=== PATIENT | male | born 1950 | race Caucasian/White ===

== ENCOUNTER → 2018-06-07 10:37 | Outpatient (CLI) | payer MEDICARE, SELFPAY ==
[2018-06-07 12:33] LABS: AST(SGOT) 19 U/L (15-37); Alanine Aminotransfer ALT/SGPT 33 U/L (16-61); Albumin, Serum 3.8 g/dL (3.2-5.0); Alkaline Phosphatase 65 U/L (45-117); Bilirubin, Direct 0.09 mg/dL (0.00-0.30); Cholesterol 165 mg/dL (200); Erythrocyte Sedimentation Rate 9 mm/hr (0-20); Globulin 3.8 g/dL (2.2-4.2); High Density Lipoprotein 27 mg/dL; Protein, Total 7.6 g/dL (6.4-8.2); Rheumatoid Factor < 10.0 IU/mL (<15); Triglycerides 455 mg/dL
[2018-06-08 14:51] LABS: ANTINUCLEAR ANTIBODIES DIRECT Negative (Negative)
== END ==
PROVIDERS: Family Provider Family Medicine; PCP Family Medicine; Visit Provider Family Medicine
DX: E78.2 Mixed hyperlipidemia (principal); M13.0 Polyarthritis, unspecified
CPT/HCPCS: 36415; 80061; 80076; 85652; 86038; 86431

== ENCOUNTER → 2018-12-05 10:52 | Outpatient (CLI) | payer MEDICARE, SELFPAY ==
[2018-12-05 12:06] LABS: Absolute Lymphocyte Count 1.92 X10^3/ul (0.83-4.51); Absolute Neutrophil Count 5.5 X10^3/uL (2.0-7.7); Basophil# 0.02 X10^3/uL; Basophil% 0.2 % (0-1); Eosinophil# 0.11 X10^3/uL; Eosinophils% 1.3 % (0-5); Hematocrit 46.6 % (40-54); Hemoglobin 15.5 g/dl (13.0-16.5); Lymphocyte # 1.92 X10^3/ul (4.0); Mean Corp Hgb Conc 33.3 g/gl (32-36); Mean Corpuscular Hgb 30.6 pg (27.0-32.0); Mean Corpuscular Volume 92.1 fL (80-94); Mean Platelet Vol. 10.1 fl (6.2-12.0); Monocyte% 8.4 % (0-10); Neutrophil # 5.54 X10^3/uL (2.7-7.7); Neutrophil % 66.6 % (47-70); Platelet Count 176 K/mm3 (150-450); RBC Distribution Width CV 13.2 % (11.6-14.6); RBC Distribution Width SD 43.9 fl (35.1-43.9); Red Blood Count 5.06 M/mm3 (4.6-6.2); White Blood Count 8.3 K/mm3 (4.4-11.0)
[2018-12-05 12:10] LABS: POSITIVE COUNT NO; POSITIVE DIFFERENTIAL NO; POSITIVE MORPHOLOGY NO
[2018-12-05 12:34] LABS: Color, Urine Yellow (Yellow); Glucose, Dipstick Normal (Normal); Leukocyte Esterase-Dipstick 100 /ul (Negative); Nitrite-Dipstick Positive (Negative); Occult Blood-Urine 50 /ul (Negative); Protein-Dipstick 500 mg/dl (Negative); Urine Clarity Sl. Cloudy (Clear); Urine Urobilinogen 8 mg/dl (Normal); Urine pH 6.5 (5.0 - 8.0)
[2018-12-05 12:36] LABS: AST(SGOT) 17 U/L (15-37); Alanine Aminotransfer ALT/SGPT 29 U/L (16-61); Albumin, Serum 3.6 g/dL (3.2-5.0); Alkaline Phosphatase 64 U/L (45-117); Anion Gap 10 (5-15); BUN 22 mg/dL (7-18); BUN/Creat Ratio 28.7 RATIO (10-20); Calcium,Total 8.7 mg/dL (8.5-10.1); Chloride 110 mmol/L (98-107); Cholesterol 169 mg/dL (200); Creatinine, Serum 0.77 mg/dL (0.70-1.30); EST Glomerular Filtration Rate 108 mL/min (>60); Est Glom Filt Rate - Afr Amer 131 mL/min (>60); Globulin 3.7 g/dL (2.2-4.2); Glucose 107 mg/dL (74-106); High Density Lipoprotein 26 mg/dL; PSA,Total - Annual Screen 0.97 ng/mL (0.00-4.00); Potassium 3.8 mmol/L (3.5-5.1); Protein, Total 7.3 g/dL (6.4-8.2); Sodium Level 143 mmol/L (136-145); Triglycerides 468 mg/dL
[2018-12-05 12:56] LABS: Ketone-Dipstick 150 mg/dl (Negative); Urine Bilirubin Dipstick 3 mg/dL (Negative)
== END ==
PROVIDERS: Family Provider Family Medicine; PCP Family Medicine; Referring Provider Family Medicine; Visit Provider Family Medicine
DX: Z00.00 Encounter for general adult medical examination without abnormal findings (principal); E78.2 Mixed hyperlipidemia; I10 Essential (primary) hypertension; Z12.5 Encounter for screening for malignant neoplasm of prostate
CPT/HCPCS: 36415; 80053; 80061; 81002; 84153; 85025; G0103

== ENCOUNTER → 2019-06-05 | Outpatient (CLI) | payer MEDICARE, SELFPAY ==
[2019-06-05 10:50] LABS: ALB/GLOB Ratio 0.9 RATIO (0.9-2.4); AST(SGOT) 20 U/L (15-37); Alanine Aminotransfer ALT/SGPT 33 U/L (16-61); Albumin, Serum 3.6 g/dL (3.2-5.0); Alkaline Phosphatase 72 U/L (45-117); Anion Gap 6 (5-15); BUN 15 mg/dL (7-18); BUN/Creat Ratio 17.1 RATIO (10-20); Chloride 106 mmol/L (98-107); Cholesterol 190 mg/dL (200); Creatinine, Serum 0.88 mg/dL (0.70-1.30); EST Glomerular Filtration Rate 93 mL/min (>60); Est Glom Filt Rate - Afr Amer 112 mL/min (>60); Globulin 3.9 g/dL (2.2-4.2); Glucose 118 mg/dL (74-106); High Density Lipoprotein 27 mg/dL; Potassium 3.8 mmol/L (3.5-5.1); Protein, Total 7.5 g/dL (6.4-8.2); Sodium Level 139 mmol/L (136-145); Triglycerides 522 mg/dL
== END | disposition home or self-care (01) ==
LOC: MTLAB 08:17
PROVIDERS: Family Provider Family Medicine; PCP Family Medicine; Referring Provider Family Medicine; Visit Provider Family Medicine
DX: I10 Essential (primary) hypertension (principal); E78.5 Hyperlipidemia, unspecified
CPT/HCPCS: 36415; 80053; 80061

== ENCOUNTER 2019-07-02 12:30 | Outpatient (RCR) | payer MEDICARE, SELFPAY ==
--- NOTE | 2019-06-05 10:51 | HP.PTEVAL ---
Patient's Visit Information SOLOMON OSEI is a 68 year old M referred to Physical Therapy by ALEXIS HDZ with a diagnosis of vertigo. Date of Evaluation: 06/05/19 Physical Therapist: Blue Yang DPT, OCS, CSCS - Visit Plan Frequency: 1x/Week Duration: 4-6 Weeks Plan: weekly x 2-4 as needed for positional checks and monitor need for adaptation ex. - Subjective Findings: I have vertigo. Started as ear infection with spinning with rolling. Went to doctor adn had ear infection L ear. Started a couple months ago. Better now but if he gets up too quickly he can spin for a few seconds. Can also get this bending and rolling still. Has to be careful with balance but it is good for the most part. Heights can also be a problem. Sleep is OK. Feels mostly normal in between these episodes. Gets it once or twice per day, sometimes more. Has stairs at home and going down can feel unsteady. Has a railing and uses it. Going up steps not a problem. No regular ex. Spends day cleaning and in yard. Avoiding heights and excessive activitiy. - Objective Walks I and trasnfers I but slightly slow. C/S AROM 45 rotations and 40 ext without symptoms or pain. UE AROM WFL. - R hallpike shanita. + L hallpike shanita with up torsional nystagmus of 5 seconds duration and dizzy. Treated with L cathi then - HD test. - Balance Scores Functional Gait Assessment Score: 25 % Disability: 16.6700 CATSIB Score (Max score 120 seconds): 115 - Goals Goal 1:: Abolish daily vertigo Goal Time Frame: 2-4 Weeks Goal 2:: Pt feel 100% back to normal and normal acitvitiy Goal Time Frame: 2-4 Weeks Goal 3:: <10% disability on DHI Goal Time Frame: 2-4 Weeks - Rehabilitation Potential Physical Therapy Diagnosis: L post canalithiasis BPPV Rehabilitation Potential: Good - Anticipated Interventions Patient/Client Instruction: Educate patient on: Condition, Plan of Care For the Purpose of:: To increase tolerance to activity/condition/position Comment: positional as needed. balance if needed. For the Purpose of:: To increase tolerance to activity/condition/position Thank you for the opportunity to evaluate your patient. For Medicare and Medicare HMO plans, please review the plan of care and approve it. It will need to be FAXED BACK to us at [phone] for Medicare purposes. For Medicare only, by signing this I certify the plan of care. Please let me know if there are questions or concerns regarding this plan of care. Physician Signature: Date:
--- NOTE | 2019-09-06 15:38 | HP.PT.NRP ---
HP - Discharge Summary (1) - Patient Information SOLOMON OSEI was seen in my office for initial evaluation on 06/05/19. The following Plan of Care was established for this patient: Initial Frequency: 1x/Week Initial Duration: 4-6 Weeks - Anticipated Interventions Patient/Client Instruction: Educate patient on: Condition, Plan of Care For the Purpose of:: To increase tolerance to activity/condition/position For the Purpose of:: To increase tolerance to activity/condition/position This patient was last seen in our office 07/02/19. Pertinent comments regarding their Physical therapy will appear below: Pt seen 2 visits of positional treatments adn was 95% better. He wanted to f/u one last time but neglected to attend that session. At this point,it has been over two months and I will discontinue due to nonattendance. At this point I will be discontinuing this patient from physical therapy. I would be happy to see this patient again in the future if found appropriate by the physician. Thank you! Blue Yang, DPT, OCS, CSCS
== END 2019-07-02 19:00 | disposition home or self-care (01) ==
LOC: PT 12:30
PROVIDERS: Family Provider Family Medicine; PCP Family Medicine
DX: R42 Dizziness and giddiness (principal)
CPT/HCPCS: 97162; 97530

== ENCOUNTER 2019-09-09 20:48 | Inpatient (IN) | payer MEDICARE, SELFPAY ==
[2019-09-09] VITALS (8 sets, daily range): BP systolic 96–123; BP diastolic 76–98; PULSE 123–178; RESP 21–28; TEMP 36.7–37.3; O2SAT 93–96; BMI 40.6
--- NOTE | 2019-09-09 20:54 | ED.RN ---
CALLED FOR EKG PER RN REQUEST, PULLED OLD EKGS FOR
--- NOTE | 2019-09-09 21:00 | EKG12_ITS ---
Test Reason : CP Blood Pressure : / mmHG Vent. Rate : 171 BPM Atrial Rate : 258 BPM P-R Int : 000 ms QRS Dur : 078 ms QT Int : 270 ms P-R-T Axes : 000 011 022 degrees QTc Int : 455 ms Atrial fibrillation with rapid ventricular response with premature ventricular or aberrantly conducte d complexes Nonspecific ST and T wave abnormality Abnormal ECG Confirmed by TANG MONGE ([id number]), deputy editor in chief EDUARDO MADERA ([id number]) on 09/12/2019 8:34:13 AM Referred By: Tremayne Ruiz Confirmed By:TANG MONGE
--- NOTE | 2019-09-09 21:07 | RAD_ITS ---
STUDY: X-RAY CHEST REASON FOR EXAM: Male, 68 years old. Flulike symptoms. TECHNIQUE: Single frontal view of the chest. COMPARISON: None. FINDINGS: There are low lung volumes. There is no focal consolidation. Normal size heart. Normal mediastinum and marci. Normal visualized pulmonary arteries. Normal visualized aortic arch and descending thoracic aorta. There are diffuse degenerative changes of the visualized thoracic spine. Normal visualized ribs, clavicles, and shoulders. There is no demonstrated abnormality of the visualized soft tissue structures of the upper abdomen. RAD/Chest 1 View (Portable) IMPRESSION: No acute cardiopulmonary process. Electronically Signed: Brandie Agee MD at 21:59 EDT Tel , Service support ,
[2019-09-09 21:19] LABS: Absolute Lymphocyte Count 0.86 X10^3/uL (0.83-4.51); Absolute Neutrophil Count 7.6 X10^3/uL (2.0-7.7); Basophil# 0.06 X10^3/uL; Basophil% 0.6 % (0-1); Eosinophil# 0.05 X10^3/uL; Eosinophils% 0.5 % (0-5); Hematocrit 45.7 % (40-54); Hemoglobin 15.9 g/dL (13.0-16.5); Lymphocyte # 0.86 X10^3/ul (4.0); Lymphocyte % 8.8 % (19-41); Mean Corp Hgb Conc 34.8 g/dL (32-36); Mean Corpuscular Hgb 30.6 pg (27.0-32.0); Mean Corpuscular Volume 88.1 fL (80-94); Mean Platelet Vol. 10.8 fl (6.2-12.0); Monocyte# 1.09 X10^3/uL; Monocyte% 11.2 % (0-10); NRBC Flagged by Analyzer 0 % (0-5); Neutrophil # 7.58 X10^3/uL (2.7-7.7); Neutrophil % 78.1 % (47-70); POSITIVE MORPHOLOGY YES; Platelet Count 136 K/mm3 (150-450); RBC Distribution Width CV 13.2 % (11.6-14.6); RBC Distribution Width SD 42.8 fl (35.1-43.9); Red Blood Count 5.19 M/mm3 (4.6-6.2); White Blood Count 9.7 K/mm3 (4.4-11.0)
[2019-09-09 21:20] LABS: International Normalized Ratio 1.2
[2019-09-09 21:21] LABS: Differential Indicated SCAN CRITERIA MET
[2019-09-09] MEDS: Ondansetron 4 MG/2 ML Vial IV (21:26)
[2019-09-09] MEDS: dilTIAZem 25 MG/5 ML Vial 20 MG IV BOLUS (21:26)
[2019-09-09] MEDS: 0.9% Normal Saline 1,000 ML 1000 ML IV (21:26)
[2019-09-09 21:31] LABS: Anion Gap 11 (5-15); BUN 16 mg/dL (7-18); BUN/Creat Ratio 13.4 RATIO (10-20); Calcium,Total 8.5 mg/dL (8.5-10.1); Chloride 107 mmol/L (98-107); Creatinine, Serum 1.19 mg/dL (0.70-1.30); EST Glomerular Filtration Rate 65 mL/min (>60); Est Glom Filt Rate - Afr Amer 79 mL/min (>60); Estimated Creatinine Clearance 65.04 ml/min; Glucose 153 mg/dL (74-106); Potassium 2.9 mmol/L (3.5-5.1); Sodium Level 139 mmol/L (136-145)
[2019-09-09 22:00] LABS: Differential Comment SCANNED
[2019-09-09 22:17] LABS: Lactic Acid 1.8 mmol/L (0.4-2.0)
--- NOTE | 2019-09-09 22:54 | HP.PCM_ITS ---
Problem List (1) Hypertension Status: Acute (2) Hyperglycemia Status: Acute (3) BPH Status: Chronic (4) Dyslipidemia Status: Acute (5) A. fib with RVR Status: Acute (6) UTI/cystitis Status: Acute (7) Seizure disorder Status: Chronic History of Present Illness Date of Admission: 09/09/19 Chief Complaint: Feeling generalized weakness The patient is a 68 year old M with history of hypertension but no cardiac history came to ER with not feeling well, generalized weakness/not able to move around for last 4 days. Patient has fever and chills for 4 days. Complain of burning micturition for 3 to 4 days with increased frequency, urgency and incomplete emptying of bladder. Patient had UTI about 3 to 4 months ago. Patient also had intermittent nausea but denies vomiting, diarrhea or constipation to me. To ER physician, Dr. Billingsley he said he has felt like some stomach flu and diarrhea. [] In ED, patient was found to have A. fib with RVR, heart rate 150/min, respiratory rate 28/min, blood pressure 111/98. EMS EKG shows A. fib with RVR at 147 bpm. 2 EKGs done until now shows A. fib with RVR, with 7 beats of narrow complex, supraventricular complexes. Second and third EKG similar A. fib with RVR but rate is better controlled. Patient is on Cardizem drip. Patient was found potassium 2.9 and second potassium 3.1 after 40 M EQ of K. Dur. Past Medical History Past Medical History (Chronic Problems): Chronic Problems BPH (Chronic) Seizure disorder (Chronic) Allergies No Known Allergies Allergy (Verified 09/03/14 11:09) Home Medications: Ambulatory Orders Medication Instructions Recorded Buspirone HCl 30 mg PO BID 08/21/14 Aspirin E.C. [Ecotrin] 81 mg PO DAILY@0800 #1 09/04/14 [place]-3 Acid Ethyl Esters [Lovaza] 1 gm PO BID #1 09/04/14 Celecoxib [Celebrex] 200 mg PO DAILY 09/09/19 Clonazepam [Klonopin] 1 mg PO BID 09/09/19 Clonazepam [Klonopin] 2 mg PO QHS 09/09/19 Desvenlafaxine [Khedezla] 100 mg PO DAILY 09/09/19 Pravastatin [Pravachol] 40 mg PO QHS 09/09/19 Primidone 50 mg PO BID 09/09/19 Ropinirole HCl [Requip] 0.5 mg PO QHS 09/09/19 Tamsulosin HCl [Flomax] 0.4 mg PO DAILY 09/09/19 traZODone [Desyrel] 50 mg PO QHS 09/09/19 Smoking Status: Former smoker - Started smoking at the age of 14 years at 1 pack /day and quit about 15 years ago. - *Family History Paternal History Items: Cancer - Lung cancer Review of Systems Constitutional: Reports: Chills, Fever, Malaise, Weight Change, Fatigue Eyes: Reports: - HEENT: Denies: Head Aches, Sinus Congestion, Sinus Drainage Cardiovascular: Denies: Chest Pain, Palpitations Respiratory: Denies: Cough, Shortness of breath at rest, Sputum production Gastrointestinal: Reports: Nausea. Denies: Abdominal Pain, Constipation, Diarrhea, Vomiting Genitourinary: Reports: Dysuria, Frequency, Hesitancy, Urgency Musculoskeletal: Reports: Back Pain. Denies: Joint Pain, Joint Tenderness Skin: Denies: Rash, Wounds Neurological: Denies: Numbness, Tingling, Focal weakness Psychiatric: Denies: Anxiety, Depression, Homicidal Ideations, Suicidal Ideations Hematologic/ Lymphatic: Denies: Easy Bruising, Easy Bleeding VTE Information - Inpt Only VTE Present on Admission: No VTE Mechan Device Prophylaxis: None VTE Pharm Prophylaxis ordered?: No Reason prophylaxis not ordered:: Procedure Not Indicated - Already on Eliquis for A. fib Patient Problems: Active and Suspected Problems Hypertension (Acute) Hyperglycemia (Acute) Dyslipidemia (Acute) A. fib with RVR (Acute) UTI/cystitis (Acute) - Physical Exam General: Alert, Oriented x3, Cooperative HEENT: Atraumatic, PERRLA, EOMI, Normocephalic Oral: Dry Mucosa - Looks very dehydrated Neck: Supple, No JVD, Negative Carotid Bruits Lungs: Clear to auscultation, Normal air movement, No rhonchi, No wheeze, No rales Cardiovascular: Normal S1, Normal S2, No murmurs, Irregular Rate, Tachycardic Abdomen: Bowel Sounds Present, Soft, Non Tender, Non-Distended Extremities: No edema, Capillary Refill Less than 3 Seconds Skin: No rashes, No breakdown, - - History of melanoma status post excisions Musculoskeletal: No Tenderness to Palpation of Joints or Extremities, Arthritic Changes Neurological: Cranial nerves II-XII grossly intact, Deep Tendon Reflexes 2+/4 and Symmetrical, Neuro grossly intact Psych/Mental Status: Normal Affect, Appropriate Vital Signs Temp Pulse Resp BP Pulse Ox 98.1 F 136 H 22 H 107/76 95 09/09/19 20:49 09/09/19 22:52 09/09/19 22:52 09/09/19 22:52 09/09/19 22:52 Oxygen Flow Rate (L/min) 2 Oxygen Delivery Method Nasal Cannula Weight: 291 lb 3.69 oz Body Mass Index (BMI) 40.6 Intake and Output for Last 24 Hours 09/07/19 09/08/19 09/09/19 23:59 23:59 23:59 Intake Total 1000 / 1000 Balance 1000 / 1000 Laboratory Tests Past 24 Hrs 09/09/19 09/09/19 09/09/19 20:54 20:54 20:54 WBC 9.7 RBC 5.19 Hgb 15.9 Hct 45.7 MCV 88.1 MCH 30.6 MCHC 34.8 RDW Std Deviation 42.8 RDW Coeff of Ayde 13.2 Plt Count 136 L MPV 10.8 Immature Gran % (Auto) 0.800 Neut % (Auto) 78.1 H Lymph % (Auto) 8.8 L Darke % (Auto) 11.2 H Eos % (Auto) 0.5 Baso % (Auto) 0.6 Absolute Neuts (auto) 7.6 Absolute Lymphs (auto) 0.86 Nucleated RBC % 0 Differential Comment SCANNED PT 15.0 H INR 1.2 Sodium 139 Potassium 2.9 L Chloride 107 Carbon Dioxide 21.0 Anion Gap 11 BUN 16 Creatinine 1.19 Estim Creat Clear Calc 65.04 Est GFR (MDRD) Af Amer 79 Est GFR (MDRD) Non-Af 65 BUN/Creatinine Ratio 13.4 Glucose 153 H Lactic Acid Calcium 8.5 Troponin I 0.047 H 09/09/19 21:31 WBC RBC Hgb Hct MCV MCH MCHC RDW Std Deviation RDW Coeff of Ayde Plt Count MPV Immature Gran % (Auto) Neut % (Auto) Lymph % (Auto) Darke % (Auto) Eos % (Auto) Baso % (Auto) Absolute Neuts (auto) Absolute Lymphs (auto) Nucleated RBC % Differential Comment PT INR Sodium Potassium Chloride Carbon Dioxide Anion Gap BUN Creatinine Estim Creat Clear Calc Est GFR (MDRD) Af Amer Est GFR (MDRD) Non-Af BUN/Creatinine Ratio Glucose Lactic Acid 1.8 Calcium Troponin I Assessment/Plan All Active Problems Hypertension (Acute) Hyperglycemia (Acute) Dyslipidemia (Acute) A. fib with RVR (Acute) UTI/cystitis (Acute) The patient is a 68 year old M with history of hypertension but no cardiac history came to ER with not feeling well, generalized weakness/not able to move around for last 4 days. Patient has fever and chills for 4 days. Complain of burning micturition for 3 to 4 days with increased frequency, urgency and incomplete emptying of bladder. Patient had UTI about 3 to 4 months ago. Patient also had intermittent nausea but denies vomiting, diarrhea or constipation to me. To ER physician, Dr. Billingsley he said he has felt like some stomach flu and diarrhea. [] In ED, patient was found to have A. fib with RVR, heart rate 150/min, respiratory rate 28/min, blood pressure 111/98. EMS EKG shows A. fib with RVR at 147 bpm. 2 EKGs done until now shows A. fib with RVR, with 7 beats of narrow complex, supraventricular complexes. Second and third EKG similar A. fib with RVR but rate is better controlled. Patient is on Cardizem drip. Patient was found potassium 2.9 and second potassium 3.1 after 40 M EQ of K. Dur. 1. A. fib with RVR most probably caused by UTI/cystitis: Patient is on Cardizem drip. Rate increase to 10 mg/h. Heart rate goal less than 100/min. Started on metoprolol 25 mg twice daily. Eliquis 5 mg p.o. twice daily. TSH and fasting profile tomorrow a.m. Cardiac enzymes rule out ACS. Hypokalemia with dehydration: Patient denies any obvious cause of fluid loss but looks dehydrated. IV fluid normal saline 125 mill per hour. Potassium is being replaced. Check magnesium and phosphorus. 2. Acute on recurrent UTI/cystitis, complicated with BPH: Patient had a UTI about 2 to 3 months ago. UA with urine culture ordered. Empirically started on IV ceftriaxone. Kidneys and bladder ultrasound. Bladder scan for postvoid residual. Continue Flomax. 3. Hyperglycemia: A1c tomorrow a.m. glucose 153 in BMP. It was mildly elevated 118 in May 2019. Possible diabetes mellitus type 2 but patient is not diagnosed yet 4. Hypertension, dyslipidemia, chronic seizure disorder: Stable. Blood pressure is controlled 111/98. On Cardizem drip. Continue patient home medication primidone, clonazepam. 5. History of melanoma with multiple excisions in the skin: Patient denies visceral organ metastasis. DVT prophylaxis: On Eliquis 5 mg twice daily for A. fib. Laboratory Results 09/09/19 20:54: WBC 9.7, RBC 5.19, Hgb 15.9, Hct 45.7, MCV 88.1, MCH 30.6, MCHC 34.8, RDW Std Deviation 42.8, RDW Coeff of Ayde 13.2, Plt Count 136 L, MPV 10.8, Immature Gran % (Auto) 0.800, Neut % (Auto) 78.1 H, Lymph % (Auto) 8.8 L, Darke % (Auto) 11.2 H, Eos % (Auto) 0.5, Baso % (Auto) 0.6, Absolute Neuts (auto) 7.6, Absolute Lymphs (auto) 0.86, Nucleated RBC % 0, Differential Comment SCANNED 09/09/19 20:54: PT 15.0 H, INR 1.2 09/09/19 20:54: Sodium 139, Potassium 2.9 L, Chloride 107, Carbon Dioxide 21.0, Anion Gap 11, BUN 16, Creatinine 1.19, Estim Creat Clear Calc 65.04, Est GFR (MDRD) Af Amer 79, Est GFR (MDRD) Non-Af 65, BUN/Creatinine Ratio 13.4, Glucose 153 H, Calcium 8.5, Troponin I 0.047 H 09/09/19 21:31: Lactic Acid 1.8 09/09/19 23:30: Potassium 3.1 L Clinical Impression(s) from Imaging Studies Chest X-Ray 09/09/19 21:07 IMPRESSION: No acute cardiopulmonary process. Code Visit Inpatient E&M: 20730 Init Hosp L3
--- NOTE | 2019-09-09 22:58 | ED.VISSUMM ---
- ER Visit Summary Date of Service: 09/09/19 Chief Complaint: [Weakness] History of Present Illness: The patient is a 68 M [presents to the emergency department with complaint of not feeling well over the last 4 days. Patient had some chills 4 days ago. Patient had some dysuria and thought maybe he was developing a urinary tract infection. Patient had some intermittent nausea and intermittent watery stools. He denies any chest pain. He denies palpitations. He denies any cough. Denies any abdominal pain. He denies racing heart. Patient has history of high cholesterol and history of kidney stones. She does not have a history of atrial fibrillation.] Physical Examination: [HEENT-PERRLA, EOMI. Cranial nerves II through XII grossly intact. TMs clear. Mucous membranes moist. No adenopathy. Cardiovascular-irregular and tachycardic. No murmurs auscultated. Lungs-clear to auscultation, chest wall stable without crepitus or subcu emphysema Abdomen-normoactive bowel sounds, soft, nontender, no rebound or rigidity, no peritoneal signs. Extremities-intact ?4, normal range of motion, normal pulses, atraumatic] Test Results: [EKG obtained arrival showed atrial fibrillation with a ventricular rate of [address] changes. CBC with differential showing a 9.7, hemoglobin 15.9, hematocrit 46, plates 136. Chemistry showed a sodium of 139, potassium 2.9, chloride 107, CO2 21. Glucose is 153 and BUN 16 and creatinine 1.19. INR was 1.2. Troponin was 0.047.] Urinalysis ordered and pending as patient unable to give a urine yet. Emergency Department Course and Treatment: [Patient was given a liter normal same fluid bolus. Patient was treated with Cardizem 20 mg IV bolus. Patient was started on a Cardizem drip.] Treatment Plan: [Admit] Disposition: [Admit] Impression: [A. fib RVR new onset Hypokalemia] This note was generated with [employer] dictation software. It may contain incorrect words, spelling, and punctuation that were not noted in review of the chart prior to signing ED Disposition - Plan for ED Patient: Referrals: Romero Ya MD [Primary Care Provider] -
[2019-09-09 23:58] LABS: Potassium 3.1 mmol/L (3.5-5.1)
[2019-09-10] VITALS (50 sets, daily range): BP systolic 87–137; BP diastolic 53–100; PULSE 83–137; RESP 18–27; TEMP 36.6–38.2; O2SAT 92–98; BMI 39.5
[2019-09-10 01:17] LABS: Mucous, Urine 0 SEEN /hpf (<or=2+); Red Blood Cells-Urine 0 SEEN /hpf (0-5); Squamous Epithelial Cells - UA 0 SEEN /hpf (0-5)
[2019-09-10 01:30] LABS: Color, Urine Amber (Yellow); Glucose, Dipstick Normal (Normal); Ketone-Dipstick 50 mg/dl (Negative); Leukocyte Esterase-Dipstick 100 /ul (Negative); Nitrite-Dipstick Positive (Negative); Occult Blood-Urine 250 /ul (Negative); Protein-Dipstick 100 mg/dl (Negative); Urine Bilirubin Dipstick Negative (Negative); Urine Clarity Sl. Cloudy (Clear); Urine Urobilinogen 1 mg/dl (Normal)
[2019-09-10 01:35] LABS: Bacteria 4+ /hpf (None Seen); Coarse Granular Cast 0-5 SEEN /lpf (0-5 /lpf); Transitional Epithelial - Ur 0-5 SEEN /hpf (0-5); White Blood Cells 10-25 SEEN /hpf (0-5)
--- NOTE | 2019-09-10 01:39 | EKG12_ITS ---
Test Reason : ARRYTHMIA Blood Pressure : / mmHG Vent. Rate : 129 BPM Atrial Rate : 141 BPM P-R Int : 000 ms QRS Dur : 080 ms QT Int : 314 ms P-R-T Axes : 000 012 -05 degrees QTc Int : 460 ms Atrial fibrillation with rapid ventricular response Nonspecific T wave abnormality Abnormal ECG When compared with ECG of 16-MAR-2002 13:58, Atrial fibrillation has replaced Sinus rhythm Vent. rate has increased BY 50 BPM Non-specific change in ST segment in Inferior leads Non-specific change in ST segment in Anterior leads T wave inversion now evident in Anterior leads Confirmed by TANG MONGE ([id number]), tape editor EDUARDO MADERA ([id number]) on 09/12/2019 10:46:48 AM Referred By: Tremayne Ruiz Confirmed By:TANG MONGE
[2019-09-10] MEDS: Ceftriaxone 1 GM/50 ML BAG IV ×2 (01:51→10:09)
[2019-09-10] MEDS: 0.9% Normal Saline 1,000 ML 125 ML IV ×3 (01:51→20:40)
[2019-09-10] MEDS: clonazePAM 1 MG Tablet 2 MG PO ×2 (01:52→22:25)
[2019-09-10] MEDS: Metoprolol Tartrate 25 MG Tablet PO ×2 (01:53→12:11)
[2019-09-10] MEDS: APIXABAN 5 MG TABLET PO ×3 (02:10→22:26)
[2019-09-10] MEDS: 0.9% NaCl IVPB Med Flush (250 mL) 15 ML IV (02:15)
[2019-09-10 03:08] LABS: Hemoglobin A1c 5.1 % (4.2-6.3)
[2019-09-10 03:17] LABS: Anion Gap 9 (5-15); BUN 15 mg/dL (7-18); BUN/Creat Ratio 15.7 RATIO (10-20); Calcium,Total 8.1 mg/dL (8.5-10.1); Chloride 108 mmol/L (98-107); Creatinine, Serum 0.95 mg/dL (0.70-1.30); EST Glomerular Filtration Rate 84 mL/min (>60); Est Glom Filt Rate - Afr Amer 101 mL/min (>60); Estimated Creatinine Clearance 81.46 ml/min; Glucose 167 mg/dL (74-106); Potassium 3.3 mmol/L (3.5-5.1); Sodium Level 139 mmol/L (136-145); Thyroid Stim Hormone (TSH) 0.81 uIU/mL (0.358-3.74)
[2019-09-10 03:54] LABS: Magnesium 1.9 mg/dL (1.6-2.6); Phosphorus 1.9 mg/dL (2.5-4.9)
--- NOTE | 2019-09-10 05:55 | US_ITS ---
STUDY: RENAL ULTRASOUND - COMPLETE REASON FOR EXAM: Male, 68 years old. Recurrent UTIs. TECHNIQUE: Ultrasound evaluation of the kidneys was performed with real-time and static carrera-scale imaging. COMPARISON: None. FINDINGS: RIGHT KIDNEY: Normal location of the right kidney, which is normal in size. The right kidney measures 11.4 cm x 6.5 cm x 5.5 cm. There is a normal cortex of the right kidney. The renal cortex measures 2.1 cm. There is a 1.8 cm x 2.2 cm x 1.3 cm cyst. There are no right renal calculi. There is no right hydronephrosis. DISTAL RIGHT URETER: There is non-visualization of the distal right ureter. There is no demonstrated right ureterovesical junction calculus. There is no demonstrated right ureteral jet. LEFT KIDNEY: Normal location of the left kidney, which is normal in size. The left kidney measures 12.6 cm x 5.1 cm x 5.0 cm. There is a normal cortex of the left kidney. The renal cortex measures 2.0 cm. There is no left renal mass or cyst. There are no left renal calculi. There is no left hydronephrosis. DISTAL LEFT URETER: There is non-visualization of the distal left ureter. There is no demonstrated left ureterovesical junction calculus. There is no demonstrated left ureteral jet. BLADDER: The distended urinary bladder has a volume of 266 ml. Minimal thickening of the bladder wall measuring 5 mm. There is a 1.6 cm x 2.4 sinogram 1.5 cm polypoid soft tissue density at the base of the bladder. Correlation with endoscopy is recommended. There are no demonstrated bladder calculi. US/Kidney and Bladder IMPRESSION: Right renal cyst. Findings suggestive of a 1.6 x 2.4 cm x 1.5 cm polypoid mass at the base of the bladder. Correlation with cystoscopy is recommended. Electronically Signed: Declan Morgan, at 15:32 EDT , Service support ,
--- NOTE | 2019-09-10 05:55 | ECHOCS_ITS ---
Reason For Study: AFIB Procedure This was a 2D Doppler, Color Flow transthoracic echocardiogram. The study was technically difficult. Contrast injection was performed. Exam performed portable in patient room. Left Ventricle Normal size and thickness. The estimated ejection fraction is 65 %. Unable to assess diastolic dysfunction due to arrhythmia. No regional wall motion abnormalities noted. Right Ventricle Mildly dilated right ventricle. Normal systolic function. Atria The left atrium is severely enlarged. The right atrium is mildly enlarged. Normal atrial septum. Mitral Valve The mitral valve is structurally normal. No prolapse or stenosis seen. Trivial mitral valve insufficiency. Tricuspid Valve Normal tricuspid valve. Mild (1+) tricuspid valve insufficiency. Right ventricular systolic pressure estimated to be 38 mmHg. Mild pulmonary hypertension. Aortic Valve Trisinus/trileaflet aortic valve. Mild diffuse aortic valve thickening. Pulmonic Valve Normal pulmonic valve. Great Vessels Normal aortic root. Normal arch. Normal inferior vena cava. Inferior vena cava collapse with respiration. Pericardium/Pleural No pericardial effusion. Medication Diluted definity 6.0ml given slow IV push to enhance endocardial definition. MMode/2D Measurements & Calculations LVIDd: 4.8 cm IVSd: 1.1 cm Ao root diam: 4.1 cm LVIDs: 3.4 cm LVPWd: 1.3 cm RVDd: 3.7 cm FS: 29.6 % LAV(MOD-bp): 75.6 ml LA A4 area: 24.6 cm2 LA dimension(2D): 3.9 cm LAV(MOD-bp) Indexed: 30.9 ml/m2 LAV(MOD-sp2): 74.8 ml LAV(MOD-sp4): 76.9 ml RA A4 area: 20.5 cm2 Doppler Measurements & Calculations Ao V2 max: 125.8 cm/sec LV V1 max: 111.3 cm/sec PA V2 max: 128.9 cm/sec Ao max P.3 mmHg LV V1 max P.0 mmHg TR max maya: 241.2 cm/sec TR max P.3 mmHg Interpretation Summary The estimated ejection fraction is 65 %. Unable to assess diastolic dysfunction due to arrhythmia. Mildly dilated right ventricle. The left atrium is severely enlarged. The right atrium is mildly enlarged. Trivial mitral valve insufficiency. Mild (1+) tricuspid valve insufficiency. Right ventricular systolic pressure estimated to be 38 mmHg. Mild pulmonary hypertension. Pt appears to be in atrial fibrillation. The study was technically difficult. Contrast injection was performed. There is no comparison study available. Ordering Physician: Tremayne Ruiz Referring Physician: MELLISA NEVES Performed By: Meri Alcantar, VIK, RVT
[2019-09-10] MEDS: clonazePAM 1 MG Tablet PO ×2 (06:02→13:59)
[2019-09-10] MEDS: Aspirin E.C. 81 MG Tablet PO ×2 (08:16)
[2019-09-10] MEDS: busPIRone 15 MG TABLET 30 MG PO ×2 (08:16→22:25)
[2019-09-10] MEDS: Celecoxib 200 MG Capsule PO (08:16)
[2019-09-10] MEDS: Primidone 50 MG Tablet PO ×2 (08:16→22:27)
[2019-09-10 08:26] LABS: Bedside Glucose 144 mg/dL (70-110)
--- NOTE | 2019-09-10 11:03 | CASEMGMT ---
This RN CM to room to complete CM assessment and lab is at bedside at this time. CM will attempt again later. SStaten RN CM
--- NOTE | 2019-09-10 11:22 | CASEMGMT ---
Pt confirms he does have a living will and health care POA. Pt made aware that [facility] does not have a copy. Pt agreeable to bring a copy in when able. CHRIS Estevez
[2019-09-10 11:44] LABS: Phosphorus 1.9 mg/dL (2.5-4.9); Potassium 3.5 mmol/L (3.5-5.1)
[2019-09-10 12:21] LABS: Bedside Glucose 136 mg/dL (70-110)
--- NOTE | 2019-09-10 12:27 | PN_ITS ---
<Jacklyn Barbour - Last Filed: 09/10/19 12:51> Patient Problems: Active and Suspected Problems Hypertension (Acute) Hyperglycemia (Acute) Dyslipidemia (Acute) A. fib with RVR (Acute) UTI/cystitis (Acute) Subjective: Patient seen and examined. Continues to have diarrhea. Reports difficulty urinating, has urgency but unable to void. Denies chest pain, shortness of breath. - Physical Exam General: Alert, Oriented x3, Cooperative HEENT: Atraumatic, PERRLA, EOMI, Normocephalic Neck: Supple, No JVD, Negative Carotid Bruits Lungs: Clear to auscultation, Diminished Cardiovascular: - - Atrial for ablation, tachycardic Abdomen: Bowel Sounds Present, Soft, Non Tender, Non-Distended Extremities: No clubbing, No cyanosis, No edema, Capillary Refill Less than 3 Seconds Skin: No rashes, No breakdown, - - Scattered abrasions on face Musculoskeletal: No Tenderness to Palpation of Joints or Extremities Neurological: Cranial nerves II-XII grossly intact, Neuro grossly intact Psych/Mental Status: Normal Affect, Appropriate Vital Signs Temp Pulse Resp BP Pulse Ox 98.0 F 114 H 20 H 119/90 H 94 09/10/19 11:22 09/10/19 12:11 09/10/19 11:22 09/10/19 12:09 09/10/19 11:22 Oxygen Flow Rate (L/min) 2 Oxygen Delivery Method Room Air Weight: 283 lb 8.231 oz Body Mass Index (BMI) 39.5 Intake and Output for Last 24 Hours 09/08/19 09/09/19 09/10/19 23:59 23:59 23:59 Intake Total 1005.58 / 1488.08 2241.75 / 2241.75 Output Total 550 / 550 Balance 1005.58 / 1438.08 1691.75 / 1691.75 Laboratory Tests Past 24 Hrs 09/09/19 09/09/19 09/09/19 20:54 20:54 20:54 WBC 9.7 RBC 5.19 Hgb 15.9 Hct 45.7 MCV 88.1 MCH 30.6 MCHC 34.8 RDW Std Deviation 42.8 RDW Coeff of Ayde 13.2 Plt Count 136 L MPV 10.8 Immature Gran % (Auto) 0.800 Neut % (Auto) 78.1 H Lymph % (Auto) 8.8 L [place]ferro % (Auto) 11.2 H Eos % (Auto) 0.5 Baso % (Auto) 0.6 Absolute Neuts (auto) 7.6 Absolute Lymphs (auto) 0.86 Nucleated RBC % 0 Differential Comment SCANNED PT 15.0 H INR 1.2 Sodium 139 Potassium 2.9 L Chloride 107 Carbon Dioxide 21.0 Anion Gap 11 BUN 16 Creatinine 1.19 Estim Creat Clear Calc 65.04 Est GFR (MDRD) Af Amer 79 Est GFR (MDRD) Non-Af 65 BUN/Creatinine Ratio 13.4 Glucose 153 H Hemoglobin A1c Lactic Acid Calcium 8.5 Phosphorus Magnesium Troponin I 0.047 H TSH Urine Color Urine Clarity Urine pH Ur Specific [place] Urine Protein Urine Glucose (UA) Urine Ketones Urine Occult Blood Urine Nitrite Urine Bilirubin Urine Urobilinogen Ur Leukocyte Esterase Urine RBC Urine WBC Ur Squamous Epith Cells Ur Transition Epith Cell Urine Bacteria Coarse Granular Casts Urine Mucus 09/09/19 09/09/19 09/10/19 21:31 23:30 00:50 WBC RBC Hgb Hct MCV MCH MCHC RDW Std Deviation RDW Coeff of Ayde Plt Count MPV Immature Gran % (Auto) Neut % (Auto) Lymph % (Auto) [place]fer[place] % (Auto) Eos % (Auto) Baso % (Auto) Absolute Neuts (auto) Absolute Lymphs (auto) Nucleated RBC % Differential Comment PT INR Sodium Potassium 3.1 L Chloride Carbon Dioxide Anion Gap BUN Creatinine Estim Creat Clear Calc Est GFR (MDRD) Af Amer Est GFR (MDRD) Non-Af BUN/Creatinine Ratio Glucose Hemoglobin A1c Lactic Acid 1.8 Calcium Phosphorus Magnesium Troponin I 0.039 TSH Urine Color Maureen Urine Clarity Sl. Cloudy Urine pH 7.0 Ur Specific [place] 1.010 Urine Protein 100 H Urine Glucose (UA) Normal Urine Ketones 50 H Urine Occult Blood 250 H Urine Nitrite Positive H Urine Bilirubin Negative Urine Urobilinogen 1 H Ur Leukocyte Esterase 100 H Urine RBC 0 SEEN Urine WBC 10-25 SEEN Ur Squamous Epith Cells 0 SEEN Ur Transition Epith Cell 0-5 SEEN Urine Bacteria 4+ Coarse Granular Casts 0-5 SEEN Urine Mucus 0 SEEN 09/10/19 09/10/19 09/10/19 02:23 02:23 02:23 WBC RBC Hgb Hct MCV MCH MCHC RDW Std Deviation RDW Coeff of Ayde Plt Count MPV Immature Gran % (Auto) Neut % (Auto) Lymph % (Auto) [place] % (Auto) Eos % (Auto) Baso % (Auto) Absolute Neuts (auto) Absolute Lymphs (auto) Nucleated RBC % Differential Comment PT INR Sodium 139 Potassium 3.3 L Chloride 108 H Carbon Dioxide 22.0 Anion Gap 9 BUN 15 Creatinine 0.95 Estim Creat Clear Calc 81.46 Est GFR (MDRD) Af Amer 101 Est GFR (MDRD) Non-Af 84 BUN/Creatinine Ratio 15.7 Glucose 167 H Hemoglobin A1c 5.1 Lactic Acid Calcium 8.1 L Phosphorus 1.9 L Magnesium 1.9 Troponin I 0.026 TSH 0.81 Urine Color Urine Clarity Urine pH Ur Specific [place] Urine Protein Urine Glucose (UA) Urine Ketones Urine Occult Blood Urine Nitrite Urine Bilirubin Urine Urobilinogen Ur Leukocyte Esterase Urine RBC Urine WBC Ur Squamous Epith Cells Ur Transition Epith Cell Urine Bacteria Coarse Granular Casts Urine Mucus 09/10/19 11:04 WBC RBC Hgb Hct MCV MCH MCHC RDW Std Deviation RDW Coeff of Ayde Plt Count MPV Immature Gran % (Auto) Neut % (Auto) Lymph % (Auto) [place] % (Auto) Eos % (Auto) Baso % (Auto) Absolute Neuts (auto) Absolute Lymphs (auto) Nucleated RBC % Differential Comment PT INR Sodium Potassium 3.5 Chloride Carbon Dioxide Anion Gap BUN Creatinine Estim Creat Clear Calc Est GFR (MDRD) Af Amer Est GFR (MDRD) Non-Af BUN/Creatinine Ratio Glucose Hemoglobin A1c Lactic Acid Calcium Phosphorus 1.9 L Magnesium Troponin I TSH Urine Color Urine Clarity Urine pH Ur Specific [place] Urine Protein Urine Glucose (UA) Urine Ketones Urine Occult Blood Urine Nitrite Urine Bilirubin Urine Urobilinogen Ur Leukocyte Esterase Urine RBC Urine WBC Ur Squamous Epith Cells Ur Transition Epith Cell Urine Bacteria Coarse Granular Casts Urine Mucus POC Glucose 09/10/19 09/10/19 12:06 06:59 POC Glucose 136 H 144 H Medical Necessity - Tobacco Use Smoking Status: Former smoker - Started smoking at the age of 14 years at 1 pac k/day and quit about 15 years ago. Assessment/Plan All Active Problems Hypertension (Acute) Hyperglycemia (Acute) Dyslipidemia (Acute) A. fib with RVR (Acute) UTI/cystitis (Acute) 1. Atrial fibrillation with RVR-initiated on Eliquis 5 mg twice daily. Increase metoprolol to 50 mg twice daily. On Cardizem drip with goal heart rate less than 100 bpm. TSH, mag normal. No significant increase in troponin. Echocardiogram pending. 2. Acute UTI/urinary retention/BPH-continue IV Rocephin pending culture. Barnhart placed secondary to retention. Consult urology. Renal ultrasound pending. Continue home Flomax regimen. Add Proscar. PT/OT. 3. Hypertension-stable, does not appear to be on regimen. 4. Hyperlipidemia- continue statin. 5. History of melanoma status post excision 6. Anxiety/Depression-continue Celebrex, Klonopin, desvenlafaxine, trazodone, buspirone regimen. Following with counselor as outpatient. 7. Seizure disorder-continue home primidone regimen. 8. Obesity-encouraged diet and lifestyle modifications. DVT prophylaxis-Eliquis This patient was seen by BRENNON Samano under the supervision of Dr. Jefferson. <Blue Jefferson - Last Filed: 09/10/19 17:30> Subjective: States difficulty with urination has been going on but is gotten worse more recently. Complains of nocturia going several times per night. - Physical Exam General: Alert, Cooperative HEENT: Atraumatic, Normocephalic Neck: No Nodes, Thyroid Normal Size and Texture Lungs: Clear to auscultation, Normal air movement, No rhonchi, No wheeze Cardiovascular: - Abdomen: Bowel Sounds Present, Soft, Non Tender, Non-Distended, Obese Extremities: No edema, No Calf Tenderness Skin: - - Scattered abrasions on face, knees and elbows. Musculoskeletal: No Tenderness to Palpation of Joints or Extremities Neurological: Neuro grossly intact, - - No clonus Psych/Mental Status: Normal Affect, Appropriate Vital Signs Temp Pulse Resp BP Pulse Ox 38.2 C H 118 H 18 110/78 93 09/10/19 16:00 09/10/19 16:00 09/10/19 16:00 09/10/19 16:00 09/10/19 16:00 Oxygen Flow Rate (L/min) 2 Oxygen Delivery Method Room Air Weight: 128.6 kg Body Mass Index (BMI) 39.5 Intake and Output for Last 24 Hours 09/08/19 09/09/19 09/10/19 23:59 23:59 23:59 Intake Total 1005.58 / 1488.08 2780.75 / 2780.75 Output Total 550 / 550 Balance 1005.58 / 1438.08 2230.75 / 2230.75 Microbiology Past 72 Hours 09/10/19 10:05 Enteric Bacteriology - Final Stool Laboratory Tests Past 24 Hrs 09/09/19 09/09/19 09/09/19 20:54 20:54 20:54 WBC 9.7 RBC 5.19 Hgb 15.9 Hct 45.7 MCV 88.1 MCH 30.6 MCHC 34.8 RDW Std Deviation 42.8 RDW Coeff of Ayde 13.2 Plt Count 136 L MPV 10.8 Immature Gran % (Auto) 0.800 Neut % (Auto) 78.1 H Lymph % (Auto) 8.8 L [place] % (Auto) 11.2 H Eos % (Auto) 0.5 Baso % (Auto) 0.6 Absolute Neuts (auto) 7.6 Absolute Lymphs (auto) 0.86 Nucleated RBC % 0 Differential Comment SCANNED PT 15.0 H INR 1.2 Sodium 139 Potassium 2.9 L Chloride 107 Carbon Dioxide 21.0 Anion Gap 11 BUN 16 Creatinine 1.19 Estim Creat Clear Calc 65.04 Est GFR (MDRD) Af Amer 79 Est GFR (MDRD) Non-Af 65 BUN/Creatinine Ratio 13.4 Glucose 153 H Hemoglobin A1c Lactic Acid Calcium 8.5 Phosphorus Magnesium Troponin I 0.047 H TSH Urine Color Urine Clarity Urine pH Ur Specific [place] Urine Protein Urine Glucose (UA) Urine Ketones Urine Occult Blood Urine Nitrite Urine Bilirubin Urine Urobilinogen Ur Leukocyte Esterase Urine RBC Urine WBC Ur Squamous Epith Cells Ur Transition Epith Cell Urine Bacteria Coarse Granular Casts Urine Mucus 09/09/19 09/09/19 09/10/19 21:31 23:30 00:50 WBC RBC Hgb Hct MCV MCH MCHC RDW Std Deviation RDW Coeff of Ayde Plt Count MPV Immature Gran % (Auto) Neut % (Auto) Lymph % (Auto) [place] % (Auto) Eos % (Auto) Baso % (Auto) Absolute Neuts (auto) Absolute Lymphs (auto) Nucleated RBC % Differential Comment PT INR Sodium Potassium 3.1 L Chloride Carbon Dioxide Anion Gap BUN Creatinine Estim Creat Clear Calc Est GFR (MDRD) Af Amer Est GFR (MDRD) Non-Af BUN/Creatinine Ratio Glucose Hemoglobin A1c Lactic Acid 1.8 Calcium Phosphorus Magnesium Troponin I 0.039 TSH Urine Color Maureen Urine Clarity Sl. Cloudy Urine pH 7.0 Ur Specific [place] 1.010 Urine Protein 100 H Urine Glucose (UA) Normal Urine Ketones 50 H Urine Occult Blood 250 H Urine Nitrite Positive H Urine Bilirubin Negative Urine Urobilinogen 1 H Ur Leukocyte Esterase 100 H Urine RBC 0 SEEN Urine WBC 10-25 SEEN Ur Squamous Epith Cells 0 SEEN Ur Transition Epith Cell 0-5 SEEN Urine Bacteria 4+ Coarse Granular Casts 0-5 SEEN Urine Mucus 0 SEEN 09/10/19 09/10/19 09/10/19 02:23 02:23 02:23 WBC RBC Hgb Hct MCV MCH MCHC RDW Std Deviation RDW Coeff of Ayde Plt Count MPV Immature Gran % (Auto) Neut % (Auto) Lymph % (Auto) [place] % (Auto) Eos % (Auto) Baso % (Auto) Absolute Neuts (auto) Absolute Lymphs (auto) Nucleated RBC % Differential Comment PT INR Sodium 139 Potassium 3.3 L Chloride 108 H Carbon Dioxide 22.0 Anion Gap 9 BUN 15 Creatinine 0.95 Estim Creat Clear Calc 81.46 Est GFR (MDRD) Af Amer 101 Est GFR (MDRD) Non-Af 84 BUN/Creatinine Ratio 15.7 Glucose 167 H Hemoglobin A1c 5.1 Lactic Acid Calcium 8.1 L Phosphorus 1.9 L Magnesium 1.9 Troponin I 0.026 TSH 0.81 Urine Color Urine Clarity Urine pH Ur Specific [place] Urine Protein Urine Glucose (UA) Urine Ketones Urine Occult Blood Urine Nitrite Urine Bilirubin Urine Urobilinogen Ur Leukocyte Esterase Urine RBC Urine WBC Ur Squamous Epith Cells Ur Transition Epith Cell Urine Bacteria Coarse Granular Casts Urine Mucus 09/10/19 11:04 WBC RBC Hgb Hct MCV MCH MCHC RDW Std Deviation RDW Coeff of Ayde Plt Count MPV Immature Gran % (Auto) Neut % (Auto) Lymph % (Auto) [place] % (Auto) Eos % (Auto) Baso % (Auto) Absolute Neuts (auto) Absolute Lymphs (auto) Nucleated RBC % Differential Comment PT INR Sodium Potassium 3.5 Chloride Carbon Dioxide Anion Gap BUN Creatinine Estim Creat Clear Calc Est GFR (MDRD) Af Amer Est GFR (MDRD) Non-Af BUN/Creatinine Ratio Glucose Hemoglobin A1c Lactic Acid Calcium Phosphorus 1.9 L Magnesium Troponin I TSH Urine Color Urine Clarity Urine pH Ur Specific [place] Urine Protein Urine Glucose (UA) Urine Ketones Urine Occult Blood Urine Nitrite Urine Bilirubin Urine Urobilinogen Ur Leukocyte Esterase Urine RBC Urine WBC Ur Squamous Epith Cells Ur Transition Epith Cell Urine Bacteria Coarse Granular Casts Urine Mucus POC Glucose 09/10/19 09/10/19 09/10/19 16:31 12:06 06:59 POC Glucose 154 H 136 H 144 H Assessment/Plan Patient seen and examined independently. Data reviewed. I agree with the above note by the nurse practitioner. 1. Atrial fibrillation with RVR * Ongoing, with diltiazem drip. * Metoprolol increased to 50 twice daily, up from 25 * Already anticoagulated on apixaban * Echocardiographic shows an ejection fraction of 65%, severely enlarged left atrium and mild pulmonary hypertension with RVSP of 38 mmHg * May have been exacerbated due to his underlying urinary tract infection and sepsis 2. UTI * May be due to urinary retention due to BPH * Follow-up culture results and adjust antibiotics accordingly 3. BPH * Was already on tamsulosin as outpatient, but with minimal relief. Finasteride added * Ultrasound of the bladder showed that it was distended but noted a 1.6 x 2.4 polypoid soft tissue density at the base of the bladder. Unclear if this is contributing to his urinary retention. * Urology on consultation. * Barnhart catheter in place given the urinary retention. Will need to have that the removed and evaluate to see if he can remain out prior to discharge. 4. Sepsis * Likely secondary to UTI * Follow-up cultures and adjust antibiotics accordingly * Chest x-ray reviewed and showed no infiltrate Case discussed with the patient's family at bedside. Code Visit Inpatient E&M: 85776 Subs Hosp L3
--- NOTE | 2019-09-10 13:06 | CASEMGMT ---
RN CM Assessment Introduced role of RN CM to patient and patient two Dtrs Mayelin and Grecia at bedside.? Patient is alert, oriented and able?to participate in RN CM Assessment. ?Care providers, pharmacy, and demographics verified. Presentation: Not feeling well last 4 days. Chills, Dyspnea x4days ago. +Fall Admit Dx: Afib RVR Re-Admit: No Barriers/Issues: Lives alone, +Fall. PCP: Romero [facility] Specialists: Neuro- Dr Rivera, Workman's Comp: Pain-Dr Thor Crane, Psych- Dr Donny Ortega, Counselor. Preferred Pharmacy: [facility], [place] (States for Workman's Comp Meds and Short course Meds). Uses [facility] for Maintenance medications. Insurance: [employer] PPO Rx Benefit:?Yes ?LNOK: Dtr Grecia Parker and Dtr Mayelin Kim LW/HPOA: None. Would like information- this comic writer provided patient with Advanced Directive Information. Aware to notify staff if he would like to complete here on this admission or made aware can return as an outpatient and complete. Living Arrangements:? Lives alone in a 2 story home, bedroom on fl. 2 steps to enter home. ADL?s: Independent with ambulation and ADLs Transportation: Patient drives DME: CPAP- [employer], denies any other DME HHC: None SNF: None Goal: Home and states that he is not home bound, states if PT/OT recommended would want to go to outpatient PT with [email or web address]. Denies any issues/concerns/or questions with DC planning at this time. Aware CM remains available for any emerging needs. DC PLAN: Home with possible Outpatient PT. Possible Coupon card for Eliquis card. CM to follow PT/OT. HUMAIRA Diamond
[2019-09-10] MEDS: Finasteride 5 MG Tablet PO (13:59)
[2019-09-10 16:35] LABS: Bedside Glucose 154 mg/dL (70-110)
[2019-09-10] MEDS: Tamsulosin HCl 0.4 MG Capsule PO (16:38)
[2019-09-10] MEDS: Insulin Lispro 100 UNIT/ML INSULN.PEN SC ×2 (16:38→22:26)
--- NOTE | 2019-09-10 17:52 | PCM.CONS.U ---
Reason for Consult Date of Consultation: 09/10/19 Reason for Consultation: Unable to urinate and bladder mass History of Present Illness: The patient is a 68 year old male who presented to the hospital with multiple medical problems including heart problems and rapid ventricular response arrhythmia is undergoing work-up by the medical service during the work-up he also related having problems going to the bathroom difficulty with urination and a Barnhart catheter was placed for urinary retention. Ultrasound was done and demonstrates a mass in the bladder and this appears to be a tumor. I told the patient it looks like he has a tumor that is probably bladder cancer. He may also have BPH with obstruction he is been started on medical therapy for BPH. Past Medical History Past Medical History (Chronic Problems): Chronic Problems BPH (Chronic) Seizure disorder (Chronic) Allergies No Known Allergies Allergy (Verified 09/09/19 23:42) Home Medications: Ambulatory Orders Medication Instructions Recorded Buspirone HCl 30 mg PO BID 08/21/14 Aspirin E.C. [Ecotrin] 81 mg PO DAILY@0800 #1 09/04/14 [place]-3 Acid Ethyl Esters [Lovaza] 1 gm PO BID #1 09/04/14 Celecoxib [Celebrex] 200 mg PO DAILY 09/09/19 Clonazepam [Klonopin] 1 mg PO BID 09/09/19 Clonazepam [Klonopin] 2 mg PO QHS 09/09/19 Desvenlafaxine [Khedezla] 100 mg PO DAILY 09/09/19 Pravastatin [Pravachol] 40 mg PO QHS 09/09/19 Primidone 50 mg PO BID 09/09/19 Ropinirole HCl [Requip] 0.5 mg PO QHS 09/09/19 Tamsulosin HCl [Flomax] 0.4 mg PO DAILY 09/09/19 traZODone [Desyrel] 50 mg PO QHS 09/09/19 Smoking Status: Former smoker - Started smoking at the age of 14 years at 1 pack/day and quit about 15 years ago. - *Family History Paternal History Items: Cancer - Lung cancer Review of Systems Constitutional: Denies: Chills, Fever, Weight Change HEENT: Denies: Head Aches, Sinus Congestion, Sinus Drainage Cardiovascular: Denies: Palpitations Respiratory: Denies: Cough, Shortness of breath at rest, Sputum production Gastrointestinal: Reports: Abdominal Pain. Denies: Nausea, Vomiting Genitourinary: Reports: Frequency, Hematuria, Hesitancy, Incontinence, Nocturia, Retention, Urgency. Denies: Dysuria Musculoskeletal: Denies: Joint Pain, Joint Tenderness Skin: Denies: Rash, Wounds Neurological: Denies: Numbness, Tingling, Focal weakness Psychiatric: Denies: Anxiety, Depression, Homicidal Ideations, Suicidal Ideations Hematologic/ Lymphatic: Denies: Easy Bruising, Easy Bleeding Physical Exam - Physical Exam Vital Signs Temp 100.8 F H 09/10/19 16:00 Pulse 118 H 09/10/19 16:00 Resp 18 09/10/19 16:00 BP 110/78 09/10/19 16:00 Pulse Ox 93 09/10/19 16:00 Intake & Output 09/08/19 09/09/19 09/10/19 23:59 23:59 23:59 Intake Total 1005.58 / 1488.08 2780.75 / 2780.75 Output Total 550 / 550 Balance 1005.58 / 1438.08 2230.75 / 2230.75 Weight: 132.1 kg 128.6 kg Intake: Oral 720 / 720 Intake, IV Amount 1005.58 / 1008.08 2060.75 / 2060.75 0.9% Normal Saline 1,000 ML @ 1000 / 1000 1000 mls/hr IV .Q1H ONE Rx#: [id number] 0.9% Normal Saline 1,000 ML @ 977.08 / 977.08 125 mls/hr IV .Q8H CLIVE Rx#: [id number] 0.9% Normal Saline 1,000 ML @ 481.25 / 481.25 125 mls/hr IV .Q8H [facility] Rx#: [id number] 0.9% Normal Saline 250 ML @ 15 34.5 / 34.5 mls/hr IV .[id number] PRN Rx#: [id number] Cardizem 125 MG In Dextrose 5%- 5.58 / 8.08 207.92 / 207.92 Water 100 ML @ 10 MG/HR 10 mls/ hr CONT INF .[id number] CLIVE Rx#: [id number] Pot Phos 30 MM In 0.9% Normal 260.0 / 260.0 Saline 250 ML @ 42 mls/hr IV X1 ONE Rx#:[id number] Rocephin 1 gm In 50 ml @ 100 100 / 100 mls/hr IV Q24 [facility] Rx#:[id number] Output: Urine 550 / 550 Other: Number of Bowel Movements 1 General: Alert, Oriented x3 HEENT: Atraumatic Oral: Moist Mucosa Neck: Supple Lungs: Normal air movement Cardiovascular: Regular rate Microbiology Past 72 Hours 09/10/19 10:05 Enteric Bacteriology - Final Stool Laboratory Tests Past 24 Hrs 09/09/19 09/09/19 09/09/19 20:54 20:54 20:54 WBC 9.7 RBC 5.19 Hgb 15.9 Hct 45.7 MCV 88.1 MCH 30.6 MCHC 34.8 RDW Std Deviation 42.8 RDW Coeff of Ayde 13.2 Plt Count 136 L MPV 10.8 Immature Gran % (Auto) 0.800 Neut % (Auto) 78.1 H Lymph % (Auto) 8.8 L [place] % (Auto) 11.2 H Eos % (Auto) 0.5 Baso % (Auto) 0.6 Absolute Neuts (auto) 7.6 Absolute Lymphs (auto) 0.86 Nucleated RBC % 0 Differential Comment SCANNED PT 15.0 H INR 1.2 Sodium 139 Potassium 2.9 L Chloride 107 Carbon Dioxide 21.0 Anion Gap 11 BUN 16 Creatinine 1.19 Estim Creat Clear Calc 65.04 Est GFR (MDRD) Af Amer 79 Est GFR (MDRD) Non-Af 65 BUN/Creatinine Ratio 13.4 Glucose 153 H Hemoglobin A1c Lactic Acid Calcium 8.5 Phosphorus Magnesium Troponin I 0.047 H TSH Urine Color Urine Clarity Urine pH Ur Specific [place] Urine Protein Urine Glucose (UA) Urine Ketones Urine Occult Blood Urine Nitrite Urine Bilirubin Urine Urobilinogen Ur Leukocyte Esterase Urine RBC Urine WBC Ur Squamous Epith Cells Ur Transition Epith Cell Urine Bacteria Coarse Granular Casts Urine Mucus 09/09/19 09/09/19 09/10/19 21:31 23:30 00:50 WBC RBC Hgb Hct MCV MCH MCHC RDW Std Deviation RDW Coeff of Ayde Plt Count MPV Immature Gran % (Auto) Neut % (Auto) Lymph % (Auto) [place] % (Auto) Eos % (Auto) Baso % (Auto) Absolute Neuts (auto) Absolute Lymphs (auto) Nucleated RBC % Differential Comment PT INR Sodium Potassium 3.1 L Chloride Carbon Dioxide Anion Gap BUN Creatinine Estim Creat Clear Calc Est GFR (MDRD) Af Amer Est GFR (MDRD) Non-Af BUN/Creatinine Ratio Glucose Hemoglobin A1c Lactic Acid 1.8 Calcium Phosphorus Magnesium Troponin I 0.039 TSH Urine Color Maureen Urine Clarity Sl. Cloudy Urine pH 7.0 Ur Specific [place] 1.010 Urine Protein 100 H Urine Glucose (UA) Normal Urine Ketones 50 H Urine Occult Blood 250 H Urine Nitrite Positive H Urine Bilirubin Negative Urine Urobilinogen 1 H Ur Leukocyte Esterase 100 H Urine RBC 0 SEEN Urine WBC 10-25 SEEN Ur Squamous Epith Cells 0 SEEN Ur Transition Epith Cell 0-5 SEEN Urine Bacteria 4+ Coarse Granular Casts 0-5 SEEN Urine Mucus 0 SEEN 09/10/19 09/10/19 09/10/19 02:23 02:23 02:23 WBC RBC Hgb Hct MCV MCH MCHC RDW Std Deviation RDW Coeff of Ayde Plt Count MPV Immature Gran % (Auto) Neut % (Auto) Lymph % (Auto) [place] % (Auto) Eos % (Auto) Baso % (Auto) Absolute Neuts (auto) Absolute Lymphs (auto) Nucleated RBC % Differential Comment PT INR Sodium 139 Potassium 3.3 L Chloride 108 H Carbon Dioxide 22.0 Anion Gap 9 BUN 15 Creatinine 0.95 Estim Creat Clear Calc 81.46 Est GFR (MDRD) Af Amer 101 Est GFR (MDRD) Non-Af 84 BUN/Creatinine Ratio 15.7 Glucose 167 H Hemoglobin A1c 5.1 Lactic Acid Calcium 8.1 L Phosphorus 1.9 L Magnesium 1.9 Troponin I 0.026 TSH 0.81 Urine Color Urine Clarity Urine pH Ur Specific [place] Urine Protein Urine Glucose (UA) Urine Ketones Urine Occult Blood Urine Nitrite Urine Bilirubin Urine Urobilinogen Ur Leukocyte Esterase Urine RBC Urine WBC Ur Squamous Epith Cells Ur Transition Epith Cell Urine Bacteria Coarse Granular Casts Urine Mucus 09/10/19 11:04 WBC RBC Hgb Hct MCV MCH MCHC RDW Std Deviation RDW Coeff of Ayde Plt Count MPV Immature Gran % (Auto) Neut % (Auto) Lymph % (Auto) [place] % (Auto) Eos % (Auto) Baso % (Auto) Absolute Neuts (auto) Absolute Lymphs (auto) Nucleated RBC % Differential Comment PT INR Sodium Potassium 3.5 Chloride Carbon Dioxide Anion Gap BUN Creatinine Estim Creat Clear Calc Est GFR (MDRD) Af Amer Est GFR (MDRD) Non-Af BUN/Creatinine Ratio Glucose Hemoglobin A1c Lactic Acid Calcium Phosphorus 1.9 L Magnesium Troponin I TSH Urine Color Urine Clarity Urine pH Ur Specific [place] Urine Protein Urine Glucose (UA) Urine Ketones Urine Occult Blood Urine Nitrite Urine Bilirubin Urine Urobilinogen Ur Leukocyte Esterase Urine RBC Urine WBC Ur Squamous Epith Cells Ur Transition Epith Cell Urine Bacteria Coarse Granular Casts Urine Mucus Assessment/Plan All Active Problems Hypertension (Acute) Hyperglycemia (Acute) Dyslipidemia (Acute) A. fib with RVR (Acute) UTI/cystitis (Acute) 68-year-old male with multiple medical problems presents with heart problems probably urinary tract infection BPH with retention probable mass within the bladder. Given his current status and situation I do not think any emergent urological procedures are necessary but certainly he will eventually need a transurethral resection of the bladder tumor and he may need an evaluation regarding his prostate to rule out cancer and obstruction. We can start him on a prostate medication we can do a voiding trial before he goes home but if he is not able to void normally he may be to be discharged home with a catheter. He can follow-up in my office for a cystoscopy. I told the patient he appears to have a tumor in the bladder this probably bladder cancer needs to have this followed up he is to make an appointment my office for an outpatient cystoscopy and then once again medically cleared we can set him up for surgery if you have any questions pick please call me at this point I do not think you should set him up for surgery at the current moment unless he will be cleared medically but to me still seems unstable for surgery.
--- NOTE | 2019-09-10 18:32 | EKG12_ITS ---
Test Reason : RHYTHM CHANGE Blood Pressure : / mmHG Vent. Rate : 087 BPM Atrial Rate : 087 BPM P-R Int : 130 ms QRS Dur : 082 ms QT Int : 354 ms P-R-T Axes : 020 003 021 degrees QTc Int : 425 ms Normal sinus rhythm T wave abnormality, consider anterior ischemia Abnormal ECG When compared with ECG of 10-SEP-2019 00:15, MANUAL COMPARISON REQUIRED, DATA IS UNCONFIRMED Confirmed by TANG MONGE ([id number]), order editor MARVIN FAIR ([id number]) on 09/14/2019 10:31:35 AM Referred By: Tremayne Ruiz Confirmed By:TANG MONGE
[2019-09-10] MEDS: traZODone 50 MG Tablet PO (22:25)
[2019-09-10] MEDS: Metoprolol Tartrate 50 MG Tablet PO (22:25)
[2019-09-10] MEDS: Pravastatin 40 MG Tablet PO (22:25)
[2019-09-10] MEDS: Pramipexole Di-HCl 0.25 MG Tablet PO (22:27)
[2019-09-10 23:11] LABS: Bedside Glucose 167 mg/dL (70-110)
[2019-09-11] VITALS (12 sets, daily range): BP systolic 108–135; BP diastolic 67–88; PULSE 68–84; RESP 16–20; TEMP 36.4–37.2; O2SAT 90–96
[2019-09-11] MEDS: 0.9% Normal Saline 1,000 ML 125 ML IV ×3 (03:42→20:09)
[2019-09-11] MEDS: clonazePAM 1 MG Tablet PO ×2 (06:28→13:09)
[2019-09-11 06:36] LABS: Bedside Glucose 107 mg/dL (70-110)
[2019-09-11 07:09] LABS: Anion Gap 6 (5-15); BUN 11 mg/dL (7-18); BUN/Creat Ratio 14.3 RATIO (10-20); Calcium,Total 7.6 mg/dL (8.5-10.1); Chloride 111 mmol/L (98-107); Creatinine, Serum 0.77 mg/dL (0.70-1.30); EST Glomerular Filtration Rate 107 mL/min (>60); Est Glom Filt Rate - Afr Amer 130 mL/min (>60); Estimated Creatinine Clearance 77.39 ml/min; Glucose 106 mg/dL (74-106); Potassium 3.4 mmol/L (3.5-5.1); Sodium Level 143 mmol/L (136-145)
[2019-09-11] MEDS: APIXABAN 5 MG TABLET PO ×2 (09:05→21:27)
[2019-09-11] MEDS: Celecoxib 200 MG Capsule PO (09:05)
[2019-09-11] MEDS: busPIRone 15 MG TABLET 30 MG PO ×2 (09:05→21:27)
[2019-09-11] MEDS: Finasteride 5 MG Tablet PO (09:06)
[2019-09-11] MEDS: Primidone 50 MG Tablet PO ×2 (09:06→21:27)
[2019-09-11] MEDS: Metoprolol Tartrate 50 MG Tablet PO ×2 (09:06→21:28)
[2019-09-11] MEDS: Ciprofloxacin 400 MG/200 ML BAG 200 MG IV ×2 (11:21→21:27)
[2019-09-11] MEDS: Insulin Lispro 100 UNIT/ML INSULN.PEN SC ×2 (11:51→21:28)
--- NOTE | 2019-09-11 11:52 | PCM.PN.BLA ---
Progress Note if cleared medically, make him NPO tonight and can do surgery tomorrow with a TURBT, will add on schedule and see if get cleared.
[2019-09-11] MEDS: Glucerna Shake 120 ML LIQUID PO ×2 (11:54→16:52)
[2019-09-11 12:01] LABS: Bedside Glucose 160 mg/dL (70-110)
--- NOTE | 2019-09-11 14:46 | PN_ITS ---
<Jacklyn Barbour - Last Filed: 09/11/19 15:02> Patient Problems: Active and Suspected Problems Hypertension (Acute) Hyperglycemia (Acute) Dyslipidemia (Acute) A. fib with RVR (Acute) UTI/cystitis (Acute) Subjective: Patient seen and examined. Overall feeling improved. Converted to sinus rhythm overnight. Barnhart remains in place, draining without difficulty. - Physical Exam General: Alert, Oriented x3, Cooperative HEENT: Atraumatic, PERRLA, EOMI, Normocephalic Neck: Supple, No JVD, Negative Carotid Bruits Lungs: Clear to auscultation, Diminished Cardiovascular: Regular rate, Regular Rhythm, Normal S1, Normal S2, No murmurs Abdomen: Bowel Sounds Present, Soft, Non Tender, Non-Distended Extremities: No clubbing, No cyanosis, No edema, Capillary Refill Less than 3 Seconds Skin: - - Scattered abrasions on face, extremities Musculoskeletal: No Tenderness to Palpation of Joints or Extremities Neurological: Cranial nerves II-XII grossly intact, Neuro grossly intact Psych/Mental Status: Normal Affect, Appropriate Vital Signs Temp Pulse Resp BP Pulse Ox 98.9 F 84 20 H 111/88 H 92 09/11/19 09:05 09/11/19 09:06 09/11/19 09:05 09/11/19 09:05 09/11/19 09:05 Oxygen Flow Rate (L/min) 2 Oxygen Delivery Method Room Air Weight: 283 lb 8.231 oz Body Mass Index (BMI) 39.5 Intake and Output for Last 24 Hours 09/09/19 09/10/19 09/11/19 23:59 23:59 23:59 Intake Total 1005.58 / 1488.08 4172.00 / 4172.00 / 1984. Output Total 1250 / 1250 725 / 725 Balance 1005.58 / 1438.08 2922.00 / 2922.00 1260.00 / 1260.00 Microbiology Past 72 Hours 09/10/19 00:50 Urine Culture - Final Urine, Catheterized Morganella morganii sp morgani 09/09/19 22:45 Blood Culture - Preliminary Blood Culture (Wb) - Left Hand 09/10/19 10:05 Enteric Bacteriology - Final Stool Laboratory Tests Past 24 Hrs 09/11/19 06:10 Sodium 143 Potassium 3.4 L Chloride 111 H Carbon Dioxide 26.0 Anion Gap 6 BUN 11 Creatinine 0.77 Estim Creat Clear Calc 77.39 Est GFR (MDRD) Af Amer 130 Est GFR (MDRD) Non-Af 107 BUN/Creatinine Ratio 14.3 Glucose 106 Calcium 7.6 L POC Glucose 09/11/19 09/11/19 09/10/19 11:50 06:26 22:09 POC Glucose 160 H 107 167 H 09/10/19 16:31 POC Glucose 154 H Medical Necessity - Tobacco Use Smoking Status: Former smoker - Started smoking at the age of 14 years at 1 pack/day and quit about 15 years ago. Assessment/Plan All Active Problems Hypertension (Acute) Hyperglycemia (Acute) Dyslipidemia (Acute) A. fib with RVR (Acute) UTI/cystitis (Acute) 1. Atrial fibrillation with RVR-converted to sinus rhythm overnight. Cardizem drip discontinued. Continue metoprolol 50 mg twice daily. Continue Eliquis 5 mg twice daily. Echocardiogram demonstrated an EF of 65%, mild tricuspid valve insufficiency, RVSP estimated to be 38 mmHg. Outpatient follow-up with cardiology for clearance prior to urology surgery. 2. Acute sepsis secondary to Morganella UTI with associated GNR bacteremia/urinary retention/BPH/probable bladder mass-continue Flomax, Proscar. Urology following. Renal ultrasound with 1.6 x 2.4 x 1.5 cm mass at the base of the bladder. Plan for discharge home with Barnhart catheter and outpatient follow-up with urology for cystoscopy. Follow up with Dr. Felipe next week in office. Continue IV Cipro. 3. Hypertension-stable, does not appear to be on regimen. 4. Hyperlipidemia- continue statin. 5. History of melanoma status post excision 6. Anxiety/Depression-continue Celebrex, Klonopin, desvenlafaxine, trazodone, buspirone regimen. Following with counselor as outpatient. 7. Seizure disorder-continue home primidone regimen. 8. Obesity-encouraged diet and lifestyle modifications. DVT prophylaxis-Apoorva This patient was seen by BRENNON Samano under the supervision of Dr. Jefferson. <Blue Jefferson - Last Filed: 09/11/19 15:29> - Physical Exam General: Alert, Cooperative HEENT: Atraumatic, Normocephalic Lungs: Clear to auscultation, Diminished Cardiovascular: Regular rate, Regular Rhythm, Normal S1, Normal S2 Abdomen: Bowel Sounds Present, Soft, Non Tender, Non-Distended Extremities: No edema, No Calf Tenderness Skin: - Psych/Mental Status: Normal Affect, Appropriate Vital Signs Temp Pulse Resp BP Pulse Ox 37.2 C 68 20 H 111/88 H 92 09/11/19 09:05 09/11/19 14:50 09/11/19 09:05 09/11/19 09:05 09/11/19 09:05 Oxygen Flow Rate (L/min) 2 Oxygen Delivery Method Room Air Weight: 128.6 kg Body Mass Index (BMI) 39.5 Intake and Output for Last 24 Hours 09/09/19 09/10/19 09/11/19 23:59 23:59 23:59 Intake Total 1005.58 / 1488.08 4172.00 / 4172.00 1985.00 / 1984.00 Output Total 1250 / 1250 725 / 725 Balance 1005.58 / 1438.08 2922.00 / 2922.00 1260.00 / 1260.00 Microbiology Past 72 Hours 09/10/19 00:50 Urine Culture - Final Urine, Catheterized Morganella morganii sp morgani 09/09/19 22:45 Blood Culture - Preliminary Blood Culture (Wb) - Left Hand 09/10/19 10:05 Enteric Bacteriology - Final Stool Laboratory Tests Past 24 Hrs 09/11/19 06:10 Sodium 143 Potassium 3.4 L Chloride 111 H Carbon Dioxide 26.0 Anion Gap 6 BUN 11 Creatinine 0.77 Estim Creat Clear Calc 77.39 Est GFR (MDRD) Af Amer 130 Est GFR (MDRD) Non-Af 107 BUN/Creatinine Ratio 14.3 Glucose 106 Calcium 7.6 L POC Glucose 09/11/19 09/11/19 09/10/19 11:50 06:26 22:09 POC Glucose 160 H 107 167 H 09/10/19 16:31 POC Glucose 154 H Assessment/Plan Patient seen and examined independently. Data reviewed. I agree with the above note by the nurse practitioner. 1. Atrial fibrillation with RVR * Ongoing, with diltiazem drip. * Metoprolol increased to 50 twice daily, up from 25 * Already anticoagulated on apixaban * Echocardiographic shows an ejection fraction of 65%, severely enlarged left atrium and mild pulmonary hypertension with RVSP of 38 mmHg * May have been exacerbated due to his underlying urinary tract infection and sepsis 2. UTI * May be due to urinary retention due to BPH * UCx showing Morganell morganii * continue ciprofloxacin 3. Bacteremia * 1/2 positive for GNR, presumably UTI is source * follow up cultures 4. BPH * Was already on tamsulosin as outpatient, but with minimal relief. Finasteride added * Ultrasound of the bladder showed that it was distended but noted a 1.6 x 2.4 polypoid soft tissue density at the base of the bladder. Unclear if this is contributing to his urinary retention. * Urology on consultation. * Barnhart catheter in place given the urinary retention. Per , keep catheter in upon discharge. follow up to see if can be removed as outpt. 5. Sepsis * POA * secondary to UTI and bacteremia * Follow-up cultures and adjust antibiotics accordingly * Chest x-ray reviewed and showed no infiltrate 6.Bladder mass * follow up with as outpt for cystoscopy when medically stable. Code Visit Inpatient E&M: 29773 Subs Hosp L2
[2019-09-11] MEDS: Tamsulosin HCl 0.4 MG Capsule PO (16:54)
[2019-09-11 17:00] LABS: Bedside Glucose 123 mg/dL (70-110)
[2019-09-11] MEDS: traZODone 50 MG Tablet PO (21:27)
[2019-09-11] MEDS: Pravastatin 40 MG Tablet PO (21:27)
[2019-09-11] MEDS: clonazePAM 1 MG Tablet 2 MG PO (21:27)
[2019-09-11] MEDS: Pramipexole Di-HCl 0.25 MG Tablet PO (21:27)
[2019-09-11 21:41] LABS: Bedside Glucose 162 mg/dL (70-110)
[2019-09-12 03:00] VITALS: PULSE 73
[2019-09-12 03:20] VITALS: BP 110/70; PULSE 71; RESP 18; TEMP 37; O2SAT 94
[2019-09-12] MEDS: 0.9% Normal Saline 1,000 ML 125 ML IV (05:09)
[2019-09-12] MEDS: clonazePAM 1 MG Tablet PO (06:48)
[2019-09-12 06:52] LABS: Anion Gap 4 (5-15); BUN 9 mg/dL (7-18); BUN/Creat Ratio 11.5 RATIO (10-20); Calcium,Total 7.7 mg/dL (8.5-10.1); Chloride 113 mmol/L (98-107); Creatinine, Serum 0.78 mg/dL (0.70-1.30); EST Glomerular Filtration Rate 105 mL/min (>60); Est Glom Filt Rate - Afr Amer 127 mL/min (>60); Estimated Creatinine Clearance 77.39 ml/min; Glucose 100 mg/dL (74-106); Potassium 3.5 mmol/L (3.5-5.1); Sodium Level 143 mmol/L (136-145)
[2019-09-12 06:55] LABS: Bedside Glucose 113 mg/dL (70-110)
[2019-09-12 07:00] VITALS: PULSE 80
[2019-09-12 09:15] VITALS: BP 139/79; PULSE 93; RESP 16; TEMP 36.8; O2SAT 95
[2019-09-12] MEDS: Ciprofloxacin 400 MG/200 ML BAG 200 MG IV (09:25)
[2019-09-12 09:26] VITALS: PULSE 86
[2019-09-12] MEDS: Primidone 50 MG Tablet PO (09:26)
[2019-09-12] MEDS: Aspirin E.C. 81 MG Tablet PO (09:26)
[2019-09-12] MEDS: Celecoxib 200 MG Capsule PO (09:26)
[2019-09-12] MEDS: Metoprolol Tartrate 50 MG Tablet PO (09:26)
[2019-09-12] MEDS: busPIRone 15 MG TABLET 30 MG PO (09:26)
[2019-09-12] MEDS: Glucerna Shake 120 ML LIQUID PO (09:26)
[2019-09-12] MEDS: APIXABAN 5 MG TABLET PO (09:26)
[2019-09-12] MEDS: Finasteride 5 MG Tablet PO (09:27)
--- NOTE | 2019-09-12 10:58 | CASEMGMT ---
This RN CM to room to discuss discharge planning and therapy recommendations with pt at this time. Pt aware that therapy is recommending HHC at this time and pt declines HHC at this time. Pt also declines OP therapy at this time. Pt states has a lot of support at home and plans to be back to [facility] next week for urological surgery as well. Pt is aware that this RN CM will check Eliquis script prior to discharge and then will update pt at that time, voices understanding. Pt voices no further questions/concerns/needs at this time. SStaten RN CM
[2019-09-12 11:21] LABS: Bedside Glucose 131 mg/dL (70-110)
--- NOTE | 2019-09-12 11:47 | PCM.DC ---
- Discharge Diagnoses Current Active Problems: Current Active and Chronic Problems Hypertension (Acute) Hyperglycemia (Acute) BPH (Chronic) Dyslipidemia (Acute) A. fib with RVR (Acute) UTI/cystitis (Acute) Seizure disorder (Chronic) You will use the following diet at home:: Cardiac Your food should be the consistency of: Regular Your liquids should be the consistency of: Regular/Thin Discharge Activity: Return to Normal Activity Call your doctor if you observe: Fever of 101 or Higher, Shortness of breath, Chest pain Catheter: Barnhart to leg bag Allergies/Adverse Reactions: Allergies No Known Allergies Allergy (Verified 09/09/19 23:42) Medications to take at Discharge Buspirone HCl 30 mg PO BID 08/21/14 [place]-3 Acid Ethyl Esters [Lovaza] 1 gm PO BID #1 09/04/14 Clonazepam [Klonopin] 1 mg PO BID 09/09/19 Clonazepam [Klonopin] 2 mg PO QHS 09/09/19 Desvenlafaxine [Khedezla] 100 mg PO DAILY 09/09/19 Pravastatin [Pravachol] 40 mg PO QHS 09/09/19 Primidone 50 mg PO BID 09/09/19 Ropinirole HCl [Requip] 0.5 mg PO QHS 09/09/19 Tamsulosin HCl [Flomax] 0.4 mg PO DAILY 09/09/19 traZODone [Desyrel] 50 mg PO QHS 09/09/19 Apixaban [Eliquis] 5 mg PO BID #60 tab 09/12/19 Ciprofloxacin [Cipro] 500 mg PO BID #14 tab 09/12/19 Finasteride [Proscar] 5 mg PO DAILY #30 tab 09/12/19 Metoprolol Tartrate [Lopressor (beta eze)] 50 mg PO BID #60 tab 09/12/19 The following prescriptions were given: Ciprofloxacin [Cipro] 500 mg PO BID #14 tab Transmission Status: Pending to [facility]/pharmacy #[id number] Apixaban [Eliquis] 5 mg PO BID #60 tab Transmission Status: [id number] Metoprolol Tartrate [Lopressor (beta eze)] 50 mg PO BID #60 tab Transmission Status: [id number] Finasteride [Proscar] 5 mg PO DAILY #30 tab Transmission Status: [id number] Primary Care Physician: Romero Ya MD [Primary Care Provider] - Within 1 Week Test Results: Test results from this visit will be discussed in further detail at your follow-up appointment, if applicable. Please Follow Up With: Dov Felipe MD - Urology When: 1-2 weeks. Call for appointment Proposed Discharge Date: 09/12/19
--- NOTE | 2019-09-12 11:49 | DS.PCM_ITS ---
Discharge Date and Diagnosis - Problem List Patient Problems: Active and Suspected Problems Hypertension (Acute) Hyperglycemia (Acute) Dyslipidemia (Acute) A. fib with RVR (Acute) UTI/cystitis (Acute) Date of Admission: 09/09/19 Date of Discharge: 09/12/19 - Primary Discharge Diagnosis Active and Suspected Problems Hypertension (Acute) Hyperglycemia (Acute) Dyslipidemia (Acute) A. fib with RVR (Acute) UTI/cystitis (Acute) 1. Atrial fibrillation with RVR * resolved in NSR * Metoprolol increased to 50 twice daily, up from 25 * Already anticoagulated on apixaban * Echocardiographic shows an ejection fraction of 65%, severely enlarged left atrium and mild pulmonary hypertension with RVSP of 38 mmHg * May have been exacerbated due to his underlying urinary tract infection and sepsis * Follow up with cardiology as outpt. 2. UTI * May be due to urinary retention due to BPH * UCx showing Morganell morganii * continue ciprofloxacin 3. Bacteremia * 1/2 positive for Morganella morganii * 2/2 UTI * follow up cultures 4. BPH * Was already on tamsulosin as outpatient, but with minimal relief. Finasteride added * Ultrasound of the bladder showed that it was distended but noted a 1.6 x 2.4 polypoid soft tissue density at the base of the bladder. Unclear if this is contributing to his urinary retention. * Urology on consultation. * Barnhart catheter in place given the urinary retention. Per , keep catheter in upon discharge. follow up to see if can be removed as outpt. 5. Sepsis * POA * secondary to UTI and bacteremia 6.Bladder mass * follow up with as outpt for cystoscopy when medically stable. * unclear if contributing to urinary retention * Discussed with patient that patient being over his infection before he undergoes any kind of elective surgery. Explained that the concern in this could be cancer but could be a benign process as well. - Secondary Discharge Diagnosis Chronic Problems BPH (Chronic) Seizure disorder (Chronic) Hospital Course and Treatment Imaging Results: Clinical Impression(s) from Imaging Studies Chest X-Ray 09/09/19 21:07 IMPRESSION: No acute cardiopulmonary process. Electronically Signed: Brandie Agee MD at 21:59 EDT Tel , Service support , Renal Ultrasound 09/10/19 05:55 IMPRESSION: Right renal cyst. Findings suggestive of a 1.6 x 2.4 cm x 1.5 cm polypoid mass at the base of the bladder. Correlation with cystoscopy is recommended. Electronically Signed: Declan Morgan, at 15:32 EDT , Service support , [place], urology Operations: None Procedures: None Summary of Care Provided: The patient is a 68 year old M presents with sepsis and H for ablation with RVR. Patient was found to have UTI as well as bacteremia secondary to Morganella morganii. Patient developed a UTI likely due to urinary retention. The urinary retention is likely due to BPH the patient also did undergo a ultrasound of his kidney and bladder that did show a bladder mass. Unclear, given location if the bladder mass is contributing to his urinary retention. Patient did have catheter placed and was seen by urology. Also recommend keeping the catheter in place in the follow-up as outpatient. Patient will need to have cystoscopy and possible biopsy versus surgical resection of the mass but I would need to be done when patient is more stable and resolved from the infection. Did discuss having the catheter is a risk for infection but given the urinary retention and that there would seem to be the lesser of the lesser risk rather than would not treating his urinary retention at this time. I did add finasteride in addition to his tamsulosin to help alleviate his BPH. Patient also did have H for ablation with RVR. Patient did convert currently normal sinus rhythm. Started on apixaban for anticoagulation purposes. Patient will need follow-up with cardiology as outpatient to see if the anticoagulation will need to be continued or not. [] Patient Problems: Active and Suspected Problems Hypertension (Acute) Hyperglycemia (Acute) Dyslipidemia (Acute) A. fib with RVR (Acute) UTI/cystitis (Acute) - Physical Exam General: Alert, No apparent distress HEENT: Atraumatic, Normocephalic Oral: Moist Mucosa, No Gingival or Mucosal Lesions/ Ulcerations Psych/Mental Status: Normal Affect, Appropriate Vital Signs Temp Pulse Resp BP Pulse Ox 36.8 C 86 16 139/79 H 95 09/12/19 09:15 09/12/19 09:26 09/12/19 09:15 09/12/19 09:15 09/12/19 09:15 Oxygen Flow Rate (L/min) 1 Oxygen Delivery Method Nasal Cannula Weight: 128.6 kg Body Mass Index (BMI) 39.5 Intake and Output for Last 24 Hours 09/10/19 09/11/19 09/12/19 23:59 23:59 23:59 Intake Total 4172.00 / 4172.00 3919.16 / 3919.16 1397.92 / 1397.92 Output Total 1250 / 1250 2550 / 2550 825 / 825 Balance 2922.00 / 2922.00 1369.16 / 1369.16 572.92 / 572.92 Microbiology Past 72 Hours 09/09/19 22:45 Blood Culture - Preliminary Blood Culture (Wb) - Left Hand Morganella morganii sp morgani 09/10/19 00:50 Urine Culture - Final Urine, Catheterized Morganella morganii sp morgani 09/10/19 10:05 Enteric Bacteriology - Final Stool Laboratory Tests Past 24 Hrs 09/12/19 06:15 Sodium 143 Potassium 3.5 Chloride 113 H Carbon Dioxide 26.0 Anion Gap 4 L BUN 9 Creatinine 0.78 Estim Creat Clear Calc 77.39 Est GFR (MDRD) Af Amer 127 Est GFR (MDRD) Non-Af 105 BUN/Creatinine Ratio 11.5 Glucose 100 Calcium 7.7 L POC Glucose 09/12/19 09/12/19 09/11/19 11:18 06:47 21:25 POC Glucose 131 H 113 H 162 H 09/11/19 09/11/19 16:50 11:50 POC Glucose 123 H 160 H Discharge Diet: Low fat/ Low Cholesterol Discharge Activity: Return to Normal Activity Call your doctor if you observe: Fever of 101 or Higher, Shortness of breath, Chest pain Catheter: Barnhart to leg bag Home Medications: Medications to take at Discharge Buspirone HCl 30 mg PO BID 08/21/14 [place]-3 Acid Ethyl Esters [Lovaza] 1 gm PO BID #1 09/04/14 Clonazepam [Klonopin] 1 mg PO BID 09/09/19 Clonazepam [Klonopin] 2 mg PO QHS 09/09/19 Desvenlafaxine [Khedezla] 100 mg PO DAILY 09/09/19 Pravastatin [Pravachol] 40 mg PO QHS 09/09/19 Primidone 50 mg PO BID 09/09/19 Ropinirole HCl [Requip] 0.5 mg PO QHS 09/09/19 Tamsulosin HCl [Flomax] 0.4 mg PO DAILY 09/09/19 traZODone [Desyrel] 50 mg PO QHS 09/09/19 Apixaban [Eliquis] 5 mg PO BID #60 tab 09/12/19 Ciprofloxacin [Cipro] 500 mg PO BID #14 tab 09/12/19 Finasteride [Proscar] 5 mg PO DAILY #30 tab 09/12/19 Metoprolol Tartrate [Lopressor (beta eze)] 50 mg PO BID #60 tab 09/12/19 Following Prescrptions Were Given to Patient: Ciprofloxacin [Cipro] 500 mg PO BID #14 tab Transmission Status: Pending to [facility]/pharmacy #[id number] Apixaban [Eliquis] 5 mg PO BID #60 tab Transmission Status: [id number] Metoprolol Tartrate [Lopressor (beta eze)] 50 mg PO BID #60 tab Transmission Status: [id number] Finasteride [Proscar] 5 mg PO DAILY #30 tab Transmission Status: [id number] Primary Care Physician: Romero Ya MD [Primary Care Provider] - Within 1 Week Please Follow Up With: Dov Felipe MD - Urology When: 1-2 weeks. Call for appointment Please Follow Up With: [facility] - carddiology When: 1-2 months Disposition: Home Minutes spent on discharge:: 45 Patient Condition:: Good Medical Necessity - Tobacco Use Smoking Status: Former smoker - Started smoking at the age of 14 years at 1 p ack/day and quit about 15 years ago. Meaningful Use Info Meaningful Use Diagnoses (Choose all that apply): None applicable Code Visit Inpatient E&M: 87815 Disch Hosp
--- NOTE | 2019-09-12 12:05 | CASEMGMT ---
Pt to be sent home on Eliquis at discharge and [facility] Call to pharmacy customer care specialist at [facility] and she states that pt's co-pay for Eliquis is $47.00 at this time. Pt and daughter updated at this time, voice understanding and pt provided with Eliquis 30 day free trial card with explanation at this time,voices understanding. Pt/daughter voice no further questions/concerns/needs at this time. Pt is awaiting discharge at this time. Violet MCKEON CM
== END 2019-09-12 13:59 | disposition home or self-care (01) | DRG 872 ==
LOC: ED 21:41 → PCU 23:54
PROVIDERS: Nurse Practitioner Family; Admitting Provider Internal Medicine; Emergency Provider Emergency Medicine; Family Provider Family Medicine; PCP Family Medicine; Referring Provider Internal Medicine
DX: A41.59 Other Gram-negative sepsis (principal); I48.91 Unspecified atrial fibrillation; E87.6 Hypokalemia; E86.0 Dehydration; G40.909 Epilepsy, unspecified, not intractable, without status epilepticus; E78.5 Hyperlipidemia, unspecified; E66.9 Obesity, unspecified; N30.90 Cystitis, unspecified without hematuria; N40.1 Benign prostatic hyperplasia with lower urinary tract symptoms; R33.8 Other retention of urine; Z85.820 Personal history of malignant melanoma of skin; Z87.440 Personal history of urinary (tract) infections; Z87.891 Personal history of nicotine dependence; N32.9 Bladder disorder, unspecified; Z68.39 Body mass index [BMI] 39.0-39.9, adult; I10 Essential (primary) hypertension; R73.9 Hyperglycemia, unspecified
CPT/HCPCS: 36415; 71045; 76770; 80048; 81001; 82962; 83036; 83605; 83735; 84100; 84132; 84443; 84484; 85025; 85610; 87040; 87077; 87086; 87088; 87186; 87506; 93005; 93306; 97162; 97166; 97530; 99285; J7030; J7050; Q9957; A4216; C8929; J0744; J2405

== ENCOUNTER 2019-10-26 12:53 | Day surgery (SDC) | payer MEDICARE, SELFPAY ==
[2019-09-28 11:37] VITALS: BMI 39.2
[2019-10-26 13:15] VITALS: BP 132/79; PULSE 62; RESP 16; TEMP 37.1; O2SAT 94; BMI 38.9
[2019-10-26] MEDS: Lactated Ringers 1,000 ML 100 ML IV (13:55)
[2019-10-26] MEDS: Cefazolin 2 GM in 0.9% Normal Saline 100 ML IV (16:02)
--- NOTE | 2019-10-26 16:12 | DCINST_ITS ---
Discharge Diet: Light diet - advance as tolerated Discharge Activity: May Not Drive Call your doctor if your incision/area has: Sudden Increased Bleeding Call your doctor if you observe: Fever of 101 or Higher Instructions: Treating Bladder Cancer: TUR (Transurethral Resection) Allergies/Adverse Reactions: Allergies No Known Allergies Allergy (Verified 10/23/19 10:51) Medications to take at Discharge Buspirone HCl 30 mg PO BID 08/21/14 [place]-3 Acid Ethyl Esters [Lovaza] 1 gm PO BID #1 09/04/14 Clonazepam [Klonopin] 1 mg PO BID 09/09/19 Clonazepam [Klonopin] 2 mg PO QHS 09/09/19 Pravastatin [Pravachol] 40 mg PO QHS 09/09/19 Ropinirole HCl [Requip] 0.5 mg PO QHS 09/09/19 Tamsulosin HCl [Flomax] 0.4 mg PO DAILY 09/09/19 Finasteride [Proscar] 5 mg PO DAILY #30 tab 09/12/19 Desvenlafaxine Succinate [Pristiq] 100 mg PO DAILY 10/23/19 Metoprolol Tartrate [Lopressor (beta eze)] 50 mg PO BID 10/23/19 Primary Care Physician: Romero Ya MD [Primary Care Provider] - Test Results: Test results from this visit will be discussed in further detail at your follow- up appointment, if applicable. Please Follow Up With: Dov Felipe MD When: please call to make an appointment.
--- NOTE | 2019-10-26 16:28 | OP.PCM_ITS ---
Report of Operation Date of Procedure: 10/26/19 Pre-Operative Diagnosis: Bladder mass seen on ultrasound Post-Operative Diagnosis: No bladder mass, thickened trabeculated bladder Surgery/Procedure Performed:: Cystoscopy diagnostic Description of Surgical Findings:: 68-year-old male taken back to the operating room for possible transurethral resection of bladder tumor and ultrasound appeared to be a solid enhancing mass on ultrasound seen in the office and was scheduled today for resection of his bladder tumor, taken back to the operating room at the smooth induction of general anesthesia is placed in dorsolithotomy position I dilated the urethra with sounds from 14-20 [place] and then went with a 18 [place] rigid cystourethroscope the entire length urethra is normal the pendulous urethra is normal bulbar urethra normal prostate did have a obstruction of the prostate with bilateral hypertrophy short length no medial lobe he would be a candidate for UroLift, once inside the bladder very thickened trabeculated bladder did a cystoscopy with 30 and 70 degree lens identified the trigone the trigone is normal left and right ureter 4 is normal the bladder was trabeculated throughout the bladder signs of chronic obstruction but there is no tumors within the bladder I then drained the bladder remove the cystoscope and the patient was taken back to PACU good condition we can see him in the office in a few weeks for checkup we could offer intervention for his BPH and obstruction. Type of Anesthesia:: General Drains: none - Admit VTE Documentation VTE Present on Admission: No VTE Mechan Device Prophylaxis: SCD's
[2019-10-26 16:39] VITALS: BP 115/82; BP 132/79; PULSE 60; RESP 16; TEMP 37; O2SAT 94
[2019-10-26 16:45] VITALS: BP 114/89; BP 132/79; PULSE 57; RESP 16; O2SAT 94
[2019-10-26 17:00] VITALS: BP 113/88; BP 119/83; BP 132/79; PULSE 55; PULSE 59; RESP 16; TEMP 37.2; O2SAT 96
[2019-10-26 18:01] VITALS: BP 119/80; BP 132/79; PULSE 58; RESP 16; TEMP 36.4; O2SAT 98
--- NOTE | 2019-10-31 15:14 | PCM.HP.STD ---
History of Present Illness Date of Admission: 10/26/19 Chief Complaint: Possible bladder mass The patient is a 68 year old male who had a possible mass on recent imaging presents for cystoscopy possible TURBT Past Medical History Past Medical History (Chronic Problems): Chronic Problems (Last Reviewed 09/28/19 @ 11:59 by Chi Bernard MD) Atrial fibrillation with rapid ventricular response (Chronic 09/09/19) Essential (primary) hypertension (Chronic) Hypertriglyceridemia (Chronic) Hyperlipemia (Chronic) Medical History: Medical History (Last Reviewed 09/28/19 @ 11:59 by Chi Bernard MD) Atrial fibrillation with rapid ventricular response (Chronic) Onset Date: 09/09/19 I48.91 Essential (primary) hypertension (Chronic) I10 Hypertriglyceridemia (Chronic) E78.1 Hyperlipemia (Chronic) E78.5 Bladder tumor (Acute) Onset Date: 09/09/19 D49.4 BPH (benign prostatic hyperplasia) N40.0 Obesity E66.9 Seizure disorder G40.909 Cystitis N30.90 Allergies No Known Allergies Allergy (Verified 10/23/19 10:51) Home Medications: Ambulatory Orders Medication Instructions Recorded Buspirone HCl 30 mg PO BID 08/21/14 [place]-3 Acid Ethyl Esters [Lovaza] 1 gm PO BID #1 09/04/14 Clonazepam [Klonopin] 1 mg PO BID 09/09/19 Clonazepam [Klonopin] 2 mg PO QHS 09/09/19 Pravastatin [Pravachol] 40 mg PO QHS 09/09/19 Ropinirole HCl [Requip] 0.5 mg PO QHS 09/09/19 Tamsulosin HCl [Flomax] 0.4 mg PO DAILY 09/09/19 Finasteride [Proscar] 5 mg PO DAILY #30 tab 09/12/19 Desvenlafaxine Succinate [Pristiq] 100 mg PO DAILY 10/23/19 Metoprolol Tartrate [Lopressor 50 mg PO BID 10/23/19 (beta eze)] Surgical History: Surgical History (Last Reviewed 09/28/19 @ 11:59 by Chi Bernard MD) History of cholecystectomy Z90.49 History of foot surgery Z98.890 History of knee surgery Z98.890 History of tonsillectomy Z90.89 Smoking Status: Former smoker Tobacco Use: Non-smoker - *Family History Paternal Family History: Family History (Last Reviewed 09/28/19 @ 11:59 by Chi Bernard MD) Father Cancer History Items: Cancer - Lung cancer VTE Information - Inpt Only VTE Present on Admission: No - Physical Exam Vitals/I&O's: Vital Signs Temp Pulse Resp BP Pulse Ox 97.6 F L 58 L 16 119/80 98 10/26/19 18:01 10/26/19 18:01 10/26/19 18:01 10/26/19 18:01 10/26/19 18:01 Oxygen Delivery Method Room Air Weight: 126.6 kg Body Mass Index (BMI) 38.9 General: Alert, Oriented x3, Cooperative HEENT: Atraumatic, PERRLA, EOMI, Normocephalic Neck: Supple, No JVD, Negative Carotid Bruits Lungs: Clear to auscultation, Normal air movement Cardiovascular: Regular rate, No murmurs Abdomen: Bowel Sounds Present, Soft, Non Tender Extremities: No edema, Capillary Refill Less than 3 Seconds Skin: No rashes, No breakdown Musculoskeletal: No Tenderness to Palpation of Joints or Extremities Neurological: Cranial nerves II-XII grossly intact Psych/Mental Status: Normal Affect, Appropriate Assessment/Plan All Active Problems (Last Reviewed 09/28/19 @ 11:59 by Chi Bernard MD) Bladder tumor (Acute 09/09/19) Preop cardiovascular exam (Acute) Hyperglycemia (Resolved) Patient presents today for possible TURBT possible mass seen on recent imaging.
== END 2019-10-26 18:03 | disposition home or self-care (01) ==
LOC: SDC 12:54 → AC 12:55
PROVIDERS: Family Provider Family Medicine; PCP Family Medicine; Referring Provider Urology; Visit Provider Urology
PROC: 0TBB8ZZ Excision of Bladder, Via Natural or Artificial Opening Endoscopic (ICD-10-PCS; CPT 52000; principal; 2019-10-26 14:45)
DX: N32.89 Other specified disorders of bladder (principal); N40.1 Benign prostatic hyperplasia with lower urinary tract symptoms; N13.8 Other obstructive and reflux uropathy; I48.91 Unspecified atrial fibrillation; I10 Essential (primary) hypertension; G47.30 Sleep apnea, unspecified; K21.9 Gastro-esophageal reflux disease without esophagitis; E78.00 Pure hypercholesterolemia, unspecified; F41.9 Anxiety disorder, unspecified; F32.9 Major depressive disorder, single episode, unspecified; E66.9 Obesity, unspecified; G40.909 Epilepsy, unspecified, not intractable, without status epilepticus; Z85.828 Personal history of other malignant neoplasm of skin; Z87.440 Personal history of urinary (tract) infections; Z79.899 Other long term (current) drug therapy; Z87.891 Personal history of nicotine dependence
CPT/HCPCS: 00910; 52000; J7120; J2405

== ENCOUNTER → 2019-12-20 11:38 | Outpatient (CLI) | payer MEDICARE, SELFPAY ==
[2019-12-20 12:41] LABS: Absolute Lymphocyte Count 2.06 X10^3/uL (0.83-4.51); Absolute Neutrophil Count 4.9 X10^3/uL (2.0-7.7); Basophil# 0.04 X10^3/uL; Basophil% 0.5 % (0-1); Eosinophil# 0.11 X10^3/uL; Eosinophils% 1.4 % (0-5); Hematocrit 45.5 % (40-54); Hemoglobin 14.9 g/dL (13.0-16.5); Lymphocyte # 2.06 X10^3/ul (4.0); Lymphocyte % 26.2 % (19-41); Mean Corp Hgb Conc 32.7 g/dL (32-36); Mean Corpuscular Hgb 29.7 pg (27.0-32.0); Mean Corpuscular Volume 90.6 fL (80-94); Mean Platelet Vol. 10.5 fl (6.2-12.0); Monocyte# 0.67 X10^3/uL; Monocyte% 8.5 % (0-10); NRBC Flagged by Analyzer 0 % (0-5); Neutrophil # 4.91 X10^3/uL (2.7-7.7); Neutrophil % 62.6 % (47-70); Platelet Count 166 K/mm3 (150-450); RBC Distribution Width CV 13.2 % (11.6-14.6); RBC Distribution Width SD 43.6 fl (35.1-43.9); Red Blood Count 5.02 M/mm3 (4.6-6.2); White Blood Count 7.9 K/mm3 (4.4-11.0)
[2019-12-20 12:45] LABS: Color, Urine Yellow (Yellow); Glucose, Dipstick Normal (Normal); Ketone-Dipstick Negative (Negative); Leukocyte Esterase-Dipstick Negative /ul (Negative); Nitrite-Dipstick Negative (Negative); Occult Blood-Urine Negative /ul (Negative); Protein-Dipstick Negative (Negative); Urine Bilirubin Dipstick Negative (Negative); Urine Clarity Clear (Clear); Urine Urobilinogen Normal (Normal)
[2019-12-20 13:26] LABS: ALB/GLOB Ratio 0.9 RATIO (0.9-2.4); AST(SGOT) 14 U/L (15-37); Alanine Aminotransfer ALT/SGPT 34 U/L (16-61); Albumin, Serum 3.5 g/dL (3.2-5.0); Alkaline Phosphatase 64 U/L (45-117); Anion Gap 5 (5-15); BUN 22 mg/dL (7-18); BUN/Creat Ratio 23.9 RATIO (10-20); Calcium,Total 9.3 mg/dL (8.5-10.1); Chloride 112 mmol/L (98-107); Cholesterol 163 mg/dL (200); Creatinine, Serum 0.92 mg/dL (0.70-1.30); EST Glomerular Filtration Rate 87 mL/min (>60); Est Glom Filt Rate - Afr Amer 105 mL/min (>60); Globulin 3.9 g/dL (2.2-4.2); Glucose 103 mg/dL (74-106); High Density Lipoprotein 28 mg/dL; PSA,Total - Annual Screen 3.88 ng/mL (0.00-4.00); Potassium 4.1 mmol/L (3.5-5.1); Protein, Total 7.4 g/dL (6.4-8.2); Sodium Level 142 mmol/L (136-145); Triglycerides 333 mg/dL; Very Low Density Lipoprotein 67 mg/dL (5-40)
== END ==
PROVIDERS: PCP Family Medicine; Referring Provider Family Medicine; Visit Provider Family Medicine
DX: Z00.00 Encounter for general adult medical examination without abnormal findings (principal); I10 Essential (primary) hypertension; E78.2 Mixed hyperlipidemia; Z12.5 Encounter for screening for malignant neoplasm of prostate
CPT/HCPCS: 36415; 80053; 80061; 81002; 84153; 85025; G0103

== ENCOUNTER 2019-12-26 09:33 | Day surgery (SDC) | payer MEDICARE, SELFPAY ==
--- NOTE | 2019-12-20 12:07 | EKG12_ITS ---
Test Reason : PREOP Blood Pressure : / mmHG Vent. Rate : 052 BPM Atrial Rate : 052 BPM P-R Int : 154 ms QRS Dur : 082 ms QT Int : 432 ms P-R-T Axes : 038 019 023 degrees QTc Int : 401 ms Sinus bradycardia Otherwise normal ECG Confirmed by JUANA GOFF, DARIEL ([id number]), image editor GERTRUDIS ZARATE ([id number]) on 12/21/2019 2:18:32 PM Referred By: Dov Felipe Confirmed By:ROMEO ARIAS MD
[2019-12-26] VITALS (10 sets, daily range): BP systolic 99–136; BP diastolic 67–87; PULSE 53–71; RESP 16–18; TEMP 36.1–37; O2SAT 92–100; BMI 39.9
[2019-12-26] MEDS: Lactated Ringers 1,000 ML 100 ML IV (10:03)
[2019-12-26] MEDS: Cefazolin 2 GM in 0.9% Normal Saline 100 ML IV (10:39)
--- NOTE | 2019-12-26 10:41 | PCM.DC.URO ---
Discharge Diet: Light diet - advance as tolerated Discharge Activity: Return to Normal Activity, No Restrictions, May not drive while taking narcotic pain medications. Call your doctor if your incision/area has: Continuous Slow Oozing, Sudden Increased Bleeding, Increased Pain/ Swelling, Increased Redness, Foul Smelling Discharge, Swelling at the incision site Suture Line Care: Avoid Pulling/Pushing, Avoid Pinching/Bending Allergies/Adverse Reactions: Allergies No Known Allergies Allergy (Verified 12/26/19 09:57) Medications to take at Discharge Buspirone HCl 30 mg PO BID 08/21/14 [place]-3 Acid Ethyl Esters [Lovaza] 1 gm PO BID #1 09/04/14 Clonazepam [Klonopin] 1 mg PO BID 09/09/19 Clonazepam [Klonopin] 2 mg PO QHS 09/09/19 Pravastatin [Pravachol] 40 mg PO QHS 09/09/19 Ropinirole HCl [Requip] 0.5 mg PO QHS 09/09/19 Tamsulosin HCl [Flomax] 0.4 mg PO DAILY 09/09/19 Finasteride [Proscar] 5 mg PO DAILY #30 tab 09/12/19 Desvenlafaxine Succinate [Pristiq] 100 mg PO DAILY 10/23/19 Metoprolol Tartrate [Lopressor (beta eze)] 50 mg PO BID 10/23/19 Ibuprofen 200 mg PO PRN PRN 12/19/19 Primidone [Mysoline] 50 mg PO BID 12/19/19 Ciprofloxacin [Cipro] 500 mg PO BID #14 tab 12/26/19 Hydrocodone/Acetaminophen [[place] 5-325 Tablet] 1 ea PO Q4H PRN PRN 7 Days #14 tab 12/26/19 The following prescriptions were given: Ciprofloxacin [Cipro] 500 mg PO BID #14 tab Transmission Status: Pending to [id number] Hydrocodone/Acetaminophen [[place] 5-325 Tablet] 1 ea PO Q4H PRN PRN 7 Days #14 tab PRN Reason: Pain Score 1-10/10 Transmission Status: Received by [id number] Orders to be completed after discharge: 12 Lead EKG [[facility]] Time Frame: 12/19/19, Facility: [facility], Location: Cardiovascular Services Basic Metabolic Profile (BMP) Time Frame: 12/19/19, Facility: [facility], Location: Laboratory CBC-Complete Blood Cnt No Diff Time Frame: 12/19/19, Facility: [facility], Location: Laboratory Primary Care Physician: Romero Ya MD [Primary Care Provider] - Test Results: Test results from this visit will be discussed in further detail at your follow-up appointment, if applicable. Please Follow Up With: Dov Felipe MD When: in 2 weeks, please call to make an appointment. Proposed Discharge Date: 12/27/19
--- NOTE | 2019-12-26 10:55 | PROS_PTH ---
PATIENT: SOLOMON OSEI LOC: [facility] [place] U#:[id number] AGE/SX: 68/M ROOM: RE12/26/[address]: Dr. Dov Felipe MD : [id number] BED: DIS: 12/27/2019 SPEC #: [id number] RECD: 12/26/19 15:50 STATUS: GLENNA RERicarda #: [id number] YUMIKO: 12/26/19 10:[address]: Dov Felipe DEPT: SURGICAL PATHOLOGY RECD BY: Vamshi Ji ENTERED: 12/27/19 08:07 SP TYPE: TURP OTHR DR: Dr. Romero Ya MD Tissues: Prostate, NOS Procedures: PAS Fungus (control) Special Stain Group I Surgery Specimen Level IV AFB Stain (control) HEADER OPERATION: Cysto, TUR, prostate, Olympus PRE-OP DIAGNOSIS: BPH with lower urinary tract symptoms; frequency of micturition TISSUE SUBMITTED: Prostate tissue MICROSCOPIC DIAGNOSIS Prostate tissue, TUR: Benign prostatic hyperplasia, glandular and stromal type. Basal cell hyperplasia and diffuse moderate chronic inflammation. Focal granulomatous inflammation. A few lymphoid aggregates, favor benign. Special stains for acid fast bacilli and fungi are negative for organisms; matched controls are appropriate. SHORTY:dianna 12/28/19 MICROSCOPIC DESCRIPTION Slides are reviewed. GROSS DESCRIPTION Received is one container labeled with the patient's name and designated prostate tissue. The specimen consists of multiple irregular fragments of pink-ash, rubbery, soft tissue that in aggregate weigh 4.5 gm and measure in aggregate 4 x 4 x 1 cm. Also present in the container are multiple minute fragments of black stones each measuring 0.1 cm in greatest dimension. The entire soft tissue is submitted in four cassettes. The stones are for gross identification only. / SHORTY:dianna 12/27/19 TC:5 CPT: 86959, 15836 x2
--- NOTE | 2019-12-26 11:25 | PCM.OPRPT ---
Report of Operation Date of Procedure: 12/26/19 Pre-Operative Diagnosis: BPH with obstruction Post-Operative Diagnosis: The same Surgery/Procedure Performed:: Transurethral resection of the prostate Description of Surgical Findings:: 68-year-old male with a history of BPH and obstruction currently his maximal medical therapy would be BPH medications he is talked about options of management including UroLift procedures laser procedures and transurethral resection we talked about the long-term outcomes and expected results of the surgery after reviewing everything with the patient he wants to proceed with a TURP. 68-year-old male taken back to the operating room at the smooth induction of general anesthesia he was placed supine on the table in dorsolithotomy position. The penis and testicles are prepped and draped in usual sterile fashion, I first dilated the tip of the meatus with sounds form 14 [place] of the 28 [place] using a lot of lubrication after dilating the urethra then I went in with a 26 [place] continuous flow resectoscope. He was found to have a high riding bladder neck bilateral hypertrophy and obstruction no median lobe or other obstruction I then proceeded with resection of the prostate resected the 12:00 the prostate and then resected the floor identified the verumontanum, identified the sphincter and resected the right lobe of the prostate resect the left lobe of the prostate and then came down resected the apical tissue very carefully resected all the way around that a flow test had a nice wide open flow went back in with a 24 [place] noncontinuous flow resectoscope continue resection until I get a nice wide open channel another flow test was done had a good flow sphincter was intact all the chips were Ellik out and then we put a three-way catheter in the bladder on continuous bladder irrigation resection time was about an hour. At the end the procedure had a nice wide open channel with a good resection good good sphincter was intact and the patient was anesthetic was reversed taken back to PACU in good condition with three-way catheter running irrigation. Type of Anesthesia:: General Drains: 3 way morgan. - Admit VTE Documentation VTE Present on Admission: No
--- NOTE | 2019-12-26 14:07 | CPS ---
Pt has own CPAP, it is set up and he is using it.
[2019-12-26] MEDS: 0.9% Normal Saline 1,000 ML 75 ML IV (15:20)
[2019-12-26] MEDS: clonazePAM 1 MG Tablet PO (16:52)
[2019-12-26] MEDS: Tamsulosin HCl 0.4 MG Capsule PO ×2 (16:52)
[2019-12-26] MEDS: oxyCODONE 5 MG Tablet PO (17:06)
[2019-12-26] MEDS: Metoprolol Tartrate 50 MG Tablet PO (22:56)
[2019-12-26] MEDS: Docusate Sodium 100 MG Capsule PO (22:56)
[2019-12-26] MEDS: busPIRone 15 MG TABLET 30 MG PO (22:56)
[2019-12-26] MEDS: Omega-3 Acid Ethyl Esters 1 GM Capsule PO (22:56)
[2019-12-26] MEDS: Ciprofloxacin 500 MG Tablet PO (22:56)
[2019-12-26] MEDS: Pramipexole Di-HCl 0.25 MG Tablet PO (22:57)
[2019-12-26] MEDS: Primidone 50 MG Tablet PO (22:57)
[2019-12-26] MEDS: clonazePAM 1 MG Tablet 2 MG PO (22:57)
[2019-12-26] MEDS: Pravastatin 40 MG Tablet PO (22:57)
[2019-12-27 03:30] VITALS: BP 114/68; PULSE 64; RESP 18; TEMP 36.6; O2SAT 94
[2019-12-27] MEDS: Ondansetron 4 MG/2 ML Vial IV (03:44)
[2019-12-27] MEDS: 0.9% Normal Saline 1,000 ML 75 ML IV (03:57)
[2019-12-27 05:46] LABS: Hematocrit 45.2 % (40-54); Hemoglobin 15.3 g/dL (13.0-16.5); Mean Corp Hgb Conc 33.8 g/dL (32-36); Mean Corpuscular Hgb 30.2 pg (27.0-32.0); Mean Corpuscular Volume 89.3 fL (80-94); Mean Platelet Vol. 10.5 fl (6.2-12.0); Platelet Count 189 K/mm3 (150-450); RBC Distribution Width CV 13.1 % (11.6-14.6); RBC Distribution Width SD 42.5 fl (35.1-43.9); Red Blood Count 5.06 M/mm3 (4.6-6.2); White Blood Count 11.1 K/mm3 (4.4-11.0)
[2019-12-27 06:06] LABS: Anion Gap 9 (5-15); BUN 10 mg/dL (7-18); BUN/Creat Ratio 11.7 RATIO (10-20); Chloride 107 mmol/L (98-107); Creatinine, Serum 0.85 mg/dL (0.70-1.30); EST Glomerular Filtration Rate 95 mL/min (>60); Est Glom Filt Rate - Afr Amer 115 mL/min (>60); Estimated Creatinine Clearance 91.05 ml/min; Glucose 147 mg/dL (74-106); Potassium 3.6 mmol/L (3.5-5.1); Sodium Level 139 mmol/L (136-145)
[2019-12-27] MEDS: clonazePAM 1 MG Tablet PO (07:23)
[2019-12-27] MEDS: busPIRone 15 MG TABLET 30 MG PO (09:08)
[2019-12-27] MEDS: Docusate Sodium 100 MG Capsule PO (09:08)
[2019-12-27] MEDS: Ciprofloxacin 500 MG Tablet PO (09:08)
[2019-12-27] MEDS: Venlafaxine XR 75 MG Capsule PO (09:09)
[2019-12-27] MEDS: Primidone 50 MG Tablet PO (09:09)
[2019-12-27] MEDS: Omega-3 Acid Ethyl Esters 1 GM Capsule PO (09:09)
[2019-12-27 09:10] VITALS: BP 113/74; PULSE 60
[2019-12-27] MEDS: Pantoprazole Sodium 40 MG Tablet PO (09:10)
[2019-12-27] MEDS: Metoprolol Tartrate 50 MG Tablet PO (09:10)
[2019-12-27] MEDS: Finasteride 5 MG Tablet PO (09:10)
[2019-12-27 09:30] VITALS: BP 113/74; PULSE 58; RESP 16; TEMP 36.4; O2SAT 97
[2019-12-27 10:40] VITALS: BP 113/74; PULSE 58; RESP 16; TEMP 36.4; O2SAT 97
== END 2019-12-27 10:45 | disposition home or self-care (01) ==
LOC: SDC 09:33 → AC 09:34 → MS3 10:52
PROVIDERS: PCP Family Medicine; Referring Provider Urology; Visit Provider Urology
PROC: (CPT 52601; principal; 2019-12-26 10:45)
DX: N40.1 Benign prostatic hyperplasia with lower urinary tract symptoms (principal); N13.8 Other obstructive and reflux uropathy; R35.0 Frequency of micturition; R35.1 Nocturia; I10 Essential (primary) hypertension; I48.91 Unspecified atrial fibrillation; G47.30 Sleep apnea, unspecified; G25.81 Restless legs syndrome; E78.00 Pure hypercholesterolemia, unspecified; F41.9 Anxiety disorder, unspecified; F32.9 Major depressive disorder, single episode, unspecified; Z87.440 Personal history of urinary (tract) infections; Z85.828 Personal history of other malignant neoplasm of skin; Z79.899 Other long term (current) drug therapy; Z87.891 Personal history of nicotine dependence
CPT/HCPCS: 52601; 36415; 80048; 85027; 88305; 88312; 93005; 99251; J7030; J7120; G0463; J2405

== ENCOUNTER → 2020-06-05 17:40 | Outpatient (CLI) | payer MEDICARE, SELFPAY ==
[2019-12-26 09:56] VITALS: BMI 39.9
== END ==
PROVIDERS: PCP Family Medicine; Visit Provider Internal Medicine Pulmonary Disease
DX: U07.1 COVID-19 (principal)
CPT/HCPCS: 87635; G2023; U0003

== ENCOUNTER 2020-06-10 14:10 | Inpatient (IN) | payer MEDICARE, SELFPAY ==
[2019-12-26 09:56] VITALS: BMI 39.9
[2020-06-10] VITALS (26 sets, daily range): BP systolic 94–145; BP diastolic 51–116; PULSE 54–157; RESP 14–44; TEMP 36.3–39.6; O2SAT 82–100; BMI 41.8; BMI 39.6
--- NOTE | 2020-06-10 14:45 | EKG12_ITS ---
Test Reason : SOB Blood Pressure : / mmHG Vent. Rate : 140 BPM Atrial Rate : 141 BPM P-R Int : 000 ms QRS Dur : 074 ms QT Int : 322 ms P-R-T Axes : 000 009 007 degrees QTc Int : 491 ms Atrial fibrillation with rapid ventricular response Nonspecific ST and T wave abnormality Abnormal ECG Confirmed by GIANA GOFF, PETTY ([id number]), content editor MARINE LEUNG ([id number]) on 06/12/2020 9:44:23 AM Referred By: RENZO Confirmed By:PETTY FARIA MD
--- NOTE | 2020-06-10 14:55 | RAD_ITS ---
STUDY: X-RAY CHEST REASON FOR EXAM: Male, 69 years old. Pat arrives with gradually worsening sob. + covid 19 test 2 weeks ago. TECHNIQUE: Single AP portable view of the chest. COMPARISON: Comparison is made with prior study dated September 09, 2019. FINDINGS: Mild degree of vascular congestion. There is no demonstrated pleural abnormality. Normal size heart. Normal mediastinum and marci. Normal visualized pulmonary arteries. There is atherosclerotic tortuosity of the aortic arch and descending thoracic aorta. There are diffuse degenerative changes of the visualized thoracic spine. Normal visualized ribs, clavicles, and shoulders. There is no demonstrated abnormality of the visualized soft tissue structures of the upper abdomen. RAD/Chest 1 View (Portable) IMPRESSION: Mild degree of vascular congestion Electronically Signed: Declan Morgan, at 15:32 EDT , Service support ,
[2020-06-10 16:03] LABS: Absolute Lymphocyte Count 1.29 X10^3/uL (0.83-4.51); Absolute Neutrophil Count 7.5 X10^3/uL (2.0-7.7); Basophil# 0.01 X10^3/uL; Basophil% 0.1 % (0-1); Hematocrit 51.3 % (40-54); Hemoglobin 17.4 g/dL (13.0-16.5); Lymphocyte # 1.29 X10^3/ul (4.0); Lymphocyte % 13.9 % (19-41); Mean Corp Hgb Conc 33.9 g/dL (32-36); Mean Corpuscular Volume 91.3 fL (80-94); Mean Platelet Vol. 12.2 fl (6.2-12.0); Monocyte# 0.38 X10^3/uL; Monocyte% 4.1 % (0-10); NRBC Flagged by Analyzer 0 % (0-5); Neutrophil # 7.51 X10^3/uL (2.7-7.7); Neutrophil % 80.8 % (47-70); POSITIVE MORPHOLOGY YES; Platelet Count 158 K/mm3 (150-450); RBC Distribution Width CV 13.6 % (11.6-14.6); RBC Distribution Width SD 46.1 fl (35.1-43.9); Red Blood Count 5.62 M/mm3 (4.6-6.2); White Blood Count 9.3 K/mm3 (4.4-11.0)
[2020-06-10 16:06] LABS: Differential Indicated SCAN CRITERIA MET
[2020-06-10 16:10] LABS: International Normalized Ratio 1.1; Partial Thromboplast Time 34.5 Seconds (24.1-36.2); Prothrombin Time (Protime)PT. 13.5 SECONDS (11.7-14.9)
[2020-06-10] MEDS: 0.9% Normal Saline 1,000 ML 999 ML IV (16:11)
[2020-06-10 16:29] LABS: Platelet Estimate ADEQUATE (ADEQ)
[2020-06-10 16:30] LABS: Anisocytosis RARE; Macrocytosis RARE; Red Cell Morphology N CHROM NORMAL (NORM C&C)
[2020-06-10 16:44] LABS: ALB/GLOB Ratio 0.6 RATIO (0.9-2.4); AST(SGOT) 98 U/L (15-37); Alanine Aminotransfer ALT/SGPT 52 U/L (16-61); Albumin, Serum 2.8 g/dL (3.2-5.0); Alkaline Phosphatase 52 U/L (45-117); Anion Gap 12 (5-15); BUN 28 mg/dL (7-18); BUN/Creat Ratio 18.7 RATIO (10-20); Calcium,Total 8.9 mg/dL (8.5-10.1); Chloride 98 mmol/L (98-107); EST Glomerular Filtration Rate 50 mL/min (>60); Est Glom Filt Rate - Afr Amer 60 mL/min (>60); Glucose 148 mg/dL (74-106); Protein, Total 7.8 g/dL (6.4-8.2); Sodium Level 134 mmol/L (136-145)
--- NOTE | 2020-06-10 16:44 | NURSING ---
LACTIC ACID HEMOLIZED
--- NOTE | 2020-06-10 18:21 | NURSING ---
LACTIC ACID HEMOLIZED. LABS NOTIFIED THEY NEED TO COME UP
--- NOTE | 2020-06-10 18:26 | CT_ITS ---
STUDY: CTA CHEST REASON FOR EXAM: Male, 69 years old. SOB,POSITIVE COVID 19 2 WEEKS AGO AND TODAY RADIATION DOSAGE (If Supplied By Facility): CTDIvol = ( 12.65 ) mGy, DLP = ( 565.70 ) mGycm TECHNIQUE: The examination was performed with the intravenous administration of IV 100mL Isovue-370. Post-processing of the angiographic images was performed, with multiplanar reformation and 3D reconstruction. Individualized dose optimization techniques were used for this CT. COMPARISON: None. FINDINGS: Exam is limited by respiratory motion and prominent bilateral infiltrates. This significantly degrades the ability to evaluate the segmental or subsegmental pulmonary arteries. Normal enhancement of the main pulmonary artery and right and left pulmonary arteries. There is no definite pulmonary embolism. Normal thoracic aorta and visualized great vessels. There is no demonstrated aortic dissection. Normal heart and pericardium. There are calcifications of the coronary arteries. There are visualized mediastinal lymph nodes, which are within the prominent size limits, and of uncertain etiology or significance. Normal hilar regions. Normal visualized trachea and bronchi. Normal lung volumes. Widespread and diffuse groundglass infiltrates throughout both lungs worse on the right. Findings are consistent with nonspecific multifocal pneumonia including possible viral pneumonia. No effusions. There are degenerative changes of thoracic spine. Normal visualized upper abdomen. CT/CTA Chest W/WO Contrast IMPRESSION: Exam is limited by significant respiratory motion. No evidence for central or major pulmonary emboli. Pulmonary emboli beyond the main lobar vessels cannot be excluded. Widespread pulmonary infiltrates worse on the right consistent with nonspecific multifocal pneumonia. Electronically Signed: Julito Lee MD at 20:08 EDT , Service support ,
[2020-06-10] MEDS: Furosemide 20 MG/2 ML VIAL IV (18:31)
--- NOTE | 2020-06-10 18:41 | HP.PCM_ITS ---
History of Present Illness Date of Admission: 06/10/20 Chief Complaint: shortness of breath, palpitations The patient is a 69 year old M with a PMH as outlined. He wants diagnosed with COVID about a couple of weeks ago. He did not require inpatient admission. He states he was short of breath and the shortness of breath has gradually been worsening to the point where he got very serious today. He is also had some chills but denies any fever. He admits to a cough which is nonproductive and denies any chest pain, dizziness, nausea vomiting though he admits to some episodes of diarrhea. Review of systems otherwise negative. Time of review in the ED, vitals were significant for temperature of 99.2 Fahrenheit with blood pressure of 134/94, pulse rate of 154 and respiratory rate of 44. He was saturating at 92% on 5 L of oxygen. Chemistry showed sodium of 134 and creatinine of 1.5. CBC showed hemoglobin of 17.4 with white cell count of 9.3 and lymphopenia of 13.9%. Chest x-ray showed mild degree of vascular congestion. D-dimer and BNP are pending. He has been admitted to be managed for acute hypoxic respiratory failure and A. fib with RVR and COVID-19 infection. [] Past Medical History Past Medical History (Chronic Problems): Chronic Problems (Last Reviewed 09/28/19 @ 11:[address] Chi Bernard MD) Atrial fibrillation with rapid ventricular response (Chronic 09/09/19) Essential (primary) hypertension (Chronic) Hypertriglyceridemia (Chronic) Hyperlipemia (Chronic) Medical History: Medical History (Last Reviewed 09/28/19 @ 11:[address] Chi Bernard MD) Atrial fibrillation with rapid ventricular response (Chronic) Onset Date: 09/09/19 I48.91 Essential (primary) hypertension (Chronic) I10 Hypertriglyceridemia (Chronic) E78.1 Hyperlipemia (Chronic) E78.5 Bladder tumor (Acute) Onset Date: 09/09/19 D49.4 BPH (benign prostatic hyperplasia) N40.0 Obesity E66.9 Seizure disorder G40.909 Cystitis N30.90 Allergies No Known Allergies Allergy (Verified 06/10/20 14:11) Home Medications: Ambulatory Orders Medication Instructions Recorded [place]-3 Acid Ethyl Esters [Lovaza] 1 gm PO BID #1 09/04/14 Clonazepam [Klonopin] 1 mg PO BID 09/09/19 Clonazepam [Klonopin] 2 mg PO QHS 09/09/19 Pravastatin [Pravachol] 40 mg PO QHS 09/09/19 Ropinirole HCl [Requip] 0.5 mg PO QHS 09/09/19 Finasteride [Proscar] 5 mg PO DAILY #30 tab 09/12/19 Desvenlafaxine Succinate [Pristiq] 100 mg PO DAILY 10/23/19 Metoprolol Tartrate [Lopressor 50 mg PO BID 10/23/19 (beta eze)] Acetaminophen [Tylenol Extra 500 mg PO BID 06/10/20 Strength] Buspirone HCl [Buspar] 30 mg PO BID 06/10/20 Surgical History: Surgical History (Last Reviewed 09/28/19 @ 11:[address] Chi Bernard MD) History of cholecystectomy Z90.49 History of foot surgery Z98.890 History of knee surgery Z98.890 History of tonsillectomy Z90.89 Smoking Status: Former smoker - *Family History Paternal Family History: Family History (Last Reviewed 09/28/19 @ 11:[address] Chi Bernard MD) Father Cancer History Items: Cancer - Lung cancer Review of Systems Constitutional: Reports: Chills, Malaise, Weakness, Fatigue. Denies: Fever, Weight Change Eyes: Denies: Blurred vision HEENT: Denies: Head Aches, Sinus Congestion, Sinus Drainage Cardiovascular: Reports: Palpitations. Denies: Chest Pain, Heaviness, Light Headedness, Orthopnea, Paroxysmal Noc. Dyspnea, Syncope Respiratory: Reports: Cough, Shortness of Breath, Shortness of breath at rest, Shortness of breath upon exertion. Denies: Sputum production, Wheezing Gastrointestinal: Denies: Abdominal Pain, Nausea, Vomiting Genitourinary: Denies: Dysuria Musculoskeletal: Denies: Joint Pain, Joint Tenderness Skin: Denies: Rash, Wounds Neurological: Denies: Numbness, Tingling, Focal weakness Psychiatric: Denies: Anxiety, Depression, Homicidal Ideations, Suicidal Ideations Hematologic/ Lymphatic: Denies: Easy Bruising, Easy Bleeding VTE Information - Inpt Only VTE Present on Admission: No VTE Pharm Prophylaxis ordered?: Yes Patient Problems: Active and Suspected Problems (Last Reviewed 09/28/19 @ 11:[address] Chi Bernard MD) Atrial fibrillation with rapid ventricular response (Acute) COVID-19 (Acute) Dyspnea (Acute) - Physical Exam Vitals/I&O's: Vital Signs Temp Pulse Resp BP Pulse Ox 99.2 F H 154 H 44 H 134/94 H 92 06/10/20 18:38 06/10/20 18:38 06/10/20 18:38 06/10/20 18:38 06/10/20 18:38 Oxygen Flow Rate (L/min) 5 Oxygen Delivery Method Nasal Cannula Weight: 300 lb Body Mass Index (BMI) 41.8 Intake and Output for Last 24 Hours 06/08/20 06/09/20 06/10/20 23:59 23:59 23:59 Intake Total 1000 / 1000 Balance 1000 / 1000 General: Alert, Oriented x3, Cooperative, Lethargic, - - visibly short of breath HEENT: Atraumatic, PERRLA, EOMI, Normocephalic Oral: Dry Mucosa Neck: Supple, No JVD, Negative Carotid Bruits Lungs: - - decreased breawth sounds bibasally, tachypneic, on 5L of oxygen. Cardiovascular: Normal S1, Normal S2, No murmurs, Irregular Rate - Afib with RVR, Tachycardic Abdomen: Bowel Sounds Present, Soft, Non Tender Extremities: No clubbing, No cyanosis, No edema, Capillary Refill Less than 3 Seconds Skin: No rashes, No breakdown Musculoskeletal: No Tenderness to Palpation of Joints or Extremities Lymphatic: No Cervical, Supraclavicular, or Inguinal Adenopathy Neurological: Cranial nerves II-XII grossly intact, Neuro grossly intact, Motor Exam 5/5 strength throughout Psych/Mental Status: Anxious, Alert and oriented to time, place, person, mood and affect Laboratory Results 06/10/20 15:25: COVID-19 (ISAAC) Positive 06/10/20 15:50: WBC 9.3, RBC 5.62, Hgb 17.4 H, Hct 51.3, MCV 91.3, MCH 31.0, MCHC 33.9, RDW Std Deviation 46.1 H, RDW Coeff of Ayde 13.6, Plt Count 158, MPV 12.2 H, Immature Gran % (Auto) 1.100 H, Neut % (Auto) 80.8 H, Lymph % (Auto) 13.9 L, Wright % (Auto) 4.1, Eos % (Auto) 0.0, Baso % (Auto) 0.1, Absolute Neuts (auto) 7.5, Absolute Lymphs (auto) 1.29, Nucleated RBC % 0, Platelet Estimate ADEQUATE, RBC Morphology N CHROM, Anisocytosis RARE, Macrocytosis RARE 06/10/20 15:50: Sodium 134 L, Potassium 4.0, Chloride 98, Carbon Dioxide 24.0, Anion Gap 12, BUN 28 H, Creatinine 1.50 H, Estim Creat Clear Calc 50.90, Est GFR (MDRD) Af Amer 60, Est GFR (MDRD) Non-Af 50 L, BUN/Creatinine Ratio 18.7, Glucose 148 H, Calcium 8.9, Total Bilirubin 0.80, AST 98 H, ALT 52, Alkaline Phosphatase 52, Troponin I 0.033, Total Protein 7.8, Albumin 2.8 L, Globulin 5.0 H, Albumin/Globulin Ratio 0.6 L 06/10/20 15:50: PT 13.5, INR 1.1, APTT 34.5 06/10/20 16:00: Lactic Acid Cancelled 06/10/20 17:15: Lactic Acid Cancelled Diagnostic Data Chest X-Ray 06/10/20 14:55 IMPRESSION: Mild degree of vascular congestion Electronically Signed: Declan Morgan, at 15:32 EDT , Service support , Assessment/Plan All Active Problems (Last Reviewed 09/28/19 @ 11:[address] Chi Bernard MD) Atrial fibrillation with rapid ventricular response (Acute) COVID-19 (Acute) Dyspnea (Acute) Bladder tumor (Acute 09/09/19) Preop cardiovascular exam (Acute) Hyperglycemia (Resolved) 69 y/o admitted with a complaint of shortness of breath and palpitations 1. Afib wtih RVR * EKG showed Afib wtih RVR. At time of review, HR was up in the 150s * admit to ICU * says he does have a history of paroxysmal afib * given IV cardizem in the ED; start cardizem drip * CTA of chest ordered by ED and pending * on oral metoprolol * will anticoagulate with therapeutic lovenox * consult cardiology- per discussion with Dr Sprague, to also give amiodarone bolus and start on amiodarone drip as well. * 2. Acute hypoxic respiratory failure due to COVID 19 infection * is very tachypenic, with RR of 44 at time of review * on 5L of oxygen, saturating at 92-93% * stat ABG ordered * will put on Noninvasive ventilation depending on ABG results * breathing treatment with bronchodilators * CTA of chest pending * consult critical care * I did discuss case with Dr Alejo- recessing machine operator on phone. He agrees with starting IV dexamethasone, also recommends starting Remdesivir, and he will order convalescent plasma in the morning. * start on BIPAP * 3. CoVID 19 infection * diagnosed about 2 weeks ago. COVID test on admission is positive * symptoms have gradually worsened * Chest CT showed evidence of bilateral multifocal pneumonia, but showed no evidenece of PE * consult infectious disease * give breawthing treatments with duonebs * will start IV dexamethasone; give one dose of IV ceftriaxone and azithromycin * 4. Sepsis due to COVID infection * SIRS criteria is 2/4- tachycardia and tachypnea. He also has a slight fever of 99.2F. * CXR showed congestion, but no evidence of infection; Chest CT showed evidence of bilateral multifocal pneumonia, but showed no evidence of PE * discussed with Critical care; wiguillermo give a dose of IV dexamethasone, and start on remdesivir. Critical care to order convalescent plasma tomorrow * ID consulted- discussed with Dr Beaver on phone * 5. RADHA: Cr is 1.5, with anormal baseline. Likely due to dehydration from not eating and drinking well. hydrate gently with IVF 4. Hyperlipidemia * on statin * DVT prophylaxis: therapeutic anticoagulation with lovenox Code status: full code * Patient counseled extensively about different types of CODE STATUS including full code, DNR CCA and DNR CCA. Patient elects to be full code. * Total [id number] time 16 minutes. * Total time spent on critical care; 60 mns * Inpatient E&M: 86615 Init Hosp L3 Procedures: 21064 Critial Care 1st Hr - advanced care planning [id number]
[2020-06-10] MEDS: dilTIAZem 25 MG/5 ML Vial IV BOLUS (18:46)
--- NOTE | 2020-06-10 19:00 | ED.VISSUMM ---
- ER Visit Summary Date of Service: 06/10/20 Chief Complaint: Shortness of breath History of Present Illness: The patient is a 69 M who presents with shortness of breath that has been getting worse over the past 2 weeks. Patient saw his director fixed income today who referred him to the emergency department. Patient was hypoxic there. Patient tested positive for COVID-19 2 weeks ago. Patient states he has not had any improvement of his symptoms over the past 2 weeks. Patient admits to a cough but denies any sputum production. Patient admits to subjective fevers and chills. Patient does admit to some chest pain. Patient denies any palpitations. Patient denies any recent travel or recent surgery. Physical Examination: Vital signs are stable except for a pulse oximeter of 82% on room air and a mild tachypnea of 26. Patient is in no acute distress. Oral mucosa is pink and moist. Neck is supple. Trachea is midline. There is no JVD. Heart was irregularly irregular and tachycardic. Lungs were diminished bilaterally. There is good respiratory effort. Abdomen is soft. Bowel sounds are normal. There is no tenderness. Extremities are intact. There is no calf tenderness or edema. Cranial nerves II through XII are intact. There are no focal motor or sensory deficits noted. Test Results: EKG showed atrial fibrillation with a rate of 140. There are nonspecific ST-T wave changes. The atrial fibrillation is new compared to previous EKG dated 12/20/2019. Patient admits to a history of paroxysmal A. fib. Portable chest x-ray showed mild vascular congestion. This was interpreted by the emergency physician and radiologist. CBC was within normal limits. Comprehensive metabolic profile showed a slightly elevated creatinine of 1.50 and a BUN of 28. COVID swab was positive. CTA of the chest was obtained. There is some respiratory motion artifact. There is no evidence of central pulmonary embolism. This was interpreted by the radiologist and reviewed by myself. Emergency Department Course and Treatment: Patient was placed on oxygen. Patient is oxygen level was increased to 5 L. Patient was 93% on 5 L nasal cannula. Due to the chest x-ray reading mild vascular congestion, patient was given Lasix 20 mg IV. After reviewing the EKG, patient had a documented pulse of 76, so further intervention at that time was not performed. On reevaluation, the patient still felt short of breath. Patient was placed back on the services host and was noted to be in A. fib with RVR. Patient was given Cardizem at that time. Due to the patient's persistent dyspnea, CTA of the chest was ordered. This is pending. Lactate is still pending. Case was discussed with the hospitalist. She was in to evaluate the patient. She will admit the patient to ICU. Patient understands and is agreeable with the plan. All questions were answered. Disposition: Admit to ICU Impression: 1. A. fib with RVR 2. Dyspnea 3. COVID 19 This note was generated with [employer] software. It may contain incorrect words, spelling, and punctuation that were not noted in review of the chart prior to signing ED Disposition - Plan for ED Patient: Disposition: Acute Care Hospital [facility] Diagnosis: Atrial fibrillation with rapid ventricular response, COVID-19, Dyspnea
[2020-06-10 19:12] LABS: Bacteria 0 SEEN /hpf (None Seen); Mucous, Urine 0 SEEN /hpf (<or=2+); Red Blood Cells-Urine 0 SEEN /hpf (0-5)
[2020-06-10 19:21] LABS: Color, Urine Amber (Yellow); Glucose, Dipstick Normal (Normal); Ketone-Dipstick 5 mg/dl (Negative); Leukocyte Esterase-Dipstick 25 /ul (Negative); Nitrite-Dipstick Negative (Negative); Occult Blood-Urine 250 /ul (Negative); Protein-Dipstick 500 mg/dl (Negative); Urine Bilirubin Dipstick Negative (Negative); Urine Clarity Clear (Clear); Urine Urobilinogen Normal (Normal)
[2020-06-10 19:22] LABS: White Blood Cells 0-5 SEEN /hpf (0-5)
[2020-06-10 19:25] LABS: Hyaline Cast 25-50 SEEN /lpf (0-5)
[2020-06-10 19:26] LABS: Fine Granular Cast- Urine 5-10 SEEN /lpf (0-5); Squamous Epithelial Cells - UA 0-5 SEEN /hpf (0-5)
[2020-06-10 20:00] LABS: D-Dimer Quantitative (DVT/PE) 4.04 FEU/ug/m (0.27-0.49)
[2020-06-10 20:04] LABS: Fibrinogen 630 mg/dl (203-444)
--- NOTE | 2020-06-10 21:00 | NURSING ---
patient given information sheet on Remdesivir. this nurse read the info sheet to him and explained the new medication. Answered all questions.
[2020-06-10 21:10] LABS: Procalcitonin 0.15 ng/mL (0.00-0.09)
[2020-06-10 21:10] LABS: Base Excess -4 mmol/L (-2 to +2); Bicarbonate 18.1 mmol/L (22-26); PO2 37 mmHG (75-100); SO2 81 % (95-99); Total Carbon Dioxide 19 mmol/L; pCO2 20.4 mmHg (35-45); pH 7.56 (7.35-7.45)
[2020-06-10 21:40] LABS: AST(SGOT) 88 U/L (15-37); Alanine Aminotransfer ALT/SGPT 44 U/L (16-61); Albumin, Serum 2.6 g/dL (3.2-5.0); Alkaline Phosphatase 47 U/L (45-117); Bilirubin, Direct 0.25 mg/dL (0.00-0.30); CPK Total, Creatine Kinase 809 U/L (39-308); Globulin 4.5 g/dL (2.2-4.2); LDH 799 U/L (87-241); Protein, Total 7.1 g/dL (6.4-8.2); Thyroid Stim Hormone (TSH) 0.76 uIU/mL (0.358-3.74)
[2020-06-10] MEDS: dexAMETHasone 4 MG/ML Vial 6 MG IV (21:45)
[2020-06-10] MEDS: Enoxaparin 150 MG/ML Syringe 130 MG SC (21:45)
[2020-06-10 21:57] LABS: Allen Test POS; Blood Gas Specimen Type ART; O2 Delivery Device Nasal Can; SITE L RADIAL
--- NOTE | 2020-06-10 21:58 | CPS ---
Critical ABG results verbally read back to Dr. Dunlap.
--- NOTE | 2020-06-10 22:00 | NURSING ---
spoke to Blue , pharmacist regarding lopressor IV. He stated it was ok to give the first dose now and then continue on current schedule with the next dose at 0200
[2020-06-10] MEDS: Metoprolol Tartrate 5 MG/5 ML Vial IV (22:10)
[2020-06-10] MEDS: Ceftriaxone 1 GM/50 ML BAG IV (22:16)
[2020-06-10] MEDS: 0.9% Saline Lock 10 ML Syringe IV (22:17)
[2020-06-10 22:31] LABS: Lactic Acid 2.5 mmol/L (0.4-1.9)
[2020-06-10] MEDS: Acetaminophen 650 MG Suppository RECTAL (22:54)
[2020-06-10] MEDS: Ipratropium/Albuterol Sulfate 3 ML AMPUL.NEB INHALATION (22:54)
[2020-06-10] MEDS: Ondansetron 4 MG/2 ML Vial IV (23:05)
[2020-06-11] VITALS (52 sets, daily range): BP systolic 84–131; BP diastolic 59–95; PULSE 88–127; RESP 14–33; TEMP 37.9–39.7; O2SAT 83–96
[2020-06-11 00:36] LABS: Base Excess -3 mmol/L (-2 to +2); Bicarbonate 20.7 mmol/L (22-26); PO2 103 mmHG (75-100); SO2 98 % (95-99); Total Carbon Dioxide 22 mmol/L; pCO2 28.1 mmHg (35-45); pH 7.48 (7.35-7.45)
[2020-06-11 00:38] LABS: Allen Test POS; Blood Gas Specimen Type ART; SITE L RADIAL
[2020-06-11 00:39] LABS: EPAP 16; FI02 100; IPAP 22; O2 Delivery Device Bi Pap
[2020-06-11 01:33] LABS: BNP,B-Type NATRIURETIC PEPTIDE 308.8 pg/mL (0-100)
[2020-06-11] MEDS: 0.9% Saline Lock 10 ML Syringe IV ×2 (02:15→02:53)
[2020-06-11 02:21] LABS: Absolute Lymphocyte Count 0.93 X10^3/uL (0.83-4.51); Absolute Neutrophil Count 8.2 X10^3/uL (2.0-7.7); Basophil# 0.01 X10^3/uL; Basophil% 0.1 % (0-1); Hematocrit 46.7 % (40-54); Hemoglobin 16.2 g/dL (13.0-16.5); Lymphocyte # 0.93 X10^3/ul (4.0); Lymphocyte % 9.6 % (19-41); Mean Corp Hgb Conc 34.7 g/dL (32-36); Mean Corpuscular Hgb 31.2 pg (27.0-32.0); Mean Platelet Vol. 11.4 fl (6.2-12.0); Monocyte# 0.39 X10^3/uL; NRBC Flagged by Analyzer 0 % (0-5); Neutrophil # 8.24 X10^3/uL (2.7-7.7); Neutrophil % 85.4 % (47-70); Platelet Count 149 K/mm3 (150-450); RBC Distribution Width CV 13.6 % (11.6-14.6); RBC Distribution Width SD 44.1 fl (35.1-43.9); Red Blood Count 5.19 M/mm3 (4.6-6.2); White Blood Count 9.7 K/mm3 (4.4-11.0)
[2020-06-11 02:29] LABS: Lactic Acid 1.7 mmol/L (0.4-1.9)
[2020-06-11 02:37] LABS: Anion Gap 6 (5-15); BUN 28 mg/dL (7-18); BUN/Creat Ratio 25.5 RATIO (10-20); Calcium,Total 8.3 mg/dL (8.5-10.1); Chloride 106 mmol/L (98-107); EST Glomerular Filtration Rate 71 mL/min (>60); Est Glom Filt Rate - Afr Amer 86 mL/min (>60); Estimated Creatinine Clearance 69.41 ml/min; Glucose 200 mg/dL (74-106); Magnesium 2.1 mg/dL (1.6-2.6); Potassium 3.9 mmol/L (3.5-5.1); Sodium Level 136 mmol/L (136-145)
[2020-06-11] MEDS: Metoprolol Tartrate 5 MG/5 ML Vial IV ×2 (02:53→05:54)
[2020-06-11] MEDS: Amiodarone 360 MG in Dextrose 5% Viaflo Bag 192.8 ML 33.3 MG CONT INF (05:49)
[2020-06-11] MEDS: Acetaminophen 650 MG Suppository RECTAL (05:51)
--- NOTE | 2020-06-11 06:27 | CON.PCM_ITS ---
Reason for Consult Date of Consultation: 06/11/20 Reason for Consultation: Acute hypoxemic respiratory failure History of Present Illness: The patient is a 69-year-old male, with a history as outlined below, who presented to the emergency department on June 10 with complaints of worsening shortness of breath over the past 2 weeks. The patient believes that he contracted coronavirus from his brother approximately 2 weeks ago during a family visit. The patient is currently followed by Dr. Charles Villarreal on an outpatient basis due to underlying obstructive sleep apnea. He underwent coronavirus testing on June 05 which was found to be positive. The patient does have a known history of atrial fibrillation, for which she is followed in the cardiology clinic by Dr. Bernard. On presentation to the emergency department, the patient was noted to be afebrile and hemodynamically stable. He was hypoxemic requiring supplemental oxygen via nasal cannula. Laboratory evaluation revealed a normal white blood cell count. Fibrinogen was elevated to 630. D-dimer was elevated to 4.04. INR was within normal limits. Chemistry profile was notable for acute kidney injury with a creatinine of 1.50. Lactate was elevated to 2.5. BNP was increased to 308. Repeat coronavirus PCR was positive. CTA chest was obtained with results limited by respiratory motion artifact. However, no large central pulmonary embolism was identified. The patient did have radiographic evidence of significant bilateral pulmonary infiltrates. The patient eventually had to be placed on BiPAP therapy to support his oxygenation status. Arterial blood gas obtained on BiPAP with a pressure support of 22/16 revealed a pH of 7.48 with a corresponding PCO2 of 28 and PO2 of 103. The patient was placed on antimicrobials. Instructions were given to start the patient on Decadron, remdesivir and therapeutic Lovenox. Past Medical History Past Medical History (Chronic Problems): Chronic Problems (Last Reviewed 09/28/19 @ 11:[address] Chi Bernard MD) Atrial fibrillation with rapid ventricular response (Chronic 09/09/19) Essential (primary) hypertension (Chronic) Hypertriglyceridemia (Chronic) Hyperlipemia (Chronic) Medical History: Medical History (Last Reviewed 09/28/19 @ 11:[address] Chi Bernard MD) Atrial fibrillation with rapid ventricular response (Chronic) Onset Date: 09/09/19 I48.91 Essential (primary) hypertension (Chronic) I10 Hypertriglyceridemia (Chronic) E78.1 Hyperlipemia (Chronic) E78.5 Bladder tumor (Acute) Onset Date: 09/09/19 D49.4 BPH (benign prostatic hyperplasia) N40.0 Obesity E66.9 Seizure disorder G40.909 Cystitis N30.90 Allergies No Known Allergies Allergy (Verified 06/10/20 14:11) Home Medications: Ambulatory Orders Medication Instructions Recorded Ulmer-3 Acid Ethyl Esters [Lovaza] 1 gm PO BID #1 09/04/14 Clonazepam [Klonopin] 1 mg PO BID 09/09/19 Clonazepam [Klonopin] 2 mg PO QHS 09/09/19 Pravastatin [Pravachol] 40 mg PO QHS 09/09/19 Ropinirole HCl [Requip] 0.5 mg PO QHS 09/09/19 Finasteride [Proscar] 5 mg PO DAILY #30 tab 09/12/19 Desvenlafaxine Succinate [Pristiq] 100 mg PO DAILY 10/23/19 Metoprolol Tartrate [Lopressor 50 mg PO BID 10/23/19 (beta kirit)] Acetaminophen [Tylenol Extra 500 mg PO BID 06/10/20 Strength] Buspirone HCl [Buspar] 30 mg PO BID 06/10/20 Surgical History: Surgical History (Last Reviewed 09/28/19 @ 11:[address] Chi Bernard MD) History of cholecystectomy Z90.49 History of foot surgery Z98.890 History of knee surgery Z98.890 History of tonsillectomy Z90.89 Smoking Status: Former smoker - *Family History Paternal Family History: Family History (Last Reviewed 09/28/19 @ 11:[address] Chi Bernard MD) Father Cancer History Items: Cancer - Lung cancer Review of Systems Constitutional: Reports: Malaise, Fatigue Eyes: Denies: Blurred vision, Double vision HEENT: Denies: Head Aches, Sinus Congestion, Sinus Drainage Cardiovascular: Denies: Chest Pain, Palpitations Respiratory: Reports: Shortness of Breath, Shortness of breath at rest, Shortness of breath upon exertion. Denies: Cough, Sputum production Gastrointestinal: Denies: Abdominal Pain, Nausea, Vomiting Genitourinary: Denies: Dysuria Musculoskeletal: Denies: Joint Pain, Joint Tenderness Skin: Denies: Rash, Wounds Neurological: Denies: Numbness, Tingling, Focal weakness Psychiatric: Reports: Anxiety Hematologic/ Lymphatic: Denies: Easy Bruising, Easy Bleeding Patient Problems: Active and Suspected Problems (Last Reviewed 09/28/19 @ 11:[address] Chi Bernard MD) Atrial fibrillation with rapid ventricular response (Acute) COVID-19 (Acute) Dyspnea (Acute) Abnormal cardiac enzyme level (Acute) Objective: The patient's most recent lab work, culture data and imaging studies have all been personally reviewed. Surface echocardiogram from August 2019 revealed normal LV size and thickness with an ejection fraction of 65%. Right ventricular systolic pressure was estimated to be 38 mmHg. The RV was mildly dilated. Strep and urine Legionella antigens were negative. Blood and urine cultures are pending. Coronavirus PCR was positive on both June 05 and . - Physical Exam Vitals/I&O's: Vital Signs Temp Pulse Resp BP Pulse Ox 102.2 F H 94 24 H 109/70 93 06/11/20 06:00 06/11/20 06:00 06/11/20 06:00 06/11/20 06:00 06/11/20 06:00 Oxygen Flow Rate (L/min) 4 Oxygen Delivery Method Bi-pap Weight: 283 lb 11.759 oz Body Mass Index (BMI) 39.6 Intake and Output for Last 24 Hours 06/09/20 06/10/20 06/11/20 23:59 23:59 23:59 Intake Total 1694.75 / 1702.25 200.5 / 200.5 Output Total 800 / 800 240 / 240 Balance 894.75 / 902.25 -39.5 / -39.5 General: Alert, Cooperative, - - Currently tolerating BiPAP therapy without issue. HEENT: Atraumatic, PERRLA, Normocephalic Oral: Dry Mucosa Neck: Supple, No Nodes, Trachea Midline Lungs: No rhonchi, No wheeze, No rales, Diminished, - - No accessory muscle use Cardiovascular: Normal S1, Normal S2, Irregular Rate, Tachycardic Abdomen: Bowel Sounds Present, Soft, Non Tender, Obese Extremities: No clubbing, No cyanosis, No edema Skin: No breakdown Musculoskeletal: No Tenderness to Palpation of Joints or Extremities, No Muscle Wasting Lymphatic: No Cervical, Supraclavicular, or Inguinal Adenopathy Neurological: Cranial nerves II-XII grossly intact, Neuro grossly intact Psych/Mental Status: Normal Affect, Appropriate Labs (Last 48 Hours) 06/10/20 06/10/20 06/10/20 15:25 15:50 15:50 WBC 9.3 RBC 5.62 Hgb 17.4 H Hct 51.3 MCV 91.3 MCH 31.0 MCHC 33.9 RDW Std Deviation 46.1 H RDW Coeff of Ayde 13.6 Plt Count 158 MPV 12.2 H Immature Gran % (Auto) 1.100 H Neut % (Auto) 80.8 H Lymph % (Auto) 13.9 L Frio % (Auto) 4.1 Eos % (Auto) 0.0 Baso % (Auto) 0.1 Absolute Neuts (auto) 7.5 Absolute Lymphs (auto) 1.29 Nucleated RBC % 0 Platelet Estimate ADEQUATE RBC Morphology N CHROM Anisocytosis RARE Macrocytosis RARE PT INR APTT Fibrinogen D-Dimer Quant (PE/DVT) Specimen Type Sample Site pH Bicarbonate Actual POC Total CO2 Base Excess O2 Saturation O2 % ABG pCO2 ABG pO2 Emerson Test O2 Delivery Device Liter Flow EPAP IPAP Sodium 134 L Potassium 4.0 Chloride 98 Carbon Dioxide 24.0 Anion Gap 12 BUN 28 H Creatinine 1.50 H Estim Creat Clear Calc 50.90 Est GFR (MDRD) Af Amer 60 Est GFR (MDRD) Non-Af 50 L BUN/Creatinine Ratio 18.7 Glucose 148 H Lactic Acid Calcium 8.9 Magnesium Total Bilirubin 0.80 Direct Bilirubin AST 98 H ALT 52 Alkaline Phosphatase 52 Lactate Dehydrogenase Total Creatine Kinase Troponin I 0.033 C-React Prot Ext Range B-Natriuretic Peptide Total Protein 7.8 Albumin 2.8 L Globulin 5.0 H Albumin/Globulin Ratio 0.6 L Procalcitonin TSH Urine Color Urine Clarity Urine pH Ur Specific [place] Urine Protein Urine Glucose (UA) Urine Ketones Urine Occult Blood Urine Nitrite Urine Bilirubin Urine Urobilinogen Ur Leukocyte Esterase Urine RBC Urine WBC Ur Squamous Epith Cells Urine Bacteria Hyaline Casts Fine Granular Casts Urine Mucus COVID-19 (ISAAC) Positive 06/10/20 06/10/20 06/10/20 15:50 15:50 15:50 WBC RBC Hgb Hct MCV MCH MCHC RDW Std Deviation RDW Coeff of Ayde Plt Count MPV Immature Gran % (Auto) Neut % (Auto) Lymph % (Auto) Frio % (Auto) Eos % (Auto) Baso % (Auto) Absolute Neuts (auto) Absolute Lymphs (auto) Nucleated RBC % Platelet Estimate RBC Morphology Anisocytosis Macrocytosis PT 13.5 INR 1.1 APTT 34.5 Fibrinogen D-Dimer Quant (PE/DVT) 4.04 H* Specimen Type Sample Site pH Bicarbonate Actual POC Total CO2 Base Excess O2 Saturation O2 % ABG pCO2 ABG pO2 Emerson Test O2 Delivery Device Liter Flow EPAP IPAP Sodium Potassium Chloride Carbon Dioxide Anion Gap BUN Creatinine Estim Creat Clear Calc Est GFR (MDRD) Af Amer Est GFR (MDRD) Non-Af BUN/Creatinine Ratio Glucose Lactic Acid Calcium Magnesium Total Bilirubin Direct Bilirubin AST ALT Alkaline Phosphatase Lactate Dehydrogenase Total Creatine Kinase Troponin I C-React Prot Ext Range B-Natriuretic Peptide 308.8 H Total Protein Albumin Globulin Albumin/Globulin Ratio Procalcitonin TSH Urine Color Urine Clarity Urine pH Ur Specific [place] Urine Protein Urine Glucose (UA) Urine Ketones Urine Occult Blood Urine Nitrite Urine Bilirubin Urine Urobilinogen Ur Leukocyte Esterase Urine RBC Urine WBC Ur Squamous Epith Cells Urine Bacteria Hyaline Casts Fine Granular Casts Urine Mucus COVID-19 (ISAAC) 06/10/20 06/10/20 06/10/20 15:50 16:00 17:15 WBC RBC Hgb Hct MCV MCH MCHC RDW Std Deviation RDW Coeff of Ayde Plt Count MPV Immature Gran % (Auto) Neut % (Auto) Lymph % (Auto) Frio % (Auto) Eos % (Auto) Baso % (Auto) Absolute Neuts (auto) Absolute Lymphs (auto) Nucleated RBC % Platelet Estimate RBC Morphology Anisocytosis Macrocytosis PT INR APTT Fibrinogen 630 H D-Dimer Quant (PE/DVT) Specimen Type Sample Site pH Bicarbonate Actual POC Total CO2 Base Excess O2 Saturation O2 % ABG pCO2 ABG pO2 Emerson Test O2 Delivery Device Liter Flow EPAP IPAP Sodium Potassium Chloride Carbon Dioxide Anion Gap BUN Creatinine Estim Creat Clear Calc Est GFR (MDRD) Af Amer Est GFR (MDRD) Non-Af BUN/Creatinine Ratio Glucose Lactic Acid Cancelled Cancelled Calcium Magnesium Total Bilirubin Direct Bilirubin AST ALT Alkaline Phosphatase Lactate Dehydrogenase Total Creatine Kinase Troponin I C-React Prot Ext Range B-Natriuretic Peptide Total Protein Albumin Globulin Albumin/Globulin Ratio Procalcitonin TSH Urine Color Urine Clarity Urine pH Ur Specific [place] Urine Protein Urine Glucose (UA) Urine Ketones Urine Occult Blood Urine Nitrite Urine Bilirubin Urine Urobilinogen Ur Leukocyte Esterase Urine RBC Urine WBC Ur Squamous Epith Cells Urine Bacteria Hyaline Casts Fine Granular Casts Urine Mucus COVID-19 (ISAAC) 06/10/20 06/10/20 06/10/20 19:00 20:20 20:20 WBC RBC Hgb Hct MCV MCH MCHC RDW Std Deviation RDW Coeff of Ayde Plt Count MPV Immature Gran % (Auto) Neut % (Auto) Lymph % (Auto) Frio % (Auto) Eos % (Auto) Baso % (Auto) Absolute Neuts (auto) Absolute Lymphs (auto) Nucleated RBC % Platelet Estimate RBC Morphology Anisocytosis Macrocytosis PT INR APTT Fibrinogen D-Dimer Quant (PE/DVT) Specimen Type Sample Site pH Bicarbonate Actual POC Total CO2 Base Excess O2 Saturation O2 % ABG pCO2 ABG pO2 Emerson Test O2 Delivery Device Liter Flow EPAP IPAP Sodium Potassium Chloride Carbon Dioxide Anion Gap BUN Creatinine Estim Creat Clear Calc Est GFR (MDRD) Af Amer Est GFR (MDRD) Non-Af BUN/Creatinine Ratio Glucose Lactic Acid Cancelled Calcium Magnesium Total Bilirubin Direct Bilirubin AST ALT Alkaline Phosphatase Lactate Dehydrogenase Total Creatine Kinase Troponin I C-React Prot Ext Range B-Natriuretic Peptide Total Protein Albumin Globulin Albumin/Globulin Ratio Procalcitonin 0.15 H TSH Urine Color Maureen Urine Clarity Clear Urine pH 6.0 Ur Specific [place] 1.020 Urine Protein 500 H Urine Glucose (UA) Normal Urine Ketones 5 H Urine Occult Blood 250 H Urine Nitrite Negative Urine Bilirubin Negative Urine Urobilinogen Normal Ur Leukocyte Esterase 25 H Urine RBC 0 SEEN Urine WBC 0-5 SEEN Ur Squamous Epith Cells 0-5 SEEN Urine Bacteria 0 SEEN Hyaline Casts 25-50 SEEN Fine Granular Casts 5-10 SEEN Urine Mucus 0 SEEN COVID-19 (ISAAC) 06/10/20 06/10/20 06/10/20 20:47 20:50 21:50 WBC RBC Hgb Hct MCV MCH MCHC RDW Std Deviation RDW Coeff of Ayde Plt Count MPV Immature Gran % (Auto) Neut % (Auto) Lymph % (Auto) Frio % (Auto) Eos % (Auto) Baso % (Auto) Absolute Neuts (auto) Absolute Lymphs (auto) Nucleated RBC % Platelet Estimate RBC Morphology Anisocytosis Macrocytosis PT INR APTT Fibrinogen D-Dimer Quant (PE/DVT) Specimen Type ART Sample Site L RADIAL pH 7.56 H Bicarbonate Actual 18.1 L POC Total CO2 19 Base Excess -4 L O2 Saturation 81 L O2 % ABG pCO2 20.4 L ABG pO2 37 L* Emerson Test POS O2 Delivery Device Nasal Can Liter Flow 5.0 EPAP IPAP Sodium Potassium Chloride Carbon Dioxide Anion Gap BUN Creatinine Estim Creat Clear Calc Est GFR (MDRD) Af Amer Est GFR (MDRD) Non-Af BUN/Creatinine Ratio Glucose Lactic Acid 2.5 H* Calcium Magnesium Total Bilirubin 0.60 Direct Bilirubin 0.25 AST 88 H ALT 44 Alkaline Phosphatase 47 Lactate Dehydrogenase 799 H Total Creatine Kinase 809 H Troponin I 0.053 H C-React Prot Ext Range 109.00 H B-Natriuretic Peptide Total Protein 7.1 Albumin 2.6 L Globulin 4.5 H Albumin/Globulin Ratio Procalcitonin TSH 0.76 Urine Color Urine Clarity Urine pH Ur Specific [place] Urine Protein Urine Glucose (UA) Urine Ketones Urine Occult Blood Urine Nitrite Urine Bilirubin Urine Urobilinogen Ur Leukocyte Esterase Urine RBC Urine WBC Ur Squamous Epith Cells Urine Bacteria Hyaline Casts Fine Granular Casts Urine Mucus COVID-19 (ISAAC) 06/10/20 06/10/20 06/11/20 23:24 23:25 00:45 WBC RBC Hgb Hct MCV MCH MCHC RDW Std Deviation RDW Coeff of Ayde Plt Count MPV Immature Gran % (Auto) Neut % (Auto) Lymph % (Auto) Frio % (Auto) Eos % (Auto) Baso % (Auto) Absolute Neuts (auto) Absolute Lymphs (auto) Nucleated RBC % Platelet Estimate RBC Morphology Anisocytosis Macrocytosis PT INR APTT Fibrinogen D-Dimer Quant (PE/DVT) Specimen Type ART Sample Site L RADIAL pH 7.48 H Bicarbonate Actual 20.7 L POC Total CO2 22 Base Excess -3 L O2 Saturation 98 O2 % 100 ABG pCO2 28.1 L ABG pO2 103 H Emerson Test POS O2 Delivery Device Bi Pap Liter Flow EPAP 16 IPAP 22 Sodium Potassium Chloride Carbon Dioxide Anion Gap BUN Creatinine Estim Creat Clear Calc Est GFR (MDRD) Af Amer Est GFR (MDRD) Non-Af BUN/Creatinine Ratio Glucose Lactic Acid 1.7 Calcium Magnesium Total Bilirubin Direct Bilirubin AST ALT Alkaline Phosphatase Lactate Dehydrogenase Total Creatine Kinase Troponin I 0.042 C-React Prot Ext Range B-Natriuretic Peptide Total Protein Albumin Globulin Albumin/Globulin Ratio Procalcitonin TSH Urine Color Urine Clarity Urine pH Ur Specific [place] Urine Protein Urine Glucose (UA) Urine Ketones Urine Occult Blood Urine Nitrite Urine Bilirubin Urine Urobilinogen Ur Leukocyte Esterase Urine RBC Urine WBC Ur Squamous Epith Cells Urine Bacteria Hyaline Casts Fine Granular Casts Urine Mucus COVID-19 (ISAAC) 06/11/20 06/11/20 06/11/20 02:15 02:15 02:15 WBC 9.7 RBC 5.19 Hgb 16.2 Hct 46.7 MCV 90.0 MCH 31.2 MCHC 34.7 RDW Std Deviation 44.1 H RDW Coeff of Ayde 13.6 Plt Count 149 L MPV 11.4 Immature Gran % (Auto) 0.900 Neut % (Auto) 85.4 H Lymph % (Auto) 9.6 L Frio % (Auto) 4.0 Eos % (Auto) 0.0 Baso % (Auto) 0.1 Absolute Neuts (auto) 8.2 H Absolute Lymphs (auto) 0.93 Nucleated RBC % 0 Platelet Estimate RBC Morphology Anisocytosis Macrocytosis PT INR APTT Fibrinogen D-Dimer Quant (PE/DVT) Specimen Type Sample Site pH Bicarbonate Actual POC Total CO2 Base Excess O2 Saturation O2 % ABG pCO2 ABG pO2 Emerson Test O2 Delivery Device Liter Flow EPAP IPAP Sodium 136 Potassium 3.9 Chloride 106 Carbon Dioxide 24.0 Anion Gap 6 BUN 28 H Creatinine 1.10 Estim Creat Clear Calc 69.41 Est GFR (MDRD) Af Amer 86 Est GFR (MDRD) Non-Af 71 BUN/Creatinine Ratio 25.5 H Glucose 200 H Lactic Acid Calcium 8.3 L Magnesium 2.1 Total Bilirubin Direct Bilirubin AST ALT Alkaline Phosphatase Lactate Dehydrogenase Total Creatine Kinase Troponin I 0.047 H C-React Prot Ext Range B-Natriuretic Peptide Total Protein Albumin Globulin Albumin/Globulin Ratio Procalcitonin TSH Urine Color Urine Clarity Urine pH Ur Specific [place] Urine Protein Urine Glucose (UA) Urine Ketones Urine Occult Blood Urine Nitrite Urine Bilirubin Urine Urobilinogen Ur Leukocyte Esterase Urine RBC Urine WBC Ur Squamous Epith Cells Urine Bacteria Hyaline Casts Fine Granular Casts Urine Mucus COVID-19 (ISAAC) Microbiology 06/10/20 20:20 Urine, Clean Catch Legionella Antigen - Final 06/10/20 20:20 Urine, Clean Catch Streptococcus pneumoniae Antigen (M - Final Clinical Impression(s) from Imaging Studies Chest X-Ray 06/10/20 14:55 IMPRESSION: Mild degree of vascular congestion Electronically Signed: Declan Morgan, at 15:32 EDT , Service support , Chest CTA 06/10/20 18:26 IMPRESSION: Exam is limited by significant respiratory motion. No evidence for central or major pulmonary emboli. Pulmonary emboli beyond the main lobar vessels cannot be excluded. Widespread pulmonary infiltrates worse on the right consistent with nonspecific multifocal pneumonia. Electronically Signed: Julito Lee MD at 20:08 EDT , Service support , Current Medications Acetaminophen (Tylenol) 500 mg PO BID [facility] Last Admin: 06/10/20 21:51 Dose: Not Given Documented by: Acetaminophen (Tylenol) 650 mg RECTAL Q4H PRN PRN PRN Reason: Pain Score 1-10/10,temp >100.7 Last Admin: 06/11/20 05:51 Dose: 650 mg Documented by: Albuterol/Ipratropium (Duoneb) 3 ml INHALATION Q4H.RT [facility] Last Admin: 06/11/20 02:25 Dose: Not Given Documented by: Buspirone HCl (Buspar) 30 mg PO BID [facility] Last Admin: 06/10/20 21:51 Dose: Not Given Documented by: Clonazepam (Klonopin) 2 mg PO QHS [facility] Last Admin: 06/10/20 21:51 Dose: Not Given Documented by: Clonazepam (Klonopin) 1 mg PO BIDCM [facility] Dextrose (D50w Syringe) 0 gm IV X1 PRN; Protocol PRN Reason: Hypoglycemia Enoxaparin Sodium (Lovenox) 130 mg SC Q12 [facility] Last Admin: 06/10/20 21:45 Dose: 130 mg Documented by: Finasteride (Proscar) 5 mg PO DAILY [facility] Glucagon () 1 mg IM .X1 PRN PRN Reason: Hypoglycemia Sodium Chloride () 250 mls @ 15 mls/hr IV .[id number] PRN PRN Reason: Saline Flush Last Infusion: 06/10/20 22:16 Dose: 0 mls/hr Documented by: Sodium Chloride () 250 mls @ 15 mls/hr IV .[id number] PRN PRN Reason: Additional IVPB Infusion Diltiazem HCl 125 mg/ Dextrose 125 mls @ 5 mls/hr IV .Q25H [facility]; Protocol Last Titration: 06/11/20 06:00 Dose: 15 mg/hr, 15 mls/hr Documented by: Azithromycin 500 mg/ Dextrose 255 mls @ 250 mls/hr IV Q24@2200 [facility] Last Infusion: 06/10/20 23:58 Dose: Infused Documented by: Ceftriaxone Sodium (Rocephin) 1 gm in 50 mls @ 100 mls/hr IV Q12 [facility] Last Infusion: 06/10/20 22:46 Dose: Infused Documented by: Amiodarone HCl 360 mg/ (Dextrose) 200 mls @ 33.333 mls/hr CONT INF .Q6H [facility] Stop: 06/11/20 11:29 Last Admin: 06/11/20 05:49 Dose: 1 mg/min, 33.3 mls/hr Documented by: Amiodarone HCl 360 mg/ (Dextrose) 200 mls @ 16.667 mls/hr CONT INF .Q12H [facility] Stop: 06/12/20 05:28 Metoprolol Tartrate (Lopressor (Beta Kirit)) 5 mg IV Q8@0200,1000,1800 [facility] Last Admin: 06/11/20 02:53 Dose: 5 mg Documented by: Nitroglycerin (Nitrostat) 0.4 mg SUBLINGUAL Q5M PRN PRN Reason: CARDIAC/CHEST PAIN Oxsfl-5-Ehth Ethyl Esters (Lovaza) 1 gm PO BID [facility] Last Admin: 06/10/20 21:51 Dose: Not Given Documented by: Ondansetron HCl (Zofran) 4 mg IV Q8H PRN PRN PRN Reason: NAUSEA/VOMITING Last Admin: 06/10/20 23:05 Dose: 4 mg Documented by: Pramipexole Dihydrochloride (Mirapex) 0.25 mg PO QHS [facility] Last Admin: 06/10/20 21:51 Dose: Not Given Documented by: Pravastatin Sodium (Pravachol) 40 mg PO QHS [facility] Last Admin: 06/10/20 21:51 Dose: Not Given Documented by: Sodium Chloride () 10 - 40 ml IV UD PRN PRN Reason: SALINE FLUSH Last Admin: 06/11/20 02:53 Dose: 40 ml Documented by: Venlafaxine HCl (Effexor Xr) 75 mg PO DAILY [facility] Assessment/Plan Active and Suspected Problems (Last Reviewed 09/28/19 @ 11:[address] Chi Bernard MD) Atrial fibrillation with rapid ventricular response (Acute) COVID-19 (Acute) Dyspnea (Acute) Abnormal cardiac enzyme level (Acute) RECOMMENDATIONS: 1. Continue BiPAP therapy as tolerated by the patient. Low threshold for intubation with clinical worsening. 2. Send type and screen, with plans to start the patient on convalescent plasma, once available. 3. Continue therapeutic Lovenox, Decadron and remdesivir. 4. Wean FiO2 to maintain oxygen saturations at or above 90%. 5. Okay to transition from BiPAP to Airvo heated high flow. 6. Continue amiodarone for rate/rhythm control strategy of A. fib. Cardiology consultation is pending. IMPRESSIONS: 1. Acute hypoxemic respiratory failure secondary to COVID-19 Infection The patient presented to the hospital with worsening shortness of breath and hypoxemia. Coronavirus PCR was positive. CTA chest revealed significant bilateral infiltrates. The patient was placed on noninvasive positive pressure ventilatory support. The patient was given Decadron, Remdesevir and was started on therapeutic Lovenox therapy given his elevated d-dimer level. Following completion of a type and screen, orders were placed for convalescent plasma (patient code [id number] through the [place] expanded access program for convalescent plasma for the treatment of patients with COVID-19). At this time, recommend continuing supportive measures. The patient can be transition from BiPAP to heated high flow supplemental oxygen for comfort. Wean FiO2 to maintain oxygen saturations at or above 90%. Infectious diseases consultation is also pending. 2. History of paroxysmal atrial fibrillation The patient is currently in atrial fibrillation with improvement in heart rate. Agree with continuing amiodarone for now. Cardiology consultation is currently pending. 3. Obesity/history of obstructive sleep apnea/hyperlipidemia/anxiety/restless leg syndrome Complicates care, management, recovery and prognosis. Continue noninvasive positive pressure ventilatory support as required. TIME: 45 minutes of critical care time, independent of procedures, was spent addressing the patient's acute hypoxemic respiratory failure, acute COVID-19 infection, atrial fibrillation with rapid ventricular rate, review of all data and collaboration with the care team. [id number]) [id number] Critical care first hour
--- NOTE | 2020-06-11 07:13 | PCM.PN.HOSP ---
Patient Problems: Active and Suspected Problems (Last Reviewed 09/28/19 @ 11:[address] Chi Bernard MD) Atrial fibrillation with rapid ventricular response (Acute) COVID-19 (Acute) Dyspnea (Acute) Abnormal cardiac enzyme level (Acute) Reason for Visit: A. fib with RVR and acute hypoxic respiratory failure Subjective: Patient is a 69-year-old gentleman diagnosed with COVID 2 weeks prior to this admission who presented with progressive shortness of breath and palpitations. Patient was found to be in A. fib with RVR. Was also found to be significantly hypoxic admitted to the intensive care unit for further management Objective: GENERAL: Appears ill looking HEENT: Atraumatic; EYES; Anicteric, Normal Conjunctiva NECK; supple, normal thyroid, RESPIRATORY: Diminished to auscultation CARDIOVASCULAR: Regularly irregular, tachycardic GI: soft, normoactive bowel sounds, : No Renal angle tenderness; EXTREMITIES: No edema, no clubbing, MUSCULOSKELETAL: no muscle waisting NEURO: Awake; no lateralizing signs. SKIN: No Rash PSYCH; Flat affect Vitals/I&O's: Vital Signs Temp Pulse Resp BP Pulse Ox 101.9 F H 88 28 H 99/79 92 06/11/20 07:00 06/11/20 07:00 06/11/20 07:00 06/11/20 07:00 06/11/20 07:00 Oxygen Flow Rate (L/min) 4 Oxygen Delivery Method Bi-pap Weight: 128.7 kg Body Mass Index (BMI) 39.6 Intake and Output for Last 24 Hours 06/09/20 06/10/20 06/11/20 23:59 23:59 23:59 Intake Total 1694.75 / 1702.25 215.5 / 215.5 Output Total 800 / 800 240 / 240 Balance 894.75 / 902.25 -24.5 / -24.5 Microbiology Past 72 Hours 06/10/20 20:20 Urine, Clean Catch Legionella Antigen - Final 06/10/20 20:20 Urine, Clean Catch Streptococcus pneumoniae Antigen (M - Final Laboratory Results 06/10/20 15:25: COVID-19 (ISAAC) Positive 06/10/20 15:50: WBC 9.3, RBC 5.62, Hgb 17.4 H, Hct 51.3, MCV 91.3, MCH 31.0, MCHC 33.9, RDW Std Deviation 46.1 H, RDW Coeff of Ayde 13.6, Plt Count 158, MPV 12.2 H, Immature Gran % (Auto) 1.100 H, Neut % (Auto) 80.8 H, Lymph % (Auto) 13.9 L, Emanuel % (Auto) 4.1, Eos % (Auto) 0.0, Baso % (Auto) 0.1, Absolute Neuts (auto) 7.5, Absolute Lymphs (auto) 1.29, Nucleated RBC % 0, Platelet Estimate ADEQUATE, RBC Morphology N CHROM, Anisocytosis RARE, Macrocytosis RARE 06/10/20 15:50: Sodium 134 L, Potassium 4.0, Chloride 98, Carbon Dioxide 24.0, Anion Gap 12, BUN 28 H, Creatinine 1.50 H, Estim Creat Clear Calc 50.90, Est GFR (MDRD) Af Amer 60, Est GFR (MDRD) Non-Af 50 L, BUN/Creatinine Ratio 18.7, Glucose 148 H, Calcium 8.9, Total Bilirubin 0.80, AST 98 H, ALT 52, Alkaline Phosphatase 52, Troponin I 0.033, Total Protein 7.8, Albumin 2.8 L, Globulin 5.0 H, Albumin/Globulin Ratio 0.6 L 06/10/20 15:50: PT 13.5, INR 1.1, APTT 34.5 06/10/20 15:50: D-Dimer Quant (PE/DVT) 4.04 H* 06/10/20 15:50: B-Natriuretic Peptide 308.8 H 06/10/20 15:50: Fibrinogen 630 H 06/10/20 16:00: Lactic Acid Cancelled 06/10/20 17:15: Lactic Acid Cancelled 06/10/20 19:00: Urine Color Maureen, Urine Clarity Clear, Urine pH 6.0, Ur Specific [place] 1.020, Urine Protein 500 H, Urine Glucose (UA) Normal, Urine Ketones 5 H, Urine Occult Blood 250 H, Urine Nitrite Negative, Urine Bilirubin Negative, Urine Urobilinogen Normal, Ur Leukocyte Esterase 25 H, Urine RBC 0 SEEN, Urine WBC 0-5 SEEN, Ur Squamous Epith Cells 0-5 SEEN, Urine Bacteria 0 SEEN, Hyaline Casts 25-50 SEEN, Fine Granular Casts 5-10 SEEN, Urine Mucus 0 SEEN 06/10/20 20:20: Procalcitonin 0.15 H 06/10/20 20:20: Lactic Acid Cancelled 06/10/20 20:47: Specimen Type ART, Sample Site L RADIAL, pH 7.56 H, Bicarbonate Actual 18.1 L, POC Total CO2 19, Base Excess -4 L, O2 Saturation 81 L, ABG pCO2 20.4 L, ABG pO2 37 L*, Emerson Test POS, O2 Delivery Device Nasal Can, Liter Flow 5.0 06/10/20 20:50: Total Bilirubin 0.60, Direct Bilirubin 0.25, AST 88 H, ALT 44, Alkaline Phosphatase 47, Lactate Dehydrogenase 799 H, Total Creatine Kinase 809 H, Troponin I 0.053 H, C-React Prot Ext Range 109.00 H, Total Protein 7.1, Albumin 2.6 L, Globulin 4.5 H, TSH 0.76 06/10/20 21:50: Lactic Acid 2.5 H* 06/10/20 23:24: Specimen Type ART, Sample Site L RADIAL, pH 7.48 H, Bicarbonate Actual 20.7 L, POC Total CO2 22, Base Excess -3 L, O2 Saturation 98, O2 % 100, ABG pCO2 28.1 L, ABG pO2 103 H, Emerson Test POS, O2 Delivery Device Bi Pap, EPAP 16, IPAP 22 06/10/20 23:25: Troponin I 0.042 06/11/20 00:45: Lactic Acid 1.7 06/11/20 02:15: WBC 9.7, RBC 5.19, Hgb 16.2, Hct 46.7, MCV 90.0, MCH 31.2, MCHC 34.7, RDW Std Deviation 44.1 H, RDW Coeff of Ayde 13.6, Plt Count 149 L, MPV 11.4, Immature Gran % (Auto) 0.900, Neut % (Auto) 85.4 H, Lymph % (Auto) 9.6 L, Emanuel % (Auto) 4.0, Eos % (Auto) 0.0, Baso % (Auto) 0.1, Absolute Neuts (auto) 8.2 H, Absolute Lymphs (auto) 0.93, Nucleated RBC % 0 06/11/20 02:15: Sodium 136, Potassium 3.9, Chloride 106, Carbon Dioxide 24.0, Anion Gap 6, BUN 28 H, Creatinine 1.10, Estim Creat Clear Calc 69.41, Est GFR (MDRD) Af Amer 86, Est GFR (MDRD) Non-Af 71, BUN/Creatinine Ratio 25.5 H, Glucose 200 H, Calcium 8.3 L, Magnesium 2.1 06/11/20 02:15: Troponin I 0.047 H 06/11/20 06:35: Blood Type Pending, Antibody Screen Pending Current Medications Acetaminophen (Tylenol) 500 mg PO BID [facility] Last Admin: 06/10/20 21:51 Dose: Not Given Documented by: Acetaminophen (Tylenol) 650 mg RECTAL Q4H PRN PRN PRN Reason: Pain Score 1-10/10,temp >100.7 Last Admin: 06/11/20 05:51 Dose: 650 mg Documented by: Albuterol/Ipratropium (Duoneb) 3 ml INHALATION Q4H.RT [facility] Last Admin: 06/11/20 02:25 Dose: Not Given Documented by: Buspirone HCl (Buspar) 30 mg PO BID [facility] Last Admin: 06/10/20 21:51 Dose: Not Given Documented by: Clonazepam (Klonopin) 2 mg PO QHS [facility] Last Admin: 06/10/20 21:51 Dose: Not Given Documented by: Clonazepam (Klonopin) 1 mg PO BIDCM [facility] Dextrose (D50w Syringe) 0 gm IV X1 PRN; Protocol PRN Reason: Hypoglycemia Enoxaparin Sodium (Lovenox) 130 mg SC Q12 [facility] Last Admin: 06/10/20 21:45 Dose: 130 mg Documented by: Finasteride (Proscar) 5 mg PO DAILY [facility] Glucagon () 1 mg IM .X1 PRN PRN Reason: Hypoglycemia Sodium Chloride () 250 mls @ 15 mls/hr IV .[id number] PRN PRN Reason: Saline Flush Last Infusion: 06/10/20 22:16 Dose: 0 mls/hr Documented by: Sodium Chloride () 250 mls @ 15 mls/hr IV .[id number] PRN PRN Reason: Additional IVPB Infusion Diltiazem HCl 125 mg/ Dextrose 125 mls @ 5 mls/hr IV .Q25H [facility]; Protocol Last Titration: 06/11/20 07:00 Dose: 15 mg/hr, 15 mls/hr Documented by: Azithromycin 500 mg/ Dextrose 255 mls @ 250 mls/hr IV Q24@2200 [facility] Last Infusion: 06/10/20 23:58 Dose: Infused Documented by: Ceftriaxone Sodium (Rocephin) 1 gm in 50 mls @ 100 mls/hr IV Q12 [facility] Last Infusion: 06/10/20 22:46 Dose: Infused Documented by: Amiodarone HCl 360 mg/ (Dextrose) 200 mls @ 33.333 mls/hr CONT INF .Q6H [facility] Stop: 06/11/20 11:29 Last Admin: 06/11/20 05:49 Dose: 1 mg/min, 33.3 mls/hr Documented by: Amiodarone HCl 360 mg/ (Dextrose) 200 mls @ 16.667 mls/hr CONT INF .Q12H [facility] Stop: 06/12/20 05:28 Remdesivir (Investigational) (100 mg/ Sodium Chloride) 250 mls @ 125 mls/hr IV DAILY [facility] Stop: 06/14/20 11:59 Metoprolol Tartrate (Lopressor (Beta Kirit)) 5 mg IV Q8@0200,1000,1800 [facility] Last Admin: 06/11/20 02:53 Dose: 5 mg Documented by: Nitroglycerin (Nitrostat) 0.4 mg SUBLINGUAL Q5M PRN PRN Reason: CARDIAC/CHEST PAIN [id number] Ethyl Esters (Lovaza) 1 gm PO BID [facility] Last Admin: 06/10/20 21:51 Dose: Not Given Documented by: Ondansetron HCl (Zofran) 4 mg IV Q8H PRN PRN PRN Reason: NAUSEA/VOMITING Last Admin: 06/10/20 23:05 Dose: 4 mg Documented by: Pramipexole Dihydrochloride (Mirapex) 0.25 mg PO QHS [facility] Last Admin: 06/10/20 21:51 Dose: Not Given Documented by: Pravastatin Sodium (Pravachol) 40 mg PO QHS [facility] Last Admin: 06/10/20 21:51 Dose: Not Given Documented by: Sodium Chloride () 10 - 40 ml IV UD PRN PRN Reason: SALINE FLUSH Last Admin: 06/11/20 02:53 Dose: 40 ml Documented by: Venlafaxine HCl (Effexor Xr) 75 mg PO DAILY [facility] Vital Signs/Narrative: Vital Signs Temp Pulse Resp BP Pulse Ox 06/11/20 07:00 101.9 F H 88 28 H 99/79 92 06/11/20 06:00 102.2 F H 94 24 H 109/70 93 06/11/20 05:54 117 H 106/82 H 06/11/20 05:49 112 H 100/75 06/11/20 05:10 108 H 28 H 93 06/11/20 05:00 102.3 F H 107 H 21 H 104/79 95 06/11/20 04:00 102.4 F H 108 H 24 H 109/83 H 94 Medical Necessity - Tobacco Use Smoking Status: Former smoker Assessment/Plan All Active Problems (Last Reviewed 09/28/19 @ 11:[address] 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 Patient was found to be in A. fib with RVR. Was also found to be significantly hypoxic admitted to the intensive care unit for further management 1. Acute hypoxic respiratory failure secondary to COVID-19 infection ?Patient admitted to the intensive care unit placed on high flow oxygen. Patient was started on dexamethasone Remdesivir and convalescent plasma scheduled to be administered this a.m. Patient was also covered with ceftriaxone and azithromycin 2. A. fib with RVR ?Patient was started on Cardizem drip titrated to keep heart rate less than 100 as well as amiodarone. Also states did continue with his oral metoprolol and placed on systemic anticoagulation with Lovenox. Consultation was placed to Dr. Sprague the coding tech on-call 3. Sepsis secondary to COVID infection ?Management as discussed above 4. Acute kidney injury ?Kidney function did improve following admission 5. Obesity with BMI of 39.6 ?Weight loss advised 6. Dyslipidemia -Patient is on statin therapy, continued at home dose 7. Restless leg syndrome ?Patient is on Pramipexole 8. Hypertension - Blood pressure controlled, home medications continued with dose adjustment as needed 9. Depression ?Patient is on SNRI 10. BH ?Symptoms controlled on Proscar did continue 11. DVT prophylaxis on therapeutic anticoagulation with lovenox Clinical Impression(s) from Imaging Studies Chest X-Ray 06/10/20 14:55 IMPRESSION: Mild degree of vascular congestion Electronically Signed: Declan Morgan, at 15:32 EDT , Service support , Chest CTA 06/10/20 18:26 IMPRESSION: Exam is limited by significant respiratory motion. No evidence for central or major pulmonary emboli. Pulmonary emboli beyond the main lobar vessels cannot be excluded. Widespread pulmonary infiltrates worse on the right consistent with nonspecific multifocal pneumonia. Electronically Signed: Julito Lee MD at 20:08 EDT , Service support , Active Medications Acetaminophen (Tylenol) 500 mg PO BID [facility] Last Admin: 06/10/20 21:51 Dose: Not Given Documented by: Acetaminophen (Tylenol) 650 mg RECTAL Q4H PRN PRN PRN Reason: Pain Score 1-10/10,temp >100.7 Last Admin: 06/11/20 05:51 Dose: 650 mg Documented by: Albuterol/Ipratropium (Duoneb) 3 ml INHALATION Q4H PRN PRN PRN Reason: SOB &/ WHEEZING Buspirone HCl (Buspar) 30 mg PO BID [facility] Last Admin: 06/11/20 08:42 Dose: 30 mg Documented by: Clonazepam (Klonopin) 2 mg PO QHS [facility] Last Admin: 06/10/20 21:51 Dose: Not Given Documented by: [facility] ([facility]) [facility] Last Admin: 06/11/20 08:42 Dose: 1 mg Documented by: Dexamethasone Sodium Phosphate (Decadron) 6 mg IV DAILY [facility] Dextrose (D50w Syringe) 0 gm IV X1 PRN; Protocol PRN Reason: Hypoglycemia Enoxaparin Sodium (Lovenox) 130 mg SC Q12 [facility] Last Admin: 06/11/20 08:46 Dose: 130 mg Documented by: Finasteride (Proscar) 5 mg PO DAILY [facility] Last Admin: 06/11/20 08:43 Dose: 5 mg Documented by: Glucagon () 1 mg IM .X1 PRN PRN Reason: Hypoglycemia Sodium Chloride () 250 mls @ 15 mls/hr IV .[id number] PRN PRN Reason: Saline Flush Last Infusion: 06/10/20 22:16 Dose: 0 mls/hr Documented by: Sodium Chloride () 250 mls @ 15 mls/hr IV .[id number] PRN PRN Reason: Additional IVPB Infusion Diltiazem HCl 125 mg/ Dextrose 125 mls @ 5 mls/hr IV .Q25H [facility]; Protocol Last Titration: 06/11/20 07:00 Dose: 15 mg/hr, 15 mls/hr Documented by: Azithromycin 500 mg/ Dextrose 255 mls @ 250 mls/hr IV Q24@2200 [facility] Last Infusion: 06/10/20 23:58 Dose: Infused Documented by: Ceftriaxone Sodium (Rocephin) 1 gm in 50 mls @ 100 mls/hr IV Q12 [facility] Last Infusion: 06/10/20 22:46 Dose: Infused Documented by: Amiodarone HCl 360 mg/ (Dextrose) 200 mls @ 33.333 mls/hr CONT INF .Q6H [facility] Stop: 06/11/20 11:29 Last Admin: 06/11/20 05:49 Dose: 1 mg/min, 33.3 mls/hr Documented by: Amiodarone HCl 360 mg/ (Dextrose) 200 mls @ 16.667 mls/hr CONT INF .Q12H [facility] Stop: 06/12/20 05:28 Remdesivir (Investigational) (100 mg/ Sodium Chloride) 250 mls @ 125 mls/hr IV DAILY@2200 [facility] Stop: 06/14/20 23:59 Metoprolol Tartrate (Lopressor (Beta Kirit)) 5 mg IV Q8@0200,1000,1800 [facility] Last Admin: 06/11/20 02:53 Dose: 5 mg Documented by: Nitroglycerin (Nitrostat) 0.4 mg SUBLINGUAL Q5M PRN PRN Reason: CARDIAC/CHEST PAIN [id number] Ethyl Esters (Lovaza) 1 gm PO BID [facility] Last Admin: 06/11/20 08:43 Dose: 1 gm Documented by: Ondansetron HCl (Zofran) 4 mg IV Q8H PRN PRN PRN Reason: NAUSEA/VOMITING Last Admin: 06/10/20 23:05 Dose: 4 mg Documented by: Pramipexole Dihydrochloride (Mirapex) 0.25 mg PO QHS [facility] Last Admin: 06/10/20 21:51 Dose: Not Given Documented by: Pravastatin Sodium (Pravachol) 40 mg PO QHS [facility] Last Admin: 06/10/20 21:51 Dose: Not Given Documented by: Sodium Chloride () 10 - 40 ml IV UD PRN PRN Reason: SALINE FLUSH Last Admin: 06/11/20 02:53 Dose: 40 ml Documented by: Venlafaxine HCl (Effexor Xr) 75 mg PO DAILY [facility] Last Admin: 06/11/20 08:42 Dose: 75 mg Documented by: Inpatient E&M: [id number] [facility] L3
[2020-06-11] MEDS: Ipratropium/Albuterol Sulfate 3 ML AMPUL.NEB INHALATION (07:18)
--- NOTE | 2020-06-11 08:11 | CON.PCM_ITS ---
Problem List (1) Atrial fibrillation with rapid ventricular response Status: Acute (2) Abnormal cardiac enzyme level Status: Acute (3) COVID-19 Status: Acute (4) Hyperlipemia Status: Chronic (5) Essential (primary) hypertension Status: Chronic Reason for Consult Date of Consultation: 06/11/20 History of Present Illness: The patient is a 69 year [id number] white male with a past cardiovascular history which is included paroxysmal atrial fibrillation who presents for evaluation of a previous COVID positive test and now worsening shortness of breath/dyspnea requiring emergency department/ICU isolation/care/respiratory support with BiPAP who was found to be in atrial fibrillation with rapid ventricular response. He was evaluated by the [facility] emergency department staff, hospital staff, and now pulmonology/critical care staff. He has previously tested COVID positive, was remaining at home, but due to progressive shortness of breath/dyspnea presented to the hospital for further evaluation. He was found to have concerns of abnormal radiologic findings/ pulmonary findings and hypoxemia requiring BiPAP therapy. He was also noted to have a mildly indeterminate troponin I level and atrial fibrillation with rapid ventricular response. From a cardiovascular standpoint he was treated with IV diltiazem and subsequently IV amiodarone. He has had continued atrial fibrillation but improvement in his ventricular response rate. He continues in the ICU in COVID positive isolation at this time. There has been no report of other concerns of chest discomfort, acute CHF/pulmonary edema, near-syncope or syncope. [] Past Medical History Allergies/Adverse Reactions: Allergies No Known Allergies Allergy (Verified 06/10/20 14:11) Home Medications: Ambulatory Orders Medication Instructions Recorded [place]-3 Acid Ethyl Esters [Lovaza] 1 gm PO BID #1 09/04/14 Clonazepam [Klonopin] 1 mg PO BID 09/09/19 Clonazepam [Klonopin] 2 mg PO QHS 09/09/19 Pravastatin [Pravachol] 40 mg PO QHS 09/09/19 Ropinirole HCl [Requip] 0.5 mg PO QHS 09/09/19 Finasteride [Proscar] 5 mg PO DAILY #30 tab 09/12/19 Desvenlafaxine Succinate [Pristiq] 100 mg PO DAILY 10/23/19 Metoprolol Tartrate [Lopressor 50 mg PO BID 10/23/19 (beta eez)] Acetaminophen [Tylenol Extra 500 mg PO BID 06/10/20 Strength] Buspirone HCl [Buspar] 30 mg PO BID 06/10/20 Past Medical History (Chronic Problems): Chronic Problems (Last Reviewed 09/28/19 @ 11:[address] Chi Bernard MD) Atrial fibrillation with rapid ventricular response (Chronic 09/09/19) Essential (primary) hypertension (Chronic) Hypertriglyceridemia (Chronic) Hyperlipemia (Chronic) - *Family History Paternal Family History: Family History (Last Reviewed 09/28/19 @ 11:[address] Chi Bernard MD) Father Cancer History Items: Cancer - Lung cancer Smoking Status: Former smoker Alcohol: None Drugs: None Review of Systems - Review of Systems General: Reports: Fever. Denies: Fatigue, Night Sweats Cardiovascular: Reports: Shortness of Breath Respiratory: Reports: Shortness of Breath Gastrointestinal: Denies: Hematemesis, Hematochezia, Melena Genitourinary: Denies: Dysuria, Hematuria Skin: Denies: Rash Subjectve: The patient is in the ICU in [address] on a BiPAP device. Objective: Vital Signs Temp Pulse Resp BP Pulse Ox 101.9 F H 88 28 H 99/79 92 06/11/20 07:00 06/11/20 07:00 06/11/20 07:00 06/11/20 07:00 06/11/20 07:00 Oxygen Flow Rate (L/min) 4 Oxygen Delivery Method Bi-pap Weight: 283 lb 11.759 oz Body Mass Index (BMI) 39.6 Intake and Output for Last 24 Hours 06/09/20 06/10/20 06/11/20 23:59 23:59 23:59 Intake Total 1694.75 / 1702.25 215.5 / 215.5 Output Total 800 / 800 240 / 240 Balance 894.75 / 902.25 -24.5 / -24.5 General: Awake, Cooperative, Ill Appearing HEENT: Atraumatic, Normocephalic Neck: Good ROM Lungs: Diminished Matt Bases, - - Pulmonary examination per Dr. Alejo Cardiovascular: Irregular Rhythm, Normal S1, Normal S2 Extremities: No edema - Physical examination/cardiovascular examination: Per Dr. Alejo 06/10/20 15:50: WBC 9.3, RBC 5.62, Hgb 17.4 H, Hct 51.3, MCV 91.3, MCH 31.0, MCHC 33.9, Plt Count 158, MPV 12.2 H, Immature Gran % (Auto) 1.100 H, Neut % (Auto) 80.8 H, Lymph % (Auto) 13.9 L, [place] % (Auto) 4.1, Eos % (Auto) 0.0, Baso % (Auto) 0.1, Absolute Neuts (auto) 7.5, Nucleated RBC % 0 06/10/20 15:50: Sodium 134 L, Potassium 4.0, Chloride 98, Carbon Dioxide 24.0, Anion Gap 12, BUN 28 H, Creatinine 1.50 H, Est GFR (MDRD) Af Amer 60, Est GFR (MDRD) Non-Af 50 L, BUN/Creatinine Ratio 18.7, Glucose 148 H, Calcium 8.9, Total Bilirubin 0.80, Troponin I 0.033 06/10/20 15:50: PT 13.5, INR 1.1, APTT 34.5 06/10/20 15:50: D-Dimer Quant (PE/DVT) 4.04 H* 06/10/20 15:50: B-Natriuretic Peptide 308.8 H 06/10/20 16:00: Lactic Acid Cancelled 06/10/20 17:15: Lactic Acid Cancelled 06/10/20 19:00: Urine Color Maureen, Urine Clarity Clear, Urine pH 6.0, Ur Specific [place] 1.020, Urine Protein 500 H, Urine Glucose (UA) Normal, Urine Ketones 5 H, Urine Occult Blood 250 H, Urine Nitrite Negative, Urine Bilirubin Negative, Urine Urobilinogen Normal, Ur Leukocyte Esterase 25 H, Urine RBC 0 SEEN, Urine WBC 0-5 SEEN 06/10/20 20:20: Lactic Acid Cancelled 06/10/20 20:47: pH 7.56 H, Bicarbonate Actual 18.1 L, POC Total CO2 19, Base Excess -4 L, O2 Saturation 81 L, ABG pCO2 20.4 L, ABG pO2 37 L*, Emerson Test POS 06/10/20 20:50: Total Bilirubin 0.60, Direct Bilirubin 0.25, Troponin I 0.053 H 06/10/20 21:50: Lactic Acid 2.5 H* 06/10/20 23:24: pH 7.48 H, Bicarbonate Actual 20.7 L, POC Total CO2 22, Base Excess -3 L, O2 Saturation 98, ABG pCO2 28.1 L, ABG pO2 103 H, Emerson Test POS 06/10/20 23:25: Troponin I 0.042 06/11/20 00:45: Lactic Acid 1.7 06/11/20 02:15: WBC 9.7, RBC 5.19, Hgb 16.2, Hct 46.7, MCV 90.0, MCH 31.2, MCHC 34.7, Plt Count 149 L, MPV 11.4, Immature Gran % (Auto) 0.900, Neut % (Auto) 85.4 H, Lymph % (Auto) 9.6 L, [place] % (Auto) 4.0, Eos % (Auto) 0.0, Baso % (Auto) 0.1, Absolute Neuts (auto) 8.2 H, Nucleated RBC % 0 06/11/20 02:15: Sodium 136, Potassium 3.9, Chloride 106, Carbon Dioxide 24.0, Anion Gap 6, BUN 28 H, Creatinine 1.10, Est GFR (MDRD) Af Amer 86, Est GFR (MDRD) Non-Af 71, BUN/Creatinine Ratio 25.5 H, Glucose 200 H, Calcium 8.3 L, Magnesium 2.1 06/11/20 02:15: Troponin I 0.047 H Rhythm: Atrial fibrillation EKG: Atrial fibrillation; nonspecific ST/T wave abnormality ECHO: 09-10-19 Interpretation Summary The estimated ejection fraction is 65 %. Unable to assess diastolic dysfunction due to arrhythmia. Mildly dilated right ventricle. The left atrium is severely enlarged. The right atrium is mildly enlarged. Trivial mitral valve insufficiency. Mild (1+) tricuspid valve insufficiency. Right ventricular systolic pressure estimated to be 38 mmHg. Mild pulmonary hypertension. Pt appears to be in atrial fibrillation. The study was technically difficult. Contrast injection was performed. There is no comparison study available. CXR: Preliminary evaluation: Increased interstitial markings: Please see official report Chest CT Scan: Preliminary evaluation: Bilateral pulmonary infiltrates: Please see official report Assessment/Plan 1. Atrial fibrillation with rapid ventricular response The patient has a history of paroxysmal atrial fibrillation. His current atrial fibrillation with rapid ventricular response may be secondary to his COVID positive underlying pulmonary disease process/hypoxemia, etc. He is remaining in the ICU and COVID positive precautions. He continues to have his cardiac rate and rhythm monitored. He will continue on rate control therapy, antiarrhythmic therapy, and anticoagulant therapy. His previous cardiovascular history was reviewed. He will undergo additional cardiovascular evaluation care as deemed appropriate. In the meantime he will continue his pulmonary evaluation and care which hopefully will come under better control and subsequently assist with his underlying cardiac rate and rhythm. 2. Abnormal cardiac enzymes He does have a mildly indeterminate troponin I level. This may be secondary to his COVID positive driven pulmonary disease process and atrial fibrillation with rapid ventricular response. His enzymes can be followed as well as his ECG. He will continue medical management for his cardiovascular and pulmonary disease process as deemed appropriate. Depending upon his clinical course he may or may not need additional cardiovascular studies at some point in time in the future. 3. COVID positive He does have a COVID positive underlying pulmonary disease process in place. He continues in the ICU code with positive precautions. He continues on BiPAP at this time. He is receiving medical management as well as being considered for convalescent plasma. 4. Hyperlipidemia He will continue risk factor evaluation care as deemed appropriate. 5. Hypertension His blood pressure can be followed and his medications can be adjusted as needed. Comment: The patient's case has been previously discussed and reviewed with Dr. Milton, Dr. Alejo, and the patients primary air conditioning unit assembler Dr. Bernard. Based upon the previous discussions, need to preserve healthcare worker safety, need to preserve PPE, the patient was evaluated visually from outside his ICU room with his examination being performed by Dr. Alejo of the pulmonology/critical care staff, with the consensus that cardiology will follow the patient without the need for direct patient contact at this time barring unforeseen events, and provide remote cardiovascular support to the patient and the medical staff. This note was generated using a voice recognition system and there may be incorrect words, spelling or punctuation that were not noted when reviewing the office note prior to saving.
[2020-06-11] MEDS: busPIRone 15 MG TABLET 30 MG PO ×2 (08:42→22:39)
[2020-06-11] MEDS: clonazePAM 1 MG Tablet PO ×2 (08:42→17:57)
[2020-06-11] MEDS: Venlafaxine XR 75 MG Capsule PO (08:42)
[2020-06-11] MEDS: Finasteride 5 MG Tablet PO (08:43)
[2020-06-11] MEDS: Omega-3 Acid Ethyl Esters 1 GM Capsule PO ×2 (08:43→22:39)
[2020-06-11] MEDS: Enoxaparin 150 MG/ML Syringe 130 MG SC ×2 (08:46→22:43)
--- NOTE | 2020-06-11 10:06 | CASEMGMT ---
RN CM Assessment Note Intro role of CM to patient's daughter, Grecia. Patient is on Bipap/high flow oxygen and not able to participate at this time.Daughter states patient is independent, drives, does not use DME except Cpap at night. COVID DC PLANNING: -Pt lives alone, able to self isolate -Daughter states she and her sister will provide groceries, get prescriptions. -If patient activity level changes and he is unable to return home safely, will need to re-evaluate dc plan. -if home oxygen is needed, [employer] can be used. Presentation: shortness of breath Diagnosis: COVID positive PCP: Dr. Romero Ya Specialists: none Insurance: [employer] [facility] PPO Preferred Pharmacy: [facility] Prescription Benefit: yes LNOK: Daughters Grecia and Mayelin Living Arrangements: Lives independently in home. No care needs prior to admission Tranportation: drives DME: cpap through [employer] HHC: no SNF: no Patient DC Goals: Home DC Plan: anticipate home on dc. daughters able to help while pt self-isolates. When patient is able to safely participate in dc planning, CM will call to room and discuss dc needs with him. Christal PAYNEN RN ACM
[2020-06-11] MEDS: Acetaminophen 500 MG Tablet PO (10:27)
[2020-06-11] MEDS: dexAMETHasone 10 MG/ML Vial 6 MG IV (10:28)
[2020-06-11] MEDS: Ceftriaxone 1 GM/50 ML BAG IV (11:05)
[2020-06-11 11:27] LABS: Reflex Lactate? Y
[2020-06-11] MEDS: Amiodarone 360 MG in Dextrose 5% Viaflo Bag 192.8 ML 16.7 MG CONT INF ×2 (11:51→23:51)
--- NOTE | 2020-06-11 15:00 | PCM.HP.ID ---
Problem List (1) COVID-19 Status: Acute Reason for Consult: covid Consulted by: Dr. Milton History of Present Illness: The patient is a 69 year old M who presented last night to ED with 2 weeks of progressive dry cough, fever, chills, mild aches, mild headache, some diarrhea. Denies change in taste/smell. Lives alone. Brother also currently admitted with covid. No chest pain, no sputum. No recent abx, has not seen a doctor for this. Came to ED, hypoxic, put on 5L, admitted to icu on azithro/ceftriaxone, started on dexamethasone, remdesivir, and therapeutic lovenox. Feeling about the same today. Full ROS performed and neg except as noted above. - Medical History Past Medical History (Chronic Problems): Chronic Problems (Last Reviewed 09/28/19 @ 11:[address] Chi Bernard MD) Atrial fibrillation with rapid ventricular response (Chronic 09/09/19) Essential (primary) hypertension (Chronic) Hypertriglyceridemia (Chronic) Hyperlipemia (Chronic) Allergies/Adverse Reactions: Allergies No Known Allergies Allergy (Verified 06/10/20 14:11) Home Medications: Ambulatory Orders Medication Instructions Recorded Vickery-3 Acid Ethyl Esters [Lovaza] 1 gm PO BID #1 09/04/14 Clonazepam [Klonopin] 1 mg PO BID 09/09/19 Clonazepam [Klonopin] 2 mg PO QHS 09/09/19 Pravastatin [Pravachol] 40 mg PO QHS 09/09/19 Ropinirole HCl [Requip] 0.5 mg PO QHS 09/09/19 Finasteride [Proscar] 5 mg PO DAILY #30 tab 09/12/19 Desvenlafaxine Succinate [Pristiq] 100 mg PO DAILY 10/23/19 Metoprolol Tartrate [Lopressor 50 mg PO BID 10/23/19 (beta eze)] Acetaminophen [Tylenol Extra 500 mg PO BID 06/10/20 Strength] Buspirone HCl [Buspar] 30 mg PO BID 06/10/20 - Social History SMOKING STATUS:: Former smoker Vital Signs Temp Pulse Resp BP Pulse Ox 101.0 F H 106 H 26 H 113/82 H 93 06/11/20 13:30 06/11/20 14:00 06/11/20 13:30 06/11/20 13:30 06/11/20 13:30 Oxygen Flow Rate (L/min) 4 Oxygen Delivery Method Bi-pap Weight: 128.7 kg Body Mass Index (BMI) 39.6 Microbiology Past 72 Hours 06/10/20 20:20 Legionella Antigen - Final Urine, Clean Catch 06/10/20 20:20 Streptococcus pneumoniae Antigen (M - Final Urine, Clean Catch Laboratory Tests Past 24 Hrs 06/10/20 06/10/20 06/10/20 15:25 15:50 15:50 WBC 9.3 RBC 5.62 Hgb 17.4 H Hct 51.3 MCV 91.3 MCH 31.0 MCHC 33.9 RDW Std Deviation 46.1 H RDW Coeff of Ayde 13.6 Plt Count 158 MPV 12.2 H Immature Gran % (Auto) 1.100 H Neut % (Auto) 80.8 H Lymph % (Auto) 13.9 L Fannin % (Auto) 4.1 Eos % (Auto) 0.0 Baso % (Auto) 0.1 Absolute Neuts (auto) 7.5 Absolute Lymphs (auto) 1.29 Nucleated RBC % 0 Platelet Estimate ADEQUATE RBC Morphology N CHROM Anisocytosis RARE Macrocytosis RARE PT INR APTT Fibrinogen D-Dimer Quant (PE/DVT) Specimen Type Sample Site pH Bicarbonate Actual POC Total CO2 Base Excess O2 Saturation O2 % ABG pCO2 ABG pO2 Emerson Test O2 Delivery Device Liter Flow EPAP IPAP Sodium 134 L Potassium 4.0 Chloride 98 Carbon Dioxide 24.0 Anion Gap 12 BUN 28 H Creatinine 1.50 H Estim Creat Clear Calc 50.90 Est GFR (MDRD) Af Amer 60 Est GFR (MDRD) Non-Af 50 L BUN/Creatinine Ratio 18.7 Glucose 148 H Lactic Acid Calcium 8.9 Magnesium Total Bilirubin 0.80 Direct Bilirubin AST 98 H ALT 52 Alkaline Phosphatase 52 Lactate Dehydrogenase Total Creatine Kinase Troponin I 0.033 C-React Prot Ext Range B-Natriuretic Peptide Total Protein 7.8 Albumin 2.8 L Globulin 5.0 H Albumin/Globulin Ratio 0.6 L Procalcitonin TSH Urine Color Urine Clarity Urine pH Ur Specific Walton Urine Protein Urine Glucose (UA) Urine Ketones Urine Occult Blood Urine Nitrite Urine Bilirubin Urine Urobilinogen Ur Leukocyte Esterase Urine RBC Urine WBC Ur Squamous Epith Cells Urine Bacteria Hyaline Casts Fine Granular Casts Urine Mucus COVID-19 (ISAAC) Positive Blood Type Antibody Screen 06/10/20 06/10/20 06/10/20 15:50 15:50 15:50 WBC RBC Hgb Hct MCV MCH MCHC RDW Std Deviation RDW Coeff of Ayde Plt Count MPV Immature Gran % (Auto) Neut % (Auto) Lymph % (Auto) Fannin % (Auto) Eos % (Auto) Baso % (Auto) Absolute Neuts (auto) Absolute Lymphs (auto) Nucleated RBC % Platelet Estimate RBC Morphology Anisocytosis Macrocytosis PT 13.5 INR 1.1 APTT 34.5 Fibrinogen D-Dimer Quant (PE/DVT) 4.04 H* Specimen Type Sample Site pH Bicarbonate Actual POC Total CO2 Base Excess O2 Saturation O2 % ABG pCO2 ABG pO2 Emerson Test O2 Delivery Device Liter Flow EPAP IPAP Sodium Potassium Chloride Carbon Dioxide Anion Gap BUN Creatinine Estim Creat Clear Calc Est GFR (MDRD) Af Amer Est GFR (MDRD) Non-Af BUN/Creatinine Ratio Glucose Lactic Acid Calcium Magnesium Total Bilirubin Direct Bilirubin AST ALT Alkaline Phosphatase Lactate Dehydrogenase Total Creatine Kinase Troponin I C-React Prot Ext Range B-Natriuretic Peptide 308.8 H Total Protein Albumin Globulin Albumin/Globulin Ratio Procalcitonin TSH Urine Color Urine Clarity Urine pH Ur Specific Walton Urine Protein Urine Glucose (UA) Urine Ketones Urine Occult Blood Urine Nitrite Urine Bilirubin Urine Urobilinogen Ur Leukocyte Esterase Urine RBC Urine WBC Ur Squamous Epith Cells Urine Bacteria Hyaline Casts Fine Granular Casts Urine Mucus COVID-19 (ISAAC) Blood Type Antibody Screen 06/10/20 06/10/20 06/10/20 15:50 16:00 17:15 WBC RBC Hgb Hct MCV MCH MCHC RDW Std Deviation RDW Coeff of Ayde Plt Count MPV Immature Gran % (Auto) Neut % (Auto) Lymph % (Auto) Fannin % (Auto) Eos % (Auto) Baso % (Auto) Absolute Neuts (auto) Absolute Lymphs (auto) Nucleated RBC % Platelet Estimate RBC Morphology Anisocytosis Macrocytosis PT INR APTT Fibrinogen 630 H D-Dimer Quant (PE/DVT) Specimen Type Sample Site pH Bicarbonate Actual POC Total CO2 Base Excess O2 Saturation O2 % ABG pCO2 ABG pO2 Emerson Test O2 Delivery Device Liter Flow EPAP IPAP Sodium Potassium Chloride Carbon Dioxide Anion Gap BUN Creatinine Estim Creat Clear Calc Est GFR (MDRD) Af Amer Est GFR (MDRD) Non-Af BUN/Creatinine Ratio Glucose Lactic Acid Cancelled Cancelled Calcium Magnesium Total Bilirubin Direct Bilirubin AST ALT Alkaline Phosphatase Lactate Dehydrogenase Total Creatine Kinase Troponin I C-React Prot Ext Range B-Natriuretic Peptide Total Protein Albumin Globulin Albumin/Globulin Ratio Procalcitonin TSH Urine Color Urine Clarity Urine pH Ur Specific Walton Urine Protein Urine Glucose (UA) Urine Ketones Urine Occult Blood Urine Nitrite Urine Bilirubin Urine Urobilinogen Ur Leukocyte Esterase Urine RBC Urine WBC Ur Squamous Epith Cells Urine Bacteria Hyaline Casts Fine Granular Casts Urine Mucus COVID-19 (ISAAC) Blood Type Antibody Screen 06/10/20 06/10/20 06/10/20 19:00 20:20 20:20 WBC RBC Hgb Hct MCV MCH MCHC RDW Std Deviation RDW Coeff of Ayde Plt Count MPV Immature Gran % (Auto) Neut % (Auto) Lymph % (Auto) Fannin % (Auto) Eos % (Auto) Baso % (Auto) Absolute Neuts (auto) Absolute Lymphs (auto) Nucleated RBC % Platelet Estimate RBC Morphology Anisocytosis Macrocytosis PT INR APTT Fibrinogen D-Dimer Quant (PE/DVT) Specimen Type Sample Site pH Bicarbonate Actual POC Total CO2 Base Excess O2 Saturation O2 % ABG pCO2 ABG pO2 Emerson Test O2 Delivery Device Liter Flow EPAP IPAP Sodium Potassium Chloride Carbon Dioxide Anion Gap BUN Creatinine Estim Creat Clear Calc Est GFR (MDRD) Af Amer Est GFR (MDRD) Non-Af BUN/Creatinine Ratio Glucose Lactic Acid Cancelled Calcium Magnesium Total Bilirubin Direct Bilirubin AST ALT Alkaline Phosphatase Lactate Dehydrogenase Total Creatine Kinase Troponin I C-React Prot Ext Range B-Natriuretic Peptide Total Protein Albumin Globulin Albumin/Globulin Ratio Procalcitonin 0.15 H TSH Urine Color Maureen Urine Clarity Clear Urine pH 6.0 Ur Specific Walton 1.020 Urine Protein 500 H Urine Glucose (UA) Normal Urine Ketones 5 H Urine Occult Blood 250 H Urine Nitrite Negative Urine Bilirubin Negative Urine Urobilinogen Normal Ur Leukocyte Esterase 25 H Urine RBC 0 SEEN Urine WBC 0-5 SEEN Ur Squamous Epith Cells 0-5 SEEN Urine Bacteria 0 SEEN Hyaline Casts 25-50 SEEN Fine Granular Casts 5-10 SEEN Urine Mucus 0 SEEN COVID-19 (ISAAC) Blood Type Antibody Screen 06/10/20 06/10/20 06/10/20 20:47 20:50 21:50 WBC RBC Hgb Hct MCV MCH MCHC RDW Std Deviation RDW Coeff of Ayde Plt Count MPV Immature Gran % (Auto) Neut % (Auto) Lymph % (Auto) Fannin % (Auto) Eos % (Auto) Baso % (Auto) Absolute Neuts (auto) Absolute Lymphs (auto) Nucleated RBC % Platelet Estimate RBC Morphology Anisocytosis Macrocytosis PT INR APTT Fibrinogen D-Dimer Quant (PE/DVT) Specimen Type ART Sample Site L RADIAL pH 7.56 H Bicarbonate Actual 18.1 L POC Total CO2 19 Base Excess -4 L O2 Saturation 81 L O2 % ABG pCO2 20.4 L ABG pO2 37 L* Emerson Test POS O2 Delivery Device Nasal Can Liter Flow 5.0 EPAP IPAP Sodium Potassium Chloride Carbon Dioxide Anion Gap BUN Creatinine Estim Creat Clear Calc Est GFR (MDRD) Af Amer Est GFR (MDRD) Non-Af BUN/Creatinine Ratio Glucose Lactic Acid 2.5 H* Calcium Magnesium Total Bilirubin 0.60 Direct Bilirubin 0.25 AST 88 H ALT 44 Alkaline Phosphatase 47 Lactate Dehydrogenase 799 H Total Creatine Kinase 809 H Troponin I 0.053 H C-React Prot Ext Range 109.00 H B-Natriuretic Peptide Total Protein 7.1 Albumin 2.6 L Globulin 4.5 H Albumin/Globulin Ratio Procalcitonin TSH 0.76 Urine Color Urine Clarity Urine pH Ur Specific Walton Urine Protein Urine Glucose (UA) Urine Ketones Urine Occult Blood Urine Nitrite Urine Bilirubin Urine Urobilinogen Ur Leukocyte Esterase Urine RBC Urine WBC Ur Squamous Epith Cells Urine Bacteria Hyaline Casts Fine Granular Casts Urine Mucus COVID-19 (ISAAC) Blood Type Antibody Screen 06/10/20 06/10/20 06/11/20 23:24 23:25 00:45 WBC RBC Hgb Hct MCV MCH MCHC RDW Std Deviation RDW Coeff of Ayde Plt Count MPV Immature Gran % (Auto) Neut % (Auto) Lymph % (Auto) Fannin % (Auto) Eos % (Auto) Baso % (Auto) Absolute Neuts (auto) Absolute Lymphs (auto) Nucleated RBC % Platelet Estimate RBC Morphology Anisocytosis Macrocytosis PT INR APTT Fibrinogen D-Dimer Quant (PE/DVT) Specimen Type ART Sample Site L RADIAL pH 7.48 H Bicarbonate Actual 20.7 L POC Total CO2 22 Base Excess -3 L O2 Saturation 98 O2 % 100 ABG pCO2 28.1 L ABG pO2 103 H Emerson Test POS O2 Delivery Device Bi Pap Liter Flow EPAP 16 IPAP 22 Sodium Potassium Chloride Carbon Dioxide Anion Gap BUN Creatinine Estim Creat Clear Calc Est GFR (MDRD) Af Amer Est GFR (MDRD) Non-Af BUN/Creatinine Ratio Glucose Lactic Acid 1.7 Calcium Magnesium Total Bilirubin Direct Bilirubin AST ALT Alkaline Phosphatase Lactate Dehydrogenase Total Creatine Kinase Troponin I 0.042 C-React Prot Ext Range B-Natriuretic Peptide Total Protein Albumin Globulin Albumin/Globulin Ratio Procalcitonin TSH Urine Color Urine Clarity Urine pH Ur Specific Walton Urine Protein Urine Glucose (UA) Urine Ketones Urine Occult Blood Urine Nitrite Urine Bilirubin Urine Urobilinogen Ur Leukocyte Esterase Urine RBC Urine WBC Ur Squamous Epith Cells Urine Bacteria Hyaline Casts Fine Granular Casts Urine Mucus COVID-19 (ISAAC) Blood Type Antibody Screen 06/11/20 06/11/20 06/11/20 02:15 02:15 02:15 WBC 9.7 RBC 5.19 Hgb 16.2 Hct 46.7 MCV 90.0 MCH 31.2 MCHC 34.7 RDW Std Deviation 44.1 H RDW Coeff of Ayde 13.6 Plt Count 149 L MPV 11.4 Immature Gran % (Auto) 0.900 Neut % (Auto) 85.4 H Lymph % (Auto) 9.6 L Fannin % (Auto) 4.0 Eos % (Auto) 0.0 Baso % (Auto) 0.1 Absolute Neuts (auto) 8.2 H Absolute Lymphs (auto) 0.93 Nucleated RBC % 0 Platelet Estimate RBC Morphology Anisocytosis Macrocytosis PT INR APTT Fibrinogen D-Dimer Quant (PE/DVT) Specimen Type Sample Site pH Bicarbonate Actual POC Total CO2 Base Excess O2 Saturation O2 % ABG pCO2 ABG pO2 Emerson Test O2 Delivery Device Liter Flow EPAP IPAP Sodium 136 Potassium 3.9 Chloride 106 Carbon Dioxide 24.0 Anion Gap 6 BUN 28 H Creatinine 1.10 Estim Creat Clear Calc 69.41 Est GFR (MDRD) Af Amer 86 Est GFR (MDRD) Non-Af 71 BUN/Creatinine Ratio 25.5 H Glucose 200 H Lactic Acid Calcium 8.3 L Magnesium 2.1 Total Bilirubin Direct Bilirubin AST ALT Alkaline Phosphatase Lactate Dehydrogenase Total Creatine Kinase Troponin I 0.047 H C-React Prot Ext Range B-Natriuretic Peptide Total Protein Albumin Globulin Albumin/Globulin Ratio Procalcitonin TSH Urine Color Urine Clarity Urine pH Ur Specific Walton Urine Protein Urine Glucose (UA) Urine Ketones Urine Occult Blood Urine Nitrite Urine Bilirubin Urine Urobilinogen Ur Leukocyte Esterase Urine RBC Urine WBC Ur Squamous Epith Cells Urine Bacteria Hyaline Casts Fine Granular Casts Urine Mucus COVID-19 (ISAAC) Blood Type Antibody Screen 06/11/20 06/11/20 06:35 06:35 WBC RBC Hgb Hct MCV MCH MCHC RDW Std Deviation RDW Coeff of Ayde Plt Count MPV Immature Gran % (Auto) Neut % (Auto) Lymph % (Auto) Fannin % (Auto) Eos % (Auto) Baso % (Auto) Absolute Neuts (auto) Absolute Lymphs (auto) Nucleated RBC % Platelet Estimate RBC Morphology Anisocytosis Macrocytosis PT INR APTT Fibrinogen D-Dimer Quant (PE/DVT) Specimen Type Sample Site pH Bicarbonate Actual POC Total CO2 Base Excess O2 Saturation O2 % ABG pCO2 ABG pO2 Emerson Test O2 Delivery Device Liter Flow EPAP IPAP Sodium Potassium Chloride Carbon Dioxide Anion Gap BUN Creatinine Estim Creat Clear Calc Est GFR (MDRD) Af Amer Est GFR (MDRD) Non-Af BUN/Creatinine Ratio Glucose Lactic Acid Calcium Magnesium Total Bilirubin Direct Bilirubin AST ALT Alkaline Phosphatase Lactate Dehydrogenase Total Creatine Kinase Troponin I C-React Prot Ext Range B-Natriuretic Peptide Total Protein Albumin Globulin Albumin/Globulin Ratio Procalcitonin TSH Urine Color Urine Clarity Urine pH Ur Specific Walton Urine Protein Urine Glucose (UA) Urine Ketones Urine Occult Blood Urine Nitrite Urine Bilirubin Urine Urobilinogen Ur Leukocyte Esterase Urine RBC Urine WBC Ur Squamous Epith Cells Urine Bacteria Hyaline Casts Fine Granular Casts Urine Mucus COVID-19 (ISAAC) Blood Type Not Reportable A POSITIVE Antibody Screen Not Reportable NEGATIVE - Other Studies Radiology: [] reviewed CT images, bilat GGO Other Studies: [] Route of nutrition/ use of supplements: [] Nutritional Intake: [] IV Site: [] Barnhart Catheter: [] - Physical Exam General: Alert, Oriented x3, Cooperative, - - ill appearing HEENT: Atraumatic, PERRLA, EOMI Neck: Supple, No Nodes Lungs: Diminished Cardiovascular: Tachycardic Abdomen: Soft, Non Tender, Non-Distended Extremities: No edema Skin: No rashes IV Site: Peripheral, without redness Musculoskeletal: No Tenderness to Palpation of Joints or Extremities Neurological: Cranial nerves II-XII grossly intact - Assessment/Plan Antibiotics: [] Assessment/Plan: [] Active and Suspected Problems (Last Reviewed 11/01/19 @ 11:[address] Chi Bernard MD) Atrial fibrillation with rapid ventricular response (Acute) COVID-19 (Acute) Dyspnea (Acute) Abnormal cardiac enzyme level (Acute) covid with hypoxic resp failure - fever to 103.4 here. D-dimer 4, elevated CK, CRP, LDH, ferritin, trop, and lactate. PCT was 0.15. No sputum. Low suspicion for bacterial process based on symptoms, CT appearance, and lab work. Will stop azithro/ceftriaxone. Cont dex, lovenox, remdesivir. Has been consent for convalescent plasma by Dr. Alejo. Ordering daily cmp and cbc for monitoring while on remdesivir. Repeating some inflammatory markers tomorrow. Will follow. D/w Dr. Milton last night. Patient or caregiver was given a copy of the Remdesivir Fact Sheet for Patients and Parents/Caregivers. The following information was communicated to the patient or caregiver: Remdesivir is not an FDA approved drug. The FDA has authorized the emergency use of Remdesivir. The patient had the option to refuse or accept treatment with Remdesivir. The patient was informed that the number of people treated with Remdesivir is small at this time. The potential benefits and potential risks of Remdesivir are not fully known. Potential benefits of Remdesivir include a shorter time to recovery of COVID-19 infection. Potential risks or side effects of Remdesivir include sweating, shivering, nausea and vomiting or low blood pressure related to a reaction to the medication infusion and increases in liver enzymes. No drugs are approved by the FDA to treat COVID-19 at this time. 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
[2020-06-11] MEDS: Lactated Ringers 1,000 ML 150 ML IV ×2 (15:38→22:17)
--- NOTE | 2020-06-11 16:30 | NURSING ---
ed re chronic illness deferred till acute illness resolving
[2020-06-11] MEDS: Pramipexole Di-HCl 0.25 MG Tablet PO (22:39)
[2020-06-11] MEDS: clonazePAM 1 MG Tablet 2 MG PO (22:41)
[2020-06-11] MEDS: Pravastatin 40 MG Tablet PO (22:52)
[2020-06-12] VITALS (45 sets, daily range): BP systolic 82–112; BP diastolic 57–83; PULSE 75–119; RESP 14–39; TEMP 36.3–38.1; O2SAT 84–93
[2020-06-12] MEDS: 0.9% Saline Lock 10 ML Syringe IV ×2 (04:36→09:59)
[2020-06-12 04:42] LABS: Absolute Lymphocyte Count 1.06 X10^3/uL (0.83-4.51); Basophil# 0.01 X10^3/uL; Basophil% 0.1 % (0-1); Hematocrit 43.8 % (40-54); Hemoglobin 14.9 g/dL (13.0-16.5); Lymphocyte # 1.06 X10^3/ul (4.0); Lymphocyte % 13.8 % (19-41); Mean Corpuscular Volume 91.1 fL (80-94); Mean Platelet Vol. 11.1 fl (6.2-12.0); Monocyte# 0.53 X10^3/uL; Monocyte% 6.9 % (0-10); NRBC Flagged by Analyzer 0 % (0-5); Neutrophil # 5.99 X10^3/uL (2.7-7.7); Neutrophil % 77.9 % (47-70); POSITIVE MORPHOLOGY YES; Platelet Count 177 K/mm3 (150-450); RBC Distribution Width CV 13.5 % (11.6-14.6); Red Blood Count 4.81 M/mm3 (4.6-6.2); White Blood Count 7.7 K/mm3 (4.4-11.0)
[2020-06-12 04:48] LABS: Differential Indicated SCAN CRITERIA MET
[2020-06-12 05:02] LABS: BNP,B-Type NATRIURETIC PEPTIDE 60.8 pg/mL (0-100)
[2020-06-12 05:24] LABS: ALB/GLOB Ratio 0.5 RATIO (0.9-2.4); AST(SGOT) 56 U/L (15-37); Alanine Aminotransfer ALT/SGPT 40 U/L (16-61); Albumin, Serum 2.2 g/dL (3.2-5.0); Alkaline Phosphatase 44 U/L (45-117); Anion Gap 7 (5-15); BUN 34 mg/dL (7-18); BUN/Creat Ratio 30.4 RATIO (10-20); CPK Total, Creatine Kinase 249 U/L (39-308); Calcium,Total 7.9 mg/dL (8.5-10.1); Chloride 103 mmol/L (98-107); Creatinine, Serum 1.12 mg/dL (0.70-1.30); EST Glomerular Filtration Rate 69 mL/min (>60); Est Glom Filt Rate - Afr Amer 84 mL/min (>60); Estimated Creatinine Clearance 68.17 ml/min; Ferritin 2577 ng/mL (26-388); Globulin 4.3 g/dL (2.2-4.2); Glucose 222 mg/dL (74-106); Potassium 3.8 mmol/L (3.5-5.1); Protein, Total 6.5 g/dL (6.4-8.2); Sodium Level 137 mmol/L (136-145)
--- NOTE | 2020-06-12 06:19 | PCM.PN.INT ---
Subjective: The patient was seen and examined at the bedside this morning. Events from the last 24 hours have been reviewed. The patient does continue to have low-grade fevers. He remains on BiPAP therapy with an FiO2 requirement of 60%. The patient did receive his convalescent plasma overnight which concluded infusing this morning at 0430. Attempts to wean the patient to Airvo heated high flow oxygen was largely unsuccessful, as the patient became increasingly hypoxic. The patient is currently documented to be overall net +2.8 L for the hospital admission. Objective: The patient's most recent lab work, culture data and imaging studies have all been personally reviewed. CTA chest was obtained with results limited by respiratory motion artifact. However, no large central pulmonary embolism was identified. The patient did have radiographic evidence of significant bilateral pulmonary infiltrates. Strep and urine Legionella antigens were negative. Blood and urine cultures are pending. Coronavirus PCR was positive on both June 05 and . General: Alert, No apparent distress HEENT: Atraumatic, Normocephalic Oral: Dry Mucosa Neck: Supple, No Nodes, Trachea Midline Lungs: Diminished, Short of Breath Cardiovascular: Normal S1, Normal S2, Irregular Rate Abdomen: Bowel Sounds Present, Soft, Non Tender, Obese Extremities: No clubbing, No cyanosis, No edema Skin: No rashes, No breakdown Musculoskeletal: No Tenderness to Palpation of Joints or Extremities, No Muscle Wasting Lymphatic: No Cervical, Supraclavicular, or Inguinal Adenopathy Neurological: Neuro grossly intact Psych/Mental Status: Normal Affect Vital Signs Temp Pulse Resp BP Pulse Ox 100.0 F H 98 24 H 101/65 91 06/12/20 05:00 06/12/20 05:00 06/12/20 05:00 06/12/20 05:00 06/12/20 05:00 Oxygen Flow Rate (L/min) 60 Oxygen Delivery Method Bi-pap Weight: 284 lb 13.396 oz Body Mass Index (BMI) 39.6 Intake and Output for Last 24 Hours 06/10/20 06/11/20 06/12/20 23:59 23:59 23:59 Intake Total 1694.75 / 1702.25 2100.30 / 2117.81 776.01 / 776.01 Output Total 800 / 800 880 / 880 285 / 285 Balance 894.75 / 902.25 1220.30 / 1237.81 491.01 / 491.01 Labs (Last 48 Hours) 06/10/20 06/10/20 06/10/20 15:25 15:50 15:50 WBC 9.3 RBC 5.62 Hgb 17.4 H Hct 51.3 MCV 91.3 MCH 31.0 MCHC 33.9 RDW Std Deviation 46.1 H RDW Coeff of Ayde 13.6 Plt Count 158 MPV 12.2 H Immature Gran % (Auto) 1.100 H Neut % (Auto) 80.8 H Lymph % (Auto) 13.9 L [place] % (Auto) 4.1 Eos % (Auto) 0.0 Baso % (Auto) 0.1 Absolute Neuts (auto) 7.5 Absolute Lymphs (auto) 1.29 Nucleated RBC % 0 Platelet Estimate ADEQUATE RBC Morphology N CHROM Anisocytosis RARE Macrocytosis RARE PT INR APTT Fibrinogen D-Dimer Quant (PE/DVT) Specimen Type Sample Site pH Bicarbonate Actual POC Total CO2 Base Excess O2 Saturation O2 % ABG pCO2 ABG pO2 Emerson Test O2 Delivery Device Liter Flow EPAP IPAP Sodium 134 L Potassium 4.0 Chloride 98 Carbon Dioxide 24.0 Anion Gap 12 BUN 28 H Creatinine 1.50 H Estim Creat Clear Calc 50.90 Est GFR (MDRD) Af Amer 60 Est GFR (MDRD) Non-Af 50 L BUN/Creatinine Ratio 18.7 Glucose 148 H Lactic Acid Calcium 8.9 Magnesium Ferritin Total Bilirubin 0.80 Direct Bilirubin AST 98 H ALT 52 Alkaline Phosphatase 52 Lactate Dehydrogenase Total Creatine Kinase Troponin I 0.033 C-React Prot Ext Range B-Natriuretic Peptide Total Protein 7.8 Albumin 2.8 L Globulin 5.0 H Albumin/Globulin Ratio 0.6 L Procalcitonin TSH Urine Color Urine Clarity Urine pH Ur Specific [place] Urine Protein Urine Glucose (UA) Urine Ketones Urine Occult Blood Urine Nitrite Urine Bilirubin Urine Urobilinogen Ur Leukocyte Esterase Urine RBC Urine WBC Ur Squamous Epith Cells Urine Bacteria Hyaline Casts Fine Granular Casts Urine Mucus COVID-19 (ISAAC) Positive Blood Type Antibody Screen 06/10/20 06/10/20 06/10/20 15:50 15:50 15:50 WBC RBC Hgb Hct MCV MCH MCHC RDW Std Deviation RDW Coeff of Ayde Plt Count MPV Immature Gran % (Auto) Neut % (Auto) Lymph % (Auto) [place] % (Auto) Eos % (Auto) Baso % (Auto) Absolute Neuts (auto) Absolute Lymphs (auto) Nucleated RBC % Platelet Estimate RBC Morphology Anisocytosis Macrocytosis PT 13.5 INR 1.1 APTT 34.5 Fibrinogen D-Dimer Quant (PE/DVT) 4.04 H* Specimen Type Sample Site pH Bicarbonate Actual POC Total CO2 Base Excess O2 Saturation O2 % ABG pCO2 ABG pO2 Emerson Test O2 Delivery Device Liter Flow EPAP IPAP Sodium Potassium Chloride Carbon Dioxide Anion Gap BUN Creatinine Estim Creat Clear Calc Est GFR (MDRD) Af Amer Est GFR (MDRD) Non-Af BUN/Creatinine Ratio Glucose Lactic Acid Calcium Magnesium Ferritin Total Bilirubin Direct Bilirubin AST ALT Alkaline Phosphatase Lactate Dehydrogenase Total Creatine Kinase Troponin I C-React Prot Ext Range B-Natriuretic Peptide 308.8 H Total Protein Albumin Globulin Albumin/Globulin Ratio Procalcitonin TSH Urine Color Urine Clarity Urine pH Ur Specific [place] Urine Protein Urine Glucose (UA) Urine Ketones Urine Occult Blood Urine Nitrite Urine Bilirubin Urine Urobilinogen Ur Leukocyte Esterase Urine RBC Urine WBC Ur Squamous Epith Cells Urine Bacteria Hyaline Casts Fine Granular Casts Urine Mucus COVID-19 (ISAAC) Blood Type Antibody Screen 06/10/20 06/10/20 06/10/20 15:50 16:00 17:15 WBC RBC Hgb Hct MCV MCH MCHC RDW Std Deviation RDW Coeff of Ayde Plt Count MPV Immature Gran % (Auto) Neut % (Auto) Lymph % (Auto) [place] % (Auto) Eos % (Auto) Baso % (Auto) Absolute Neuts (auto) Absolute Lymphs (auto) Nucleated RBC % Platelet Estimate RBC Morphology Anisocytosis Macrocytosis PT INR APTT Fibrinogen 630 H D-Dimer Quant (PE/DVT) Specimen Type Sample Site pH Bicarbonate Actual POC Total CO2 Base Excess O2 Saturation O2 % ABG pCO2 ABG pO2 Emerson Test O2 Delivery Device Liter Flow EPAP IPAP Sodium Potassium Chloride Carbon Dioxide Anion Gap BUN Creatinine Estim Creat Clear Calc Est GFR (MDRD) Af Amer Est GFR (MDRD) Non-Af BUN/Creatinine Ratio Glucose Lactic Acid Cancelled Cancelled Calcium Magnesium Ferritin Total Bilirubin Direct Bilirubin AST ALT Alkaline Phosphatase Lactate Dehydrogenase Total Creatine Kinase Troponin I C-React Prot Ext Range B-Natriuretic Peptide Total Protein Albumin Globulin Albumin/Globulin Ratio Procalcitonin TSH Urine Color Urine Clarity Urine pH Ur Specific [place] Urine Protein Urine Glucose (UA) Urine Ketones Urine Occult Blood Urine Nitrite Urine Bilirubin Urine Urobilinogen Ur Leukocyte Esterase Urine RBC Urine WBC Ur Squamous Epith Cells Urine Bacteria Hyaline Casts Fine Granular Casts Urine Mucus COVID-19 (ISAAC) Blood Type Antibody Screen 06/10/20 06/10/20 06/10/20 19:00 20:20 20:20 WBC RBC Hgb Hct MCV MCH MCHC RDW Std Deviation RDW Coeff of Ayde Plt Count MPV Immature Gran % (Auto) Neut % (Auto) Lymph % (Auto) [place] % (Auto) Eos % (Auto) Baso % (Auto) Absolute Neuts (auto) Absolute Lymphs (auto) Nucleated RBC % Platelet Estimate RBC Morphology Anisocytosis Macrocytosis PT INR APTT Fibrinogen D-Dimer Quant (PE/DVT) Specimen Type Sample Site pH Bicarbonate Actual POC Total CO2 Base Excess O2 Saturation O2 % ABG pCO2 ABG pO2 Emerson Test O2 Delivery Device Liter Flow EPAP IPAP Sodium Potassium Chloride Carbon Dioxide Anion Gap BUN Creatinine Estim Creat Clear Calc Est GFR (MDRD) Af Amer Est GFR (MDRD) Non-Af BUN/Creatinine Ratio Glucose Lactic Acid Cancelled Calcium Magnesium Ferritin Total Bilirubin Direct Bilirubin AST ALT Alkaline Phosphatase Lactate Dehydrogenase Total Creatine Kinase Troponin I C-React Prot Ext Range B-Natriuretic Peptide Total Protein Albumin Globulin Albumin/Globulin Ratio Procalcitonin 0.15 H TSH Urine Color Maureen Urine Clarity Clear Urine pH 6.0 Ur Specific [place] 1.020 Urine Protein 500 H Urine Glucose (UA) Normal Urine Ketones 5 H Urine Occult Blood 250 H Urine Nitrite Negative Urine Bilirubin Negative Urine Urobilinogen Normal Ur Leukocyte Esterase 25 H Urine RBC 0 SEEN Urine WBC 0-5 SEEN Ur Squamous Epith Cells 0-5 SEEN Urine Bacteria 0 SEEN Hyaline Casts 25-50 SEEN Fine Granular Casts 5-10 SEEN Urine Mucus 0 SEEN COVID-19 (ISAAC) Blood Type Antibody Screen 06/10/20 06/10/20 06/10/20 20:47 20:50 21:50 WBC RBC Hgb Hct MCV MCH MCHC RDW Std Deviation RDW Coeff of Ayde Plt Count MPV Immature Gran % (Auto) Neut % (Auto) Lymph % (Auto) [place] % (Auto) Eos % (Auto) Baso % (Auto) Absolute Neuts (auto) Absolute Lymphs (auto) Nucleated RBC % Platelet Estimate RBC Morphology Anisocytosis Macrocytosis PT INR APTT Fibrinogen D-Dimer Quant (PE/DVT) Specimen Type ART Sample Site L RADIAL pH 7.56 H Bicarbonate Actual 18.1 L POC Total CO2 19 Base Excess -4 L O2 Saturation 81 L O2 % ABG pCO2 20.4 L ABG pO2 37 L* Emerson Test POS O2 Delivery Device Nasal Can Liter Flow 5.0 EPAP IPAP Sodium Potassium Chloride Carbon Dioxide Anion Gap BUN Creatinine Estim Creat Clear Calc Est GFR (MDRD) Af Amer Est GFR (MDRD) Non-Af BUN/Creatinine Ratio Glucose Lactic Acid 2.5 H* Calcium Magnesium Ferritin Total Bilirubin 0.60 Direct Bilirubin 0.25 AST 88 H ALT 44 Alkaline Phosphatase 47 Lactate Dehydrogenase 799 H Total Creatine Kinase 809 H Troponin I 0.053 H C-React Prot Ext Range 109.00 H B-Natriuretic Peptide Total Protein 7.1 Albumin 2.6 L Globulin 4.5 H Albumin/Globulin Ratio Procalcitonin TSH 0.76 Urine Color Urine Clarity Urine pH Ur Specific [place] Urine Protein Urine Glucose (UA) Urine Ketones Urine Occult Blood Urine Nitrite Urine Bilirubin Urine Urobilinogen Ur Leukocyte Esterase Urine RBC Urine WBC Ur Squamous Epith Cells Urine Bacteria Hyaline Casts Fine Granular Casts Urine Mucus COVID-19 (ISAAC) Blood Type Antibody Screen 06/10/20 06/10/20 06/11/20 23:24 23:25 00:45 WBC RBC Hgb Hct MCV MCH MCHC RDW Std Deviation RDW Coeff of Ayde Plt Count MPV Immature Gran % (Auto) Neut % (Auto) Lymph % (Auto) [place] % (Auto) Eos % (Auto) Baso % (Auto) Absolute Neuts (auto) Absolute Lymphs (auto) Nucleated RBC % Platelet Estimate RBC Morphology Anisocytosis Macrocytosis PT INR APTT Fibrinogen D-Dimer Quant (PE/DVT) Specimen Type ART Sample Site L RADIAL pH 7.48 H Bicarbonate Actual 20.7 L POC Total CO2 22 Base Excess -3 L O2 Saturation 98 O2 % 100 ABG pCO2 28.1 L ABG pO2 103 H Emerson Test POS O2 Delivery Device Bi Pap Liter Flow EPAP 16 IPAP 22 Sodium Potassium Chloride Carbon Dioxide Anion Gap BUN Creatinine Estim Creat Clear Calc Est GFR (MDRD) Af Amer Est GFR (MDRD) Non-Af BUN/Creatinine Ratio Glucose Lactic Acid 1.7 Calcium Magnesium Ferritin Total Bilirubin Direct Bilirubin AST ALT Alkaline Phosphatase Lactate Dehydrogenase Total Creatine Kinase Troponin I 0.042 C-React Prot Ext Range B-Natriuretic Peptide Total Protein Albumin Globulin Albumin/Globulin Ratio Procalcitonin TSH Urine Color Urine Clarity Urine pH Ur Specific [place] Urine Protein Urine Glucose (UA) Urine Ketones Urine Occult Blood Urine Nitrite Urine Bilirubin Urine Urobilinogen Ur Leukocyte Esterase Urine RBC Urine WBC Ur Squamous Epith Cells Urine Bacteria Hyaline Casts Fine Granular Casts Urine Mucus COVID-19 (ISAAC) Blood Type Antibody Screen 06/11/20 06/11/20 06/11/20 02:15 02:15 02:15 WBC 9.7 RBC 5.19 Hgb 16.2 Hct 46.7 MCV 90.0 MCH 31.2 MCHC 34.7 RDW Std Deviation 44.1 H RDW Coeff of Ayde 13.6 Plt Count 149 L MPV 11.4 Immature Gran % (Auto) 0.900 Neut % (Auto) 85.4 H Lymph % (Auto) 9.6 L [place] % (Auto) 4.0 Eos % (Auto) 0.0 Baso % (Auto) 0.1 Absolute Neuts (auto) 8.2 H Absolute Lymphs (auto) 0.93 Nucleated RBC % 0 Platelet Estimate RBC Morphology Anisocytosis Macrocytosis PT INR APTT Fibrinogen D-Dimer Quant (PE/DVT) Specimen Type Sample Site pH Bicarbonate Actual POC Total CO2 Base Excess O2 Saturation O2 % ABG pCO2 ABG pO2 Emerson Test O2 Delivery Device Liter Flow EPAP IPAP Sodium 136 Potassium 3.9 Chloride 106 Carbon Dioxide 24.0 Anion Gap 6 BUN 28 H Creatinine 1.10 Estim Creat Clear Calc 69.41 Est GFR (MDRD) Af Amer 86 Est GFR (MDRD) Non-Af 71 BUN/Creatinine Ratio 25.5 H Glucose 200 H Lactic Acid Calcium 8.3 L Magnesium 2.1 Ferritin Total Bilirubin Direct Bilirubin AST ALT Alkaline Phosphatase Lactate Dehydrogenase Total Creatine Kinase Troponin I 0.047 H C-React Prot Ext Range B-Natriuretic Peptide Total Protein Albumin Globulin Albumin/Globulin Ratio Procalcitonin TSH Urine Color Urine Clarity Urine pH Ur Specific [place] Urine Protein Urine Glucose (UA) Urine Ketones Urine Occult Blood Urine Nitrite Urine Bilirubin Urine Urobilinogen Ur Leukocyte Esterase Urine RBC Urine WBC Ur Squamous Epith Cells Urine Bacteria Hyaline Casts Fine Granular Casts Urine Mucus COVID-19 (IASAC) Blood Type Antibody Screen 06/11/20 06/11/20 06/12/20 06:35 06:35 04:30 WBC 7.7 RBC 4.81 Hgb 14.9 Hct 43.8 MCV 91.1 MCH 31.0 MCHC 34.0 RDW Std Deviation 46.0 H RDW Coeff of Ayde 13.5 Plt Count 177 MPV 11.1 Immature Gran % (Auto) 1.300 H Neut % (Auto) 77.9 H Lymph % (Auto) 13.8 L [place] % (Auto) 6.9 Eos % (Auto) 0.0 Baso % (Auto) 0.1 Absolute Neuts (auto) 6.0 Absolute Lymphs (auto) 1.06 Nucleated RBC % 0 Platelet Estimate RBC Morphology Anisocytosis Macrocytosis PT INR APTT Fibrinogen D-Dimer Quant (PE/DVT) Specimen Type Sample Site pH Bicarbonate Actual POC Total CO2 Base Excess O2 Saturation O2 % ABG pCO2 ABG pO2 Emerson Test O2 Delivery Device Liter Flow EPAP IPAP Sodium Potassium Chloride Carbon Dioxide Anion Gap BUN Creatinine Estim Creat Clear Calc Est GFR (MDRD) Af Amer Est GFR (MDRD) Non-Af BUN/Creatinine Ratio Glucose Lactic Acid Calcium Magnesium Ferritin Total Bilirubin Direct Bilirubin AST ALT Alkaline Phosphatase Lactate Dehydrogenase Total Creatine Kinase Troponin I C-React Prot Ext Range B-Natriuretic Peptide Total Protein Albumin Globulin Albumin/Globulin Ratio Procalcitonin TSH Urine Color Urine Clarity Urine pH Ur Specific [place] Urine Protein Urine Glucose (UA) Urine Ketones Urine Occult Blood Urine Nitrite Urine Bilirubin Urine Urobilinogen Ur Leukocyte Esterase Urine RBC Urine WBC Ur Squamous Epith Cells Urine Bacteria Hyaline Casts Fine Granular Casts Urine Mucus COVID-19 (ISAAC) Blood Type Not Reportable A POSITIVE Antibody Screen Not Reportable NEGATIVE 06/12/20 06/12/20 04:30 04:30 WBC RBC Hgb Hct MCV MCH MCHC RDW Std Deviation RDW Coeff of Ayde Plt Count MPV Immature Gran % (Auto) Neut % (Auto) Lymph % (Auto) [place] % (Auto) Eos % (Auto) Baso % (Auto) Absolute Neuts (auto) Absolute Lymphs (auto) Nucleated RBC % Platelet Estimate RBC Morphology Anisocytosis Macrocytosis PT INR APTT Fibrinogen D-Dimer Quant (PE/DVT) Specimen Type Sample Site pH Bicarbonate Actual POC Total CO2 Base Excess O2 Saturation O2 % ABG pCO2 ABG pO2 Emerson Test O2 Delivery Device Liter Flow EPAP IPAP Sodium 137 Potassium 3.8 Chloride 103 Carbon Dioxide 27.0 Anion Gap 7 BUN 34 H Creatinine 1.12 Estim Creat Clear Calc 68.17 Est GFR (MDRD) Af Amer 84 Est GFR (MDRD) Non-Af 69 BUN/Creatinine Ratio 30.4 H Glucose 222 H Lactic Acid Calcium 7.9 L Magnesium Ferritin 2577 H Total Bilirubin 0.50 Direct Bilirubin AST 56 H ALT 40 Alkaline Phosphatase 44 L Lactate Dehydrogenase Total Creatine Kinase 249 Troponin I < 0.015 C-React Prot Ext Range 78.20 H B-Natriuretic Peptide 60.8 Total Protein 6.5 Albumin 2.2 L Globulin 4.3 H Albumin/Globulin Ratio 0.5 L Procalcitonin TSH Urine Color Urine Clarity Urine pH Ur Specific [place] Urine Protein Urine Glucose (UA) Urine Ketones Urine Occult Blood Urine Nitrite Urine Bilirubin Urine Urobilinogen Ur Leukocyte Esterase Urine RBC Urine WBC Ur Squamous Epith Cells Urine Bacteria Hyaline Casts Fine Granular Casts Urine Mucus COVID-19 (ISAAC) Blood Type Antibody Screen Microbiology 06/10/20 20:20 Urine, Clean Catch Legionella Antigen - Final 06/10/20 20:20 Urine, Clean Catch Streptococcus pneumoniae Antigen (M - Final Clinical Impression(s) from Imaging Studies Chest X-Ray 06/10/20 14:55 IMPRESSION: Mild degree of vascular congestion Electronically Signed: Declan Morgan, at 15:32 EDT , Service support , Chest CTA 06/10/20 18:26 IMPRESSION: Exam is limited by significant respiratory motion. No evidence for central or major pulmonary emboli. Pulmonary emboli beyond the main lobar vessels cannot be excluded. Widespread pulmonary infiltrates worse on the right consistent with nonspecific multifocal pneumonia. Electronically Signed: Julito Lee MD at 20:08 EDT , Service support , Medical Necessity - Tobacco Use Smoking Status: Former smoker Assessment/Plan All Active Problems (Last Reviewed 09/28/19 @ 11:[address] 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 Continue BiPAP therapy as tolerated by the patient. Low threshold for intubation with clinical worsening. 2. Continue therapeutic Lovenox, Decadron and remdesivir. 3. Wean FiO2 to maintain oxygen saturations at or above 90%. 4. Okay to transition from BiPAP to Airvo heated high flow as needed. 5. Continue rate/rhythm control strategy per cardiology recommendations. IMPRESSIONS: 1. Acute hypoxemic respiratory failure secondary to COVID-19 Infection The patient presented to the hospital with worsening shortness of breath and hypoxemia. Coronavirus PCR was positive. CTA chest revealed significant bilateral infiltrates. The patient was placed on noninvasive positive pressure ventilatory support. The patient has received convalescent plasma and will remain on therapeutic Lovenox therapy, Decadron, and Remdesevir. The patient can be transitioned from BiPAP to heated high flow supplemental oxygen as needed for comfort, in hopes of avoiding the need for intubation. Wean FiO2 to maintain oxygen saturations at or above 90%. 2. History of paroxysmal atrial fibrillation Continue current medical management under the discretion of cardiology. 3. Obesity/history of obstructive sleep apnea/hyperlipidemia/anxiety/restless leg syndrome Complicates care, management, recovery and prognosis. Continue noninvasive positive pressure ventilatory support as required. Physical therapy evaluation will be warranted once respiratory status improves. TIME: 40 minutes of critical care time, independent of procedures, was spent addressing the patient's acute hypoxemic respiratory failure, acute COVID-19 infection, atrial fibrillation with rapid ventricular rate, review of all data and collaboration with the care team. [id number]) [phone] [id number] Critical care first hour
[2020-06-12 06:24] LABS: Differential Comment SCANNED; Reactive Lymphocyte RARE
--- NOTE | 2020-06-12 07:37 | PN_ITS ---
Patient Problems: Active and Suspected Problems (Last Reviewed 09/28/19 @ 11:[address] Chi Bernard MD) Atrial fibrillation with rapid ventricular response (Acute) COVID-19 (Acute) Dyspnea (Acute) Abnormal cardiac enzyme level (Acute) Reason for Visit: COVID-19 infection Subjective: Patient seen appears ill looking. His oxygen saturation apparently did go down resulting in patient being placed on noninvasive ventilation BiPAP. Objective: GENERAL: Appears ill looking HEENT: Atraumatic; EYES; Anicteric, Normal Conjunctiva NECK; supple, normal thyroid, RESPIRATORY: Diminished to auscultation CARDIOVASCULAR: Regularly irregular, tachycardic GI: soft, normoactive bowel sounds, : No Renal angle tenderness; EXTREMITIES: No edema, no clubbing, MUSCULOSKELETAL: no muscle waisting NEURO: Awake; no lateralizing signs. SKIN: No Rash PSYCH; Flat affect Vitals/I&O's: Vital Signs Temp Pulse Resp BP Pulse Ox 99.6 F H 97 23 H 94/57 L 92 06/12/20 06:00 06/12/20 07:06 06/12/20 07:06 06/12/20 06:00 06/12/20 07:06 Oxygen Flow Rate (L/min) 60 Oxygen Delivery Method Bi-pap Weight: 129.2 kg Body Mass Index (BMI) 39.6 Intake and Output for Last 24 Hours 06/10/20 06/11/20 06/12/20 23:59 23:59 23:59 Intake Total 1694.75 / 1702.25 2100.30 / 2117.81 1117.28 / 1117.28 Output Total 800 / 800 880 / 880 385 / 385 Balance 894.75 / 902.25 1220.30 / 1237.81 732.28 / 732.28 Microbiology Past 72 Hours 06/10/20 20:20 Urine, Clean Catch Legionella Antigen - Final 06/10/20 20:20 Urine, Clean Catch Streptococcus pneumoniae Antigen (M - Final Laboratory Results 06/11/20 06:35: Blood Type Not Reportable, Antibody Screen Not Reportable 06/11/20 06:35: Antibody Screen NEGATIVE 06/12/20 04:30: WBC 7.7, RBC 4.81, Hgb 14.9, Hct 43.8, MCV 91.1, MCH 31.0, MCHC 34.0, RDW Std Deviation 46.0 H, RDW Coeff of Ayde 13.5, Plt Count 177, MPV 11.1, Immature Gran % (Auto) 1.300 H, Neut % (Auto) 77.9 H, Lymph % (Auto) 13.8 L, [place] % (Auto) 6.9, Eos % (Auto) 0.0, Baso % (Auto) 0.1, Absolute Neuts (auto) 6.0, Absolute Lymphs (auto) 1.06, Nucleated RBC % 0, Differential Comment SCANNED, Reactive Lymphocytes RARE 06/12/20 04:30: Sodium 137, Potassium 3.8, Chloride 103, Carbon Dioxide 27.0, Anion Gap 7, BUN 34 H, Creatinine 1.12, Estim Creat Clear Calc 68.17, Est GFR (MDRD) Af Amer 84, Est GFR (MDRD) Non-Af 69, BUN/Creatinine Ratio 30.4 H, Glucose 222 H, Calcium 7.9 L, Ferritin 2577 H, Total Bilirubin 0.50, AST 56 H, A LT 40, Alkaline Phosphatase 44 L, Total Creatine Kinase 249, Troponin I < 0.015, C-React Prot Ext Range 78.20 H, Total Protein 6.5, Albumin 2.2 L, Globulin 4.3 H , Albumin/Globulin Ratio 0.5 L 06/12/20 04:30: B-Natriuretic Peptide 60.8 Current Medications Acetaminophen (Tylenol) 500 mg PO BID [facility] Last Admin: 06/11/20 22:41 Dose: Not Given Documented by: Acetaminophen (Tylenol) 650 mg RECTAL Q4H PRN PRN PRN Reason: Pain Score 1-10/10,temp >100.7 Last Admin: 06/11/20 05:51 Dose: 650 mg Documented by: Albuterol/Ipratropium (Duoneb) 3 ml INHALATION Q4H PRN PRN PRN Reason: SOB &/ WHEEZING Buspirone HCl (Buspar) 30 mg PO BID [facility] Last Admin: 06/11/20 22:39 Dose: 30 mg Documented by: [facility] Admin: 06/11/20 17:57 Dose: 1 mg Documented by: Clonazepam (Klonopin) 2 mg PO QHS [facility] Last Admin: 06/11/20 22:41 Dose: 2 mg Documented by: Dexamethasone Sodium Phosphate (Decadron) 6 mg IV DAILY [facility] Last Admin: 06/11/20 10:28 Dose: 6 mg Documented by: Dextrose (D50w Syringe) 0 gm IV X1 PRN; Protocol PRN Reason: Hypoglycemia Enoxaparin Sodium (Lovenox) 130 mg SC Q12 [facility] Last Admin: 06/11/20 22:43 Dose: 130 mg Documented by: Finasteride (Proscar) 5 mg PO DAILY [facility] Last Admin: 06/11/20 08:43 Dose: 5 mg Documented by: Glucagon () 1 mg IM .X1 PRN PRN Reason: Hypoglycemia Sodium Chloride () 250 mls @ 15 mls/hr IV .[id number] PRN PRN Reason: Saline Flush Last Infusion: 06/10/20 22:16 Dose: 0 mls/hr Documented by: Sodium Chloride () 250 mls @ 15 mls/hr IV .[id number] PRN PRN Reason: Additional IVPB Infusion Diltiazem HCl 125 mg/ Dextrose 125 mls @ 5 mls/hr IV .Q25H [facility]; Protocol Last Admin: 06/12/20 06:38 Dose: 15 mg/hr, 15 mls/hr Documented by: Remdesivir (Investigational) (100 mg/ Sodium Chloride) 250 mls @ 125 mls/hr IV DAILY@2200 [facility] Stop: 06/14/20 23:59 Last Infusion: 06/12/20 00:36 Dose: Infused Documented by: Lactated Ringer's () 1,000 mls @ 150 mls/hr IV .Q6H40M [facility] Last Infusion: 06/12/20 06:28 Dose: 150 mls/hr Documented by: Metoprolol Tartrate (Lopressor (Beta Kirit)) 5 mg IV Q8@0200,1000,1800 [facility] Last Admin: 06/12/20 02:15 Dose: Not Given Documented by: Nitroglycerin (Nitrostat) 0.4 mg SUBLINGUAL Q5M PRN PRN Reason: CARDIAC/CHEST PAIN [id number] Ethyl Esters (Lovaza) 1 gm PO BID [facility] Last Admin: 06/11/20 22:39 Dose: 1 gm Documented by: Ondansetron HCl (Zofran) 4 mg IV Q8H PRN PRN PRN Reason: NAUSEA/VOMITING Last Admin: 06/10/20 23:05 Dose: 4 mg Documented by: Pramipexole Dihydrochloride (Mirapex) 0.25 mg PO QHS [facility] Last Admin: 06/11/20 22:39 Dose: 0.25 mg Documented by: Pravastatin Sodium (Pravachol) 40 mg PO QHS [facility] Last Admin: 06/11/20 22:52 Dose: 40 mg Documented by: Sodium Chloride () 10 - 40 ml IV UD PRN PRN Reason: SALINE FLUSH Last Admin: 06/12/20 04:36 Dose: 40 ml Documented by: Venlafaxine HCl (Effexor Xr) 75 mg PO DAILY [facility] Last Admin: 06/11/20 08:42 Dose: 75 mg Documented by: STROKE Vital Signs/Narrative: Vital Signs Temp Pulse Resp BP Pulse Ox 06/12/20 07:06 97 23 H 92 06/12/20 06:20 98 06/12/20 06:00 99.6 F H 96 25 H 94/57 L 91 06/12/20 05:00 100.0 F H 98 24 H 101/65 91 06/12/20 04:31 24 H 92 06/12/20 04:30 100.0 F H 95 24 H 100/75 92 06/12/20 04:05 100.1 F H 100 25 H 101/62 93 06/12/20 04:00 100.2 F H 98 25 H 94/66 92 Medical Necessity - Tobacco Use Smoking Status: Former smoker Assessment/Plan All Active Problems (Last Reviewed 09/28/19 @ 11:[address] 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 Patient was found to be in A. fib with RVR. Was also found to be significantly hypoxic admitted to the intensive care unit for further management 1. Acute hypoxic respiratory failure secondary to COVID-19 infection ?Patient admitted to the intensive care unit placed on high flow oxygen. Patient was started on dexamethasone Remdesivir and convalescent plasma scheduled to be administered this a.m. Patient was also covered with ceftriaxone and azithromycin -06/12/2020; Patient seen appears ill looking. His oxygen saturation apparently did go down resulting in patient being placed on noninvasive ventilation BiPAP.. Patient still appears ill looking; elevated markers of inflammation including high ferritin levels 2. A. fib with RVR ?Patient was started on Cardizem drip titrated to keep heart rate less than 100 as well as amiodarone. Also states did continue with his oral metoprolol and placed on systemic anticoagulation with Lovenox. Consultation was placed to Dr. Sprague the seasonal sales associate on-call -06/12/2020. Amiodarone Switched from IV to p.o. 3. Sepsis secondary to COVID infection ?Management as discussed above 4. Acute kidney injury ?Kidney function did improve following admission 5. Obesity with BMI of 39.6 ?Weight loss advised 6. Dyslipidemia -Patient is on statin therapy, continued at home dose 7. Restless leg syndrome ?Patient is on Pramipexole 8. Hypertension - Blood pressure controlled, home medications continued with dose adjustment as needed 9. Depression ?Patient is on SNRI 10. BH ?Symptoms controlled on Proscar did continue 11. DVT prophylaxis on therapeutic anticoagulation with lovenox Inpatient E&M: [id number] [facility] L[facility]
--- NOTE | 2020-06-12 08:00 | PN.CARD_ITS ---
Subjectve: Patient seen and discussed with nursing. Objective: Vital Signs Temp Pulse Resp BP Pulse Ox 99.6 F H 97 23 H 94/57 L 92 06/12/20 06:00 06/12/20 07:06 06/12/20 07:06 06/12/20 06:00 06/12/20 07:06 Oxygen Flow Rate (L/min) 60 Oxygen Delivery Method Bi-pap Weight: 284 lb 13.396 oz Body Mass Index (BMI) 39.6 Intake and Output for Last 24 Hours 06/10/20 06/11/20 06/12/20 23:59 23:59 23:59 Intake Total 1694.75 / 1702.25 2100.30 / 2117.81 1117.28 / 1117.28 Output Total 800 / 800 880 / 880 385 / 385 Balance 894.75 / 902.25 1220.30 / 1237.81 732.28 / 732.28 06/12/20 04:30: WBC 7.7, RBC 4.81, Hgb 14.9, Hct 43.8, MCV 91.1, MCH 31.0, MCHC 34.0, Plt Count 177, MPV 11.1, Immature Gran % (Auto) 1.300 H, Neut % (Auto) 77.9 H, Lymph % (Auto) 13.8 L, [place] % (Auto) 6.9, Eos % (Auto) 0.0, Baso % (Auto) 0.1, Absolute Neuts (auto) 6.0, Nucleated RBC % 0 06/12/20 04:30: Sodium 137, Potassium 3.8, Chloride 103, Carbon Dioxide 27.0, Anion Gap 7, BUN 34 H, Creatinine 1.12, Est GFR (MDRD) Af Amer 84, Est GFR (MDRD) Non-Af 69, BUN/Creatinine Ratio 30.4 H, Glucose 222 H, Calcium 7.9 L, Ferritin 2577 H, Total Bilirubin 0.50, Troponin I < 0.015 06/12/20 04:30: B-Natriuretic Peptide 60.8 Rhythm: EKG: ECHO: Stress Test: Cardiac Cath: PCI: CT Surgery: Holter monitor: EPS: PPM: CXR: Chest CT Scan: Medical Necessity - Tobacco Use Smoking Status: Former smoker Assessment/Plan 1. Atrial fibrillation with rapid ventricular response The patient has a history of paroxysmal atrial fibrillation.His current atrial fibrillation with rapid ventricular response may be secondary to his COVID positive underlying pulmonary disease process/hypoxemia, etc.He is remaining in the ICU and COVID positive precautions. * He is currently being treated with intravenous amiodarone which was switched to oral amiodarone as well as intravenous Cardizem which would be kept on. * His previous echocardiogram had demonstrated preserved ejection fraction. * I suspect that the above is secondary to his current respiratory status. We will continue current medical therapy. 2. Hypertension * Will continue current therapy and also with intravenous Cardizem. * Thank you for allowing me to participate in the care of your patient. Please don't hesitate to call if any issues arise.
[2020-06-12] MEDS: clonazePAM 1 MG Tablet PO ×2 (08:47→16:13)
[2020-06-12] MEDS: Venlafaxine XR 75 MG Capsule PO (09:59)
[2020-06-12] MEDS: Enoxaparin 150 MG/ML Syringe 130 MG SC ×2 (09:59→22:03)
[2020-06-12] MEDS: Omega-3 Acid Ethyl Esters 1 GM Capsule PO ×2 (09:59→22:03)
[2020-06-12] MEDS: busPIRone 15 MG TABLET 30 MG PO ×2 (10:00→22:03)
[2020-06-12] MEDS: Acetaminophen 500 MG Tablet PO (10:00)
[2020-06-12] MEDS: Finasteride 5 MG Tablet PO (10:00)
[2020-06-12] MEDS: dexAMETHasone 10 MG/ML Vial 6 MG IV (10:00)
--- NOTE | 2020-06-12 10:05 | PCM.PN.ID ---
Patient Problems: Active and Suspected Problems (Last Reviewed 09/28/19 @ 11:[address] Chi Bernard MD) Atrial fibrillation with rapid ventricular response (Acute) COVID-19 (Acute) Dyspnea (Acute) Abnormal cardiac enzyme level (Acute) Subjective: No fever overnight, remains hypoxic. - Physical Exam Vitals/I&O's: Vital Signs Temp Pulse Resp BP Pulse Ox 97.3 F L 88 27 H 97/64 89 06/12/20 08:00 06/12/20 10:01 06/12/20 09:15 06/12/20 08:00 06/12/20 09:15 Oxygen Flow Rate (L/min) 60 Oxygen Delivery Method Nasal Cannula Weight: 129.2 kg Body Mass Index (BMI) 39.6 Intake and Output for Last 24 Hours 06/10/20 06/11/20 06/12/20 23:59 23:59 23:59 Intake Total 1694.75 / 1702.25 2100.30 / 2117.81 1137.78 / 1137.78 Output Total 800 / 800 880 / 880 385 / 385 Balance 894.75 / 902.25 1220.30 / 1237.81 752.78 / 752.78 General: Lethargic Lungs: Diminished Cardiovascular: Irregular Rate, Tachycardic Abdomen: Soft, Non Tender, Non-Distended Extremities: No edema Skin: No rashes Microbiology Past 72 Hours 06/10/20 19:00 Urine, Clean Catch Urine Culture - Final Mixed Gram Positive Organisms 06/10/20 20:20 Urine, Clean Catch Legionella Antigen - Final 06/10/20 20:20 Urine, Clean Catch Streptococcus pneumoniae Antigen (M - Final Laboratory Results 06/11/20 06:35: Blood Type Not Reportable, Antibody Screen Not Reportable 06/12/20 04:30: WBC 7.7, RBC 4.81, Hgb 14.9, Hct 43.8, MCV 91.1, MCH 31.0, MCHC 34.0, RDW Std Deviation 46.0 H, RDW Coeff of Yade 13.5, Plt Count 177, MPV 11.1, Immature Gran % (Auto) 1.300 H, Neut % (Auto) 77.9 H, Lymph % (Auto) 13.8 L, [place] % (Auto) 6.9, Eos % (Auto) 0.0, Baso % (Auto) 0.1, Absolute Neuts (auto) 6.0, Absolute Lymphs (auto) 1.06, Nucleated RBC % 0, Differential Comment SCANNED, Reactive Lymphocytes RARE 06/12/20 04:30: Sodium 137, Potassium 3.8, Chloride 103, Carbon Dioxide 27.0, Anion Gap 7, BUN 34 H, Creatinine 1.12, Estim Creat Clear Calc 68.17, Est GFR (MDRD) Af Amer 84, Est GFR (MDRD) Non-Af 69, BUN/Creatinine Ratio 30.4 H, Glucose 222 H, Calcium 7.9 L, Ferritin 2577 H, Total Bilirubin 0.50, AST 56 H, ALT 40, Alkaline Phosphatase 44 L, Total Creatine Kinase 249, Troponin I < 0.015, C-React Prot Ext Range 78.20 H, Total Protein 6.5, Albumin 2.2 L, Globulin 4.3 H, Albumin/Globulin Ratio 0.5 L 06/12/20 04:30: B-Natriuretic Peptide 60.8 Current Medications Acetaminophen (Tylenol) 500 mg PO BID [facility] Last Admin: 06/12/20 10:00 Dose: 500 mg Documented by: Acetaminophen (Tylenol) 650 mg RECTAL Q4H PRN PRN PRN Reason: Pain Score 1-10/10,temp >100.7 Last Admin: 06/11/20 05:51 Dose: 650 mg Documented by: Albuterol/Ipratropium (Duoneb) 3 ml INHALATION Q4H PRN PRN PRN Reason: SOB &/ WHEEZING Amiodarone HCl (Cordarone) 200 mg PO TID [facility] Buspirone HCl (Buspar) 30 mg PO BID [facility] Last Admin: 06/12/20 10:00 Dose: 30 mg Documented by: Clonazepam (Klonopin) 1 mg PO BIDCM [facility] Last Admin: 06/12/20 08:47 Dose: 1 mg Documented by: Clonazepam (Klonopin) 2 mg PO QHS [facility] Last Admin: 06/11/20 22:41 Dose: 2 mg Documented by: Dexamethasone Sodium Phosphate (Decadron) 6 mg IV DAILY [facility] Last Admin: 06/12/20 10:00 Dose: 6 mg Documented by: Dextrose (D50w Syringe) 0 gm IV X1 PRN; Protocol PRN Reason: Hypoglycemia Enoxaparin Sodium (Lovenox) 130 mg SC Q12 [facility] Last Admin: 06/12/20 09:59 Dose: 130 mg Documented by: Finasteride (Proscar) 5 mg PO DAILY [facility] Last Admin: 06/12/20 10:00 Dose: 5 mg Documented by: Glucagon () 1 mg IM .X1 PRN PRN Reason: Hypoglycemia Sodium Chloride () 250 mls @ 15 mls/hr IV .[id number] PRN PRN Reason: Saline Flush Last Infusion: 06/10/20 22:16 Dose: 0 mls/hr Documented by: Sodium Chloride () 250 mls @ 15 mls/hr IV .[id number] PRN PRN Reason: Additional IVPB Infusion Diltiazem HCl 125 mg/ Dextrose 125 mls @ 5 mls/hr IV .Q25H [facility]; Protocol Last Titration: 06/12/20 08:00 Dose: 15 mg/hr, 15 mls/hr Documented by: Remdesivir (Investigational) (100 mg/ Sodium Chloride) 250 mls @ 125 mls/hr IV DAILY@2200 [facility] Stop: 06/14/20 23:59 Last Infusion: 06/12/20 00:36 Dose: Infused Documented by: Lactated Ringer's () 1,000 mls @ 150 mls/hr IV .Q6H40M [facility] Last Infusion: 06/12/20 06:28 Dose: 150 mls/hr Documented by: Metoprolol Tartrate (Lopressor (Beta Kirit)) 5 mg IV Q8@0200,1000,1800 [facility] Last Admin: 06/12/20 10:01 Dose: Not Given Documented by: Nitroglycerin (Nitrostat) 0.4 mg SUBLINGUAL Q5M PRN PRN Reason: CARDIAC/CHEST PAIN [id number] Ethyl Esters (Lovaza) 1 gm PO BID [facility] Last Admin: 06/12/20 09:59 Dose: 1 gm Documented by: Ondansetron HCl (Zofran) 4 mg IV Q8H PRN PRN PRN Reason: NAUSEA/VOMITING Last Admin: 06/10/20 23:05 Dose: 4 mg Documented by: Pramipexole Dihydrochloride (Mirapex) 0.25 mg PO QHS [facility] Last Admin: 06/11/20 22:39 Dose: 0.25 mg Documented by: Pravastatin Sodium (Pravachol) 40 mg PO QHS [facility] Last Admin: 06/11/20 22:52 Dose: 40 mg Documented by: Senna/Docusate Sodium (Senokot-S, Marichuy-Colace) 2 tablet PO BID PRN PRN PRN Reason: CONSTIPATION Sodium Chloride () 10 - 40 ml IV UD PRN PRN Reason: SALINE FLUSH Last Admin: 06/12/20 09:59 Dose: 20 ml Documented by: Venlafaxine HCl (Effexor Xr) 75 mg PO DAILY [facility] Last Admin: 06/12/20 09:59 Dose: 75 mg Documented by: Medical Necessity - Tobacco Use Smoking Status: Former smoker Route of nutrition/ use of supplements: [] Nutritional Intake: [] IV Site: [] Barnhart Catheter: [] - Assessment/Plan Antibiotics: [] Assessment/Plan: [] Active and Suspected Problems (Last Reviewed 09/28/19 @ 11:[address] Chi Bernard MD) Atrial fibrillation with rapid ventricular response (Acute) COVID-19 (Acute) Dyspnea (Acute) Abnormal cardiac enzyme level (Acute) covid with hypoxic resp failure - fever to 103.4 here. D-dimer 4, elevated CK, CRP, LDH, ferritin, trop, and lactate. PCT was 0.15. Off abx. Fever resolved. Cont dex, lovenox, remdesivir. Given convalescent plasma early this AM. Inflammatory markers improved this AM. Will follow. D/w Dr. oGnzalez.
[2020-06-12] MEDS: Lactated Ringers 1,000 ML 150 ML IV ×2 (11:04→17:45)
[2020-06-12] MEDS: Amiodarone 200 MG Tablet PO ×2 (14:34→22:03)
[2020-06-12] MEDS: Pramipexole Di-HCl 0.25 MG Tablet PO (22:02)
[2020-06-12] MEDS: Pravastatin 40 MG Tablet PO (22:02)
[2020-06-12] MEDS: clonazePAM 1 MG Tablet 2 MG PO (22:03)
[2020-06-13] VITALS (40 sets, daily range): BP systolic 89–139; BP diastolic 58–108; PULSE 60–112; RESP 13–28; TEMP 36.6–37; O2SAT 86–95
[2020-06-13] MEDS: Lactated Ringers 1,000 ML 150 ML IV ×4 (00:51→20:33)
[2020-06-13] MEDS: Metoprolol Tartrate 50 MG Tablet PO ×3 (02:38→21:06)
[2020-06-13 05:25] LABS: Absolute Lymphocyte Count 1.14 X10^3/uL (0.83-4.51); Absolute Neutrophil Count 5.4 X10^3/uL (2.0-7.7); Basophil# 0.02 X10^3/uL; Basophil% 0.3 % (0-1); Hemoglobin 13.5 g/dL (13.0-16.5); Lymphocyte # 1.14 X10^3/ul (4.0); Lymphocyte % 15.7 % (19-41); Mean Corp Hgb Conc 32.9 g/dL (32-36); Mean Platelet Vol. 11.2 fl (6.2-12.0); Monocyte# 0.61 X10^3/uL; Monocyte% 8.4 % (0-10); NRBC Flagged by Analyzer 0 % (0-5); Neutrophil # 5.37 X10^3/uL (2.7-7.7); Neutrophil % 73.9 % (47-70); POSITIVE MORPHOLOGY YES; Platelet Count 190 K/mm3 (150-450); RBC Distribution Width CV 13.6 % (11.6-14.6); RBC Distribution Width SD 46.7 fl (35.1-43.9); Red Blood Count 4.36 M/mm3 (4.6-6.2); White Blood Count 7.3 K/mm3 (4.4-11.0)
[2020-06-13 05:37] LABS: Differential Indicated SCAN CRITERIA MET
[2020-06-13 05:43] LABS: ALB/GLOB Ratio 0.6 RATIO (0.9-2.4); AST(SGOT) 47 U/L (15-37); Alanine Aminotransfer ALT/SGPT 43 U/L (16-61); Albumin, Serum 2.1 g/dL (3.2-5.0); Alkaline Phosphatase 39 U/L (45-117); Anion Gap 4 (5-15); BUN 24 mg/dL (7-18); BUN/Creat Ratio 28.9 RATIO (10-20); Calcium,Total 7.7 mg/dL (8.5-10.1); Chloride 103 mmol/L (98-107); Creatinine, Serum 0.83 mg/dL (0.70-1.30); EST Glomerular Filtration Rate 98 mL/min (>60); Est Glom Filt Rate - Afr Amer 119 mL/min (>60); Estimated Creatinine Clearance 91.98 ml/min; Globulin 3.7 g/dL (2.2-4.2); Glucose 176 mg/dL (74-106); Potassium 4.1 mmol/L (3.5-5.1); Protein, Total 5.8 g/dL (6.4-8.2); Sodium Level 136 mmol/L (136-145)
--- NOTE | 2020-06-13 05:50 | EKG12_ITS ---
Test Reason : ARRYTHMIA Blood Pressure : / mmHG Vent. Rate : 059 BPM Atrial Rate : 059 BPM P-R Int : 136 ms QRS Dur : 092 ms QT Int : 476 ms P-R-T Axes : 022 011 014 degrees QTc Int : 471 ms Sinus bradycardia Otherwise normal ECG When compared with ECG of 10-JUN-2020 15:28, Sinus rhythm has replaced Atrial fibrillation Vent. rate has decreased BY [address] no longer depressed in Anterior leads Confirmed by BENJAMIN GOFF, BENNIE ([id number]), clinical editor EDUARDO MADERA ([id number]) on 06/25/2020 1:18:03 PM Referred By: BENJAMIN Confirmed By:BENNIE ALEXANDER MD
[2020-06-13 05:57] LABS: Differential Comment SCANNED; Reactive Lymphocyte RARE
--- NOTE | 2020-06-13 06:20 | PN_ITS ---
Subjective: The patient was seen and examined at the bedside this morning. Events from the last 24 hours have been reviewed. The patient is currently afebrile, hemodynamically stable and maintaining appropriate oxygen saturations on BiPAP with an FiO2 requirement of 75%. Although the patient has been largely BiPAP dependent over the last 24 hours, he is now tolerating greater amounts of time on Airvo heated high flow oxygen. In fact, overnight nursing staff did report that he tolerated 40 minutes off of BiPAP therapy last evening. He is currently documented to be overall net +5.8 L for the hospital admission. The patient's Cardizem infusion completed this morning and he was noted to have converted to normal sinus rhythm around 0500. Objective: The patient's most recent lab work, culture data and imaging studies have all been personally reviewed. CTA chest was obtained with results limited by respiratory motion artifact. However, no large central pulmonary embolism was identified. The patient did have radiographic evidence of significant bilateral pulmonary infiltrates. Strep and urine Legionella antigens were negative. Blood and urine cultures are pending. Coronavirus PCR was positive on both June 05 and . General: Alert, Cooperative, - - Intermittently confused HEENT: Atraumatic, PERRLA, Normocephalic Oral: Dry Mucosa Neck: Supple, No Nodes, Trachea Midline Lungs: Diminished Cardiovascular: Regular rate, Regular Rhythm Abdomen: Bowel Sounds Present, Soft, Non Tender, Obese Extremities: No clubbing, No cyanosis, No edema Skin: No breakdown Musculoskeletal: No Muscle Wasting Lymphatic: No Cervical, Supraclavicular, or Inguinal Adenopathy Neurological: Neuro grossly intact Psych/Mental Status: Normal Affect, Appropriate Vital Signs Temp Pulse Resp BP Pulse Ox 98.4 F 62 28 H 102/73 93 06/13/20 06:00 06/13/20 06:00 06/13/20 06:00 06/13/20 06:00 06/13/20 06:00 Oxygen Flow Rate (L/min) 60 Oxygen Delivery Method Bi-pap Weight: 285 lb 7.978 oz Body Mass Index (BMI) 39.6 Intake and Output for Last 24 Hours 06/11/20 06/12/20 06/13/20 23:59 23:59 23:59 Intake Total 2100.30 / 2117.81 3434.78 / 3439.78 1932.5 / 1932.5 Output Total 880 / 880 1365 / 1480 445 / 445 Balance 1220.30 / 1237.81 2069.78 / 1959.78 1487.5 / 1487.5 Labs (Last 48 Hours) 06/11/20 06/11/20 06/12/20 06:35 06:35 04:30 WBC 7.7 RBC 4.81 Hgb 14.9 Hct 43.8 MCV 91.1 MCH 31.0 MCHC 34.0 RDW Std Deviation 46.0 H RDW Coeff of Ayde 13.5 Plt Count 177 MPV 11.1 Immature Gran % (Auto) 1.300 H Neut % (Auto) 77.9 H Lymph % (Auto) 13.8 L [place] % (Auto) 6.9 Eos % (Auto) 0.0 Baso % (Auto) 0.1 Absolute Neuts (auto) 6.0 Absolute Lymphs (auto) 1.06 Nucleated RBC % 0 Differential Comment SCANNED Reactive Lymphocytes RARE Sodium Potassium Chloride Carbon Dioxide Anion Gap BUN Creatinine Estim Creat Clear Calc Est GFR (MDRD) Af Amer Est GFR (MDRD) Non-Af BUN/Creatinine Ratio Glucose Calcium Ferritin Total Bilirubin AST ALT Alkaline Phosphatase Total Creatine Kinase Troponin I C-React Prot Ext Range B-Natriuretic Peptide Total Protein Albumin Globulin Albumin/Globulin Ratio Blood Type Not Reportable A POSITIVE Antibody Screen Not Reportable NEGATIVE 06/12/20 06/12/20 06/13/20 04:30 04:30 05:20 WBC 7.3 RBC 4.36 L Hgb 13.5 Hct 41.0 MCV 94.0 MCH 31.0 MCHC 32.9 RDW Std Deviation 46.7 H RDW Coeff of Ayde 13.6 Plt Count 190 MPV 11.2 Immature Gran % (Auto) 1.700 H Neut % (Auto) 73.9 H Lymph % (Auto) 15.7 L [place] % (Auto) 8.4 Eos % (Auto) 0.0 Baso % (Auto) 0.3 Absolute Neuts (auto) 5.4 Absolute Lymphs (auto) 1.14 Nucleated RBC % 0 Differential Comment SCANNED Reactive Lymphocytes RARE Sodium 137 Potassium 3.8 Chloride 103 Carbon Dioxide 27.0 Anion Gap 7 BUN 34 H Creatinine 1.12 Estim Creat Clear Calc 68.17 Est GFR (MDRD) Af Amer 84 Est GFR (MDRD) Non-Af 69 BUN/Creatinine Ratio 30.4 H Glucose 222 H Calcium 7.9 L Ferritin 2577 H Total Bilirubin 0.50 AST 56 H ALT 40 Alkaline Phosphatase 44 L Total Creatine Kinase 249 Troponin I < 0.015 C-React Prot Ext Range 78.20 H B-Natriuretic Peptide 60.8 Total Protein 6.5 Albumin 2.2 L Globulin 4.3 H Albumin/Globulin Ratio 0.5 L Blood Type Antibody Screen 06/13/20 05:20 WBC RBC Hgb Hct MCV MCH MCHC RDW Std Deviation RDW Coeff of Ayde Plt Count MPV Immature Gran % (Auto) Neut % (Auto) Lymph % (Auto) [place] % (Auto) Eos % (Auto) Baso % (Auto) Absolute Neuts (auto) Absolute Lymphs (auto) Nucleated RBC % Differential Comment Reactive Lymphocytes Sodium 136 Potassium 4.1 Chloride 103 Carbon Dioxide 29.0 Anion Gap 4 L BUN 24 H Creatinine 0.83 Estim Creat Clear Calc 91.98 Est GFR (MDRD) Af Amer 119 Est GFR (MDRD) Non-Af 98 BUN/Creatinine Ratio 28.9 H Glucose 176 H Calcium 7.7 L Ferritin Total Bilirubin 0.60 AST 47 H ALT 43 Alkaline Phosphatase 39 L Total Creatine Kinase Troponin I C-React Prot Ext Range B-Natriuretic Peptide Total Protein 5.8 L Albumin 2.1 L Globulin 3.7 Albumin/Globulin Ratio 0.6 L Blood Type Antibody Screen Microbiology 06/10/20 19:00 Urine, Clean Catch Urine Culture - Final Mixed Gram Positive Organisms Clinical Impression(s) from Imaging Studies Chest X-Ray 06/10/20 14:55 IMPRESSION: Mild degree of vascular congestion Electronically Signed: Declan Morgan at 15:32 EDT , Service support , Chest CTA 06/10/20 18:26 IMPRESSION: Exam is limited by significant respiratory motion. No evidence for central or major pulmonary emboli. Pulmonary emboli beyond the main lobar vessels cannot be excluded. Widespread pulmonary infiltrates worse on the right consistent with nonspecific multifocal pneumonia. Electronically Signed: Julito Lee MD at 20:08 EDT , Service support , Medical Necessity - Tobacco Use Smoking Status: Former smoker Assessment/Plan All Active Problems (Last Reviewed 09/28/19 @ 11:[address] 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 Continue BiPAP therapy as tolerated by the patient. Attempt to wean patient to Airvo. 2. If patient is able to tolerate heated high flow oxygen this morning, attempt to advance diet. 3. Continue therapeutic Lovenox, Decadron and remdesivir. 4. Wean FiO2 to maintain oxygen saturations at or above 90%. 5. Continue rate/rhythm control strategy per cardiology recommendations. 6. Administer IV Lasix 40 mg x 1. IMPRESSIONS: 1. Acute hypoxemic respiratory failure secondary to COVID-19 Infection The patient presented to the hospital with worsening shortness of breath and hypoxemia. Coronavirus PCR was positive. CTA chest revealed significant bilateral infiltrates. The patient was placed on noninvasive positive pressure ventilatory support. The patient has received convalescent plasma and will remain on therapeutic Lovenox therapy, Decadron, and Remdesevir. The patient can be transitioned from BiPAP to heated high flow supplemental oxygen as needed for comfort, in hopes of avoiding the need for intubation. Wean FiO2 to maintain oxygen saturations at or above 90%. 2. History of paroxysmal atrial fibrillation Continue current medical management under the discretion of cardiology. 3. Obesity/history of obstructive sleep apnea/hyperlipidemia/anxiety/restless leg syndrome Complicates care, management, recovery and prognosis. Continue noninvasive p ositive pressure ventilatory support as required. Physical therapy evaluation will be warranted once respiratory status improves. TIME: 38 minutes of critical care time, independent of procedures, was spent addressing the patient's acute hypoxemic respiratory failure, acute COVID-19 infection, atrial fibrillation with rapid ventricular rate, review of all data and collaboration with the care team. ([id number]) [id number] Critical care first hour
--- NOTE | 2020-06-13 07:13 | PN_ITS ---
Patient Problems: Active and Suspected Problems (Last Reviewed 09/28/19 @ 11:[address] Chi Bernard MD) Atrial fibrillation with rapid ventricular response (Acute) COVID-19 (Acute) Dyspnea (Acute) Abnormal cardiac enzyme level (Acute) Reason for Visit: Acute hypoxic respiratory failure Subjective: Patient remains in the ICU. Patient remains on BiPAP. Patient desaturates when BiPAP was taken off. Objective: GENERAL: Appears ill looking HEENT: Atraumatic; EYES; Anicteric, Normal Conjunctiva NECK; supple, normal thyroid, RESPIRATORY: Diminished to auscultation CARDIOVASCULAR: Regularly irregular, tachycardic GI: soft, normoactive bowel sounds, : No Renal angle tenderness; EXTREMITIES: No edema, no clubbing, MUSCULOSKELETAL: no muscle waisting NEURO: Awake; no lateralizing signs. SKIN: No Rash PSYCH; Flat affect Vitals/I&O's: Vital Signs Temp Pulse Resp BP Pulse Ox 98.4 F 62 28 H 102/73 93 06/13/20 06:00 06/13/20 06:00 06/13/20 06:00 06/13/20 06:00 06/13/20 06:00 Oxygen Flow Rate (L/min) 60 Oxygen Delivery Method Bi-pap Weight: 129.5 kg Body Mass Index (BMI) 39.6 Intake and Output for Last 24 Hours 06/11/20 06/12/20 06/13/20 23:59 23:59 23:59 Intake Total 2100.30 / 2117.81 3434.78 / 3439.78 2105.0 / 2105.0 Output Total 880 / 880 1365 / 1480 445 / 445 Balance 1220.30 / 1237.81 2069.78 / 1959.78 1660.0 / 1660.0 Microbiology Past 72 Hours 06/10/20 19:00 Urine, Clean Catch Urine Culture - Final Mixed Gram Positive Organisms 06/10/20 20:20 Urine, Clean Catch Legionella Antigen - Final 06/10/20 20:20 Urine, Clean Catch Streptococcus pneumoniae Antigen (M - Final Laboratory Results 06/13/20 05:20: WBC 7.3, RBC 4.36 L, Hgb 13.5, Hct 41.0, MCV 94.0, MCH 31.0, MCHC 32.9, RDW Std Deviation 46.7 H, RDW Coeff of Ayde 13.6, Plt Count 190, MPV 11.2, Immature Gran % (Auto) 1.700 H, Neut % (Auto) 73.9 H, Lymph % (Auto) 15.7 L, [place] % (Auto) 8.4, Eos % (Auto) 0.0, Baso % (Auto) 0.3, Absolute Neuts (auto) 5.4, Absolute Lymphs (auto) 1.14, Nucleated RBC % 0, Differential Comment SCANNED, Reactive Lymphocytes RARE 06/13/20 05:20: Sodium 136, Potassium 4.1, Chloride 103, Carbon Dioxide 29.0, Anion Gap 4 L, BUN 24 H, Creatinine 0.83, Estim Creat Clear Calc 91.98, Est GFR (MDRD) Af Amer 119, Est GFR (MDRD) Non-Af 98, BUN/Creatinine Ratio 28.9 H, Glucose 176 H, Calcium 7.7 L, Total Bilirubin 0.60, AST 47 H, ALT 43, Alkaline Phosphatase 39 L, Total Protein 5.8 L, Albumin 2.1 L, Globulin 3.7, Albumin/Globulin Ratio 0.6 L Current Medications Acetaminophen (Tylenol) 500 mg PO BID [facility] [place] Last Admin: 06/12/20 22:02 Dose: Not Given Documented by: Acetaminophen (Tylenol) 650 mg RECTAL Q4H PRN PRN PRN Reason: Pain Score 1-10/10,temp >100.7 Last Admin: 06/11/20 05:51 Dose: 650 mg Documented by: Albuterol/Ipratropium (Duoneb) 3 ml INHALATION Q4H PRN PRN PRN Reason: SOB &/ WHEEZING Amiodarone HCl (Cordarone) 200 mg PO TID [facility] [place] Last Admin: 06/13/20 06:18 Dose: Not Given Documented by: Buspirone HCl (Buspar) 30 mg PO BID [facility] [place] Last Admin: 06/12/20 22:03 Dose: 30 mg Documented by: [facility]onazep[facility] (Klonopin) [facility] Last Admin: 06/12/20 16:13 Dose: 1 mg Documented by: Clonazepam (Klonopin) 2 mg PO QHS [facility] [place] Last Admin: 06/12/20 22:03 Dose: 2 mg Documented by: Dexamethasone Sodium Phosphate (Decadron) 6 mg IV DAILY [facility] Last Admin: 06/12/20 10:00 Dose: 6 mg Documented by: Dextrose (D50w Syringe) 0 gm IV X1 PRN; Protocol PRN Reason: Hypoglycemia Enoxaparin Sodium (Lovenox) 130 mg SC Q12 [facility] [place] Last Admin: 06/12/20 22:03 Dose: 130 mg Documented by: Finasteride (Proscar) 5 mg PO DAILY [facility] [place] Last Admin: 06/12/20 10:00 Dose: 5 mg Documented by: Glucagon () 1 mg IM .X1 PRN PRN Reason: Hypoglycemia Sodium Chloride () 250 mls @ 15 mls/hr IV .[id number] PRN PRN Reason: Saline Flush Last Infusion: 06/10/20 22:16 Dose: 0 mls/hr Documented by: Sodium Chloride () 250 mls @ 15 mls/hr IV .[id number] PRN PRN Reason: Additional IVPB Infusion Diltiazem HCl 125 mg/ Dextrose 125 mls @ 5 mls/hr IV .Q25H [facility] [place]; Protocol Last Titration: 06/13/20 06:00 Dose: 0 mg/hr, 0 mls/hr Documented by: Remdesivir (Investigational) (100 mg/ Sodium Chloride) 250 mls @ 125 mls/hr IV DAILY@2200 [facility] Stop: 06/14/20 23:59 Last Infusion: 06/12/20 23:57 Dose: Infused Documented by: Lactated Ringer's () 1,000 mls @ 150 mls/hr IV .Q6H40M [facility] [place] Last Admin: 06/13/20 07:02 Dose: 150 mls/hr Documented by: Metoprolol Tartrate (Lopressor (Beta Kirit)) 50 mg PO BID [facility] [place] Last Admin: 06/13/20 02:38 Dose: 50 mg Documented by: Nitroglycerin (Nitrostat) 0.4 mg SUBLINGUAL Q5M PRN PRN Reason: CARDIAC/CHEST PAIN [id number] Ethyl Esters (Lovaza) 1 gm PO BID [facility] [place] Last Admin: 06/12/20 22:03 Dose: 1 gm Documented by: Ondansetron HCl (Zofran) 4 mg IV Q8H PRN PRN PRN Reason: NAUSEA/VOMITING Last Admin: 06/10/20 23:05 Dose: 4 mg Documented by: Pramipexole Dihydrochloride (Mirapex) 0.25 mg PO QHS [facility] [place] Last Admin: 06/12/20 22:02 Dose: 0.25 mg Documented by: Pravastatin Sodium (Pravachol) 40 mg PO QHS [facility] [place] Last Admin: 06/12/20 22:02 Dose: 40 mg Documented by: Senna/Docusate Sodium (Senokot-S, Marichuy-Colace) 2 tablet PO BID PRN PRN PRN Reason: CONSTIPATION Sodium Chloride () 10 - 40 ml IV UD PRN PRN Reason: SALINE FLUSH Last Admin: 06/12/20 09:59 Dose: 20 ml Documented by: Venlafaxine HCl (Effexor Xr) 75 mg PO DAILY [facility] [place] Last Admin: 06/12/20 09:59 Dose: 75 mg Documented by: STROKE Vital Signs/Narrative: Vital Signs Temp Pulse Resp BP Pulse Ox 06/13/20 06:00 98.4 F 62 28 H 102/73 93 06/13/20 05:00 98.4 F 72 25 H 114/82 H 94 06/13/20 04:32 66 20 H 93 06/13/20 04:30 98.3 F 66 27 H 91/59 L 93 06/13/20 04:00 98.3 F 73 25 H 101/62 92 06/13/20 03:30 98.2 F 73 26 H 93/72 93 Medical Necessity - Tobacco Use Smoking Status: Former smoker Assessment/Plan All Active Problems (Last Reviewed 09/28/19 @ 11:[address] 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 Patient was found to be in A. fib with RVR. Was also found to be significantly hypoxic admitted to the intensive care unit for further management 1. Acute hypoxic respiratory failure secondary to COVID-19 infection ?Patient admitted to the intensive care unit placed on high flow oxygen. Patient was started on dexamethasone Remdesivir and convalescent plasma scheduled to be administered this a.m. Patient was also covered with ceftriaxone and azithromycin -06/12/2020; Patient seen appears ill looking. His oxygen saturation apparently did go down resulting in patient being placed on noninvasive ventilation BiPAP.. Patient still appears ill looking; elevated markers of inflammation including high ferritin levels -12/14/2019 patient remains in the ICU. Patient remains on BiPAP. Patient desaturates when BiPAP was taken off. 2. A. fib with RVR ?Patient was started on Cardizem drip titrated to keep heart rate less than 100 as well as amiodarone. Also states did continue with his oral metoprolol and placed on systemic anticoagulation with Lovenox. Consultation was placed to Dr. Sprague the clinical rehabilitation coordinator on-call -06/12/2020. Amiodarone Switched from IV to p.o. -06/13/2020. Cardizem drip weaned off patient started on p.o. Cardizem 3. Sepsis secondary to COVID infection ?Management as discussed above 4. Acute kidney injury ?Kidney function did improve following admission 5. Obesity with BMI of 39.6 ?Weight loss advised 6. Dyslipidemia -Patient is on statin therapy, continued at home dose 7. Restless leg syndrome ?Patient is on Pramipexole 8. Hypertension - Blood pressure controlled, home medications continued with dose adjustment as needed 9. Depression ?Patient is on SNRI 10. BH ?Symptoms controlled on Proscar did continue 11. DVT prophylaxis on therapeutic anticoagulation with lovenox Inpatient E&M: [id number] [facility] Hosp L3
[2020-06-13] MEDS: clonazePAM 1 MG Tablet PO ×2 (08:22→15:46)
[2020-06-13] MEDS: Acetaminophen 500 MG Tablet PO ×2 (08:22→21:06)
[2020-06-13] MEDS: dexAMETHasone 10 MG/ML Vial 6 MG IV (08:22)
[2020-06-13] MEDS: Omega-3 Acid Ethyl Esters 1 GM Capsule PO ×2 (08:23→21:07)
[2020-06-13] MEDS: busPIRone 15 MG TABLET 30 MG PO ×2 (08:23→21:06)
[2020-06-13] MEDS: Venlafaxine XR 75 MG Capsule PO (08:23)
[2020-06-13] MEDS: Finasteride 5 MG Tablet PO (08:24)
[2020-06-13] MEDS: Enoxaparin 150 MG/ML Syringe 130 MG SC ×2 (08:28→21:05)
[2020-06-13] MEDS: 0.9% Saline Lock 10 ML Syringe IV ×2 (08:28→21:07)
[2020-06-13] MEDS: Furosemide 40 MG/4 ML Vial IV (08:28)
--- NOTE | 2020-06-13 09:15 | PN.CARD_ITS ---
Subjectve: Patient seen Objective: Vital Signs Temp Pulse Resp BP Pulse Ox 98.3 F 61 24 H 108/68 92 06/13/20 08:00 06/13/20 09:00 06/13/20 09:00 06/13/20 09:00 06/13/20 09:00 Oxygen Flow Rate (L/min) 60 Oxygen Delivery Method Bi-pap Weight: 285 lb 7.978 oz Body Mass Index (BMI) 39.6 Intake and Output for Last 24 Hours 06/11/20 06/12/20 06/13/20 23:59 23:59 23:59 Intake Total 2100.30 / 2117.81 3434.78 / 3439.78 2205.0 / 2205.0 Output Total 880 / 880 1365 / 1480 595 / 595 Balance 1220.30 / 1237.81 2069.78 / 1959.78 1610.0 / 1610.0 06/13/20 05:20: WBC 7.3, RBC 4.36 L, Hgb 13.5, Hct 41.0, MCV 94.0, MCH 31.0, MCHC 32.9, Plt Count 190, MPV 11.2, Immature Gran % (Auto) 1.700 H, Neut % (Auto) 73.9 H, Lymph % (Auto) 15.7 L, [place] % (Auto) 8.4, Eos % (Auto) 0.0, Baso % (Auto) 0.3, Absolute Neuts (auto) 5.4, Nucleated RBC % 0 06/13/20 05:20: Sodium 136, Potassium 4.1, Chloride 103, Carbon Dioxide 29.0, Anion Gap 4 L, BUN 24 H, Creatinine 0.83, Est GFR (MDRD) Af Amer 119, Est GFR (MDRD) Non-Af 98, BUN/Creatinine Ratio 28.9 H, Glucose 176 H, Calcium 7.7 L, Total Bilirubin 0.60 Rhythm: EKG: ECHO: Stress Test: Cardiac Cath: PCI: CT Surgery: Holter monitor: EPS: PPM: CXR: Chest CT Scan: Medical Necessity - Tobacco Use Smoking Status: Former smoker Assessment/Plan 1. Atrial fibrillation with rapid ventricular response The patient has a history of paroxysmal atrial fibrillation.His current atrial fibrillation with rapid ventricular response may be secondary to his COVID positive underlying pulmonary disease process/hypoxemia, etc.He is remaining in the ICU and COVID positive precautions. * He is currently being treated with oral amiodarone. He did convert to sinus rhythm and is back on beta-eze with discontinuation of his intravenous diltiazem. 2. Hypertension * Will continue current therapy and also with oral beta-eze. * Thank you for allowing me to participate in the care of your patient. Please don't hesitate to call if any issues arise.
[2020-06-13] MEDS: Amiodarone 200 MG Tablet PO ×2 (13:24→21:06)
--- NOTE | 2020-06-13 16:48 | CPS ---
RT PERFORMED BIPAP ASSESSMENT POST OXYGEN INCREASE TO .80% VIA NURSING.
--- NOTE | 2020-06-13 17:24 | PN.ID_ITS ---
Patient Problems: Active and Suspected Problems (Last Reviewed 09/28/19 @ 11:[address] Chi Bernard MD) Atrial fibrillation with rapid ventricular response (Acute) COVID-19 (Acute) Dyspnea (Acute) Abnormal cardiac enzyme level (Acute) Subjective: Feeling a little better, no fever, less dyspnea - Physical Exam Vitals/I&O's: Vital Signs Temp Pulse Resp BP Pulse Ox 98.1 F 63 13 124/81 H 88 06/13/20 21:00 06/13/20 21:06 06/13/20 21:00 06/13/20 21:06 06/13/20 21:00 Oxygen Flow Rate (L/min) 60 Oxygen Delivery Method Bi-pap Weight: 129.5 kg Body Mass Index (BMI) 39.6 Intake and Output for Last 24 Hours 06/11/20 06/12/20 06/13/20 23:59 23:59 23:59 Intake Total 2100.30 / 2117.81 3434.78 / 3439.78 4597.5 / 4597.5 Output Total 880 / 880 1365 / 1480 1795 / 1795 Balance 1220.30 / 1237.81 2069.78 / 1959.78 2802.5 / 2802.5 General: Alert Lungs: Diminished Cardiovascular: Regular rate, Regular Rhythm Abdomen: Soft, Non Tender, Non-Distended Skin: No rashes Microbiology Past 72 Hours 06/10/20 16:40 Blood Culture (Wb) - Anticubital Right Blood Culture - Preliminary No growth in 48 hours. 06/10/20 16:00 Blood Culture (Wb) - Anticubital Left Blood Culture - Preliminary No growth in 48 hours. 06/10/20 19:00 Urine, Clean Catch Urine Culture - Final Mixed Gram Positive Organisms 06/10/20 20:20 Urine, Clean Catch Legionella Antigen - Final 06/10/20 20:20 Urine, Clean Catch Streptococcus pneumoniae Antigen (M - Final Laboratory Results 06/13/20 05:20: WBC 7.3, RBC 4.36 L, Hgb 13.5, Hct 41.0, MCV 94.0, MCH 31.0, MCHC 32.9, RDW Std Deviation 46.7 H, RDW Coeff of Ayde 13.6, Plt Count 190, MPV 11.2, Immature Gran % (Auto) 1.700 H, Neut % (Auto) 73.9 H, Lymph % (Auto) 15.7 L, [place] % (Auto) 8.4, Eos % (Auto) 0.0, Baso % (Auto) 0.3, Absolute Neuts (auto) 5.4, Absolute Lymphs (auto) 1.14, Nucleated RBC % 0, Differential Comment SCANNED, Reactive Lymphocytes RARE 06/13/20 05:20: Sodium 136, Potassium 4.1, Chloride 103, Carbon Dioxide 29.0, Anion Gap 4 L, BUN 24 H, Creatinine 0.83, Estim Creat Clear Calc 91.98, Est GFR (MDRD) Af Amer 119, Est GFR (MDRD) Non-Af 98, BUN/Creatinine Ratio 28.9 H, Glucose 176 H, Calcium 7.7 L, Total Bilirubin 0.60, AST 47 H, ALT 43, Alkaline Phosphatase 39 L, Total Protein 5.8 L, Albumin 2.1 L, Globulin 3.7, Albumin/Globulin Ratio 0.6 L Current Medications Acetaminophen (Tylenol) 500 mg PO BID [facility] Last Admin: 06/13/20 21:06 Dose: 500 mg Documented by: Acetaminophen (Tylenol) 650 mg RECTAL Q4H PRN PRN PRN Reason: Pain Score 1-10/10,temp >100.7 Last Admin: 06/11/20 05:51 Dose: 650 mg Documented by: Albuterol/Ipratropium (Duoneb) 3 ml INHALATION Q4H PRN PRN PRN Reason: SOB &/ WHEEZING Amiodarone HCl (Cordarone) 200 mg PO TID [facility] Last Admin: 06/13/20 21:06 Dose: 200 mg Documented by: Buspirone HCl (Buspar) 30 mg PO BID [facility] Last Admin: 06/13/20 21:06 Dose: 30 mg Documented by: Clonazepam (Klonopin) 1 mg PO BIDCM [facility] Last Admin: 06/13/20 15:46 Dose: 1 mg Documented by: Clonazepam (Klonopin) 2 mg PO QHS [facility] Last Admin: 06/13/20 21:07 Dose: 2 mg Documented by: Dexamethasone Sodium Phosphate (Decadron) 6 mg IV DAILY [facility] Last Admin: 06/13/20 08:22 Dose: 6 mg Documented by: Dextrose (D50w Syringe) 0 gm IV X1 PRN; Protocol PRN Reason: Hypoglycemia Enoxaparin Sodium (Lovenox) 130 mg SC Q12 [facility] Last Admin: 06/13/20 21:05 Dose: 130 mg Documented by: Finasteride (Proscar) 5 mg PO DAILY [facility] Last Admin: 06/13/20 08:24 Dose: 5 mg Documented by: Glucagon () 1 mg IM .X1 PRN PRN Reason: Hypoglycemia Sodium Chloride () 250 mls @ 15 mls/hr IV .[id number] PRN PRN Reason: Saline Flush Last Infusion: 06/10/20 22:16 Dose: 0 mls/hr Documented by: Sodium Chloride () 250 mls @ 15 mls/hr IV .[id number] PRN PRN Reason: Additional IVPB Infusion Remdesivir (Investigational) (100 mg/ Sodium Chloride) 250 mls @ 125 mls/hr IV DAILY@2200 [facility] Stop: 06/14/20 23:59 Last Admin: 06/13/20 22:13 Dose: 125 mls/hr Documented by: Lactated Ringer's () 1,000 mls @ 150 mls/hr IV .[id number] [facility] Last Admin: 06/13/20 20:33 Dose: 150 mls/hr Documented by: Metoprolol Tartrate (Lopressor (Beta Kirit)) 50 mg PO BID [facility] Last Admin: 06/13/20 21:06 Dose: 50 mg Documented by: Nitroglycerin (Nitrostat) 0.4 mg SUBLINGUAL Q5M PRN PRN Reason: CARDIAC/CHEST PAIN [id number] Ethyl Esters (Lovaza) 1 gm PO BID [facility] Last Admin: 06/13/20 21:07 Dose: 1 gm Documented by: Ondansetron HCl (Zofran) 4 mg IV Q8H PRN PRN PRN Reason: NAUSEA/VOMITING Last Admin: 06/10/20 23:05 Dose: 4 mg Documented by: Pramipexole Dihydrochloride (Mirapex) 0.25 mg PO QHS [facility] Last Admin: 06/13/20 21:05 Dose: 0.25 mg Documented by: Pravastatin Sodium (Pravachol) 40 mg PO QHS [facility] Last Admin: 06/13/20 21:06 Dose: 40 mg Documented by: Senna/Docusate Sodium (Senokot-S, Marichuy-Colace) 2 tablet PO BID PRN PRN PRN Reason: CONSTIPATION Sodium Chloride () 10 - 40 ml IV UD PRN PRN Reason: SALINE FLUSH Last Admin: 06/13/20 21:07 Dose: 10 ml Documented by: Venlafaxine HCl (Effexor Xr) 75 mg PO DAILY [facility] Last Admin: 06/13/20 08:23 Dose: 75 mg Documented by: Medical Necessity - Tobacco Use Smoking Status: Former smoker Route of nutrition/ use of supplements: [] Nutritional Intake: [] IV Site: [] Barnhart Catheter: [] - Assessment/Plan Antibiotics: [] Assessment/Plan: [] Active and Suspected Problems (Last Reviewed 09/28/19 @ 11:[address] Chi Bernard MD) Atrial fibrillation with rapid ventricular response (Acute) COVID-19 (Acute) Dyspnea (Acute) Abnormal cardiac enzyme level (Acute) covid with hypoxic resp failure - fever to 103.4 on admit D-dimer 4, elevated CK, CRP, LDH, ferritin, trop, and lactate. PCT was 0.15. Off abx. Fever resolved. Cont dex, lovenox, remdesivir. Given convalescent plasma 06/12. Inflammatory markers improved. Will follow.
[2020-06-13] MEDS: Pramipexole Di-HCl 0.25 MG Tablet PO (21:05)
[2020-06-13] MEDS: Pravastatin 40 MG Tablet PO (21:06)
[2020-06-13] MEDS: clonazePAM 1 MG Tablet 2 MG PO (21:07)
[2020-06-13] MEDS: Ipratropium/Albuterol Sulfate 3 ML AMPUL.NEB INHALATION (23:00)
[2020-06-14] VITALS (41 sets, daily range): BP systolic 92–134; BP diastolic 59–93; PULSE 53–82; RESP 12–28; TEMP 36.3–37.3; O2SAT 69–99; BMI 41.5
[2020-06-14] MEDS: 0.9% Saline Lock 10 ML Syringe IV ×2 (00:34→22:45)
[2020-06-14] MEDS: Lactated Ringers 1,000 ML 150 ML IV (02:53)
[2020-06-14 04:31] LABS: Absolute Lymphocyte Count 1.15 X10^3/uL (0.83-4.51); Absolute Neutrophil Count 5.9 X10^3/uL (2.0-7.7); Basophil# 0.04 X10^3/uL; Basophil% 0.5 % (0-1); Hematocrit 38.9 % (40-54); Hemoglobin 13.1 g/dL (13.0-16.5); Lymphocyte # 1.15 X10^3/ul (4.0); Lymphocyte % 14.8 % (19-41); Mean Corp Hgb Conc 33.7 g/dL (32-36); Mean Corpuscular Hgb 31.3 pg (27.0-32.0); Mean Corpuscular Volume 92.8 fL (80-94); Mean Platelet Vol. 11.1 fl (6.2-12.0); Monocyte# 0.44 X10^3/uL; Monocyte% 5.7 % (0-10); NRBC Flagged by Analyzer 0 % (0-5); Neutrophil # 5.85 X10^3/uL (2.7-7.7); Neutrophil % 75.3 % (47-70); POSITIVE MORPHOLOGY YES; Platelet Count 197 K/mm3 (150-450); RBC Distribution Width CV 13.2 % (11.6-14.6); RBC Distribution Width SD 44.9 fl (35.1-43.9); Red Blood Count 4.19 M/mm3 (4.6-6.2); White Blood Count 7.8 K/mm3 (4.4-11.0)
[2020-06-14 04:33] LABS: Differential Indicated SCAN CRITERIA MET
[2020-06-14 04:54] LABS: ALB/GLOB Ratio 0.6 RATIO (0.9-2.4); AST(SGOT) 50 U/L (15-37); Alanine Aminotransfer ALT/SGPT 49 U/L (16-61); Albumin, Serum 2.1 g/dL (3.2-5.0); Alkaline Phosphatase 44 U/L (45-117); Anion Gap 4 (5-15); BUN 21 mg/dL (7-18); BUN/Creat Ratio 25.4 RATIO (10-20); Calcium,Total 7.7 mg/dL (8.5-10.1); Chloride 105 mmol/L (98-107); Creatinine, Serum 0.83 mg/dL (0.70-1.30); EST Glomerular Filtration Rate 99 mL/min (>60); Est Glom Filt Rate - Afr Amer 119 mL/min (>60); Estimated Creatinine Clearance 91.98 ml/min; Globulin 3.5 g/dL (2.2-4.2); Glucose 148 mg/dL (74-106); Protein, Total 5.6 g/dL (6.4-8.2); Sodium Level 139 mmol/L (136-145)
[2020-06-14 04:59] LABS: Reactive Lymphocyte RARE
[2020-06-14] MEDS: Amiodarone 200 MG Tablet PO (05:19)
--- NOTE | 2020-06-14 06:12 | PN_ITS ---
Subjective: The patient was seen and examined at the bedside this morning. Events from the last 24 hours have been reviewed. Despite every attempt at optimizing the patient's respiratory status over the last 72 hours, he has continued to require ever increasing amounts of FiO2. The patient did report to me this morning that he was beginning to feel tired. He continues to have significant shortness of breath. The patient was agreeable to intubation, following my discussion with him regarding the risks and benefits. Intubation Indication: Respiratory failure Consent was obtained from: Patient The patient was placed in the appropriate sniffing position. Preoxygenated sedation via BIPAP was provided for a minimum of 3 minutes. The patient had continuous cardiac as well as pulse oximetry monitoring during the procedure. Procedure sedation was provided by the administration of 4 mg of Versed and 20 mg of etomidate. Direct laryngoscopy was then performed using a number 4 MAC blade, which revealed a grade 1 view. A 8.0 mm endotracheal tube was visualized advancing between the cords to the level of 22 cm at the lip. The stylette was then removed and discarded. Tube placement was confirmed by fogging in the tube along with equal and bilateral breath sounds. Colorimetric change was visualized on the CO2 meter. The cuff was then inflated and the tube secured using a commercially available device. A good pulse oximetry waveform was seen on the monitor throughout the procedure. A portable chest x-ray has been ordered to confirm appropriate placement. The patient tolerated the procedure well. Objective: The patient's most recent lab work, culture data and imaging studies have all been personally reviewed. CTA chest was obtained with results limited by respiratory motion artifact. However, no large central pulmonary embolism was identified. The patient did have radiographic evidence of significant bilateral pulmonary infiltrates. Strep and urine Legionella antigens were negative. Blood and urine cultures are pending. Coronavirus PCR was positive on both June 05 and . General: - - Patient is now intubated and mechanically ventilated. HEENT: Atraumatic, Normocephalic Oral: Dry Mucosa, - - Endotracheal and OG tubes now in place Neck: Supple, No Nodes, Trachea Midline Lungs: Diminished, Tachypneic Cardiovascular: Normal S1, Normal S2, No murmurs, Bradycardic Abdomen: Bowel Sounds Present, Soft, Non Tender, Obese Extremities: No clubbing, No cyanosis, No edema Skin: No breakdown Musculoskeletal: No Tenderness to Palpation of Joints or Extremities Lymphatic: No Cervical, Supraclavicular, or Inguinal Adenopathy Neurological: - - No focal neurological deficits. Currently sedated on the vent. Vital Signs Temp Pulse Resp BP Pulse Ox 97.6 F L 59 L 18 134/84 H 93 06/14/20 06:00 06/14/20 06:00 06/14/20 06:00 06/14/20 06:00 06/14/20 06:00 Oxygen Flow Rate (L/min) 60 Oxygen Delivery Method Bi-pap Weight: 297 lb 9.985 oz Body Mass Index (BMI) 39.6 Intake and Output for Last 24 Hours 06/12/20 06/13/20 06/14/20 23:59 23:59 23:59 Intake Total 3434.78 / 3439.78 5172.92 / 5172.92 804.58 / 804.58 Output Total 1365 / 1480 2345 / 2345 850 / 850 Balance 2069.78 / 1959.78 2827.92 / 2827.92 -45.42 / -45.42 Labs (Last 48 Hours) 06/12/20 06/13/20 06/13/20 04:30 05:20 05:20 WBC 7.3 RBC 4.36 L Hgb 13.5 Hct 41.0 MCV 94.0 MCH 31.0 MCHC 32.9 RDW Std Deviation 46.7 H RDW Coeff of Ayde 13.6 Plt Count 190 MPV 11.2 Immature Gran % (Auto) 1.700 H Neut % (Auto) 73.9 H Lymph % (Auto) 15.7 L [place] % (Auto) 8.4 Eos % (Auto) 0.0 Baso % (Auto) 0.3 Absolute Neuts (auto) 5.4 Absolute Lymphs (auto) 1.14 Nucleated RBC % 0 Differential Comment SCANNED SCANNED Reactive Lymphocytes RARE RARE Sodium 136 Potassium 4.1 Chloride 103 Carbon Dioxide 29.0 Anion Gap 4 L BUN 24 H Creatinine 0.83 Estim Creat Clear Calc 91.98 Est GFR (MDRD) Af Amer 119 Est GFR (MDRD) Non-Af 98 BUN/Creatinine Ratio 28.9 H Glucose 176 H Calcium 7.7 L Total Bilirubin 0.60 AST 47 H ALT 43 Alkaline Phosphatase 39 L Total Protein 5.8 L Albumin 2.1 L Globulin 3.7 Albumin/Globulin Ratio 0.6 L 07/18/20 07/18/20 04:15 04:15 WBC 7.8 RBC 4.19 L Hgb 13.1 Hct 38.9 L MCV 92.8 MCH 31.3 MCHC 33.7 RDW Std Deviation 44.9 H RDW Coeff of Ayde 13.2 Plt Count 197 MPV 11.1 Immature Gran % (Auto) 3.700 H Neut % (Auto) 75.3 H Lymph % (Auto) 14.8 L [place] % (Auto) 5.7 Eos % (Auto) 0.0 Baso % (Auto) 0.5 Absolute Neuts (auto) 5.9 Absolute Lymphs (auto) 1.15 Nucleated RBC % 0 Differential Comment Reactive Lymphocytes RARE Sodium 139 Potassium 4.0 Chloride 105 Carbon Dioxide 30.0 Anion Gap 4 L BUN 21 H Creatinine 0.83 Estim Creat Clear Calc 91.98 Est GFR (MDRD) Af Amer 119 Est GFR (MDRD) Non-Af 99 BUN/Creatinine Ratio 25.4 H Glucose 148 H Calcium 7.7 L Total Bilirubin 0.50 AST 50 H ALT 49 Alkaline Phosphatase 44 L Total Protein 5.6 L Albumin 2.1 L Globulin 3.5 Albumin/Globulin Ratio 0.6 L Microbiology 06/10/20 16:40 Blood Culture (Wb) - Anticubital Right Blood Culture - Preliminary No growth in 48 hours. 06/10/20 16:00 Blood Culture (Wb) - Anticubital Left Blood Culture - Preliminary No growth in 48 hours. 06/10/20 19:00 Urine, Clean Catch Urine Culture - Final Mixed Gram Positive Organisms Clinical Impression(s) from Imaging Studies Chest X-Ray 06/10/20 14:55 IMPRESSION: Mild degree of vascular congestion Electronically Signed: Declan Morgan at 15:32 EDT , Service support , Chest CTA 06/10/20 18:26 IMPRESSION: Exam is limited by significant respiratory motion. No evidence for central or major pulmonary emboli. Pulmonary emboli beyond the main lobar vessels cannot be excluded. Widespread pulmonary infiltrates worse on the right consistent with nonspecific multifocal pneumonia. Electronically Signed: Julito Lee MD at 20:08 EDT , Service support , Medical Necessity - Tobacco Use Smoking Status: Former smoker Assessment/Plan All Active Problems (Last Reviewed 09/28/19 @ 11:[address] 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 Continue therapeutic Lovenox, Decadron and Remdesevir. 2. Obtain x-ray to confirm appropriate endotracheal tube placement. 3. Obtain arterial blood gas in 1 hour. 4. Wean FiO2 and PEEP to maintain oxygen saturations at or above 90%. 5. Obtain nutrition recommendations for the initiation of tube feeds today. 6. Continue rate/rhythm control strategy per cardiology recommendations. IMPRESSIONS: 1. Acute hypoxemic respiratory failure secondary to COVID-19 Infection The patient presented to the hospital with worsening shortness of breath and hypoxemia. Coronavirus PCR was positive. CTA chest revealed significant bilateral infiltrates. The patient was placed on noninvasive positive pressure ventilatory support for several days, but failed to improve clinically despite having received convalescent plasma, therapeutic Lovenox therapy, Decadron, and Remdesevir. Given the patient's lack of overall clinical improvement and need to provide nutritional support, the decision was made to intubate the patient on the morning of June 14. At this time, the plan will be to continue to wean the patient's FiO2 and PEEP to maintain oxygen saturations at or above 90%. Arterial blood gas will be obtained 1 hour post intubation. Will obtain nutrition recommendations for the initiation of tube feeds. 2. History of paroxysmal atrial fibrillation Continue current medical management under the discretion of cardiology. 3. Obesity/history of obstructive sleep apnea/hyperlipidemia/anxiety/restless leg syndrome Complicates care, management, recovery and prognosis. The patient will require aggressive physical therapy once stabilized from a respiratory perspective. TIME: 52 minutes of critical care time, independent of procedures, was spent addressing the patient's acute hypoxemic respiratory failure, acute COVID-19 infection, atrial fibrillation with rapid ventricular rate, review of all data and collaboration with the care team. [id number]) [id number] Critical care first hour
[2020-06-14] MEDS: Midazolam 2 MG/2 ML Syringe 4 MG IV (07:02)
[2020-06-14] MEDS: Etomidate 20 MG/10 ML Vial IV (07:04)
[2020-06-14 07:10] LABS: CPK Total, Creatine Kinase 65 U/L (39-308); Triglycerides 281 mg/dL
[2020-06-14] MEDS: Propofol 10MG/Ml 1,000 MG/100 ML Bottle 8.1 MG CONT INF (07:15)
--- NOTE | 2020-06-14 07:15 | RAD_ITS ---
STUDY: X-RAY CHEST REASON FOR EXAM: Male, 69 years old. ET tube/OG tube placement TECHNIQUE: AP portable view of the chest. COMPARISON: June 10, 2020 FINDINGS: Endotracheal tube, 7 cm above the jerri. Feeding tube extends to the stomach in the left upper abdomen. There are worsening bilateral groundglass and airspace increased opacities of the lungs. There is no demonstrated pleural abnormality. Normal size heart. Normal mediastinum and marci. Normal visualized pulmonary arteries. Normal visualized aortic arch and descending thoracic aorta. There are diffuse degenerative changes of the visualized thoracic spine. Normal visualized ribs, clavicles, and shoulders. There is no demonstrated abnormality of the visualized soft tissue structures of the upper abdomen. RAD/Chest 1 View (Portable) IMPRESSION: Endotracheal tube and feeding tube placement. Worsening bilateral pneumonia or edema. Electronically Signed: Jef Mon MD at 8:59 EDT , Service support ,
[2020-06-14] MEDS: fentaNYL drip 100 ML 5 MCG CONT INF (07:20)
--- NOTE | 2020-06-14 07:42 | NURSING ---
Pt continued having more O2 consumption throughout night. Pt appeared comfortable with respiratory rate and depth, but increasingly more lethargic as the night went on. Decision to intubate made by Dr. Alejo, and pt in agreement with plan. Medicated with ordered Versed 4mg IVP, followed by Etomidate 20mg IVP. Dr. Alejo then proceeded to intubate with #8 ETT using glidescope, 22 at lip, equal breath sounds to respiratory vizcaino, and color change to CO2 detector. Pt desaturated to low 70's during procedure. With supportive settings on Ventilator, recovered to mid 90's. OGT inserted by RN. Return of clear liquid and auscultation of air bolus over LUQ of abdomen. X-ray paged for verification of placement of ETT and OGT.
--- NOTE | 2020-06-14 07:48 | PCM.PN.HOSP ---
Patient Problems: Active and Suspected Problems (Last Reviewed 09/28/19 @ 11:[address] Chi Bernard MD) Atrial fibrillation with rapid ventricular response (Acute) COVID-19 (Acute) Dyspnea (Acute) Abnormal cardiac enzyme level (Acute) Reason for Visit: Acute respiratory failure secondary to COVID-19 infection with superimposed pneumonia Subjective: Patient respiratory status deteriorated resulting in patient being intubated this a.m. Objective: GENERAL: Sedated on the vent HEENT: Atraumatic; EYES; Anicteric, Normal Conjunctiva NECK; supple, normal thyroid, RESPIRATORY: Diminished to auscultation CARDIOVASCULAR: Regularly irregular, tachycardic GI: soft, normoactive bowel sounds, : No Renal angle tenderness; EXTREMITIES: No edema, no clubbing, MUSCULOSKELETAL: no muscle waisting NEURO: Sedated on the vent SKIN: No Rash PSYCH; unable to assess Vitals/I&O's: Vital Signs Temp Pulse Resp BP Pulse Ox 97.6 F L 59 L 18 134/84 H 93 06/14/20 06:00 06/14/20 06:00 06/14/20 06:00 06/14/20 06:00 06/14/20 06:00 Oxygen Flow Rate (L/min) 60 Oxygen Delivery Method Bi-pap Weight: 135 kg Body Mass Index (BMI) 39.6 Intake and Output for Last 24 Hours 06/12/20 06/13/20 06/14/20 23:59 23:59 23:59 Intake Total 3434.78 / 3439.78 5172.92 / 5172.92 804.58 / 804.58 Output Total 1365 / 1480 2345 / 2345 850 / 850 Balance 2069.78 / 1959.78 2827.92 / 2827.92 -45.42 / -45.42 Microbiology Past 72 Hours 06/10/20 16:40 Blood Culture (Wb) - Anticubital Right Blood Culture - Preliminary No growth in 48 hours. 06/10/20 16:00 Blood Culture (Wb) - Anticubital Left Blood Culture - Preliminary No growth in 48 hours. 06/10/20 19:00 Urine, Clean Catch Urine Culture - Final Mixed Gram Positive Organisms Laboratory Results 06/14/20 04:15: WBC 7.8, RBC 4.19 L, Hgb 13.1, Hct 38.9 L, MCV 92.8, MCH 31.3, MCHC 33.7, RDW Std Deviation 44.9 H, RDW Coeff of Ayde 13.2, Plt Count 197, MPV 11.1, Immature Gran % (Auto) 3.700 H, Neut % (Auto) 75.3 H, Lymph % (Auto) 14.8 L, Harrison % (Auto) 5.7, Eos % (Auto) 0.0, Baso % (Auto) 0.5, Absolute Neuts (auto) 5.9, Absolute Lymphs (auto) 1.15, Nucleated RBC % 0, Differential Comment , Reactive Lymphocytes RARE 06/14/20 04:15: Sodium 139, Potassium 4.0, Chloride 105, Carbon Dioxide 30.0, Anion Gap 4 L, BUN 21 H, Creatinine 0.83, Estim Creat Clear Calc 91.98, Est GFR (MDRD) Af Amer 119, Est GFR (MDRD) Non-Af 99, BUN/Creatinine Ratio 25.4 H, Glucose 148 H, Calcium 7.7 L, Total Bilirubin 0.50, AST 50 H, ALT 49, Alkaline Phosphatase 44 L, Total Protein 5.6 L, Albumin 2.1 L, Globulin 3.5, Albumin/Globulin Ratio 0.6 L 06/14/20 04:15: Total Creatine Kinase 65, Triglycerides 281 H Current Medications Acetaminophen (Tylenol) 500 mg PO BID [facility] Last Admin: 06/13/20 21:06 Dose: 500 mg Documented by: Acetaminophen (Tylenol) 650 mg RECTAL Q4H PRN PRN PRN Reason: Pain Score 1-10/10,temp >100.7 Last Admin: 06/11/20 05:51 Dose: 650 mg Documented by: Albuterol/Ipratropium (Duoneb) 3 ml INHALATION Q4H PRN PRN PRN Reason: SOB &/ WHEEZING Last Admin: 06/13/20 23:00 Dose: 3 ml Documented by: Amiodarone HCl (Cordarone) 200 mg PO TID [facility] Last Admin: 06/14/20 05:19 Dose: 200 mg Documented by: Buspirone HCl (Buspar) 30 mg PO BID [facility] Last Admin: 06/13/20 21:06 Dose: 30 mg Documented by: [facility] Admin: 06/13/20 15:46 Dose: 1 mg Documented by: Clonazepam (Klonopin) 2 mg PO QHS [facility] Last Admin: 06/13/20 21:07 Dose: 2 mg Documented by: Dexamethasone Sodium Phosphate (Decadron) 6 mg IV DAILY [facility] Last Admin: 06/13/20 08:22 Dose: 6 mg Documented by: Dextrose (D50w Syringe) 0 gm IV X1 PRN; Protocol PRN Reason: Hypoglycemia Enoxaparin Sodium (Lovenox) 130 mg SC Q12 [facility] Last Admin: 06/13/20 21:05 Dose: 130 mg Documented by: Finasteride (Proscar) 5 mg PO DAILY [facility] Last Admin: 06/13/20 08:24 Dose: 5 mg Documented by: Glucagon () 1 mg IM .X1 PRN PRN Reason: Hypoglycemia Sodium Chloride () 250 mls @ 15 mls/hr IV .[id number] PRN PRN Reason: Saline Flush Last Infusion: 06/13/20 19:30 Dose: Infused Documented by: Sodium Chloride () 250 mls @ 15 mls/hr IV .[id number] PRN PRN Reason: Additional IVPB Infusion Remdesivir (Investigational) (100 mg/ Sodium Chloride) 250 mls @ 125 mls/hr IV DAILY@2200 [facility] Stop: 06/14/20 23:59 Last Infusion: 06/14/20 00:13 Dose: Infused Documented by: Lactated Ringer's () 1,000 mls @ 150 mls/hr IV .Q6H40M [facility] Last Admin: 06/14/20 02:53 Dose: 150 mls/hr Documented by: Propofol (Diprivan) 1,000 mg in 100 mls @ 8.1 mls/hr CONT INF .Q12H [facility]; Protocol Last Admin: 06/14/20 07:15 Dose: 10 mcg/kg/min, 8.1 mls/hr Documented by: Fentanyl () 100 mls @ 5 mls/hr CONT INF UD [facility]; Protocol Last Admin: 06/14/20 07:20 Dose: 50 mcg/hr, 5 mls/hr Documented by: Metoprolol Tartrate (Lopressor (Beta Kirit)) 50 mg PO BID [facility] Last Admin: 06/13/20 21:06 Dose: 50 mg Documented by: Nitroglycerin (Nitrostat) 0.4 mg SUBLINGUAL Q5M PRN PRN Reason: CARDIAC/CHEST PAIN [id number] Ethyl Esters (Lovaza) 1 gm PO BID [facility] Last Admin: 06/13/20 21:07 Dose: 1 gm Documented by: Ondansetron HCl (Zofran) 4 mg IV Q8H PRN PRN PRN Reason: NAUSEA/VOMITING Last Admin: 06/10/20 23:05 Dose: 4 mg Documented by: Pramipexole Dihydrochloride (Mirapex) 0.25 mg PO QHS [facility] Last Admin: 06/13/20 21:05 Dose: 0.25 mg Documented by: Pravastatin Sodium (Pravachol) 40 mg PO QHS [facility] Last Admin: 06/13/20 21:06 Dose: 40 mg Documented by: Senna/Docusate Sodium (Senokot-S, Marichuy-Colace) 2 tablet PO BID PRN PRN PRN Reason: CONSTIPATION Sodium Chloride () 10 - 40 ml IV UD PRN PRN Reason: SALINE FLUSH Last Admin: 06/14/20 00:34 Dose: 10 ml Documented by: Venlafaxine HCl (Effexor Xr) 75 mg PO DAILY [facility] Last Admin: 06/13/20 08:23 Dose: 75 mg Documented by: STROKE Vital Signs/Narrative: Vital Signs Temp Pulse Resp BP Pulse Ox 06/14/20 06:00 97.6 F L 59 L 18 134/84 H 93 06/14/20 05:00 97.6 F L 82 22 H 124/71 H 95 06/14/20 04:00 97.4 F L 60 19 H 124/79 H 91 Medical Necessity - Tobacco Use Smoking Status: Former smoker Assessment/Plan All Active Problems (Last Reviewed 09/28/19 @ 11:[address] 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 Patient was found to be in A. fib with RVR. Was also found to be significantly hypoxic admitted to the intensive care unit for further management 1. Acute hypoxic respiratory failure secondary to COVID-19 infection ?Patient admitted to the intensive care unit placed on high flow oxygen. Patient was started on dexamethasone Remdesivir and convalescent plasma scheduled to be administered this a.m. Patient was also covered with ceftriaxone and azithromycin -06/12/2020; Patient seen appears ill looking. His oxygen saturation apparently did go down resulting in patient being placed on noninvasive ventilation BiPAP.. Patient still appears ill looking; elevated markers of inflammation including high ferritin levels -06/13/2020 patient remains in the ICU. Patient remains on BiPAP. Patient desaturates when BiPAP was taken off. ?06/14/2020: Patient respiratory status deteriorated resulting in patient being intubated on the morning of 06/14/2020. 2. A. fib with RVR ?Patient was started on Cardizem drip titrated to keep heart rate less than 100 as well as amiodarone. Also states did continue with his oral metoprolol and placed on systemic anticoagulation with Lovenox. Consultation was placed to Dr. Sprague the state tested nursing assistant on-call -06/12/2020. Amiodarone Switched from IV to p.o. -06/13/2020. Cardizem drip weaned off patient started on p.o. Cardizem 3. Sepsis secondary to COVID infection ?Management as discussed above 4. Acute kidney injury ?Kidney function did improve following admission 5. Obesity with BMI of 39.6 ?Weight loss advised 6. Dyslipidemia -Patient is on statin therapy, continued at home dose 7. Restless leg syndrome ?Patient is on Pramipexole 8. Hypertension - Blood pressure controlled, home medications continued with dose adjustment as needed 9. Depression ?Patient is on SNRI 10. BH ?Symptoms controlled on Proscar did continue 11. DVT prophylaxis on therapeutic anticoagulation with lovenox Inpatient E&M: [id number] [facility] L3
[2020-06-14] MEDS: Propofol 10MG/Ml 1,000 MG/100 ML Bottle 20.3 MG CONT INF (08:30)
--- NOTE | 2020-06-14 09:14 | NURSING ---
Pt's next of kin, Mayelin Kim (daughter), given update via telephone on patient's clinical status. Opportunity for questions was provided.
--- NOTE | 2020-06-14 09:19 | PCM.NTREPORT ---
Nutrition Therapy Report - History Nutrition Services has been consulted to:: Manage enteral nutrition Current diet / nutrition support order:: NPO - Anthropometric Measurements Height:: 5 ft 11 in Weight:: 135 kg Body Mass Index (BMI):: 41.5 - Relevant Labs Relevant Labs:: RBC 4.19 M/mm3 (4.6-6.2) L 06/14/20 04:15 Hgb 17.4 g/dL (13.0-16.5) H 06/10/20 15:50 Hct 38.9 % (40-54) L 06/14/20 04:15 RDW Std Deviation 44.9 fl (35.1-43.9) H 06/14/20 04:15 Plt Count 149 K/mm3 (150-450) L 06/11/20 02:15 MPV 12.2 fl (6.2-12.0) H 06/10/20 15:50 Immature Gran % (Auto) 3.700 % (0.0-0.9) H 06/14/20 04:15 Neut % (Auto) 75.3 % (47-70) H 06/14/20 04:15 Lymph % (Auto) 14.8 % (19-41) L 06/14/20 04:15 Absolute Neuts (auto) 8.2 X10^3/uL (2.0-7.7) H 06/11/20 02:15 Fibrinogen 630 mg/dl (203-444) H 06/10/20 15:50 D-Dimer Quant (PE/DVT) 4.04 FEU/ug/m (0.27-0.49) H* 06/10/20 15:50 Sodium 134 mmol/L (136-145) L 06/10/20 15:50 Anion Gap 4 (5-15) L 06/14/20 04:15 BUN 21 mg/dL (7-18) H 06/14/20 04:15 Creatinine 1.50 mg/dL (0.70-1.30) H 06/10/20 15:50 Est GFR (MDRD) Non-Af 50 mL/min (>60) L 06/10/20 15:50 BUN/Creatinine Ratio 25.4 RATIO (10-20) H 06/14/20 04:15 Glucose 148 mg/dL (74-106) H 06/14/20 04:15 Lactic Acid 2.5 mmol/L (0.4-1.9) H* 06/10/20 21:50 Calcium 7.7 mg/dL (8.5-10.1) L 06/14/20 04:15 Ferritin 2577 ng/mL (26-388) H 06/12/20 04:30 AST 50 U/L (15-37) H 06/14/20 04:15 Alkaline Phosphatase 44 U/L (45-117) L 06/14/20 04:15 Lactate Dehydrogenase 799 U/L (87-241) H 06/10/20 20:50 Total Creatine Kinase 809 U/L (39-308) H 06/10/20 20:50 Troponin I 0.047 ng/mL (<0.045) H 06/11/20 02:15 C-React Prot Ext Range 78.20 mg/L (0.0-3.0) H 06/12/20 04:30 B-Natriuretic Peptide 308.8 pg/mL (0-100) H 06/10/20 15:50 Total Protein 5.6 g/dL (6.4-8.2) L 06/14/20 04:15 Albumin 2.1 g/dL (3.2-5.0) L 06/14/20 04:15 Globulin 4.3 g/dL (2.2-4.2) H 06/12/20 04:30 Albumin/Globulin Ratio 0.6 RATIO (0.9-2.4) L 06/14/20 04:15 Triglycerides 281 mg/dL (-199) H 06/14/20 04:15 Procalcitonin 0.15 ng/mL (0.00-0.09) H 06/10/20 20:20 - Assessment Food / Nutrition-Related History:: Discussed in ICU rounds. Pt required intubation d/t increased oxygen requirements- was on Bipap at 90% prior to intubation. OG in place. Plans to start TF this day. Wt increase 5.5 kg since previous review- suspect fluid related, lasix at medpass. Will monitor wt for trends. - Nutrition Diagnosis Problem / Etiology / Signs & Symptoms (PES):: Inadequate oral intake related to respiratory distress aeb NPO status, pt requiring intubation with OG in place. Evidence of Malnutrition Exists:: No - Nutrition Intervention Nutrition Prescription:: Estimated needs: 3432-1607 calories, 90-100 gram protein - Food / Nutrient Delivery Interventions Summary of nutrition intervention:: Plans for intitation of TF this day. See recommendations below. Nutrition support ordered as / adjusted to:: Vital AF 1.2 via OG at goal rate of 65 ml per hour with 105 ml H2O flush every 4 hours to provide 1872 calories, 117 gram protein, 1895 ml fluid per day. Recommend intitate TF at 20 ml/hr and increase by 15 ml every 8 hours as pt tolerates until goal rate achieved. Nutrition education provided?: No - MNT Monitoring Further MNT monitoring and evaluation required?: Yes MNT Follow-up in:: 3-5 days - Please call RDN as needed [phone].
[2020-06-14 09:26] LABS: Base Excess 1 mmol/L (-2 to +2); PO2 69 mmHG (75-100); SO2 94 % (95-99); Total Carbon Dioxide 27 mmol/L; pCO2 40.5 mmHg (35-45); pH 7.42 (7.35-7.45)
[2020-06-14 09:30] LABS: Blood Gas Specimen Type ART
[2020-06-14 09:31] LABS: Allen Test POS; Mode A-C; SITE R RADIAL; Vt 450
[2020-06-14 09:32] LABS: FI02 100; PEEP 20; RR 14; Time Given 802
[2020-06-14] MEDS: Enoxaparin 150 MG/ML Syringe 130 MG SC ×2 (10:20→22:43)
[2020-06-14] MEDS: Vital AF 1.2 Cal Liquid 1,000 ML 65 ML GT (10:20)
[2020-06-14] MEDS: dexAMETHasone 10 MG/ML Vial 6 MG IV (10:20)
[2020-06-14] MEDS: Famotidine 200 MG/20 ML MDV 20 MG in 0.9% Normal Saline (Pres. free 8 ML 300 MG IV ×2 (10:20→22:44)
[2020-06-14] MEDS: Finasteride 5 MG Tablet PO (10:21)
[2020-06-14] MEDS: Metoprolol Tartrate 50 MG Tablet GT (10:21)
[2020-06-14] MEDS: Furosemide 40 MG/4 ML Vial IV ×2 (10:21→18:05)
[2020-06-14] MEDS: Chlorhexidine 15 ML PO ×2 (10:22→20:01)
[2020-06-14] MEDS: Acetaminophen 650 MG/20 ML UDC 500 MG GT ×2 (10:22→22:43)
[2020-06-14] MEDS: Propofol 10MG/Ml 1,000 MG/100 ML Bottle 12.2 MG CONT INF ×2 (13:29→18:15)
[2020-06-14] MEDS: fentaNYL drip 100 ML 10 MCG CONT INF (13:29)
[2020-06-14] MEDS: Amiodarone 200 MG Tablet GT ×2 (13:31→22:44)
--- NOTE | 2020-06-14 18:49 | NURSING ---
1100 Pt sats 97%, weaned PEEP to 16 per Mayelin GOFF, YARDER BOSS notified 1410 Pt sats 96%, weaned PEEP to 14 per Mayelin GOFF, YARDER BOSS notified 1645 Pt sats 98%, weaned PEEP to 12 per Mayelin GOFF, YARDER BOSS notified 1820 Pt sats 97%, weaned PEEP to 10 per MD, YARDER BOSS notified
[2020-06-14] MEDS: Pramipexole Di-HCl 0.25 MG Tablet PO (22:44)
[2020-06-14] MEDS: Pravastatin 40 MG Tablet GT (22:44)
[2020-06-15] VITALS (39 sets, daily range): BP systolic 85–126; BP diastolic 53–77; PULSE 51–78; RESP 14–32; TEMP 36.6–37.9; O2SAT 86–98
[2020-06-15] MEDS: fentaNYL drip 100 ML 10 MCG CONT INF (00:09)
[2020-06-15] MEDS: 0.9% Saline Lock 10 ML Syringe IV ×2 (00:59→21:33)
[2020-06-15] MEDS: Propofol 10MG/Ml 1,000 MG/100 ML Bottle 20.3 MG CONT INF (02:20)
[2020-06-15] MEDS: Ipratropium/Albuterol Sulfate 3 ML AMPUL.NEB INHALATION ×2 (02:34→12:58)
[2020-06-15 04:29] LABS: Hematocrit 40.1 % (40-54); Hemoglobin 13.1 g/dL (13.0-16.5); Mean Corp Hgb Conc 32.7 g/dL (32-36); Mean Corpuscular Hgb 30.6 pg (27.0-32.0); Mean Corpuscular Volume 93.7 fL (80-94); Mean Platelet Vol. 10.7 fl (6.2-12.0); POSITIVE COUNT YES; POSITIVE MORPHOLOGY YES; Platelet Count 200 K/mm3 (150-450); RBC Distribution Width CV 13.7 % (11.6-14.6); Red Blood Count 4.28 M/mm3 (4.6-6.2); White Blood Count 9.1 K/mm3 (4.4-11.0)
[2020-06-15 04:34] LABS: Differential Indicated MANUAL DIFF
[2020-06-15 04:42] LABS: ALB/GLOB Ratio 0.6 RATIO (0.9-2.4); AST(SGOT) 57 U/L (15-37); Alanine Aminotransfer ALT/SGPT 57 U/L (16-61); Albumin, Serum 2.1 g/dL (3.2-5.0); Alkaline Phosphatase 49 U/L (45-117); Anion Gap 7 (5-15); BUN 21 mg/dL (7-18); BUN/Creat Ratio 18.6 RATIO (10-20); Calcium,Total 7.6 mg/dL (8.5-10.1); Chloride 103 mmol/L (98-107); Creatinine, Serum 1.13 mg/dL (0.70-1.30); EST Glomerular Filtration Rate 69 mL/min (>60); Est Glom Filt Rate - Afr Amer 83 mL/min (>60); Estimated Creatinine Clearance 67.56 ml/min; Globulin 3.8 g/dL (2.2-4.2); Glucose 164 mg/dL (74-106); Potassium 3.8 mmol/L (3.5-5.1); Protein, Total 5.9 g/dL (6.4-8.2); Sodium Level 141 mmol/L (136-145)
[2020-06-15] MEDS: Propofol 10MG/Ml 1,000 MG/100 ML Bottle 15.7 MG CONT INF (05:15)
[2020-06-15] MEDS: Amiodarone 200 MG Tablet GT (05:24)
[2020-06-15 05:31] LABS: Eosinophil 1 % (0-5); Lymphocyte 10 % (19-41); Metamyelocyte 7 % (0-1); Monocyte 3 % (0-10); Myelocyte 2 (0-0); Neutrophil-Band 13 % (0-5); Neutrophil-Segmented 64 % (47-70); Total Cells Counted 100 (MANUAL DIFF)
[2020-06-15 05:33] LABS: Absolute Lymphocyte Count 0.91 X10^3/uL (0.83-4.51); Lymphocyte # 0.91 X10^3/ul (4.0); Neutrophil # 7.03 X10^3/uL (2.7-7.7); Platelet Estimate ADEQUATE (ADEQ); Red Cell Morphology NORM C+C NORMAL (NORM C&C)
[2020-06-15] MEDS: TITRATION PARAMETER CHANGE 1 EACH IV (05:57)
--- NOTE | 2020-06-15 06:09 | PN_ITS ---
Subjective: The patient was seen and examined at the bedside this morning. Events from the last 24 hours have been reviewed. The patient is currently afebrile, hemodynamically stable and maintaining appropriate oxygen saturations on assist control mode of mechanical ventilation with an FiO2 requirement of 100% and PEEP of 14. It 1 point yesterday evening, the patient's PEEP was able to be weaned down to 10. However, there was concern overnight for mucous plugging and subsequent need to increase his PEEP. The patient remained sedated on both propofol and fentanyl. Nursing staff reports no significant secretion output from the endotracheal tube. The patient has been bradycardic since yesterday. His beta-eze and amiodarone was subsequently discontinued this morning. The patient is currently documented to be overall net +5.1 L for the hospital admission. Objective: The patient's most recent lab work, culture data and imaging studies have all been personally reviewed. CTA chest was obtained with results limited by respiratory motion artifact. However, no large central pulmonary embolism was identified. The patient did have radiographic evidence of significant bilateral pulmonary infiltrates. Strep and urine Legionella antigens were negative. Blood and urine cultures are pending. Coronavirus PCR was positive on both June 05 and . General: - - Remains intubated, sedated and mechanically ventilated. HEENT: Atraumatic, PERRLA, Normocephalic Oral: No Gingival or Mucosal Lesions/ Ulcerations, - - Endotracheal and OG tubes in place Neck: Supple, No Nodes, Trachea Midline Lungs: No rhonchi, No wheeze, No rales, Diminished Cardiovascular: Normal S1, Normal S2, No murmurs, Bradycardic Abdomen: Bowel Sounds Present, Soft, Non Tender, Obese Extremities: No clubbing, No cyanosis, No edema Skin: - - No significant change from previous. Musculoskeletal: No Tenderness to Palpation of Joints or Extremities Lymphatic: No Cervical, Supraclavicular, or Inguinal Adenopathy Neurological: - - No focal neurological deficits. The patient is currently sedated with a RASS of -1. Vital Signs Temp Pulse Resp BP Pulse Ox 98.1 F 53 L 13 85/55 L 91 06/15/20 06:00 06/15/20 06:00 06/15/20 06:00 06/15/20 06:00 06/15/20 06:00 Oxygen Flow Rate (L/min) 60 Oxygen Delivery Method Mechanical Ventilator Weight: 289 lb 0.416 oz Body Mass Index (BMI) 41.5 Intake and Output for Last 24 Hours 06/13/20 06/14/20 06/15/20 23:59 23:59 23:59 Intake Total 5172.92 / 5172.92 2766.66 / 2883.86 837.48 / 837.48 Output Total 2345 / 2345 5170 / 5320 350 / 350 Balance 2827.92 / 2827.92 -2403.34 / -2436.14 487.48 / 487.48 Labs (Last 48 Hours) 06/14/20 06/14/20 06/14/20 04:15 04:15 04:15 WBC 7.8 RBC 4.19 L Hgb 13.1 Hct 38.9 L MCV 92.8 MCH 31.3 MCHC 33.7 RDW Std Deviation 44.9 H RDW Coeff of Ayde 13.2 Plt Count 197 MPV 11.1 Immature Gran % (Auto) 3.700 H Neut % (Auto) 75.3 H Lymph % (Auto) 14.8 L [place] % (Auto) 5.7 Eos % (Auto) 0.0 Baso % (Auto) 0.5 Absolute Neuts (auto) 5.9 Absolute Lymphs (auto) 1.15 Total Counted Neutrophils % (Manual) Band Neutrophils % Lymphocytes % (Manual) Monocytes % (Manual) Eosinophils % (Manual) Metamyelocytes % Myelocytes % Nucleated RBC % 0 Differential Comment Diff Path Review Reactive Lymphocytes RARE Platelet Estimate RBC Morphology Specimen Type Sample Site pH Bicarbonate Actual POC Total CO2 Base Excess O2 Saturation O2 % ABG pCO2 ABG pO2 Emerson Test Respiration Rate Vent Mode Tidal Volume POC PEEP Blood Gas Notified Whom Blood Gas Notified Time Sodium 139 Potassium 4.0 Chloride 105 Carbon Dioxide 30.0 Anion Gap 4 L BUN 21 H Creatinine 0.83 Estim Creat Clear Calc 91.98 Est GFR (MDRD) Af Amer 119 Est GFR (MDRD) Non-Af 99 BUN/Creatinine Ratio 25.4 H Glucose 148 H Calcium 7.7 L Total Bilirubin 0.50 AST 50 H ALT 49 Alkaline Phosphatase 44 L Total Creatine Kinase 65 Total Protein 5.6 L Albumin 2.1 L Globulin 3.5 Albumin/Globulin Ratio 0.6 L Triglycerides 281 H 06/14/20 06/15/20 06/15/20 07:58 04:10 04:10 WBC 9.1 RBC 4.28 L Hgb 13.1 Hct 40.1 MCV 93.7 MCH 30.6 MCHC 32.7 RDW Std Deviation 46.0 H RDW Coeff of Ayed 13.7 Plt Count 200 MPV 10.7 Immature Gran % (Auto) Neut % (Auto) Not Reportable Lymph % (Auto) [place] % (Auto) Eos % (Auto) Baso % (Auto) Absolute Neuts (auto) 7.0 Absolute Lymphs (auto) 0.91 Total Counted 100 Neutrophils % (Manual) 64 Band Neutrophils % 13 H Lymphocytes % (Manual) 10 L Monocytes % (Manual) 3 Eosinophils % (Manual) 1 Metamyelocytes % 7 H Myelocytes % 2 H Nucleated RBC % Differential Comment Diff Path Review May foll Reactive Lymphocytes Platelet Estimate ADEQUATE RBC Morphology NORM C+C Specimen Type ART Sample Site R RADIAL pH 7.42 Bicarbonate Actual 26.0 POC Total CO2 27 Base Excess 1 O2 Saturation 94 L O2 % 100 ABG pCO2 40.5 ABG pO2 69 L Emerson Test POS Respiration Rate 14 Vent Mode A-C Tidal Volume 450 POC PEEP 20 Blood Gas Notified Whom ICU MD Blood Gas Notified Time 802 Sodium 141 Potassium 3.8 Chloride 103 Carbon Dioxide 31.0 Anion Gap 7 BUN 21 H Creatinine 1.13 Estim Creat Clear Calc 67.56 Est GFR (MDRD) Af Amer 83 Est GFR (MDRD) Non-Af 69 BUN/Creatinine Ratio 18.6 Glucose 164 H Calcium 7.6 L Total Bilirubin 0.60 AST 57 H ALT 57 Alkaline Phosphatase 49 Total Creatine Kinase Total Protein 5.9 L Albumin 2.1 L Globulin 3.8 Albumin/Globulin Ratio 0.6 L Triglycerides Microbiology 06/10/20 16:40 Blood Culture (Wb) - Anticubital Right Blood Culture - Preliminary No growth in 48 hours. 06/10/20 16:00 Blood Culture (Wb) - Anticubital Left Blood Culture - Preliminary No growth in 48 hours. Clinical Impression(s) from Imaging Studies Chest X-Ray 06/10/20 14:55 IMPRESSION: Mild degree of vascular congestion Electronically Signed: Declan Morgan, at 15:32 EDT , Service support , Chest CTA 06/10/20 18:26 IMPRESSION: Exam is limited by significant respiratory motion. No evidence for central or major pulmonary emboli. Pulmonary emboli beyond the main lobar vessels cannot be excluded. Widespread pulmonary infiltrates worse on the right consistent with nonspecific multifocal pneumonia. Electronically Signed: Julito Lee MD at 20:08 EDT , Service support , Chest X-Ray 06/14/20 07:15 IMPRESSION: Endotracheal tube and feeding tube placement. Worsening bilateral pneumonia or edema. Electronically Signed: Jef Mon MD at 8:59 EDT , Service support , Medical Necessity - Tobacco Use Smoking Status: Former smoker Assessment/Plan All Active Problems (Last Reviewed 09/28/19 @ 11:[address] 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 Continue therapeutic Lovenox, Decadron and Remdesevir. 2. Discontinue beta-eze and amiodarone. 3. Wean FiO2 and PEEP to maintain oxygen saturations at or above 90%. 4. Continue tube feeds as tolerated by patient. 5. Continue appropriate GI prophylaxis. IMPRESSIONS: 1. Acute hypoxemic respiratory failure secondary to COVID-19 Infection The patient presented to the hospital with worsening shortness of breath and hypoxemia. Coronavirus PCR was positive. CTA chest revealed significant bilateral infiltrates. The patient was placed on noninvasive positive pressure ventilatory support for several days, but failed to improve clinically despite having received convalescent plasma, therapeutic Lovenox therapy, Decadron, and Remdesevir. Given the patient's lack of overall clinical improvement and need to provide nutritional support, the decision was made to intubate the patient on the morning of June 14. At this time, the plan will be to continue to wean the patient's FiO2 and PEEP to maintain oxygen saturations at or above 90%. Tube feeds will be continued as tolerated by the patient. 2. History of paroxysmal atrial fibrillation Continue current medical management under the discretion of cardiology. The patient is currently in normal sinus rhythm but has been bradycardic. Therefore, his beta-eze and amiodarone were discontinued this morning. 3. Obesity/history of obstructive sleep apnea/hyperlipidemia/anxiety/restless leg syndrome Complicates care, management, recovery and prognosis. The patient will require aggressive physical therapy once stabilized from a respiratory perspective. TIME: 37 minutes of critical care time, independent of procedures, was spent addressing the patient's acute hypoxemic respiratory failure, acute COVID-19 infection, atrial fibrillation with rapid ventricular rate, review of all data and collaboration with the care team. ([id number]) [id number]: [id number] Critical care first hour
[2020-06-15 07:06] LABS: BNP,B-Type NATRIURETIC PEPTIDE 62.7 pg/mL (0-100)
--- NOTE | 2020-06-15 07:21 | PN_ITS ---
Patient Problems: Active and Suspected Problems (Last Reviewed 09/28/19 @ 11:[address] Chi Bernard MD) Atrial fibrillation with rapid ventricular response (Acute) COVID-19 (Acute) Dyspnea (Acute) Abnormal cardiac enzyme level (Acute) Reason for Visit: Acute hypoxic respiratory failure Subjective: Patient seen remains on the vent with FiO2 of 100% Objective: GENERAL: Sedated on the vent HEENT: Atraumatic; EYES; Anicteric, Normal Conjunctiva NECK; supple, normal thyroid, RESPIRATORY: Diminished to auscultation CARDIOVASCULAR: Regularly irregular, tachycardic GI: soft, normoactive bowel sounds, : No Renal angle tenderness; EXTREMITIES: No edema, no clubbing, MUSCULOSKELETAL: no muscle waisting NEURO: Sedated on the vent SKIN: No Rash PSYCH; unable to assess Vitals/I&O's: Vital Signs Temp Pulse Resp BP Pulse Ox 97.8 F 52 L 22 H 98/62 91 06/15/20 07:00 06/15/20 07:10 06/15/20 07:10 06/15/20 07:00 06/15/20 07:10 Oxygen Flow Rate (L/min) 60 Oxygen Delivery Method Mechanical Ventilator Weight: 131.1 kg Body Mass Index (BMI) 41.5 Intake and Output for Last 24 Hours 06/13/20 06/14/20 06/15/20 23:59 23:59 23:59 Intake Total 5172.92 / 5172.92 2766.66 / 2883.86 880.06 / 880.06 Output Total 2345 / 2345 5170 / 5320 350 / 350 Balance 2827.92 / 2827.92 -2403.34 / -2436.14 530.06 / 530.06 Microbiology Past 72 Hours 06/10/20 16:40 Blood Culture (Wb) - Anticubital Right Blood Culture - Preliminary No growth in 48 hours. 06/10/20 16:00 Blood Culture (Wb) - Anticubital Left Blood Culture - Preliminary No growth in 48 hours. 06/10/20 19:00 Urine, Clean Catch Urine Culture - Final Mixed Gram Positive Organisms Laboratory Results 06/14/20 07:58: Specimen Type ART, Sample Site R RADIAL, pH 7.42, Bicarbonate Actual 26.0, POC Total CO2 27, Base Excess 1, O2 Saturation 94 L, O2 % 100, ABG pCO2 40.5, ABG pO2 69 L, Emerson Test POS, Respiration Rate 14, Vent Mode A-C, Tidal Volume 450, POC PEEP 20, Blood Gas Notified Whom ICU MD, Blood Gas Notified Time 802 06/15/20 04:10: WBC 9.1, RBC 4.28 L, Hgb 13.1, Hct 40.1, MCV 93.7, MCH 30.6, MCHC 32.7, RDW Std Deviation 46.0 H, RDW Coeff of Ayde 13.7, Plt Count 200, MPV 10.7, Neut % (Auto) Not Reportable, Absolute Neuts (auto) 7.0, Absolute Lymphs (auto) 0.91, Total Counted 100, Neutrophils % (Manual) 64, Band Neutrophils % 13 H, Lymphocytes % (Manual) 10 L, Monocytes % (Manual) 3, Eosinophils % (Manual) 1, Metamyelocytes % 7 H, Myelocytes % 2 H, Diff Path Review May , Platelet Estimate ADEQUATE, RBC Morphology NORM C+C 06/15/20 04:10: Sodium 141, Potassium 3.8, Chloride 103, Carbon Dioxide 31.0, Anion Gap 7, BUN 21 H, Creatinine 1.13, Estim Creat Clear Calc 67.56, Est GFR (MDRD) Af Amer 83, Est GFR (MDRD) Non-Af 69, BUN/Creatinine Ratio 18.6, Glucose 164 H, Calcium 7.6 L, Total Bilirubin 0.60, AST 57 H, ALT 57, Alkaline Phosphatase 49, Total Protein 5.9 L, Albumin 2.1 L, Globulin 3.8, Albumin/Globulin Ratio 0.6 L 06/15/20 04:10: B-Natriuretic Peptide 62.7 Current Medications Acetaminophen (Tylenol) 650 mg RECTAL Q4H PRN PRN PRN Reason: Pain Score 1-10/10,temp >100.7 Last Admin: 06/11/20 05:51 Dose: 650 mg Documented by: Acetaminophen (Tylenol Liquid) 500 mg GT BID CLIVE Last Admin: 06/14/20 22:43 Dose: 500 mg Documented by: Albuterol/Ipratropium (Duoneb) 3 ml INHALATION Q4H PRN PRN PRN Reason: SOB &/ WHEEZING Last Admin: 06/15/20 02:34 Dose: 3 ml Documented by: Chlorhexidine Gluconate () 15 ml PO BID [facility] Last Admin: 06/14/20 20:01 Dose: 15 ml Documented by: Dexamethasone Sodium Phosphate (Decadron) 6 mg IV DAILY [facility] Last Admin: 06/14/20 10:20 Dose: 6 mg Documented by: Dextrose (D50w Syringe) 0 gm IV X1 PRN; Protocol PRN Reason: Hypoglycemia Enoxaparin Sodium (Lovenox) 130 mg SC Q12 [facility] Last Admin: 06/14/20 22:43 Dose: 130 mg Documented by: Finasteride (Proscar) 5 mg PO DAILY [facility] Last Admin: 06/14/20 10:21 Dose: 5 mg Documented by: Glucagon () 1 mg IM .X1 PRN PRN Reason: Hypoglycemia Sodium Chloride () 250 mls @ 15 mls/hr IV .[id number] PRN PRN Reason: Saline Flush Last Infusion: 06/13/20 19:30 Dose: Infused Documented by: Sodium Chloride () 250 mls @ 15 mls/hr IV .[id number] PRN PRN Reason: Additional IVPB Infusion Propofol (Diprivan) 1,000 mg in 100 mls @ 7.866 mls/hr CONT INF .Q12H [facility]; Protocol Last Titration: 06/15/20 06:45 Dose: 15 mcg/kg/min, 11.8 mls/hr Documented by: Fentanyl () 100 mls @ 5 mls/hr CONT INF UD [facility]; Protocol Last Titration: 06/15/20 06:00 Dose: 100 mcg/hr, 10 mls/hr Documented by: Famotidine 20 mg/ Sodium (Chloride) 10 mls @ 300 mls/hr IV Q12 [facility] Last Infusion: 06/14/20 22:46 Dose: Infused Documented by: Enteral Nutritional Formula (Vital Af 1.2 Lester Liquid) 1,000 mls @ 65 mls/hr GT .[id number] [facility] Last Admin: 06/15/20 01:13 Dose: Not Given Documented by: Nitroglycerin (Nitrostat) 0.4 mg SUBLINGUAL Q5M PRN PRN Reason: CARDIAC/CHEST PAIN [id number]-[id number] Ethyl Esters (Lovaza) 1 gm PO BID [facility] Last Admin: 06/14/20 22:34 Dose: Not Given Documented by: Ondansetron HCl (Zofran) 4 mg IV Q8H PRN PRN PRN Reason: NAUSEA/VOMITING Last Admin: 06/10/20 23:05 Dose: 4 mg Documented by: Pramipexole Dihydrochloride (Mirapex) 0.25 mg PO QHS [facility] Last Admin: 06/14/20 22:44 Dose: 0.25 mg Documented by: Pravastatin Sodium (Pravachol) 40 mg GT QHS [facility] Last Admin: 06/14/20 22:44 Dose: 40 mg Documented by: Senna/Docusate Sodium (Senokot-S, Marichuy-Colace) 2 tablet GT BID PRN PRN PRN Reason: CONSTIPATION Sodium Chloride () 10 - 40 ml IV UD PRN PRN Reason: SALINE FLUSH Last Admin: 06/15/20 00:59 Dose: 10 ml Documented by: Venlafaxine HCl (Effexor Xr) 75 mg PO DAILY [facility] Last Admin: 06/14/20 10:27 Dose: Not Given Documented by: STROKE Vital Signs/Narrative: Vital Signs Temp Pulse Resp BP Pulse Ox 06/15/20 07:10 52 L 22 H 91 06/15/20 07:00 97.8 F 52 L 14 98/62 89 06/15/20 06:30 51 L 21 H 91 06/15/20 06:00 98.1 F 53 L 14 85/55 L 91 06/15/20 05:00 98.3 F 55 L 14 90/53 L 91 06/15/20 04:56 56 L 23 H 91 06/15/20 04:00 98.3 F 55 L 14 91/56 L 92 06/15/20 03:34 56 L Medical Necessity - Tobacco Use Smoking Status: Former smoker Assessment/Plan All Active Problems (Last Reviewed 09/28/19 @ 11:[address] 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 Patient was found to be in A. fib with RVR. Was also found to be significantly hypoxic admitted to the intensive care unit for further management 1. Acute hypoxic respiratory failure secondary to COVID-19 infection ?Patient admitted to the intensive care unit placed on high flow oxygen. Patient was started on dexamethasone Remdesivir and convalescent plasma scheduled to be administered this a.m. Patient was also covered with ceftriaxone and azithromycin -06/12/2020; Patient seen appears ill looking. His oxygen saturation apparently did go down resulting in patient being placed on noninvasive ventilation BiPAP.. Patient still appears ill looking; elevated markers of inflammation including high ferritin levels -06/13/2020 patient remains in the ICU. Patient remains on BiPAP. Patient desaturates when BiPAP was taken off. ?06/14/2020: Patient respiratory status deteriorated resulting in patient being intubated on the morning of 06/14/2020. -06/15/2020 patient seen remains on the vent with FiO2 of 100% chest x-ray obtained this a.m. demonstrated Bilateral interstitial densities. Basilar atelectasis/infiltrates. 2. A. fib with RVR ?Patient was started on Cardizem drip titrated to keep heart rate less than 100 as well as amiodarone. Also states did continue with his oral metoprolol and placed on systemic anticoagulation with Lovenox. Consultation was placed to Dr. Sprague the grinder set up operator thread on-call -06/12/2020. Amiodarone Switched from IV to p.o. -06/13/2020. Cardizem drip weaned off patient started on p.o. Cardizem 3. Sepsis secondary to COVID infection ?Management as discussed above 4. Acute kidney injury ?Kidney function did improve following admission 5. Obesity with BMI of 39.6 ?Weight loss advised 6. Dyslipidemia -Patient is on statin therapy, continued at home dose 7. Restless leg syndrome ?Patient is on Pramipexole 8. Hypertension - Blood pressure controlled, home medications continued with dose adjustment as needed 9. Depression ?Patient is on SNRI 10. BH ?Symptoms controlled on Proscar did continue 11. DVT prophylaxis on therapeutic anticoagulation with lovenox Clinical Impression(s) from Imaging Studies Chest X-Ray 06/15/20 08:22 IMPRESSION: Bilateral interstitial densities. Basilar atelectasis/infiltrates. No significant interval changes. Electronically Signed: Giovani Johnston DO at 9:10 EDT Tel [phone], Service support , Inpatient E&M: [id number] Subs Hosp L3
--- NOTE | 2020-06-15 08:22 | RAD_ITS ---
STUDY: X-RAY CHEST REASON FOR EXAM: Male, 69 years old. Hypoxia, respiratory failure TECHNIQUE: Frontal view COMPARISON: June 14, 2020. FINDINGS: Endotracheal tube with tip at 60 mm above the jerri. Nasogastric tube extends into the stomach. The lungs are expanded. Bilateral interstitial densities. Basilar atelectasis. No significant interval changes. Normal size heart. Normal mediastinum and marci. Normal visualized pulmonary arteries. Normal visualized aortic arch and descending thoracic aorta. Degenerative changes of the thoracic spine. Normal visualized ribs, clavicles, and shoulders. There is no demonstrated abnormality of the visualized soft tissue structures of the upper abdomen. RAD/Chest 1 View (Portable) IMPRESSION: Bilateral interstitial densities. Basilar atelectasis/infiltrates. No significant interval changes. Electronically Signed: Giovani Johnston DO at 9:10 EDT Tel [phone], Service support ,
[2020-06-15] MEDS: fentaNYL drip 100 ML 15 MCG CONT INF (09:45)
[2020-06-15] MEDS: Propofol 10MG/Ml 1,000 MG/100 ML Bottle 23.6 MG CONT INF ×2 (10:29→14:53)
[2020-06-15] MEDS: Famotidine 200 MG/20 ML MDV 20 MG in 0.9% Normal Saline (Pres. free 8 ML 330 MG IV (10:30)
[2020-06-15] MEDS: dexAMETHasone 10 MG/ML Vial 6 MG IV (10:31)
[2020-06-15] MEDS: Finasteride 5 MG Tablet PO (10:31)
[2020-06-15] MEDS: Acetaminophen 650 MG/20 ML UDC 500 MG GT ×2 (10:31→21:53)
[2020-06-15] MEDS: Enoxaparin 150 MG/ML Syringe 130 MG SC ×2 (10:31→21:32)
[2020-06-15] MEDS: Chlorhexidine 15 ML PO ×2 (10:53→21:32)
--- NOTE | 2020-06-15 11:21 | NURSING ---
1100 Attempted to reposition patient at this time. Patient's oxygen saturation declined to 86% with movement. Sats recovered to 91% after several minutes without exertion. Pt remained sedated and comfortable t/o maintaining RASS -2 per goal. Will cont to monitor.
--- NOTE | 2020-06-15 11:25 | NURSING ---
Next of kin, Mayelinsylvie Kim, given update via telephone on patient's clinical status. Opportunity for questions provided. Emotional support given.
[2020-06-15] MEDS: Vital AF 1.2 Cal Liquid 1,000 ML 65 ML GT (11:27)
[2020-06-15] MEDS: fentaNYL drip 100 ML 17.5 MCG CONT INF ×2 (16:35→22:35)
[2020-06-15 17:03] LABS: Bedside Glucose 125 mg/dL (70-110)
[2020-06-15] MEDS: Propofol 10MG/Ml 1,000 MG/100 ML Bottle 31.5 MG CONT INF ×3 (17:35→22:34)
[2020-06-15] MEDS: Insulin Lispro 100 UNIT/ML INSULN.PEN SC (18:10)
[2020-06-15 18:25] LABS: Bedside Glucose 229 mg/dL (70-110)
--- NOTE | 2020-06-15 18:41 | NURSING ---
1840 PEEP titrated to 12 per Turner Brito RRT. Pt sats maintaining 95-96% prior to change.
[2020-06-15] MEDS: Pravastatin 40 MG Tablet GT (21:33)
[2020-06-15] MEDS: Famotidine 200 MG/20 ML MDV 20 MG in 0.9% Normal Saline (Pres. free 8 ML 300 MG IV (21:33)
[2020-06-15] MEDS: Pramipexole Di-HCl 0.25 MG Tablet PO (21:33)
[2020-06-16] VITALS (45 sets, daily range): BP systolic 101–172; BP diastolic 57–109; PULSE 51–95; RESP 12–37; TEMP 36.7–38.4; O2SAT 80–100
[2020-06-16 00:30] LABS: Bedside Glucose 207 mg/dL (70-110)
[2020-06-16] MEDS: Propofol 10MG/Ml 1,000 MG/100 ML Bottle 31.5 MG CONT INF (01:48)
[2020-06-16] MEDS: TITRATION PARAMETER CHANGE 1 EACH IV (03:23)
[2020-06-16 04:45] LABS: Hematocrit 38.8 % (40-54); Hemoglobin 12.8 g/dL (13.0-16.5); Mean Corpuscular Hgb 31.1 pg (27.0-32.0); Mean Corpuscular Volume 94.4 fL (80-94); Mean Platelet Vol. 10.7 fl (6.2-12.0); POSITIVE COUNT YES; POSITIVE MORPHOLOGY YES; Platelet Count 237 K/mm3 (150-450); RBC Distribution Width CV 13.4 % (11.6-14.6); Red Blood Count 4.11 M/mm3 (4.6-6.2); White Blood Count 10.2 K/mm3 (4.4-11.0)
[2020-06-16 04:47] LABS: Differential Indicated MANUAL DIFF
[2020-06-16 04:50] LABS: Anion Gap 3 (5-15); BUN 14 mg/dL (7-18); BUN/Creat Ratio 17.1 RATIO (10-20); Calcium,Total 7.6 mg/dL (8.5-10.1); Chloride 107 mmol/L (98-107); Creatinine, Serum 0.82 mg/dL (0.70-1.30); EST Glomerular Filtration Rate 100 mL/min (>60); Est Glom Filt Rate - Afr Amer 121 mL/min (>60); Glucose 160 mg/dL (74-106); Potassium 3.8 mmol/L (3.5-5.1); Sodium Level 141 mmol/L (136-145)
[2020-06-16] MEDS: fentaNYL drip 100 ML 17.5 MCG CONT INF ×3 (05:00→21:03)
[2020-06-16 05:09] LABS: Neutrophil-Band 7 % (0-5); Neutrophil-Segmented 80 % (47-70); Total Cells Counted 100 (MANUAL DIFF)
[2020-06-16 05:10] LABS: Absolute Lymphocyte Count 1.12 X10^3/uL (0.83-4.51); Absolute Neutrophil Count 8.9 X10^3/uL (2.0-7.7); Lymphocyte 11 % (19-41); Lymphocyte # 1.12 X10^3/ul (4.0); Metamyelocyte 7 % (0-1); Monocyte 2 % (0-10); Neutrophil # 8.87 X10^3/uL (2.7-7.7)
[2020-06-16 05:11] LABS: Platelet Estimate ADEQUATE (ADEQ); Red Cell Morphology NORM C+C NORMAL (NORM C&C)
[2020-06-16] MEDS: Propofol 10MG/Ml 1,000 MG/100 ML Bottle 23.3 MG CONT INF (05:22)
--- NOTE | 2020-06-16 06:55 | PN_ITS ---
Subjective: Patient did okay overnight from a hemodynamic standpoint. Patient did have residual tube feeds requiring discontinuation overnight. Patient reportedly has not had a bowel movement since the . No pressors have been required. Patient has been able to be decreased on propofol. Objective: Chest x-ray shows bilateral patchy infiltrates. General: Alert, - - Fair ventilator synchrony. Morbidly obese. HEENT: Atraumatic, PERRLA, EOMI, Normocephalic, - - Slight scleral injection without icterus Oral: Moist Mucosa, No Gingival or Mucosal Lesions/ Ulcerations Neck: Supple, No JVD, No Nodes, Trachea Midline Lungs: No wheeze, No rales, Diminished, Rhonchi - Bilateral, - - Symmetric expansion. Cardiovascular: Normal S1, Normal S2, No murmurs, Bradycardic, No rub noted, No Gallop Abdomen: Soft, Non Tender, Hypoactive Bowel Sounds, Distended - Slightly, Obese, - - No guarding or rebound appreciated Extremities: No clubbing, No cyanosis, Edema - Slight to 1+ bilateral lower extremities Skin: No rashes, No breakdown Musculoskeletal: No Tenderness to Palpation of Joints or Extremities Lymphatic: No Cervical, Supraclavicular, or Inguinal Adenopathy Neurological: Cranial nerves II-XII grossly intact, Neuro grossly intact, Motor Exam 5/5 strength throughout Psych/Mental Status: Impulsive, Restless Vital Signs Temp Pulse Resp BP Pulse Ox 36.7 C 53 L 14 108/62 93 06/16/20 06:00 06/16/20 06:00 06/16/20 06:00 06/16/20 06:00 06/16/20 06:00 Oxygen Flow Rate (L/min) 60 Oxygen Delivery Method Mechanical Ventilator Weight: 129.7 kg Body Mass Index (BMI) 41.5 Intake and Output for Last 24 Hours 06/14/20 06/15/20 06/16/20 23:59 23:59 23:59 Intake Total 2766.66 / 2883.86 2490.89 / 2539.89 273.84 / 273.84 Output Total 5170 / 5320 2390 / 2525 485 / 485 Balance -2403.34 / -2436.14 100.89 / 14.89 -211.16 / -211.16 Labs (Last 48 Hours) 06/14/20 06/14/20 06/15/20 04:15 07:58 04:10 WBC 9.1 RBC 4.28 L Hgb 13.1 Hct 40.1 MCV 93.7 MCH 30.6 MCHC 32.7 RDW Std Deviation 46.0 H RDW Coeff of Ayde 13.7 Plt Count 200 MPV 10.7 Neut % (Auto) Not Reportable Absolute Neuts (auto) 7.0 Absolute Lymphs (auto) 0.91 Total Counted 100 Neutrophils % (Manual) 64 Band Neutrophils % 13 H Lymphocytes % (Manual) 10 L Monocytes % (Manual) 3 Eosinophils % (Manual) 1 Metamyelocytes % 7 H Myelocytes % 2 H Diff Path Review May foll Platelet Estimate ADEQUATE RBC Morphology NORM C+C Specimen Type ART Sample Site R RADIAL pH 7.42 Bicarbonate Actual 26.0 POC Total CO2 27 Base Excess 1 O2 Saturation 94 L O2 % 100 ABG pCO2 40.5 ABG pO2 69 L Emerson Test POS Respiration Rate 14 Vent Mode A-C Tidal Volume 450 POC PEEP 20 Blood Gas Notified Whom ICU MD Blood Gas Notified Time 802 Sodium Potassium Chloride Carbon Dioxide Anion Gap BUN Creatinine Estim Creat Clear Calc Est GFR (MDRD) Af Amer Est GFR (MDRD) Non-Af BUN/Creatinine Ratio Glucose Calcium Total Bilirubin AST ALT Alkaline Phosphatase Total Creatine Kinase 65 B-Natriuretic Peptide Total Protein Albumin Globulin Albumin/Globulin Ratio Triglycerides 281 H POC Glucose 06/15/20 06/15/20 06/15/20 04:10 04:10 11:04 WBC RBC Hgb Hct MCV MCH MCHC RDW Std Deviation RDW Coeff of Ayde Plt Count MPV Neut % (Auto) Absolute Neuts (auto) Absolute Lymphs (auto) Total Counted Neutrophils % (Manual) Band Neutrophils % Lymphocytes % (Manual) Monocytes % (Manual) Eosinophils % (Manual) Metamyelocytes % Myelocytes % Diff Path Review Platelet Estimate RBC Morphology Specimen Type Sample Site pH Bicarbonate Actual POC Total CO2 Base Excess O2 Saturation O2 % ABG pCO2 ABG pO2 Emerson Test Respiration Rate Vent Mode Tidal Volume POC PEEP Blood Gas Notified Whom Blood Gas Notified Time Sodium 141 Potassium 3.8 Chloride 103 Carbon Dioxide 31.0 Anion Gap 7 BUN 21 H Creatinine 1.13 Estim Creat Clear Calc 67.56 Est GFR (MDRD) Af Amer 83 Est GFR (MDRD) Non-Af 69 BUN/Creatinine Ratio 18.6 Glucose 164 H Calcium 7.6 L Total Bilirubin 0.60 AST 57 H ALT 57 Alkaline Phosphatase 49 Total Creatine Kinase B-Natriuretic Peptide 62.7 Total Protein 5.9 L Albumin 2.1 L Globulin 3.8 Albumin/Globulin Ratio 0.6 L Triglycerides POC Glucose 125 H 06/15/20 06/16/20 06/16/20 18:01 00:01 04:30 WBC 10.2 RBC 4.11 L Hgb 12.8 L Hct 38.8 L MCV 94.4 H MCH 31.1 MCHC 33.0 RDW Std Deviation 46.0 H RDW Coeff of Ayde 13.4 Plt Count 237 MPV 10.7 Neut % (Auto) Not Reportable Absolute Neuts (auto) 8.9 H Absolute Lymphs (auto) 1.12 Total Counted 100 Neutrophils % (Manual) 80 H Band Neutrophils % 7 H Lymphocytes % (Manual) 11 L Monocytes % (Manual) 2 Eosinophils % (Manual) Metamyelocytes % 7 H Myelocytes % Diff Path Review May foll Platelet Estimate ADEQUATE RBC Morphology NORM C+C Specimen Type Sample Site pH Bicarbonate Actual POC Total CO2 Base Excess O2 Saturation O2 % ABG pCO2 ABG pO2 Emerson Test Respiration Rate Vent Mode Tidal Volume POC PEEP Blood Gas Notified Whom Blood Gas Notified Time Sodium Potassium Chloride Carbon Dioxide Anion Gap BUN Creatinine Estim Creat Clear Calc Est GFR (MDRD) Af Amer Est GFR (MDRD) Non-Af BUN/Creatinine Ratio Glucose Calcium Total Bilirubin AST ALT Alkaline Phosphatase Total Creatine Kinase B-Natriuretic Peptide Total Protein Albumin Globulin Albumin/Globulin Ratio Triglycerides POC Glucose 229 H 207 H 06/16/20 04:30 WBC RBC Hgb Hct MCV MCH MCHC RDW Std Deviation RDW Coeff of Ayde Plt Count MPV Neut % (Auto) Absolute Neuts (auto) Absolute Lymphs (auto) Total Counted Neutrophils % (Manual) Band Neutrophils % Lymphocytes % (Manual) Monocytes % (Manual) Eosinophils % (Manual) Metamyelocytes % Myelocytes % Diff Path Review Platelet Estimate RBC Morphology Specimen Type Sample Site pH Bicarbonate Actual POC Total CO2 Base Excess O2 Saturation O2 % ABG pCO2 ABG pO2 Emerson Test Respiration Rate Vent Mode Tidal Volume POC PEEP Blood Gas Notified Whom Blood Gas Notified Time Sodium 141 Potassium 3.8 Chloride 107 Carbon Dioxide 31.0 Anion Gap 3 L BUN 14 Creatinine 0.82 Estim Creat Clear Calc 93.10 Est GFR (MDRD) Af Amer 121 Est GFR (MDRD) Non-Af 100 BUN/Creatinine Ratio 17.1 Glucose 160 H Calcium 7.6 L Total Bilirubin AST ALT Alkaline Phosphatase Total Creatine Kinase B-Natriuretic Peptide Total Protein Albumin Globulin Albumin/Globulin Ratio Triglycerides POC Glucose Clinical Impression(s) from Imaging Studies Chest X-Ray 06/15/20 08:22 IMPRESSION: Bilateral interstitial densities. Basilar atelectasis/infiltrates. No significant interval changes. Electronically Signed: Giovani Johnston DO at 9:10 EDT Tel [phone], Service support , Medical Necessity - Tobacco Use Smoking Status: Former smoker Assessment/Plan All Active Problems (Last Reviewed 09/28/19 @ 11:[address] 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 Continue therapeutic Lovenox, Decadron and complete Remdesevir. 2. Attempt to increase PEEP to help with recruitment. 3. Wean FiO2 and PEEP to maintain oxygen saturations at or above 90%. 4. Hold tube feeds for now. Aggressive bowel regimen. Possible Reglan tomorrow. 5. Continue appropriate GI prophylaxis. IMPRESSIONS: 1. Acute hypoxemic respiratory failure secondary to ARDS secondary to COVID- 19 Infection The patient presented to the hospital with worsening shortness of breath and hypoxemia. Coronavirus PCR was positive. CTA chest revealed significant bilateral infiltrates. The patient was placed on noninvasive positive pressure ventilatory support for several days, but failed to improve clinically despite having received convalescent plasma, therapeutic Lovenox therapy, Decadron, and Remdesevir. Will attempt to increase PEEP to help with recruitment. APRV would be an option. Continue with Decadron and Lovenox therapy. Patient may require PICC line to help with central access. 2. History of paroxysmal atrial fibrillation Continue current medical management under the discretion of cardiology. The patient is currently in normal sinus rhythm but has been bradycardic. Therefore, his beta-eze and amiodarone were discontinued. 3. Obesity/history of obstructive sleep apnea/hyperlipide julia/anxiety/restless leg syndrome Complicates care, management, recovery and prognosis. The patient will require aggressive physical therapy once stabilized from a respiratory perspecti ve. TIME: 40 minutes of critical care time, independent of procedures, was spent addressing the patient's acute hypoxemic respiratory failure, acute COVID-19 infection, atrial fibrillation with rapid ventricular rate, review of all data and collaboration with the care team. (6 AM to 7 AM) [id number] Critical care first hour
--- NOTE | 2020-06-16 07:28 | PCM.PN.HOSP ---
Patient Problems: Active and Suspected Problems (Last Reviewed 09/28/19 @ 11:[address] Chi Bernard MD) Atrial fibrillation with rapid ventricular response (Acute) COVID-19 (Acute) Dyspnea (Acute) Abnormal cardiac enzyme level (Acute) Reason for Visit: Follow-up on acute respiratory failure Subjective: Patient was seen and examined. His oxygen requirements have gone up -both PEEP and FiO2. Patient appears restless. OG tube has dark- colored materials to suction. On IV famotidine. Vitals/I&O's: Vital Signs Temp Pulse Resp BP Pulse Ox 98.5 F 95 18 159/86 H 86 06/16/20 07:00 06/16/20 07:00 06/16/20 07:00 06/16/20 07:00 06/16/20 07:00 Oxygen Flow Rate (L/min) 60 Oxygen Delivery Method Mechanical Ventilator Weight: 129.7 kg Body Mass Index (BMI) 41.5 Intake and Output for Last 24 Hours 06/14/20 06/15/20 06/16/20 23:59 23:59 23:59 Intake Total 2766.66 / 2883.86 2490.89 / 2539.89 347.88 / 347.88 Output Total 5170 / 5320 2390 / 2525 660 / 660 Balance -2403.34 / -2436.14 100.89 / 14.89 -312.12 / -312.12 General: - - Intubated, sedated, on mechanical ventilator, in mild respiratory distress HEENT: Atraumatic, PERRLA, EOMI, Normocephalic Oral: Dry Mucosa Neck: Supple Lungs: Diminished Cardiovascular: Regular rate, Regular Rhythm, Normal S1, Normal S2, No murmurs Abdomen: Bowel Sounds Present, Soft, Non Tender, Non-Distended, No Hepato-splenomegaly Extremities: Edema - Trace bilateral edema Skin: No rashes, No breakdown Musculoskeletal: No Tenderness to Palpation of Joints or Extremities Lymphatic: No Cervical, Supraclavicular, or Inguinal Adenopathy Neurological: - - Patient is intubated Psych/Mental Status: Normal Affect, Appropriate Microbiology Past 72 Hours 06/10/20 16:40 Blood Culture (Wb) - Anticubital Right Blood Culture - Final No growth in 5 days. 06/10/20 16:00 Blood Culture (Wb) - Anticubital Left Blood Culture - Final No growth in 5 days. Laboratory Results 06/15/20 11:04: POC Glucose 125 H 06/15/20 18:01: POC Glucose 229 H 06/16/20 00:01: POC Glucose 207 H 06/16/20 04:30: WBC 10.2, RBC 4.11 L, Hgb 12.8 L, Hct 38.8 L, MCV 94.4 H, MCH 31.1, MCHC 33.0, RDW Std Deviation 46.0 H, RDW Coeff of Ayde 13.4, Plt Count 237, MPV 10.7, Neut % (Auto) Not Reportable, Absolute Neuts (auto) 8.9 H, Absolute Lymphs (auto) 1.12, Total Counted 100, Neutrophils % (Manual) 80 H, Band Neutrophils % 7 H, Lymphocytes % (Manual) 11 L, Monocytes % (Manual) 2, Metamyelocytes % 7 H, Diff Path Review March, Platelet Estimate ADEQUATE, RBC Morphology NORM C+C 06/16/20 04:30: Sodium 141, Potassium 3.8, Chloride 107, Carbon Dioxide 31.0, Anion Gap 3 L, BUN 14, Creatinine 0.82, Estim Creat Clear Calc 93.10, Est GFR (MDRD) Af Amer 121, Est GFR (MDRD) Non-Af 100, BUN/Creatinine Ratio 17.1, Glucose 160 H, Calcium 7.6 L Current Medications Acetaminophen (Tylenol) 650 mg RECTAL Q4H PRN PRN PRN Reason: Pain Score 1-10/10,temp >100.7 Last Admin: 06/11/20 05:51 Dose: 650 mg Documented by: Acetaminophen (Tylenol Liquid) 500 mg GT BID [facility] Last Admin: 06/15/20 21:53 Dose: 500 mg Documented by: Albuterol/Ipratropium (Duoneb) 3 ml INHALATION Q4H PRN PRN PRN Reason: SOB &/ WHEEZING Last Admin: 06/15/20 12:58 Dose: 3 ml Documented by: Chlorhexidine Gluconate () 15 ml PO BID [facility] Last Admin: 06/15/20 21:32 Dose: 15 ml Documented by: Dexamethasone Sodium Phosphate (Decadron) 6 mg IV DAILY [facility] Last Admin: 06/15/20 10:31 Dose: 6 mg Documented by: Dextrose (D50w Syringe) 0 gm IV X1 PRN; Protocol PRN Reason: Hypoglycemia Enoxaparin Sodium (Lovenox) 130 mg SC Q12 [facility] Last Admin: 06/15/20 21:32 Dose: 130 mg Documented by: Finasteride (Proscar) 5 mg PO DAILY [facility] Last Admin: 06/15/20 10:31 Dose: 5 mg Documented by: Glucagon () 1 mg IM .X1 PRN PRN Reason: Hypoglycemia Sodium Chloride () 250 mls @ 15 mls/hr IV .[id number] PRN PRN Reason: Saline Flush Last Infusion: 06/13/20 19:30 Dose: Infused Documented by: Sodium Chloride () 250 mls @ 15 mls/hr IV .[id number] PRN PRN Reason: Additional IVPB Infusion Propofol (Diprivan) 1,000 mg in 100 mls @ 7.782 mls/hr CONT INF .Q12H [facility]; Protocol Last Titration: 06/16/20 07:00 Dose: 40 mcg/kg/min, 31.1 mls/hr Documented by: Fentanyl () 100 mls @ 5 mls/hr CONT INF UD [facility]; Protocol Last Titration: 06/16/20 07:00 Dose: 40 mcg/hr, 4 mls/hr Documented by: Famotidine 20 mg/ Sodium (Chloride) 10 mls @ 300 mls/hr IV Q12 [facility] Last Infusion: 06/15/20 21:35 Dose: Infused Documented by: Enteral Nutritional Formula (Vital Af 1.2 Lester Liquid) 1,000 mls @ 65 mls/hr GT .[id number] [facility] Last Admin: 06/15/20 15:05 Dose: Not Given Documented by: Insulin Human Lispro (Humalog Kwikpen (Bkc)) 0 unit SC Q6 [facility]; Protocol Last Admin: 06/16/20 06:59 Dose: Not Given Documented by: Nitroglycerin (Nitrostat) 0.4 mg SUBLINGUAL Q5M PRN PRN Reason: CARDIAC/CHEST PAIN Breby-8-Xsmz Ethyl Esters (Lovaza) 1 gm PO BID [facility] Last Admin: 06/15/20 21:26 Dose: Not Given Documented by: Ondansetron HCl (Zofran) 4 mg IV Q8H PRN PRN PRN Reason: NAUSEA/VOMITING Last Admin: 06/10/20 23:05 Dose: 4 mg Documented by: Polyethylene Glycol (Miralax) 17 gm NG X1 ONE Stop: 06/16/20 10:01 Pramipexole Dihydrochloride (Mirapex) 0.25 mg PO QHS [facility] Last Admin: 06/15/20 21:33 Dose: 0.25 mg Documented by: Pravastatin Sodium (Pravachol) 40 mg GT QHS [facility] Last Admin: 06/15/20 21:33 Dose: 40 mg Documented by: Senna/Docusate Sodium (Senokot-S, Marichuy-Colace) 2 tablet GT BID [facility] Sodium Chloride () 10 - 40 ml IV UD PRN PRN Reason: SALINE FLUSH Last Admin: 06/15/20 21:33 Dose: 10 ml Documented by: Venlafaxine HCl (Effexor Xr) 75 mg PO DAILY [facility] Last Admin: 06/15/20 08:47 Dose: Not Given Documented by: STROKE Vital Signs/Narrative: Vital Signs Temp Pulse Resp BP Pulse Ox 06/16/20 07:00 98.5 F 95 18 159/86 H 86 06/16/20 06:20 88 06/16/20 06:00 98.1 F 53 L 14 108/62 93 06/16/20 05:00 98.0 F 51 L 14 101/63 94 06/16/20 04:47 52 L 18 93 06/16/20 04:00 98.0 F 52 L 19 H 102/57 L 94 06/16/20 03:29 55 L Medical Necessity - Tobacco Use Smoking Status: Former smoker Assessment/Plan All Active Problems (Last Reviewed 09/28/19 @ 11:[address] 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 1. Acute hypoxic respiratory failure secondary to ARDS/acute COVID-19 pneumonia, remains intubated, oxygen requirement or worsening Repeat chest x-ray showed bilateral interstitial infiltrates/atelectasis Status post convalescent plasma and remdesivir treatments Currently on IV dexamethasone. 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 2. A. fib with RVR, controlled now, in normal sinus rhythm ,off amiodarone on account of bradycardia, continue on metoprolol 3. Severe sepsis secondary to COVID-19 infection, (patient with sepsis and RADHA), improved 4. Acute kidney injury, prerenal secondary dehydration, resolved, creatinine is back to baseline 5. Hypertension, fairly uncontrolled, blood pressure fluctuating, continue on metoprolol 6. Anxiety/depression/ continue on Effexor, BuSpar, 7. Hyperglycemia related to IV steroid use and tube feeds, on insulin sliding scale Check HbA1c 8. DVT PPx- on Lovenox twice daily 9. GI prophylaxis -on famotidine; switch to PPI on account of possible melena Inpatient E&M: 55404 [facility] Hosp L3
--- NOTE | 2020-06-16 07:30 | NURSING ---
Prop @ 40 mcg/kg/min & Fentanyl @ 175 mcg/hr. Verified w/Geronimo Steel RN.
--- NOTE | 2020-06-16 07:42 | CPS ---
FiO2 decreased to 95%, RN aware.
[2020-06-16] MEDS: Propofol 10MG/Ml 1,000 MG/100 ML Bottle 31.1 MG CONT INF ×4 (08:15→22:15)
[2020-06-16] MEDS: Propofol 10MG/Ml 1,000 MG/100 ML Bottle 35 MG CONT INF ×2 (11:00→14:00)
[2020-06-16] MEDS: Chlorhexidine 15 ML PO ×2 (11:08→20:49)
[2020-06-16] MEDS: Senna/Docusate Sodium 1 Tablet 2 TABLET GT ×2 (11:09→20:37)
[2020-06-16] MEDS: dexAMETHasone 10 MG/ML Vial 6 MG IV (11:09)
[2020-06-16] MEDS: Metoprolol Tartrate 25 MG Tablet PO ×2 (11:09→20:36)
[2020-06-16] MEDS: Acetaminophen 650 MG/20 ML UDC 500 MG GT ×2 (11:09→20:35)
[2020-06-16] MEDS: Finasteride 5 MG Tablet PO (11:10)
[2020-06-16] MEDS: Famotidine 200 MG/20 ML MDV 20 MG in 0.9% Normal Saline (Pres. free 8 ML 300 MG IV (11:10)
[2020-06-16 11:50] LABS: Bedside Glucose 108 mg/dL (70-110)
[2020-06-16 11:56] LABS: Bedside Glucose 165 mg/dL (70-110)
[2020-06-16] MEDS: fentaNYL drip 100 ML 20 MCG CONT INF (12:10)
[2020-06-16 12:23] LABS: Pathologist Review Reviewed
[2020-06-16 12:24] LABS: Pathologist Review Reviewed
[2020-06-16 12:45] LABS: Hemoglobin A1c 5.8 % (3.8-5.6)
[2020-06-16] MEDS: Venlafaxine HCl 75 MG Tablet 37.5 MG NG ×2 (15:00→20:36)
[2020-06-16] MEDS: Polyethylene Glycol 3350 17 GM PACKET NG (15:00)
[2020-06-16] MEDS: busPIRone 15 MG TABLET 30 MG GT ×2 (15:00→20:37)
[2020-06-16] MEDS: Enoxaparin 150 MG/ML Syringe 130 MG SC ×2 (15:01→20:34)
--- NOTE | 2020-06-16 15:07 | PCM.PN.ID ---
Patient Problems: Active and Suspected Problems (Last Reviewed 09/28/19 @ 11:[address] Chi Bernard MD) Atrial fibrillation with rapid ventricular response (Acute) COVID-19 (Acute) Dyspnea (Acute) Abnormal cardiac enzyme level (Acute) Subjective: On vent, 95% fiO2. - Physical Exam Vitals/I&O's: Vital Signs Temp Pulse Resp BP Pulse Ox 99.8 F H 56 L 13 130/77 H 100 06/16/20 15:00 06/16/20 15:00 06/16/20 15:00 06/16/20 15:00 06/16/20 15:00 Oxygen Flow Rate (L/min) 60 Oxygen Delivery Method Mechanical Ventilator Weight: 129.7 kg Body Mass Index (BMI) 41.5 Intake and Output for Last 24 Hours 06/14/20 06/15/20 06/16/20 23:59 23:59 23:59 Intake Total 2766.66 / 2883.86 2490.89 / 2539.89 775.56 / 775.56 Output Total 5170 / 5320 2390 / 2525 1035 / 1035 Balance -2403.34 / -2436.14 100.89 / 14.89 -259.44 / -259.44 General: Non-Cooperative Lungs: Diminished Cardiovascular: Tachycardic Abdomen: Soft, Non Tender, Non-Distended Skin: No rashes Microbiology Past 72 Hours 06/16/20 07:00 Sputum, Tracheal Aspirate Gram Stain - Final 06/10/20 16:40 Blood Culture (Wb) - Anticubital Right Blood Culture - Final No growth in 5 days. 06/10/20 16:00 Blood Culture (Wb) - Anticubital Left Blood Culture - Final No growth in 5 days. Laboratory Results 06/15/20 04:10: Diff Path Review Reviewed 06/15/20 11:04: POC Glucose 125 H 06/15/20 18:01: POC Glucose 229 H 06/16/20 00:01: POC Glucose 207 H 06/16/20 04:30: WBC 10.2, RBC 4.11 L, Hgb 12.8 L, Hct 38.8 L, MCV 94.4 H, MCH 31.1, MCHC 33.0, RDW Std Deviation 46.0 H, RDW Coeff of Ayde 13.4, Plt Count 237, MPV 10.7, Neut % (Auto) Not Reportable, Absolute Neuts (auto) 8.9 H, Absolute Lymphs (auto) 1.12, Total Counted 100, Neutrophils % (Manual) 80 H, Band Neutrophils % 7 H, Lymphocytes % (Manual) 11 L, Monocytes % (Manual) 2, Metamyelocytes % 7 H, Diff Path Review Reviewed, Platelet Estimate ADEQUATE, RBC Morphology NORM C+C 06/16/20 04:30: Sodium 141, Potassium 3.8, Chloride 107, Carbon Dioxide 31.0, Anion Gap 3 L, BUN 14, Creatinine 0.82, Estim Creat Clear Calc 93.10, Est GFR (MDRD) Af Amer 121, Est GFR (MDRD) Non-Af 100, BUN/Creatinine Ratio 17.1, Glucose 160 H, Calcium 7.6 L 06/16/20 06:49: POC Glucose 165 H 06/16/20 07:00: Hemoglobin A1c 5.8 H 06/16/20 11:07: POC Glucose 108 Current Medications Acetaminophen (Tylenol) 650 mg RECTAL Q4H PRN PRN PRN Reason: Pain Score 1-10/10,temp >100.7 Last Admin: 06/11/20 05:51 Dose: 650 mg Documented by: Acetaminophen (Tylenol Liquid) 500 mg GT BID [facility] Last Admin: 06/16/20 11:09 Dose: 500 mg Documented by: Albuterol/Ipratropium (Duoneb) 3 ml INHALATION Q4H PRN PRN PRN Reason: SOB &/ WHEEZING Last Admin: 06/15/20 12:58 Dose: 3 ml Documented by: Buspirone HCl (Buspar) 30 mg GT BID [facility] Last Admin: 06/16/20 15:00 Dose: 30 mg Documented by: Chlorhexidine Gluconate () 15 ml PO BID [facility] Last Admin: 06/16/20 11:08 Dose: 15 ml Documented by: Dexamethasone Sodium Phosphate (Decadron) 6 mg IV DAILY [facility] Last Admin: 06/16/20 11:09 Dose: 6 mg Documented by: Dextrose (D50w Syringe) 0 gm IV X1 PRN; Protocol PRN Reason: Hypoglycemia Enoxaparin Sodium (Lovenox) 130 mg SC Q12 [facility] Last Admin: 06/16/20 15:01 Dose: 130 mg Documented by: Finasteride (Proscar) 5 mg PO DAILY [facility] Last Admin: 06/16/20 11:10 Dose: 5 mg Documented by: Glucagon () 1 mg IM .X1 PRN PRN Reason: Hypoglycemia Sodium Chloride () 250 mls @ 15 mls/hr IV .[id number] PRN PRN Reason: Saline Flush Last Infusion: 06/13/20 19:30 Dose: Infused Documented by: Sodium Chloride () 250 mls @ 15 mls/hr IV .[id number] PRN PRN Reason: Additional IVPB Infusion Propofol (Diprivan) 1,000 mg in 100 mls @ 7.782 mls/hr CONT INF .Q12H [facility]; Protocol Last Titration: 06/16/20 15:01 Dose: 40 mcg/kg/min, 31.1 mls/hr Documented by: Fentanyl () 100 mls @ 5 mls/hr CONT INF UD [facility]; Protocol Last Titration: 06/16/20 15:00 Dose: 175 mcg/hr, 17.5 mls/hr Documented by: Enteral Nutritional Formula (Vital Af 1.2 Lester Liquid) 1,000 mls @ 65 mls/hr GT .[id number] [facility] Last Admin: 06/15/20 15:05 Dose: Not Given Documented by: Pantoprazole Sodium 40 mg/ (Sodium Chloride) 110 mls @ 330 mls/hr IV Q12 [facility] Insulin Human Lispro (Humalog Kwikpen (Bkc)) 0 unit SC Q6 [facility]; Protocol Last Admin: 06/16/20 11:10 Dose: Not Given Documented by: Metoprolol Tartrate (Lopressor (Beta Kirit)) 25 mg PO BID [facility] Last Admin: 06/16/20 11:09 Dose: 25 mg Documented by: Nitroglycerin (Nitrostat) 0.4 mg SUBLINGUAL Q5M PRN PRN Reason: CARDIAC/CHEST PAIN Ondansetron HCl (Zofran) 4 mg IV Q8H PRN PRN PRN Reason: NAUSEA/VOMITING Last Admin: 06/10/20 23:05 Dose: 4 mg Documented by: Pramipexole Dihydrochloride (Mirapex) 0.25 mg PO QHS [facility] Last Admin: 06/15/20 21:33 Dose: 0.25 mg Documented by: Pravastatin Sodium (Pravachol) 40 mg GT QHS [facility] Last Admin: 06/15/20 21:33 Dose: 40 mg Documented by: Senna/Docusate Sodium (Senokot-S, Marichuy-Colace) 2 tablet GT BID [facility] Last Admin: 06/16/20 11:09 Dose: 2 tablet Documented by: Sodium Chloride () 10 - 40 ml IV UD PRN PRN Reason: SALINE FLUSH Last Admin: 06/15/20 21:33 Dose: 10 ml Documented by: Venlafaxine HCl (Effexor) 37.5 mg NG BID [facility] Last Admin: 06/16/20 15:00 Dose: 37.5 mg Documented by: Medical Necessity - Tobacco Use Smoking Status: Former smoker Route of nutrition/ use of supplements: [] Nutritional Intake: [] IV Site: [] Barnhart Catheter: [] - Assessment/Plan Antibiotics: [] Assessment/Plan: [] Active and Suspected Problems (Last Reviewed 09/28/19 @ 11:[address] Chi Bernard MD) Atrial fibrillation with rapid ventricular response (Acute) COVID-19 (Acute) Dyspnea (Acute) Abnormal cardiac enzyme level (Acute) covid with hypoxic resp failure - fever to 103.4 on admit D-dimer 4, elevated CK, CRP, LDH, ferritin, trop, and lactate. PCT was 0.15. Off abx. Cont dex, lovenox, completed remdesivir. Given convalescent plasma 06/12. Now on 95% fiO2, fever over 101. Will repeat labs, check bcx x2, start vanc/cefepime. Sputum with purulence and GPC seen on gram stain. Will follow.
[2020-06-16] MEDS: Ipratropium/Albuterol Sulfate 3 ML AMPUL.NEB INHALATION (15:44)
[2020-06-16 16:21] LABS: BNP,B-Type NATRIURETIC PEPTIDE 103.4 pg/mL (0-100)
[2020-06-16 16:22] LABS: Ferritin 1546 ng/mL (26-388)
[2020-06-16 16:40] LABS: Procalcitonin 0.08 ng/mL (0.00-0.09)
[2020-06-16] MEDS: Insulin Lispro 100 UNIT/ML INSULN.PEN SC (18:30)
[2020-06-16 18:41] LABS: Bedside Glucose 187 mg/dL (70-110)
--- NOTE | 2020-06-16 20:19 | PCM.RX.CS ---
Consult Pharmacy has been consulted to manage selected antiobiotic: Vancomycin Type of Consult: New start Suspected Infection: Pneumonia Prior Doses of Antibiotics Received/Current Regimen: 2000MG LOADING DOSE GIVEN 06/16 Labs: Sodium 141 mmol/L (136-145) 06/16/20 04:30 Potassium 3.8 mmol/L (3.5-5.1) 06/16/20 04:30 Chloride 107 mmol/L (98-107) 06/16/20 04:30 Carbon Dioxide 31.0 mmol/L (21.0-32.0) 06/16/20 04:30 Anion Gap 3 (5-15) L 06/16/20 04:30 BUN 14 mg/dL (7-18) 06/16/20 04:30 Creatinine 0.82 mg/dL (0.70-1.30) 06/16/20 04:30 Est GFR (MDRD) Af Amer 121 mL/min (>60) 06/16/20 04:30 Est GFR (MDRD) Non-Af 100 mL/min (>60) 06/16/20 04:30 BUN/Creatinine Ratio 17.1 RATIO (-) 06/16/20 04:30 Glucose 160 mg/dL (74-106) H 06/16/20 04:30 Microbiology: Microbiology 06/16/20 07:00 Sputum, Tracheal Aspirate Gram Stain - Final 06/10/20 16:40 Blood Culture (Wb) - Anticubital Right Blood Culture - Final No growth in 5 days. 06/10/20 16:00 Blood Culture (Wb) - Anticubital Left Blood Culture - Final No growth in 5 days. 06/10/20 19:00 Urine, Clean Catch Urine Culture - Final Mixed Gram Positive Organisms 06/10/20 20:20 Urine, Clean Catch Legionella Antigen - Final 06/10/20 20:20 Urine, Clean Catch Streptococcus pneumoniae Antigen (M - Final Weight used for dosin.7 kg Goal Trough: 15-20 mcg/mL Pharmacy Plan for Drug Dosing: NEW START IV VANCOMYCIN Consulting Physician: RAIZA Indication: PNA/COVID Goal Trough: 15-20 MG/DL SrCr: 0.82 CrCl: 119 ML/MIN - USING ADJUSTED BODY WEIGHT Comments: LOADING DOSE OF 2000MG GIVEN 06/16 Vancomcyin Dose: 1500MG Q8H STARTING 06/17 @ 0400, SPUTUM CX WITH GRAM (+) COCCI TROUGH ORDERED PRIOR TO 4TH TOTAL DOSE Pharmacy Service will continue to monitor and adjust dosing as required. Labs to be done on [date and time ordered]: 06/17 @ 1930
[2020-06-16] MEDS: Pramipexole Di-HCl 0.25 MG Tablet PO (20:36)
[2020-06-16] MEDS: Pravastatin 40 MG Tablet GT (20:37)
[2020-06-16] MEDS: 0.9% Saline Lock 10 ML Syringe IV (20:40)
[2020-06-17] VITALS (48 sets, daily range): BP systolic 80–143; BP diastolic 51–105; PULSE 50–111; RESP 9–31; TEMP 36.9–39.4; O2SAT 78–96; BMI 39.3
[2020-06-17] MEDS: 0.9% Saline Lock 10 ML Syringe IV ×3 (00:33→22:15)
[2020-06-17] MEDS: Propofol 10MG/Ml 1,000 MG/100 ML Bottle 31.1 MG CONT INF ×2 (01:30→04:44)
[2020-06-17 01:46] LABS: Bedside Glucose 145 mg/dL (70-110)
[2020-06-17] MEDS: fentaNYL drip 100 ML 17.5 MCG CONT INF ×2 (02:46→20:05)
[2020-06-17 04:32] LABS: Hematocrit 38.9 % (40-54); Hemoglobin 12.4 g/dL (13.0-16.5); Mean Corp Hgb Conc 31.9 g/dL (32-36); Mean Corpuscular Hgb 30.8 pg (27.0-32.0); Mean Corpuscular Volume 96.8 fL (80-94); Mean Platelet Vol. 10.2 fl (6.2-12.0); POSITIVE COUNT YES; POSITIVE DIFFERENTIAL YES; POSITIVE MORPHOLOGY YES; Platelet Count 240 K/mm3 (150-450); RBC Distribution Width CV 14.2 % (11.6-14.6); RBC Distribution Width SD 49.5 fl (35.1-43.9); Red Blood Count 4.02 M/mm3 (4.6-6.2); White Blood Count 9.3 K/mm3 (4.4-11.0)
[2020-06-17 04:37] LABS: Differential Indicated MANUAL DIFF
[2020-06-17 04:45] LABS: Anion Gap 3 (5-15); BUN 13 mg/dL (7-18); BUN/Creat Ratio 17.7 RATIO (10-20); Calcium,Total 7.5 mg/dL (8.5-10.1); Chloride 109 mmol/L (98-107); Creatinine, Serum 0.73 mg/dL (0.70-1.30); EST Glomerular Filtration Rate 113 mL/min (>60); Est Glom Filt Rate - Afr Amer 137 mL/min (>60); Estimated Creatinine Clearance 76.35 ml/min; Glucose 118 mg/dL (74-106); Potassium 4.2 mmol/L (3.5-5.1); Sodium Level 144 mmol/L (136-145)
[2020-06-17 05:14] LABS: Basophil 1 % (0-1); Eosinophil 1 % (0-5); Lymphocyte 21 % (19-41); Metamyelocyte 7 % (0-1); Monocyte 1 % (0-10); Myelocyte 3 (0-0); Neutrophil-Band 3 % (0-5); Neutrophil-Segmented 62 % (47-70); Platelet Estimate ADEQUATE (ADEQ); Promyelocyte 1 (0-0); Red Cell Morphology NORM C+C NORMAL (NORM C&C); Total Cells Counted 100 (MANUAL DIFF)
[2020-06-17 05:15] LABS: Absolute Lymphocyte Count 1.95 X10^3/uL (0.83-4.51); Lymphocyte # 1.95 X10^3/ul (4.0)
[2020-06-17 05:16] LABS: Absolute Neutrophil Count 8.8 X10^3/uL (2.0-7.7); Neutrophil # 8.84 X10^3/uL (2.7-7.7)
[2020-06-17] MEDS: TITRATION PARAMETER CHANGE 1 EACH IV (05:59)
[2020-06-17] MEDS: Propofol 10MG/Ml 1,000 MG/100 ML Bottle 30.7 MG CONT INF ×4 (07:00→21:18)
--- NOTE | 2020-06-17 07:17 | PCM.PN.HOSP ---
Patient Problems: Active and Suspected Problems (Last Reviewed 09/28/19 @ 11:[address] Chi Bernard MD) Atrial fibrillation with rapid ventricular response (Acute) COVID-19 (Acute) Dyspnea (Acute) Abnormal cardiac enzyme level (Acute) Reason for Visit: Follow-up on acute respiratory failure Subjective: Patient was seen and examined. His oxygen requirements have decreased slightly; currently FiO2 70%, PEEP 18. Blood cultures were taken yesterday, pending this morning. Started on IV vancomycin and cefepime. Objective: Physical exam: General: - - Intubated, sedated, on mechanical ventilator, in mild respiratory distress HEENT: Atraumatic, PERRLA, EOMI, Normocephalic Oral: Dry Mucosa Neck: Supple Lungs: Diminished Cardiovascular: Regular rate, Regular Rhythm, Normal S1, Normal S2, No murmurs Abdomen: Bowel Sounds Present, Soft, Non Tender, Non-Distended, No Hepato-splenomegaly Extremities: Edema - Bilateral pedal edema +1 Skin: No rashes, No breakdown Musculoskeletal: No Tenderness to Palpation of Joints or Extremities Lymphatic: No Cervical, Supraclavicular, or Inguinal Adenopathy Neurological: - - Patient is intubated Psych/Mental Status: Normal Affect, Appropriate Vitals/I&O's: Vital Signs Temp Pulse Resp BP Pulse Ox 99.3 F H 60 15 113/76 88 06/17/20 07:00 06/17/20 07:00 06/17/20 07:00 06/17/20 07:00 06/17/20 07:00 Oxygen Flow Rate (L/min) 60 Oxygen Delivery Method Mechanical Ventilator Weight: 128 kg Body Mass Index (BMI) 41.5 Intake and Output for Last 24 Hours 06/15/20 06/16/20 06/17/20 23:59 23:59 23:59 Intake Total 2490.89 / 2539.89 2076.63 / 2125.23 1029.79 / 1029.79 Output Total 2390 / 2525 1700 / 1940 640 / 640 Balance 100.89 / 14.89 376.63 / 185.23 389.79 / 389.79 Microbiology Past 72 Hours 06/16/20 07:00 Sputum, Tracheal Aspirate Gram Stain - Final 06/10/20 16:40 Blood Culture (Wb) - Anticubital Right Blood Culture - Final No growth in 5 days. 06/10/20 16:00 Blood Culture (Wb) - Anticubital Left Blood Culture - Final No growth in 5 days. Laboratory Results 06/15/20 04:10: Diff Path Review Reviewed 06/16/20 04:30: Diff Path Review Reviewed 06/16/20 06:49: POC Glucose 165 H 06/16/20 07:00: Hemoglobin A1c 5.8 H 06/16/20 11:07: POC Glucose 108 06/16/20 15:15: Ferritin 1546 H, Troponin I < 0.015, C-React Prot Ext Range 116.00 H 06/16/20 15:15: B-Natriuretic Peptide 103.4 H 06/16/20 15:15: Procalcitonin 0.08 06/16/20 17:25: POC Glucose 187 H 06/17/20 00:20: POC Glucose 145 H 06/17/20 04:25: WBC 9.3, RBC 4.02 L, Hgb 12.4 L, Hct 38.9 L, MCV 96.8 H, MCH 30.8, MCHC 31.9 L, RDW Std Deviation 49.5 H, RDW Coeff of Ayde 14.2, Plt Count 240, MPV 10.2, Neut % (Auto) Not Reportable, Absolute Neuts (auto) 8.8 H, Absolute Lymphs (auto) 1.95, Total Counted 100, Neutrophils % (Manual) 62, Band Neutrophils % 3, Lymphocytes % (Manual) 21, Monocytes % (Manual) 1, Eosinophils % (Manual) 1, Basophils % (Manual) 1, Metamyelocytes % 7 H, Myelocytes % 3 H, Promyelocytes % 1 H, Platelet Estimate ADEQUATE, RBC Morphology NORM C+C, Hypochromasia TF 06/17/20 04:25: Sodium 144, Potassium 4.2, Chloride 109 H, Carbon Dioxide 32.0, Anion Gap 3 L, BUN 13, Creatinine 0.73, Estim Creat Clear Calc 76.35, Est GFR (MDRD) Af Amer 137, Est GFR (MDRD) Non-Af 113, BUN/Creatinine Ratio 17.7, Glucose 118 H, Calcium 7.5 L Current Medications Acetaminophen (Tylenol) 650 mg RECTAL Q4H PRN PRN PRN Reason: Pain Score 1-10/10,temp >100.7 Last Admin: 06/11/20 05:51 Dose: 650 mg Documented by: Acetaminophen (Tylenol Liquid) 500 mg GT BID [facility] Last Admin: 06/16/20 20:35 Dose: 500 mg Documented by: Albuterol/Ipratropium (Duoneb) 3 ml INHALATION Q4H PRN PRN PRN Reason: SOB &/ WHEEZING Last Admin: 06/16/20 15:44 Dose: 3 ml Documented by: Bisacodyl (Dulcolax) 10 mg RECTAL X1 ONE Stop: 06/17/20 10:01 Buspirone HCl (Buspar) 30 mg GT BID [facility] Last Admin: 06/16/20 20:37 Dose: 30 mg Documented by: Chlorhexidine Gluconate () 15 ml PO BID [facility] Last Admin: 06/16/20 20:49 Dose: 15 ml Documented by: Dexamethasone Sodium Phosphate (Decadron) 6 mg IV DAILY [facility] Last Admin: 06/16/20 11:09 Dose: 6 mg Documented by: Dextrose (D50w Syringe) 0 gm IV X1 PRN; Protocol PRN Reason: Hypoglycemia Enoxaparin Sodium (Lovenox) 130 mg SC Q12 [facility] Last Admin: 06/16/20 20:34 Dose: 130 mg Documented by: Finasteride (Proscar) 5 mg PO DAILY [facility] Last Admin: 06/16/20 11:10 Dose: 5 mg Documented by: Glucagon () 1 mg IM .X1 PRN PRN Reason: Hypoglycemia Sodium Chloride () 250 mls @ 15 mls/hr IV .[id number] PRN PRN Reason: Saline Flush Last Infusion: 06/17/20 05:44 Dose: 15 mls/hr Documented by: Sodium Chloride () 250 mls @ 15 mls/hr IV .[id number] PRN PRN Reason: Additional IVPB Infusion Propofol (Diprivan) 1,000 mg in 100 mls @ 7.68 mls/hr CONT INF .Q12H [facility]; Protocol Last Admin: 06/17/20 07:00 Dose: 40 mcg/kg/min, 30.7 mls/hr Documented by: Fentanyl () 100 mls @ 5 mls/hr CONT INF UD [facility]; Protocol Last Titration: 06/17/20 07:02 Dose: 175 mcg/hr, 17.5 mls/hr Documented by: Enteral Nutritional Formula (Vital Af 1.2 Lester Liquid) 1,000 mls @ 65 mls/hr GT .[id number] [facility] Last Admin: 06/15/20 15:05 Dose: Not Given Documented by: Pantoprazole Sodium 40 mg/ (Sodium Chloride) 110 mls @ 330 mls/hr IV Q12 [facility] Last Infusion: 06/16/20 20:57 Dose: Infused Documented by: Vancomycin IV Pharmacy to Dose (1 ea/ Sodium Chloride) 500 mls @ 250 mls/hr IV X1 PRN; Protocol PRN Reason: Rx to Dose Cefepime HCl 2 gm/ Sodium (Chloride) 100 mls @ 200 mls/hr IV Q8 [facility] Last Infusion: 06/17/20 06:29 Dose: Infused Documented by: Vancomycin HCl 1,500 mg/ (Sodium Chloride) 530 mls @ 250 mls/hr IV Q8H [facility] Last Infusion: 06/17/20 05:44 Dose: Infused Documented by: Insulin Human Lispro (Humalog Kwikpen (Bkc)) 0 unit SC Q6 [facility]; Protocol Last Admin: 06/17/20 05:59 Dose: Not Given Documented by: Metoprolol Tartrate (Lopressor (Beta Kirit)) 25 mg PO BID [facility] Last Admin: 06/16/20 20:36 Dose: 25 mg Documented by: Nitroglycerin (Nitrostat) 0.4 mg SUBLINGUAL Q5M PRN PRN Reason: CARDIAC/CHEST PAIN Ondansetron HCl (Zofran) 4 mg IV Q8H PRN PRN PRN Reason: NAUSEA/VOMITING Last Admin: 06/10/20 23:05 Dose: 4 mg Documented by: Pramipexole Dihydrochloride (Mirapex) 0.25 mg PO QHS [facility] Last Admin: 06/16/20 20:36 Dose: 0.25 mg Documented by: Pravastatin Sodium (Pravachol) 40 mg GT QHS [facility] Last Admin: 06/16/20 20:37 Dose: 40 mg Documented by: Senna/Docusate Sodium (Senokot-S, Marichuy-Colace) 2 tablet GT BID [facility] Last Admin: 06/16/20 20:37 Dose: 2 tablet Documented by: Sodium Chloride () 10 - 40 ml IV UD PRN PRN Reason: SALINE FLUSH Last Admin: 06/17/20 00:33 Dose: 10 ml Documented by: Venlafaxine HCl (Effexor) 37.5 mg NG BID [facility] Last Admin: 06/16/20 20:36 Dose: 37.5 mg Documented by: STROKE Vital Signs/Narrative: Vital Signs Temp Pulse Resp BP Pulse Ox 06/17/20 07:00 99.3 F H 60 15 113/76 88 06/17/20 06:42 59 L 25 H 91 06/17/20 06:00 99.0 F 54 L 14 111/69 96 06/17/20 05:08 56 L 17 93 06/17/20 05:00 99.0 F 55 L 14 108/71 93 06/17/20 04:00 99.1 F 52 L 14 107/66 95 06/17/20 03:59 53 L Medical Necessity - Tobacco Use Smoking Status: Former smoker Assessment/Plan All Active Problems (Last Reviewed 09/28/19 @ 11:[address] 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 1. Acute hypoxic respiratory failure secondary to ARDS/acute COVID-19 pneumonia, remains intubated, oxygen requirement or worsening Repeat chest x-ray showed bilateral interstitial infiltrates/atelectasis. Status post convalescent plasma and remdesivir treatments Ferritin is elevated but improved compared to previous, procalcitonin is 0.08 Sputum cultures growing gram positive cocci. Started on IV vancomycin and cefepime yesterday. Also on IV dexamethasone. Continue on breathing treatments, fentanyl; and propofol drips. [employer] following. 2. Acute GI bleed, jacob in NG tube, likely secondary to stress gastritis IV famotidine switched to IV PPI, will continue same 3. A. fib with RVR, in normal sinus rhythm ,off amiodarone on account of bradycardia, continue on metoprolol 4. Severe sepsis secondary to COVID-19 infection/pneumonia(patient with sepsis and RADHA), improving 5. Acute kidney injury, prerenal secondary dehydration, resolved, creatinine is back to baseline 6. Hypertension, controlled, blood pressure fluctuating, continue on metoprolol 7. Anxiety/depression/ continue on Effexor, BuSpar, 8. Hyperglycemia related to IV steroid use and tube feeds, HgbA1c 5.8 Continue on insulin sliding scale with Q6 blood glucose checks 9. DVT PPx- on Lovenox twice daily 10. GI prophylaxis -on IV PPI Inpatient E&M: [id number] [facility] L3
--- NOTE | 2020-06-17 07:18 | PN_ITS ---
Subjective: Patient did okay overnight. Patient continues to have intermittent periods of agitation with desaturation. Patient was able to be weaned to 80% overnight. Patient continues to have significant output out of his OG, so tube feeds have not been reinitiated. Patient was placed on antibiotics yesterday. Patient has remained hemodynamically stable. General: - - Intubated and sedated. RASS -3. HEENT: Atraumatic, PERRLA, EOMI, Normocephalic, - - Slight scleral injection without icterus Oral: Moist Mucosa, No Gingival or Mucosal Lesions/ Ulcerations Neck: Supple, No JVD, No Nodes, Trachea Midline Lungs: No wheeze, No rales, Diminished, Rhonchi - Bilateral, - - Symmetric expansion Cardiovascular: Normal S1, Normal S2, No murmurs, Bradycardic, No rub noted, No Gallop Abdomen: Soft, Non Tender, Hypoactive Bowel Sounds, Distended, Obese Extremities: No clubbing, No cyanosis, Edema - Trace to 1+ Skin: - - No change compared to previous Musculoskeletal: No Tenderness to Palpation of Joints or Extremities Lymphatic: No Cervical, Supraclavicular, or Inguinal Adenopathy Neurological: Cranial nerves II-XII grossly intact, Neuro grossly intact, Motor Exam 5/5 strength throughout, - - Difficult to complete neurologic examination secondary to agitation with desaturations Psych/Mental Status: Flat Affect Vital Signs Temp Pulse Resp BP Pulse Ox 37.4 C H 60 15 113/76 88 06/17/20 07:00 06/17/20 07:00 06/17/20 07:00 06/17/20 07:00 06/17/20 07:00 Oxygen Flow Rate (L/min) 60 Oxygen Delivery Method Mechanical Ventilator Weight: 128 kg Body Mass Index (BMI) 41.5 Intake and Output for Last 24 Hours 06/15/20 06/16/20 06/17/20 23:59 23:59 23:59 Intake Total 2490.89 / 2539.89 2076.63 / 2125.23 1029.79 / 1029.79 Output Total 2390 / 2525 1700 / 1940 640 / 640 Balance 100.89 / 14.89 376.63 / 185.23 389.79 / 389.79 Labs (Last 48 Hours) 06/15/20 06/15/20 06/15/20 04:10 11:04 18:01 WBC RBC Hgb Hct MCV MCH MCHC RDW Std Deviation RDW Coeff of Ayde Plt Count MPV Neut % (Auto) Absolute Neuts (auto) Absolute Lymphs (auto) Total Counted Neutrophils % (Manual) Band Neutrophils % Lymphocytes % (Manual) Monocytes % (Manual) Eosinophils % (Manual) Basophils % (Manual) Metamyelocytes % Myelocytes % Promyelocytes % Diff Path Review Reviewed Platelet Estimate RBC Morphology Hypochromasia Sodium Potassium Chloride Carbon Dioxide Anion Gap BUN Creatinine Estim Creat Clear Calc Est GFR (MDRD) Af Amer Est GFR (MDRD) Non-Af BUN/Creatinine Ratio Glucose Hemoglobin A1c Calcium Ferritin Troponin I C-React Prot Ext Range B-Natriuretic Peptide Procalcitonin POC Glucose 125 H 229 H 06/16/20 06/16/20 06/16/20 00:01 04:30 04:30 WBC 10.2 RBC 4.11 L Hgb 12.8 L Hct 38.8 L MCV 94.4 H MCH 31.1 MCHC 33.0 RDW Std Deviation 46.0 H RDW Coeff of Ayde 13.4 Plt Count 237 MPV 10.7 Neut % (Auto) Not Reportable Absolute Neuts (auto) 8.9 H Absolute Lymphs (auto) 1.12 Total Counted 100 Neutrophils % (Manual) 80 H Band Neutrophils % 7 H Lymphocytes % (Manual) 11 L Monocytes % (Manual) 2 Eosinophils % (Manual) Basophils % (Manual) Metamyelocytes % 7 H Myelocytes % Promyelocytes % Diff Path Review Reviewed Platelet Estimate ADEQUATE RBC Morphology NORM C+C Hypochromasia Sodium 141 Potassium 3.8 Chloride 107 Carbon Dioxide 31.0 Anion Gap 3 L BUN 14 Creatinine 0.82 Estim Creat Clear Calc 93.10 Est GFR (MDRD) Af Amer 121 Est GFR (MDRD) Non-Af 100 BUN/Creatinine Ratio 17.1 Glucose 160 H Hemoglobin A1c Calcium 7.6 L Ferritin Troponin I C-React Prot Ext Range B-Natriuretic Peptide Procalcitonin POC Glucose 207 H 06/16/20 06/16/20 06/16/20 06:49 07:00 11:07 WBC RBC Hgb Hct MCV MCH MCHC RDW Std Deviation RDW Coeff of Ayde Plt Count MPV Neut % (Auto) Absolute Neuts (auto) Absolute Lymphs (auto) Total Counted Neutrophils % (Manual) Band Neutrophils % Lymphocytes % (Manual) Monocytes % (Manual) Eosinophils % (Manual) Basophils % (Manual) Metamyelocytes % Myelocytes % Promyelocytes % Diff Path Review Platelet Estimate RBC Morphology Hypochromasia Sodium Potassium Chloride Carbon Dioxide Anion Gap BUN Creatinine Estim Creat Clear Calc Est GFR (MDRD) Af Amer Est GFR (MDRD) Non-Af BUN/Creatinine Ratio Glucose Hemoglobin A1c 5.8 H Calcium Ferritin Troponin I C-React Prot Ext Range B-Natriuretic Peptide Procalcitonin POC Glucose 165 H 108 06/16/20 06/16/20 06/16/20 15:15 15:15 15:15 WBC RBC Hgb Hct MCV MCH MCHC RDW Std Deviation RDW Coeff of Ayde Plt Count MPV Neut % (Auto) Absolute Neuts (auto) Absolute Lymphs (auto) Total Counted Neutrophils % (Manual) Band Neutrophils % Lymphocytes % (Manual) Monocytes % (Manual) Eosinophils % (Manual) Basophils % (Manual) Metamyelocytes % Myelocytes % Promyelocytes % Diff Path Review Platelet Estimate RBC Morphology Hypochromasia Sodium Potassium Chloride Carbon Dioxide Anion Gap BUN Creatinine Estim Creat Clear Calc Est GFR (MDRD) Af Amer Est GFR (MDRD) Non-Af BUN/Creatinine Ratio Glucose Hemoglobin A1c Calcium Ferritin 1546 H Troponin I < 0.015 C-React Prot Ext Range 116.00 H B-Natriuretic Peptide 103.4 H Procalcitonin 0.08 POC Glucose 06/16/20 06/17/20 06/17/20 17:25 00:20 04:25 WBC 9.3 RBC 4.02 L Hgb 12.4 L Hct 38.9 L MCV 96.8 H MCH 30.8 MCHC 31.9 L RDW Std Deviation 49.5 H RDW Coeff of Ayde 14.2 Plt Count 240 MPV 10.2 Neut % (Auto) Not Reportable Absolute Neuts (auto) 8.8 H Absolute Lymphs (auto) 1.95 Total Counted 100 Neutrophils % (Manual) 62 Band Neutrophils % 3 Lymphocytes % (Manual) 21 Monocytes % (Manual) 1 Eosinophils % (Manual) 1 Basophils % (Manual) 1 Metamyelocytes % 7 H Myelocytes % 3 H Promyelocytes % 1 H Diff Path Review Platelet Estimate ADEQUATE RBC Morphology NORM C+C Hypochromasia TF Sodium Potassium Chloride Carbon Dioxide Anion Gap BUN Creatinine Estim Creat Clear Calc Est GFR (MDRD) Af Amer Est GFR (MDRD) Non-Af BUN/Creatinine Ratio Glucose Hemoglobin A1c Calcium Ferritin Troponin I C-React Prot Ext Range B-Natriuretic Peptide Procalcitonin POC Glucose 187 H 145 H 06/17/20 04:25 WBC RBC Hgb Hct MCV MCH MCHC RDW Std Deviation RDW Coeff of Ayde Plt Count MPV Neut % (Auto) Absolute Neuts (auto) Absolute Lymphs (auto) Total Counted Neutrophils % (Manual) Band Neutrophils % Lymphocytes % (Manual) Monocytes % (Manual) Eosinophils % (Manual) Basophils % (Manual) Metamyelocytes % Myelocytes % Promyelocytes % Diff Path Review Platelet Estimate RBC Morphology Hypochromasia Sodium 144 Potassium 4.2 Chloride 109 H Carbon Dioxide 32.0 Anion Gap 3 L BUN 13 Creatinine 0.73 Estim Creat Clear Calc 76.35 Est GFR (MDRD) Af Amer 137 Est GFR (MDRD) Non-Af 113 BUN/Creatinine Ratio 17.7 Glucose 118 H Hemoglobin A1c Calcium 7.5 L Ferritin Troponin I C-React Prot Ext Range B-Natriuretic Peptide Procalcitonin POC Glucose Microbiology 06/16/20 07:00 Sputum, Tracheal Aspirate Gram Stain - Final 06/10/20 16:40 Blood Culture (Wb) - Anticubital Right Blood Culture - Final No growth in 5 days. 06/10/20 16:00 Blood Culture (Wb) - Anticubital Left Blood Culture - Final No growth in 5 days. Medical Necessity - Tobacco Use Smoking Status: Former smoker Assessment/Plan All Active Problems (Last Reviewed 09/28/19 @ 11:[address] 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 Continue therapeutic Lovenox, Decadron 2. Attempt to wean FiO2 as tolerated, but may need APRV 3. Wean FiO2 and PEEP to maintain oxygen saturations at or above 90%. 4. Hold tube feeds for now. Aggressive bowel regimen. Proceed with suppository. Reglan if able to have a bowel movement 5. Continue appropriate GI prophylaxis. IMPRESSIONS: 1. Acute hypoxemic respiratory failure secondary to ARDS secondary to COVID- 19 Infection The patient presented to the hospital with worsening shortness of breath and hypoxemia. Coronavirus PCR was positive. CTA chest revealed significant bilateral infiltrates. The patient was placed on noninvasive positive pressure ventilatory support for several days, but failed to improve clinically despite having received convalescent plasma, therapeutic Lovenox therapy, Decadron, and completed a course of Remdesevir. Patient with high PEEP requirements at this time. Continue to attempt to wean FiO2. APRV would be an option. Continue with Decadron and Lovenox therapy. Patient does have organisms noted on Gram stain, so empiric antibiotics were initiated. 2. History of paroxysmal atrial fibrillation Continue current medical management under the discretion of cardiology. The patient is currently in normal sinus rhythm but has been bradycardic. Therefore, his beta-eze and amiodarone were discontinued. 3. Obesity/history of obstructive sleep apnea/hyperlipidemia/anxiety/restless leg syndrome Complicates care, management, recovery and prognosis. The patient will require aggressive physical therapy once stabilized from a respiratory perspective. Addendum 11:35 AM: Patient developed dyssynchrony at approximately 9 AM this morning requiring 100% FiO2 and still saturating in the mid 80s. Patient was given Ativan with some improvement, but was still on high-dose fentanyl and propofol. Patient was switched over to a PRV with a P high of 20, P low of 0, T high of 4.5 seconds and T low of 0.5 seconds on 100%. Saturations have improved to 94%. Patient has since been able to be weaned to 90% and appears to be comfortable. TIME: 85 minutes of critical care time, independent of procedures, was spent addressing the patient's acute hypoxemic respiratory failure, acute COVID-19 infection, atrial fibrillation with rapid ventricular rate, review of all data and collaboration with the care team. (5:30 AM to 7:30 AM, 9 AM to 11:30 AM) [id number]: [id number] Critical care first hour [facility] Codes - Hospitalists' Procedures Procedures: 11692 Critial Care Addl 30 Min
[2020-06-17] MEDS: fentaNYL drip 100 ML 20 MCG CONT INF ×2 (09:05→14:15)
[2020-06-17] MEDS: LORazepam 2 MG/ML Syringe IV (09:15)
--- NOTE | 2020-06-17 09:42 | NT.THERAPY_ITS ---
Nutrition Therapy Report - History Nutrition Services has been consulted to:: Manage enteral nutrition Current diet / nutrition support order:: NPO; Vital AF 1.2 via OG on hold - Anthropometric Measurements Height:: 5 ft 11 in Weight:: 128 kg Body Mass Index (BMI):: 39.3 - Relevant Labs Relevant Labs:: RBC 4.02 M/mm3 (4.6-6.2) L 06/17/20 04:25 Hgb 12.4 g/dL (13.0-16.5) L 06/17/20 04:25 Hct 38.9 % (40-54) L 06/17/20 04:25 MCV 96.8 fL (80-94) H 06/17/20 04:25 MCHC 31.9 g/dL (32-36) L 06/17/20 04:25 RDW Std Deviation 49.5 fl (35.1-43.9) H 06/17/20 04:25 Plt Count 149 K/mm3 (150-450) L 06/11/20 02:15 MPV 12.2 fl (6.2-12.0) H 06/10/20 15:50 Immature Gran % (Auto) 3.700 % (0.0-0.9) H 06/14/20 04:15 Neut % (Auto) 75.3 % (47-70) H 06/14/20 04:15 Lymph % (Auto) 14.8 % (19-41) L 06/14/20 04:15 Absolute Neuts (auto) 8.8 X10^3/uL (2.0-7.7) H 06/17/20 04:25 Neutrophils % (Manual) 80 % (47-70) H 06/16/20 04:30 Band Neutrophils % 7 % (0-5) H 06/16/20 04:30 Lymphocytes % (Manual) 11 % (19-41) L 06/16/20 04:30 Metamyelocytes % 7 % (0-1) H 06/17/20 04:25 Myelocytes % 3 (0-0) H 06/17/20 04:25 Promyelocytes % 1 (0-0) H 06/17/20 04:25 Fibrinogen 630 mg/dl (203-444) H 06/10/20 15:50 D-Dimer Quant (PE/DVT) 4.04 FEU/ug/m (0.27-0.49) H* 06/10/20 15:50 Sodium 134 mmol/L (136-145) L 06/10/20 15:50 Chloride 109 mmol/L (98-107) H 06/17/20 04:25 Anion Gap 3 (5-15) L 06/17/20 04:25 BUN 21 mg/dL (7-18) H 06/15/20 04:10 Creatinine 1.50 mg/dL (0.70-1.30) H 06/10/20 15:50 Est GFR (MDRD) Non-Af 50 mL/min (>60) L 06/10/20 15:50 BUN/Creatinine Ratio 25.4 RATIO (10-20) H 06/14/20 04:15 Glucose 118 mg/dL (74-106) H 06/17/20 04:25 Hemoglobin A1c 5.8 % (3.8-5.6) H 06/16/20 07:00 Lactic Acid 2.5 mmol/L (0.4-1.9) H* 06/10/20 21:50 Calcium 7.5 mg/dL (8.5-10.1) L 06/17/20 04:25 Ferritin 1546 ng/mL (26-388) H 06/16/20 15:15 AST 57 U/L (15-37) H 06/15/20 04:10 Alkaline Phosphatase 44 U/L (45-117) L 06/14/20 04:15 Lactate Dehydrogenase 799 U/L (87-241) H 06/10/20 20:50 Total Creatine Kinase 809 U/L (39-308) H 06/10/20 20:50 Troponin I 0.047 ng/mL (<0.045) H 06/11/20 02:15 C-React Prot Ext Range 116.00 mg/L (0.0-3.0) H 06/16/20 15:15 B-Natriuretic Peptide 103.4 pg/mL (0-100) H 06/16/20 15:15 Total Protein 5.9 g/dL (6.4-8.2) L 06/15/20 04:10 Albumin 2.1 g/dL (3.2-5.0) L 07/19/20 04:10 Globulin 4.3 g/dL (2.2-4.2) H 06/12/20 04:30 Albumin/Globulin Ratio 0.6 RATIO (0.9-2.4) L 06/15/20 04:10 Triglycerides 281 mg/dL (-199) H 06/14/20 04:15 Procalcitonin 0.15 ng/mL (0.00-0.09) H 06/10/20 20:20 - Assessment Food / Nutrition-Related History:: Discussed in ICU rounds. Pt remains intubated w/ OG in place. Tube feeds continue to be held d/t gastric tube output- reported 400mL output overnight. Pt has not had a bowel movement, suppository ordered. Per Dr. Holley, will start reglan once pt has had a bowel movement. Wt decrease of 1.7 kg since last review. Has bilat pedal 1+ pitting edema. Will continue to monitor wts. - Nutrition Diagnosis Problem / Etiology / Signs & Symptoms (PES):: Inadequate protein intake related to GI function, respiratory status as evidenced by no oral/enteral nutrition support over past 24 hours Evidence of Malnutrition Exists:: No - Nutrition Intervention Nutrition Prescription:: Will use ASPEN guidelines for critically ill obese to estimate nutritional needs: 22-25 calories/kg IBW (78kg)- 2295-5731 calories/day and 1.2 g protein/CBW (128kg)- ~150-160 g protein/day. - Food / Nutrient Delivery Interventions Summary of nutrition intervention:: Will adjust tube feed rate to 20mL/hour in the event tube feeds are able to be reinitiated today if gastric output from OG decreases/bowel movements occur. Nutrition support ordered as / adjusted to:: Vital AF 1.2 at trophic rate of 20 mL/hour, advanced as tolerated by 10mL every 12 hours to goal rate of 70mL/hour to provide 2016 calories, 126 g protein/day. 125mL H2O flush every 4 hours to provide 2112mL total fluid/day. Nutrition education provided?: No - MNT Monitoring Further MNT monitoring and evaluation required?: Yes MNT Follow-up in:: 1-2 days
[2020-06-17] MEDS: Propofol 10MG/Ml 1,000 MG/100 ML Bottle 34.6 MG CONT INF ×2 (10:00→12:50)
--- NOTE | 2020-06-17 10:20 | PN.ID_ITS ---
Patient Problems: Active and Suspected Problems (Last Reviewed 09/28/19 @ 11:[address] Chi Bernard MD) Atrial fibrillation with rapid ventricular response (Acute) COVID-19 (Acute) Dyspnea (Acute) Abnormal cardiac enzyme level (Acute) Subjective: O2 weaned, but desat when he wakes up. No fever overnight. No secretions from ETT per nursing. - Physical Exam Vitals/I&O's: Vital Signs Temp Pulse Resp BP Pulse Ox 101.8 F H 86 15 124/76 H 91 06/17/20 10:00 06/17/20 10:00 06/17/20 10:00 06/17/20 10:00 06/17/20 10:00 Oxygen Flow Rate (L/min) 60 Oxygen Delivery Method Mechanical Ventilator Weight: 128 kg Body Mass Index (BMI) 39.3 Intake and Output for Last 24 Hours 06/15/20 06/16/20 06/17/20 23:59 23:59 23:59 Intake Total 2490.89 / 2539.89 2076.63 / 2125.23 1029.79 / 1029.79 Output Total 2390 / 2525 1700 / 1940 815 / 815 Balance 100.89 / 14.89 376.63 / 185.23 214.79 / 214.79 General: - - sedated Lungs: Diminished, Rhonchi Cardiovascular: Tachycardic Abdomen: Soft, Non Tender, Non-Distended Skin: No rashes Microbiology Past 72 Hours 06/16/20 07:00 Sputum, Tracheal Aspirate Gram Stain - Final 06/10/20 16:40 Blood Culture (Wb) - Anticubital Right Blood Culture - Final No growth in 5 days. 06/10/20 16:00 Blood Culture (Wb) - Anticubital Left Blood Culture - Final No growth in 5 days. Laboratory Results 06/15/20 04:10: Diff Path Review Reviewed 06/16/20 04:30: Diff Path Review Reviewed 06/16/20 06:49: POC Glucose 165 H 06/16/20 07:00: Hemoglobin A1c 5.8 H 06/16/20 11:07: POC Glucose 108 06/16/20 15:15: Ferritin 1546 H, Troponin I < 0.015, C-React Prot Ext Range 116.00 H 06/16/20 15:15: B-Natriuretic Peptide 103.4 H 06/16/20 15:15: Procalcitonin 0.08 06/16/20 17:25: POC Glucose 187 H 06/17/20 00:20: POC Glucose 145 H 06/17/20 04:25: WBC 9.3, RBC 4.02 L, Hgb 12.4 L, Hct 38.9 L, MCV 96.8 H, MCH 30.8, MCHC 31.9 L, RDW Std Deviation 49.5 H, RDW Coeff of Ayde 14.2, Plt Count 240, MPV 10.2, Neut % (Auto) Not Reportable, Absolute Neuts (auto) 8.8 H, Absolute Lymphs (auto) 1.95, Total Counted 100, Neutrophils % (Manual) 62, Band Neutrophils % 3, Lymphocytes % (Manual) 21, Monocytes % (Manual) 1, Eosinophils % (Manual) 1, Basophils % (Manual) 1, Metamyelocytes % 7 H, Myelocytes % 3 H, Promyelocytes % 1 H, Platelet Estimate ADEQUATE, RBC Morphology NORM C+C, Hypochromasia TF 06/17/20 04:25: Sodium 144, Potassium 4.2, Chloride 109 H, Carbon Dioxide 32.0, Anion Gap 3 L, BUN 13, Creatinine 0.73, Estim Creat Clear Calc 76.35, Est GFR (MDRD) Af Amer 137, Est GFR (MDRD) Non-Af 113, BUN/Creatinine Ratio 17.7, Glucose 118 H, Calcium 7.5 L Current Medications Acetaminophen (Tylenol) 650 mg RECTAL Q4H PRN PRN PRN Reason: Pain Score 1-10/10,temp >100.7 Last Admin: 06/11/20 05:51 Dose: 650 mg Documented by: Acetaminophen (Tylenol Liquid) 500 mg GT BID [facility] Last Admin: 06/16/20 20:35 Dose: 500 mg Documented by: Albuterol/Ipratropium (Duoneb) 3 ml INHALATION Q4H PRN PRN PRN Reason: SOB &/ WHEEZING Last Admin: 06/16/20 15:44 Dose: 3 ml Documented by: Buspirone HCl (Buspar) 30 mg GT BID [facility] Last Admin: 06/16/20 20:37 Dose: 30 mg Documented by: Chlorhexidine Gluconate () 15 ml PO BID [facility] Last Admin: 06/16/20 20:49 Dose: 15 ml Documented by: Dexamethasone Sodium Phosphate (Decadron) 6 mg IV DAILY [facility] Last Admin: 06/16/20 11:09 Dose: 6 mg Documented by: Dextrose (D50w Syringe) 0 gm IV X1 PRN; Protocol PRN Reason: Hypoglycemia Enoxaparin Sodium (Lovenox) 130 mg SC Q12 [facility] Last Admin: 06/16/20 20:34 Dose: 130 mg Documented by: Finasteride (Proscar) 5 mg PO DAILY [facility] Last Admin: 06/16/20 11:10 Dose: 5 mg Documented by: Glucagon () 1 mg IM .X1 PRN PRN Reason: Hypoglycemia Sodium Chloride () 250 mls @ 15 mls/hr IV .[id number] PRN PRN Reason: Saline Flush Last Infusion: 06/17/20 05:44 Dose: 15 mls/hr Documented by: Sodium Chloride () 250 mls @ 15 mls/hr IV .[id number] PRN PRN Reason: Additional IVPB Infusion Propofol (Diprivan) 1,000 mg in 100 mls @ 7.68 mls/hr CONT INF .Q12H [facility]; Protocol Last Admin: 06/17/20 07:00 Dose: 40 mcg/kg/min, 30.7 mls/hr Documented by: Fentanyl () 100 mls @ 5 mls/hr CONT INF UD [facility]; Protocol Last Admin: 06/17/20 09:37 Dose: Not Given Documented by: Enteral Nutritional Formula (Vital Af 1.2 Lester Liquid) 1,000 mls @ 20 mls/hr GT .Q48H [facility] Last Admin: 06/15/20 15:05 Dose: Not Given Documented by: Pantoprazole Sodium 40 mg/ (Sodium Chloride) 110 mls @ 330 mls/hr IV Q12 [facility] Last Infusion: 06/16/20 20:57 Dose: Infused Documented by: Vancomycin IV Pharmacy to Dose (1 ea/ Sodium Chloride) 500 mls @ 250 mls/hr IV X1 PRN; Protocol PRN Reason: Rx to Dose Cefepime HCl 2 gm/ Sodium (Chloride) 100 mls @ 200 mls/hr IV Q8 [facility] Last Infusion: 06/17/20 06:29 Dose: Infused Documented by: Vancomycin HCl 1,500 mg/ (Sodium Chloride) 530 mls @ 250 mls/hr IV Q8H [facility] Last Infusion: 06/17/20 05:44 Dose: Infused Documented by: Insulin Human Lispro (Humalog Kwikpen (Bkc)) 0 unit SC Q6 [facility]; Protocol Last Admin: 06/17/20 05:59 Dose: Not Given Documented by: Metoprolol Tartrate (Lopressor (Beta Kirit)) 25 mg PO BID [facility] Last Admin: 06/16/20 20:36 Dose: 25 mg Documented by: Nitroglycerin (Nitrostat) 0.4 mg SUBLINGUAL Q5M PRN PRN Reason: CARDIAC/CHEST PAIN Ondansetron HCl (Zofran) 4 mg IV Q8H PRN PRN PRN Reason: NAUSEA/VOMITING Last Admin: 06/10/20 23:05 Dose: 4 mg Documented by: Pramipexole Dihydrochloride (Mirapex) 0.25 mg PO QHS [facility] Last Admin: 06/16/20 20:36 Dose: 0.25 mg Documented by: Pravastatin Sodium (Pravachol) 40 mg GT QHS [facility] Last Admin: 06/16/20 20:37 Dose: 40 mg Documented by: Senna/Docusate Sodium (Senokot-S, Marichuy-Colace) 2 tablet GT BID [facility] Last Admin: 06/16/20 20:37 Dose: 2 tablet Documented by: Sodium Chloride () 10 - 40 ml IV UD PRN PRN Reason: SALINE FLUSH Last Admin: 06/17/20 00:33 Dose: 10 ml Documented by: Venlafaxine HCl (Effexor) 37.5 mg NG BID [facility] Last Admin: 06/16/20 20:36 Dose: 37.5 mg Documented by: Medical Necessity - Tobacco Use Smoking Status: Former smoker Route of nutrition/ use of supplements: [] Nutritional Intake: [] IV Site: [] Barnhart Catheter: [] - Assessment/Plan Antibiotics: [] Assessment/Plan: [] Active and Suspected Problems (Last Reviewed 09/28/19 @ 11:[address] Chi Bernard MD) Atrial fibrillation with rapid ventricular response (Acute) COVID-19 (Acute) Dyspnea (Acute) Abnormal cardiac enzyme level (Acute) covid with hypoxic resp failure - fever to 103.4 on admit D-dimer 4, elevated CK, CRP, LDH, ferritin, trop, and lactate. PCT was 0.15. Cont dex, lovenox, completed remdesivir. Given convalescent plasma 06/12. 06/16 started vanc/cefepime due to new fever, worsened hypoxia. Sputum with purulence and GPC seen on gram stain. Repeat labs with normal PCT. Fever better. Will follow. D/w nursing.
[2020-06-17 11:54] LABS: Pathologist Review Reviewed
[2020-06-17] MEDS: Acetaminophen 650 MG/20 ML UDC 500 MG GT ×2 (12:00→22:14)
[2020-06-17] MEDS: dexAMETHasone 10 MG/ML Vial 6 MG IV (12:01)
[2020-06-17] MEDS: Finasteride 5 MG Tablet PO (12:01)
[2020-06-17] MEDS: busPIRone 15 MG TABLET 30 MG GT ×2 (12:01→22:15)
[2020-06-17] MEDS: Venlafaxine HCl 75 MG Tablet 37.5 MG NG ×2 (12:01→22:15)
[2020-06-17] MEDS: Metoprolol Tartrate 25 MG Tablet PO (12:01)
[2020-06-17] MEDS: Bisacodyl 10 MG Suppository RECTAL (12:01)
[2020-06-17] MEDS: Enoxaparin 150 MG/ML Syringe 130 MG SC ×2 (12:03→22:15)
[2020-06-17] MEDS: Senna/Docusate Sodium 1 Tablet 2 TABLET GT ×2 (12:19→22:14)
[2020-06-17] MEDS: Chlorhexidine 15 ML PO ×2 (12:19→22:14)
[2020-06-17 12:55] LABS: Bedside Glucose 76 mg/dL (70-110)
[2020-06-17] MEDS: Dextrose 50%-Water 25 GM/50 ML DISP.SYRIN IV (13:25)
[2020-06-17 15:55] LABS: Blood Gas Specimen Type ART; Mode BILEVEL; O2 Delivery Device Vent; SITE R RADIAL
[2020-06-17 15:56] LABS: FI02 80; RR 12; T HIGH 4.5
[2020-06-17 15:57] LABS: Bicarbonate 28.6 mmol/L (22-26); PO2 75 mmHG (75-100); T LOW 0.5; Time Given 1520; pCO2 51.1 mmHg (35-45); pH 7.36 (7.35-7.45)
[2020-06-17 15:58] LABS: Base Excess 3 mmol/L (-2 to +2); SO2 94 % (95-99); Total Carbon Dioxide 30 mmol/L
[2020-06-17 16:21] LABS: Bedside Glucose 107 mg/dL (70-110)
[2020-06-17 19:06] LABS: Bedside Glucose 98 mg/dL (70-110)
[2020-06-17 21:39] LABS: Vancomycin, Trough Level 13.8 ug/mL (5.0-15.0)
[2020-06-17] MEDS: Pramipexole Di-HCl 0.25 MG Tablet PO (22:15)
[2020-06-17] MEDS: Pravastatin 40 MG Tablet GT (22:15)
--- NOTE | 2020-06-17 23:58 | PCM.RX.CS ---
Consult Pharmacy has been consulted to manage selected antiobiotic: Vancomycin Type of Consult: Follow-up Suspected Infection: Pneumonia Labs: Sodium 144 mmol/L (136-145) 06/17/20 04:25 Potassium 4.2 mmol/L (3.5-5.1) 06/17/20 04:25 Chloride 109 mmol/L (98-107) H 06/17/20 04:25 Carbon Dioxide 32.0 mmol/L (21.0-32.0) 06/17/20 04:25 Anion Gap 3 (5-15) L 06/17/20 04:25 BUN 13 mg/dL (7-18) 06/17/20 04:25 Creatinine 0.73 mg/dL (0.70-1.30) 06/17/20 04:25 Est GFR (MDRD) Af Amer 137 mL/min (>60) 06/17/20 04:25 Est GFR (MDRD) Non-Af 113 mL/min (>60) 06/17/20 04:25 BUN/Creatinine Ratio 17.7 RATIO (10-20) 06/17/20 04:25 Glucose 118 mg/dL (74-106) H 06/17/20 04:25 Vancomycin Trough 13.8 ug/mL (5.0-15.0) 06/17/20 21:00 Microbiology: Microbiology 06/16/20 07:00 Sputum, Tracheal Aspirate Gram Stain - Final 06/16/20 07:00 Sputum, Tracheal Aspirate Respiratory Culture - Preliminary Appears to be normal respiratory mark anthony. Further studies to follow. 06/10/20 16:40 Blood Culture (Wb) - Anticubital Right Blood Culture - Final No growth in 5 days. 06/10/20 16:00 Blood Culture (Wb) - Anticubital Left Blood Culture - Final No growth in 5 days. 06/10/20 19:00 Urine, Clean Catch Urine Culture - Final Mixed Gram Positive Organisms 06/10/20 20:20 Urine, Clean Catch Legionella Antigen - Final 06/10/20 20:20 Urine, Clean Catch Streptococcus pneumoniae Antigen (M - Final Goal Trough: 15-20 mcg/mL Pharmacy Plan for Drug Dosing: Pharmacy Service will continue to monitor and adjust dosing as required. TROUGH 13.8 AND SCr DECREASED TO 0.73 INCREASE TO 1750 Q8H Follow-Up Labs: Trough Vancomycin Labs to be done on [date and time ordered]: 06/18 @ 2913
[2020-06-18] VITALS (39 sets, daily range): BP systolic 91–154; BP diastolic 58–100; PULSE 53–123; RESP 12–33; TEMP 36.8–39.7; O2SAT 80–98
[2020-06-18] MEDS: Propofol 10MG/Ml 1,000 MG/100 ML Bottle 26.9 MG CONT INF (00:38)
[2020-06-18] MEDS: fentaNYL drip 100 ML 15 MCG CONT INF (02:38)
[2020-06-18] MEDS: TITRATION PARAMETER CHANGE 1 EACH IV (02:54)
[2020-06-18 03:11] LABS: Bedside Glucose 129 mg/dL (70-110)
[2020-06-18] MEDS: Propofol 10MG/Ml 1,000 MG/100 ML Bottle 23.8 MG CONT INF ×2 (04:24→09:15)
[2020-06-18 04:28] LABS: Hematocrit 37.7 % (40-54); Hemoglobin 12.2 g/dL (13.0-16.5); Mean Corp Hgb Conc 32.4 g/dL (32-36); Mean Corpuscular Hgb 31.4 pg (27.0-32.0); Mean Corpuscular Volume 96.9 fL (80-94); Mean Platelet Vol. 9.8 fl (6.2-12.0); POSITIVE COUNT YES; POSITIVE DIFFERENTIAL YES; POSITIVE MORPHOLOGY YES; Platelet Count 249 K/mm3 (150-450); RBC Distribution Width CV 14.1 % (11.6-14.6); RBC Distribution Width SD 49.3 fl (35.1-43.9); Red Blood Count 3.89 M/mm3 (4.6-6.2); White Blood Count 8.7 K/mm3 (4.4-11.0)
[2020-06-18 04:35] LABS: Differential Indicated MANUAL DIFF
[2020-06-18 04:38] LABS: ALB/GLOB Ratio 0.4 RATIO (0.9-2.4); AST(SGOT) 37 U/L (15-37); Alanine Aminotransfer ALT/SGPT 33 U/L (16-61); Albumin, Serum 1.6 g/dL (3.2-5.0); Alkaline Phosphatase 52 U/L (45-117); Anion Gap 3 (5-15); BUN 14 mg/dL (7-18); BUN/Creat Ratio 21.3 RATIO (10-20); Calcium,Total 7.3 mg/dL (8.5-10.1); Chloride 111 mmol/L (98-107); Creatinine, Serum 0.66 mg/dL (0.70-1.30); EST Glomerular Filtration Rate 129 mL/min (>60); Est Glom Filt Rate - Afr Amer 156 mL/min (>60); Estimated Creatinine Clearance 76.35 ml/min; Globulin 4.5 g/dL (2.2-4.2); Glucose 100 mg/dL (74-106); Potassium 3.9 mmol/L (3.5-5.1); Protein, Total 6.1 g/dL (6.4-8.2); Sodium Level 144 mmol/L (136-145)
[2020-06-18 05:53] LABS: Metamyelocyte 4 % (0-1); Monocyte 1 % (0-10); Myelocyte 3 (0-0); Neutrophil-Band 8 % (0-5); Promyelocyte 2 (0-0); Total Cells Counted 100 (MANUAL DIFF)
[2020-06-18 05:54] LABS: Lymphocyte 4 % (19-41); Neutrophil-Segmented 78 % (47-70)
[2020-06-18 05:58] LABS: Smudge Cells 2+
[2020-06-18 06:00] LABS: Absolute Neutrophil Count 7.5 X10^3/uL (2.0-7.7); Neutrophil # 7.52 X10^3/uL (2.7-7.7)
[2020-06-18 06:01] LABS: Absolute Lymphocyte Count 0.34 X10^3/uL (0.83-4.51); Lymphocyte # 0.34 X10^3/ul (4.0); Platelet Estimate ADEQUATE (ADEQ); Red Cell Morphology NORM C+C NORMAL (NORM C&C)
[2020-06-18] MEDS: Propofol 10MG/Ml 1,000 MG/100 ML Bottle 19.9 MG CONT INF ×4 (06:01→19:18)
--- NOTE | 2020-06-18 06:19 | RAD_ITS ---
STUDY: X-RAY CHEST REASON FOR EXAM: Male, 69 years old. decreasing sats TECHNIQUE: Single AP portable view of the chest. COMPARISON: 06/15/2020. FINDINGS: Endotracheal tube tip is 6.5 cm above the jerri. Nasogastric tube extends at least as far as the body of the stomach. Left side PICC line catheter tip overlies the distal superior vena cava. There is no demonstrated pneumothorax. There are bilateral pulmonary infiltrates, which appear slightly worsened from previous study. There is no demonstrated pleural abnormality. Normal size heart. Normal mediastinum and marci. Normal visualized pulmonary arteries. Normal visualized aortic arch and descending thoracic aorta. There are diffuse degenerative changes of the visualized thoracic spine. Normal visualized ribs, clavicles, and shoulders. There is no demonstrated abnormality of the visualized soft tissue structures of the upper abdomen. RAD/Chest 1 View (Portable) IMPRESSION: Tubes are in adequate position. Bilateral pulmonary infiltrates, with slight interval worsening. Electronically Signed: Carlos Kenyon MD at 7:59 EDT , Service support ,
--- NOTE | 2020-06-18 06:30 | NURSING ---
Pt. starting to get agitated and desating into 70's. Dr. Holley at bedside. Vent changes made. Sedation increased.
[2020-06-18] MEDS: Furosemide 40 MG/4 ML Vial IV (06:35)
[2020-06-18] MEDS: 0.9% Saline Lock 10 ML Syringe IV ×2 (06:41→08:38)
--- NOTE | 2020-06-18 07:05 | PN_ITS ---
Subjective: Patient did okay for most of the evening. However, attempted to decrease fentanyl this morning and had subsequent hypoxia. Patient is still not had a bowel movement. Objective: Patient was placed up to 100% and a P high of 22. Patient failed to recover and is now currently on P high of 26 with 100%. Patient was significantly hypertensive at that time with blood pressures in the 170s systolically and tachycardic. Patient was given 40 mg of IV Lasix. Chest x-ray was obtained showing bilateral infiltrates. There was some laxity in the endotracheal balloon, so air was added. Sedation was also increased. Saturations are currently in the 90s. General: - - Intubated and sedated. For vent synchrony. Somewhat agitated during desaturation, but no cyanosis appreciated. HEENT: Atraumatic, PERRLA, EOMI, Normocephalic, - - Right scleral injection without icterus Oral: Moist Mucosa, No Gingival or Mucosal Lesions/ Ulcerations Neck: Supple, No Nodes, Trachea Midline, JVD, Right Lungs: No wheeze, No rales, Diminished, Rhonchi - Bilateral, - - Symmetric expansion Cardiovascular: Normal S1, Normal S2, No murmurs, No rub noted, No Gallop, Tachycardic Abdomen: Soft, Non Tender, Hypoactive Bowel Sounds, Distended - Slightly, Obese Extremities: No clubbing, No cyanosis, Edema Skin: No rashes, No breakdown Musculoskeletal: No Tenderness to Palpation of Joints or Extremities Lymphatic: No Cervical, Supraclavicular, or Inguinal Adenopathy Neurological: Cranial nerves II-XII grossly intact, Neuro grossly intact Psych/Mental Status: Impulsive, Restless Vital Signs Temp Pulse Resp BP Pulse Ox 38.1 C H 87 17 131/79 H 80 06/18/20 06:00 06/18/20 06:00 06/18/20 06:00 06/18/20 06:00 06/18/20 06:00 Oxygen Flow Rate (L/min) 60 Oxygen Delivery Method Mechanical Ventilator Weight: 132.4 kg Body Mass Index (BMI) 39.3 Intake and Output for Last 24 Hours 06/16/20 06/17/20 06/18/20 23:59 23:59 23:59 Intake Total 2076.63 / 2125.23 3186.67 / 3226.68 979.98 / 979.98 Output Total 1700 / 1940 1870 / 1870 525 / 525 Balance 376.63 / 185.23 1316.67 / 1356.68 454.98 / 454.98 Labs (Last 48 Hours) 06/15/20 06/16/20 06/16/20 04:10 04:30 06:49 WBC RBC Hgb Hct MCV MCH MCHC RDW Std Deviation RDW Coeff of Ayde Plt Count MPV Neut % (Auto) Absolute Neuts (auto) Absolute Lymphs (auto) Total Counted Neutrophils % (Manual) Band Neutrophils % Lymphocytes % (Manual) Monocytes % (Manual) Eosinophils % (Manual) Basophils % (Manual) Metamyelocytes % Myelocytes % Promyelocytes % Differential Comment Diff Path Review Reviewed Reviewed Smudge Cells Platelet Estimate RBC Morphology Hypochromasia Specimen Type Sample Site pH Bicarbonate Actual Total CO2 Base Excess O2 Saturation O2 % ABG pCO2 ABG pO2 Emerson Test Respiration Rate O2 Delivery Device Minute Volume Vent Mode Pressure High Pressure Low Time High Time Low Blood Gas Notified Whom Blood Gas Notified Time Sodium Potassium Chloride Carbon Dioxide Anion Gap BUN Creatinine Estim Creat Clear Calc Est GFR (MDRD) Af Amer Est GFR (MDRD) Non-Af BUN/Creatinine Ratio Glucose Hemoglobin A1c Calcium Ferritin Total Bilirubin AST ALT Alkaline Phosphatase Troponin I C-React Prot Ext Range B-Natriuretic Peptide Total Protein Albumin Globulin Albumin/Globulin Ratio Procalcitonin Vancomycin Trough POC Glucose 165 H 06/16/20 06/16/20 06/16/20 07:00 11:07 15:15 WBC RBC Hgb Hct MCV MCH MCHC RDW Std Deviation RDW Coeff of Ayde Plt Count MPV Neut % (Auto) Absolute Neuts (auto) Absolute Lymphs (auto) Total Counted Neutrophils % (Manual) Band Neutrophils % Lymphocytes % (Manual) Monocytes % (Manual) Eosinophils % (Manual) Basophils % (Manual) Metamyelocytes % Myelocytes % Promyelocytes % Differential Comment Diff Path Review Smudge Cells Platelet Estimate RBC Morphology Hypochromasia Specimen Type Sample Site pH Bicarbonate Actual Total CO2 Base Excess O2 Saturation O2 % ABG pCO2 ABG pO2 Emerson Test Respiration Rate O2 Delivery Device Minute Volume Vent Mode Pressure High Pressure Low Time High Time Low Blood Gas Notified Whom Blood Gas Notified Time Sodium Potassium Chloride Carbon Dioxide Anion Gap BUN Creatinine Estim Creat Clear Calc Est GFR (MDRD) Af Amer Est GFR (MDRD) Non-Af BUN/Creatinine Ratio Glucose Hemoglobin A1c 5.8 H Calcium Ferritin 1546 H Total Bilirubin AST ALT Alkaline Phosphatase Troponin I < 0.015 C-React Prot Ext Range 116.00 H B-Natriuretic Peptide Total Protein Albumin Globulin Albumin/Globulin Ratio Procalcitonin Vancomycin Trough POC Glucose 108 06/16/20 06/16/20 06/16/20 15:15 15:15 17:25 WBC RBC Hgb Hct MCV MCH MCHC RDW Std Deviation RDW Coeff of Ayde Plt Count MPV Neut % (Auto) Absolute Neuts (auto) Absolute Lymphs (auto) Total Counted Neutrophils % (Manual) Band Neutrophils % Lymphocytes % (Manual) Monocytes % (Manual) Eosinophils % (Manual) Basophils % (Manual) Metamyelocytes % Myelocytes % Promyelocytes % Differential Comment Diff Path Review Smudge Cells Platelet Estimate RBC Morphology Hypochromasia Specimen Type Sample Site pH Bicarbonate Actual Total CO2 Base Excess O2 Saturation O2 % ABG pCO2 ABG pO2 Emerson Test Respiration Rate O2 Delivery Device Minute Volume Vent Mode Pressure High Pressure Low Time High Time Low Blood Gas Notified Whom Blood Gas Notified Time Sodium Potassium Chloride Carbon Dioxide Anion Gap BUN Creatinine Estim Creat Clear Calc Est GFR (MDRD) Af Amer Est GFR (MDRD) Non-Af BUN/Creatinine Ratio Glucose Hemoglobin A1c Calcium Ferritin Total Bilirubin AST ALT Alkaline Phosphatase Troponin I C-React Prot Ext Range B-Natriuretic Peptide 103.4 H Total Protein Albumin Globulin Albumin/Globulin Ratio Procalcitonin 0.08 Vancomycin Trough POC Glucose 187 H 06/17/20 06/17/20 06/17/20 00:20 04:25 04:25 WBC 9.3 RBC 4.02 L Hgb 12.4 L Hct 38.9 L MCV 96.8 H MCH 30.8 MCHC 31.9 L RDW Std Deviation 49.5 H RDW Coeff of Ayde 14.2 Plt Count 240 MPV 10.2 Neut % (Auto) Not Reportable Absolute Neuts (auto) 8.8 H Absolute Lymphs (auto) 1.95 Total Counted 100 Neutrophils % (Manual) 62 Band Neutrophils % 3 Lymphocytes % (Manual) 21 Monocytes % (Manual) 1 Eosinophils % (Manual) 1 Basophils % (Manual) 1 Metamyelocytes % 7 H Myelocytes % 3 H Promyelocytes % 1 H Differential Comment Diff Path Review Reviewed Smudge Cells Platelet Estimate ADEQUATE RBC Morphology NORM C+C Hypochromasia TF Specimen Type Sample Site pH Bicarbonate Actual Total CO2 Base Excess O2 Saturation O2 % ABG pCO2 ABG pO2 Emerson Test Respiration Rate O2 Delivery Device Minute Volume Vent Mode Pressure High Pressure Low Time High Time Low Blood Gas Notified Whom Blood Gas Notified Time Sodium 144 Potassium 4.2 Chloride 109 H Carbon Dioxide 32.0 Anion Gap 3 L BUN 13 Creatinine 0.73 Estim Creat Clear Calc 76.35 Est GFR (MDRD) Af Amer 137 Est GFR (MDRD) Non-Af 113 BUN/Creatinine Ratio 17.7 Glucose 118 H Hemoglobin A1c Calcium 7.5 L Ferritin Total Bilirubin AST ALT Alkaline Phosphatase Troponin I C-React Prot Ext Range B-Natriuretic Peptide Total Protein Albumin Globulin Albumin/Globulin Ratio Procalcitonin Vancomycin Trough POC Glucose 145 H 06/17/20 06/17/20 06/17/20 11:59 14:10 15:20 WBC RBC Hgb Hct MCV MCH MCHC RDW Std Deviation RDW Coeff of Ayde Plt Count MPV Neut % (Auto) Absolute Neuts (auto) Absolute Lymphs (auto) Total Counted Neutrophils % (Manual) Band Neutrophils % Lymphocytes % (Manual) Monocytes % (Manual) Eosinophils % (Manual) Basophils % (Manual) Metamyelocytes % Myelocytes % Promyelocytes % Differential Comment Diff Path Review Smudge Cells Platelet Estimate RBC Morphology Hypochromasia Specimen Type ART Sample Site R RADIAL pH 7.36 Bicarbonate Actual 28.6 H Total CO2 30 Base Excess 3 H O2 Saturation 94 L O2 % 80 ABG pCO2 51.1 H ABG pO2 75 Emerson Test NA Respiration Rate 12 O2 Delivery Device Vent Minute Volume 4.80 Vent Mode BILEVEL Pressure High 20.0 Pressure Low 0.0 Time High 4.5 Time Low 0.5 Blood Gas Notified Whom ICU Blood Gas Notified Time 1520 Sodium Potassium Chloride Carbon Dioxide Anion Gap BUN Creatinine Estim Creat Clear Calc Est GFR (MDRD) Af Amer Est GFR (MDRD) Non-Af BUN/Creatinine Ratio Glucose Hemoglobin A1c Calcium Ferritin Total Bilirubin AST ALT Alkaline Phosphatase Troponin I C-React Prot Ext Range B-Natriuretic Peptide Total Protein Albumin Globulin Albumin/Globulin Ratio Procalcitonin Vancomycin Trough POC Glucose 76 107 06/17/20 06/17/20 06/17/20 16:23 19:47 21:00 WBC RBC Hgb Hct MCV MCH MCHC RDW Std Deviation RDW Coeff of Ayde Plt Count MPV Neut % (Auto) Absolute Neuts (auto) Absolute Lymphs (auto) Total Counted Neutrophils % (Manual) Band Neutrophils % Lymphocytes % (Manual) Monocytes % (Manual) Eosinophils % (Manual) Basophils % (Manual) Metamyelocytes % Myelocytes % Promyelocytes % Differential Comment Diff Path Review Smudge Cells Platelet Estimate RBC Morphology Hypochromasia Specimen Type Sample Site pH Bicarbonate Actual Total CO2 Base Excess O2 Saturation O2 % ABG pCO2 ABG pO2 Emerson Test Respiration Rate O2 Delivery Device Minute Volume Vent Mode Pressure High Pressure Low Time High Time Low Blood Gas Notified Whom Blood Gas Notified Time Sodium Potassium Chloride Carbon Dioxide Anion Gap BUN Creatinine Estim Creat Clear Calc Est GFR (MDRD) Af Amer Est GFR (MDRD) Non-Af BUN/Creatinine Ratio Glucose Hemoglobin A1c Calcium Ferritin Total Bilirubin AST ALT Alkaline Phosphatase Troponin I C-React Prot Ext Range B-Natriuretic Peptide Total Protein Albumin Globulin Albumin/Globulin Ratio Procalcitonin Vancomycin Trough Cancelled 13.8 POC Glucose 98 06/17/20 06/18/20 06/18/20 23:51 04:15 04:15 WBC 8.7 RBC 3.89 L Hgb 12.2 L Hct 37.7 L MCV 96.9 H MCH 31.4 MCHC 32.4 RDW Std Deviation 49.3 H RDW Coeff of Ayde 14.1 Plt Count 249 MPV 9.8 Neut % (Auto) Not Reportable Absolute Neuts (auto) 7.5 Absolute Lymphs (auto) 0.34 L Total Counted 100 Neutrophils % (Manual) 78 H Band Neutrophils % 8 H Lymphocytes % (Manual) 4 L Monocytes % (Manual) 1 Eosinophils % (Manual) Basophils % (Manual) Metamyelocytes % 4 H Myelocytes % 3 H Promyelocytes % 2 H Differential Comment COMMENT Diff Path Review May foll Smudge Cells 2+ Platelet Estimate ADEQUATE RBC Morphology NORM C+C Hypochromasia Specimen Type Sample Site pH Bicarbonate Actual Total CO2 Base Excess O2 Saturation O2 % ABG pCO2 ABG pO2 Emerson Test Respiration Rate O2 Delivery Device Minute Volume Vent Mode Pressure High Pressure Low Time High Time Low Blood Gas Notified Whom Blood Gas Notified Time Sodium 144 Potassium 3.9 Chloride 111 H Carbon Dioxide 30.0 Anion Gap 3 L BUN 14 Creatinine 0.66 L Estim Creat Clear Calc 76.35 Est GFR (MDRD) Af Amer 156 Est GFR (MDRD) Non-Af 129 BUN/Creatinine Ratio 21.3 H Glucose 100 Hemoglobin A1c Calcium 7.3 L Ferritin Total Bilirubin 0.60 AST 37 ALT 33 Alkaline Phosphatase 52 Troponin I C-React Prot Ext Range B-Natriuretic Peptide Total Protein 6.1 L Albumin 1.6 L Globulin 4.5 H Albumin/Globulin Ratio 0.4 L Procalcitonin Vancomycin Trough POC Glucose 129 H Microbiology 06/16/20 07:00 Sputum, Tracheal Aspirate Gram Stain - Final 06/16/20 07:00 Sputum, Tracheal Aspirate Respiratory Culture - Preliminary Appears to be normal respiratory mark anthony. Further studies to follow. 06/10/20 16:40 Blood Culture (Wb) - Anticubital Right Blood Culture - Final No growth in 5 days. 06/10/20 16:00 Blood Culture (Wb) - Anticubital Left Blood Culture - Final No growth in 5 days. Medical Necessity - Tobacco Use Smoking Status: Former smoker Assessment/Plan All Active Problems (Last Reviewed 09/28/19 @ 11:[address] 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 Continue therapeutic Lovenox, Decadron 2. Attempt to wean FiO2 as tolerated, possibly go as high as a P high of 28 3. Wean FiO2 and PEEP to maintain oxygen saturations at or above 90%. 4. Hold tube feeds for now. Aggressive bowel regimen. Proceed with enema once more hemodynamically stable. 5. Continue appropriate GI prophylaxis. IMPRESSIONS: 1. Acute hypoxemic respiratory failure secondary to ARDS secondary to COVID- 19 Infection The patient presented to the hospital with worsening shortness of breath and hypoxemia. Coronavirus PCR was positive. CTA chest revealed significant bilateral infiltrates. The patient was placed on noninvasive positive pressure ventilatory support for several days, but failed to improve clinically despite having received convalescent plasma, therapeutic Lovenox therapy, Decadron, and completed a course of Remdesevir. Transition to FEBV yesterday. Patient continues to have periodic desaturations. ABG showed correlation during today's episode. Chest x-ray shows bilateral infiltrates, but some concern for an element of flash pulmonary edema given hypertension, tachycardia and acute decompensation. Patient will be given PRN medications for hypertension and diuretics were given. We will likely attempt an enema once patient is more hemodynamically stable. 2. History of paroxysmal atrial fibrillation Continue current medical management under the discretion of cardiology. The patient is currently in normal sinus rhythm but has been bradycardic. Therefore, his beta-eze and amiodarone were discontinued. 3. Obesity/history of obstructive sleep apnea/hyperlipidemia/anxiety/restless leg syndrome Complicates care, management, recovery and prognosis. The patient will require aggressive physical therapy once stabilized from a respiratory perspective. Addendum 1350: Patient has stabilized through the day on previous APRV settings. Able to wean to 70% FiO2 at this point. Patient did receive mag citrate, but has yet to have a bowel movement. Have not attempted tube feeds at this time. Patient continues to spike higher fevers over 103 ?F, but blood pressures have been well controlled without pressor therapy. No boluses have been required. TIME: 80 minutes of critical care time, independent of procedures, was spent addressing the patient's acute hypoxemic respiratory failure, acute COVID-19 infection, atrial fibrillation with rapid ventricular rate, review of all data and collaboration with the care team. (5:30 AM to 7:15 AM, 11 AM to 1:51 PM) 9xxxx: [id number] Critical care first hour [facility] Codes - Hospitalists' Procedures Procedures: 75506 Critial Care Addl 30 Min
--- NOTE | 2020-06-18 07:07 | PN_ITS ---
Patient Problems: Active and Suspected Problems (Last Reviewed 09/28/19 @ 11:[address] Chi Bernard MD) Atrial fibrillation with rapid ventricular response (Acute) COVID-19 (Acute) Dyspnea (Acute) Abnormal cardiac enzyme level (Acute) Reason for Visit: Follow-up on acute respiratory failure Subjective: Seen and examined. Remains intubated, having fevers. Overnight his oxygen requirements went up 502 100%. Received couple of doses of Lasix with improvement. Diuresed more than 1800mls. FiO2 now down to 90%. Sputum cultures came back positive for Streptococcus pneumoniae. Objective: Physical exam: General: - - Intubated, sedated, on mechanical ventilator, in mild respiratory distress HEENT: Atraumatic, PERRLA, EOMI, Normocephalic Oral: Dry Mucosa Neck: Supple Lungs: Diminished Cardiovascular: Regular rate, Regular Rhythm, Normal S1, Normal S2, No murmurs Abdomen: Bowel Sounds Present, Soft, Non Tender, Non-Distended, No Hepato- splenomegaly Extremities: Edema - Bilateral pedal edema +1 Skin: No rashes, No breakdown Musculoskeletal: No Tenderness to Palpation of Joints or Extremities Lymphatic: No Cervical, Supraclavicular, or Inguinal Adenopathy Neurological: - - Patient is intubated Psych/Mental Status: Normal Affect, Appropriate Vitals/I&O's: Vital Signs Temp Pulse Resp BP Pulse Ox 100.6 F H 87 17 131/79 H 80 06/18/20 06:00 06/18/20 06:00 06/18/20 06:00 06/18/20 06:00 06/18/20 06:00 Oxygen Flow Rate (L/min) 60 Oxygen Delivery Method Mechanical Ventilator Weight: 132.4 kg Body Mass Index (BMI) 39.3 Intake and Output for Last 24 Hours 06/16/20 06/17/20 06/18/20 23:59 23:59 23:59 Intake Total 2076.63 / 2125.23 3186.67 / 3226.68 979.98 / 979.98 Output Total 1700 / 1940 1870 / 1870 525 / 525 Balance 376.63 / 185.23 1316.67 / 1356.68 454.98 / 454.98 Microbiology Past 72 Hours 06/16/20 07:00 Sputum, Tracheal Aspirate Gram Stain - Final 06/16/20 07:00 Sputum, Tracheal Aspirate Respiratory Culture - Preliminary Appears to be normal respiratory mark anthony. Further studies to follow. 06/10/20 16:40 Blood Culture (Wb) - Anticubital Right Blood Culture - Final No growth in 5 days. 06/10/20 16:00 Blood Culture (Wb) - Anticubital Left Blood Culture - Final No growth in 5 days. Laboratory Results 06/17/20 04:25: Diff Path Review Reviewed 06/17/20 11:59: POC Glucose 76 06/17/20 14:10: POC Glucose 107 06/17/20 15:20: Specimen Type ART, Sample Site R RADIAL, pH 7.36, Bicarbonate Actual 28.6 H, Total CO2 30, Base Excess 3 H, O2 Saturation 94 L, O2 % 80, ABG pCO2 51.1 H, ABG pO2 75, Emerson Test NA, Respiration Rate 12, O2 Delivery Device Vent, Minute Volume 4.80, Vent Mode BILEVEL, Pressure High 20.0, Pressure Low 0.0, Time High 4.5, Time Low 0.5, Blood Gas Notified Whom ICU MD, Blood Gas Notified Time 1520 06/17/20 16:23: POC Glucose 98 06/17/20 19:47: Vancomycin Trough Cancelled 06/17/20 21:00: Vancomycin Trough 13.8 06/17/20 23:51: POC Glucose 129 H 06/18/20 04:15: WBC 8.7, RBC 3.89 L, Hgb 12.2 L, Hct 37.7 L, MCV 96.9 H, MCH 31.4, MCHC 32.4, RDW Std Deviation 49.3 H, RDW Coeff of Ayde 14.1, Plt Count 249, MPV 9.8, Neut % (Auto) Not Reportable, Absolute Neuts (auto) 7.5, Absolute Lymphs (auto) 0.34 L, Total Counted 100, Neutrophils % (Manual) 78 H, Band Neutrophils % 8 H, Lymphocytes % (Manual) 4 L, Monocytes % (Manual) 1, Metamyelocytes % 4 H, Myelocytes % 3 H, Promyelocytes % 2 H, Differential Co mment COMMENT, Diff Path Review May foll, Smudge Cells 2+, Platelet Estimate ADEQUATE, RBC Morphology NORM C+C 06/18/20 04:15: Sodium 144, Potassium 3.9, Chloride 111 H, Carbon Dioxide 30.0, Anion Gap 3 L, BUN 14, Creatinine 0.66 L, Estim Creat Clear Calc 76.35, Est GFR (MDRD) Af Amer 156, Est GFR (MDRD) Non-Af 129, BUN/Creatinine Ratio 21.3 H, Glucose 100, Calcium 7.3 L, Total Bilirubin 0.60, AST 37, ALT 33, Alkaline Phosphatase 52, Total Protein 6.1 L, Albumin 1.6 L, Globulin 4.5 H, Albumin/Globulin Ratio 0.4 L Current Medications Acetaminophen (Tylenol) 650 mg RECTAL Q4H PRN PRN PRN Reason: Pain Score 1-10/10,temp >100.7 Last Admin: 06/11/20 05:51 Dose: 650 mg Documented by: Acetaminophen (Tylenol Liquid) 500 mg GT BID [facility] Last Admin: 06/17/20 22:14 Dose: 500 mg Documented by: Albuterol/Ipratropium (Duoneb) 3 ml INHALATION Q4H PRN PRN PRN Reason: SOB &/ WHEEZING Last Admin: 06/16/20 15:44 Dose: 3 ml Documented by: Buspirone HCl (Buspar) 30 mg GT BID [facility] Last Admin: 06/17/20 22:15 Dose: 30 mg Documented by: Chlorhexidine Gluconate () 15 ml PO BID [facility] Last Admin: 06/17/20 22:14 Dose: 15 ml Documented by: Dexamethasone Sodium Phosphate (Decadron) 6 mg IV DAILY [facility] Last Admin: 06/17/20 12:01 Dose: 6 mg Documented by: Dextrose (D50w Syringe) 0 gm IV X1 PRN; Protocol PRN Reason: Hypoglycemia Enoxaparin Sodium (Lovenox) 130 mg SC Q12 [facility] Last Admin: 06/17/20 22:15 Dose: 130 mg Documented by: Finasteride (Proscar) 5 mg PO DAILY [facility] Last Admin: 06/17/20 12:01 Dose: 5 mg Documented by: Glucagon () 1 mg IM .X1 PRN PRN Reason: Hypoglycemia Hydralazine HCl (Apresoline Iv) 10 mg IV Q4H PRN PRN PRN Reason: Sbp Greater Than 160 Sodium Chloride () 250 mls @ 15 mls/hr IV .[id number] PRN PRN Reason: Saline Flush Last Infusion: 06/18/20 06:24 Dose: 0 mls/hr Documented by: Sodium Chloride () 250 mls @ 15 mls/hr IV .[id number] PRN PRN Reason: Additional IVPB Infusion Propofol (Diprivan) 1,000 mg in 100 mls @ 7.944 mls/hr CONT INF .Q12H [facility]; Protocol Last Titration: 06/18/20 06:40 Dose: 35 mcg/kg/min, 27.8 mls/hr Documented by: Fentanyl () 100 mls @ 5 mls/hr CONT INF UD [facility]; Protocol Last Titration: 06/18/20 06:40 Dose: 150 mcg/hr, 15 mls/hr Documented by: Enteral Nutritional Formula (Vital Af 1.2 Lester Liquid) 1,000 mls @ 20 mls/hr GT .Q48H [facility] Last Admin: 06/15/20 15:05 Dose: Not Given Documented by: Pantoprazole Sodium 40 mg/ (Sodium Chloride) 110 mls @ 330 mls/hr IV Q12 [facility] Last Infusion: 06/17/20 21:39 Dose: Infused Documented by: Vancomycin IV Pharmacy to Dose (1 ea/ Sodium Chloride) 500 mls @ 250 mls/hr IV X1 PRN; Protocol PRN Reason: Rx to Dose Cefepime HCl 2 gm/ Sodium (Chloride) 100 mls @ 200 mls/hr IV Q8 [facility] Last Infusion: 06/18/20 06:11 Dose: Infused Documented by: Norepinephrine Bitartrate 8 mg (/ Sodium Chloride) 250 mls @ 9.375 mls/hr CONT INF .[id number] [facility]; Protocol Last Admin: 06/17/20 17:10 Dose: Not Given Documented by: Vancomycin HCl 1,750 mg/ (Sodium Chloride) 535 mls @ 250 mls/hr IV Q8H [facility] Last Admin: 06/18/20 06:24 Dose: 250 mls/hr Documented by: Insulin Human Lispro (Humalog Kwikpen (Bkc)) 0 unit SC Q6 [facility]; Protocol Last Admin: 06/18/20 06:10 Dose: Not Given Documented by: Labetalol HCl (Trandate) 20 mg IV Q4H PRN PRN PRN Reason: Sbp Greater Than 159 Metoprolol Tartrate (Lopressor (Beta Kirit)) 25 mg PO BID [facility] Last Admin: 06/17/20 22:20 Dose: Not Given Documented by: Nitroglycerin (Nitrostat) 0.4 mg SUBLINGUAL Q5M PRN PRN Reason: CARDIAC/CHEST PAIN Ondansetron HCl (Zofran) 4 mg IV Q8H PRN PRN PRN Reason: NAUSEA/VOMITING Last Admin: 06/10/20 23:05 Dose: 4 mg Documented by: Pramipexole Dihydrochloride (Mirapex) 0.25 mg PO QHS [facility] Last Admin: 06/17/20 22:15 Dose: 0.25 mg Documented by: Pravastatin Sodium (Pravachol) 40 mg GT QHS [facility] Last Admin: 06/17/20 22:15 Dose: 40 mg Documented by: Senna/Docusate Sodium (Senokot-S, Marichuy-Colace) 2 tablet GT BID [facility] Last Admin: 06/17/20 22:14 Dose: 2 tablet Documented by: Sodium Chloride () 10 - 40 ml IV UD PRN PRN Reason: SALINE FLUSH Last Admin: 06/18/20 06:41 Dose: 20 ml Documented by: Venlafaxine HCl (Effexor) 37.5 mg NG BID [facility] Last Admin: 06/17/20 22:15 Dose: 37.5 mg Documented by: STROKE Vital Signs/Narrative: Vital Signs Temp Pulse Resp BP Pulse Ox 06/18/20 06:00 100.6 F H 87 17 131/79 H 80 06/18/20 05:10 66 20 H 96 06/18/20 05:00 99.9 F H 65 12 112/73 96 06/18/20 04:00 99.6 F H 61 12 98/66 96 06/18/20 03:24 60 Medical Necessity - Tobacco Use Smoking Status: Former smoker Assessment/Plan All Active Problems (Last Reviewed 09/28/19 @ 11:[address] 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 1. Acute hypoxic respiratory failure secondary to ARDS/acute COVID-19 pneumonia/streptococcal pneumonia remains intubated, Oxygen requirements remains high Repeat chest x-ray showed bilateral interstitial infiltrates/atelectasis. Status post convalescent plasma and remdesivir treatments Sputum cultures growing leukocoria pneumoniae. Started on IV vancomycin and cefepime( day 3). Also on IV dexamethasone. Continue on breathing treatments, fentanyl; and propofol drips. Entry Level Buyer following. 2. Acute GI bleed, jacob in NG tube, likely secondary to stress gastritis On IV PPI, will continue same 3. A. fib with RVR, in normal sinus rhythm ,off amiodarone on account of bradycardia, continue on metoprolol 4. Severe sepsis secondary to COVID-19 infection/pneumonia(patient with sepsis and RADHA), improving 5. Acute kidney injury, prerenal secondary dehydration, resolved 6. Hypertension, controlled, blood pressure fluctuating, continue on metoprolol 7. Anxiety/depression/ continue on Effexor, BuSpar, 8. Hyperglycemia related to IV steroid use and tube feeds, HgbA1c 5.8 Continue on low dose insulin sliding scale with Q6 blood glucose checks 9. DVT PPx- on Lovenox twice daily 10. GI prophylaxis -on IV PPI Inpatient E&M: [id number] [facility] Hosp L2
[2020-06-18] MEDS: Acetaminophen 650 MG/20 ML UDC 500 MG GT ×2 (08:35→22:55)
[2020-06-18] MEDS: busPIRone 15 MG TABLET 30 MG GT ×2 (08:36→22:55)
[2020-06-18] MEDS: Metoprolol Tartrate 25 MG Tablet PO ×2 (08:36→22:56)
[2020-06-18] MEDS: Venlafaxine HCl 75 MG Tablet 37.5 MG NG ×2 (08:36→22:55)
[2020-06-18] MEDS: Enoxaparin 150 MG/ML Syringe 130 MG SC ×2 (08:36→22:56)
[2020-06-18] MEDS: dexAMETHasone 10 MG/ML Vial 6 MG IV (08:37)
[2020-06-18] MEDS: Chlorhexidine 15 ML PO ×2 (08:37→22:57)
[2020-06-18] MEDS: Finasteride 5 MG Tablet PO (08:37)
[2020-06-18] MEDS: Senna/Docusate Sodium 1 Tablet 2 TABLET GT ×2 (08:37→22:54)
[2020-06-18 09:45] LABS: Blood Gas Specimen Type ART; SITE L RADIAL
[2020-06-18 09:46] LABS: Base Excess 3 mmol/L (-2 to +2); Bicarbonate 26.2 mmol/L (22-26); FI02 100; Mode BILEVEL; O2 Delivery Device Vent; PO2 32 mmHG (75-100); RR 12; SO2 68 % (95-99); T HIGH 4.5; Total Carbon Dioxide 27 mmol/L; pCO2 34.4 mmHg (35-45); pH 7.49 (7.35-7.45)
[2020-06-18 09:47] LABS: T LOW 0.5
[2020-06-18] MEDS: fentaNYL drip 100 ML 10 MCG CONT INF ×2 (10:00→20:23)
[2020-06-18 11:11] LABS: Bedside Glucose 111 mg/dL (70-110)
[2020-06-18] MEDS: Magnesium Citrate 300 ML GT (11:19)
[2020-06-18 12:36] LABS: Pathologist Review Reviewed
--- NOTE | 2020-06-18 13:26 | NURSING ---
daughter wes updated on patient condition and POC via telephone [phone]
--- NOTE | 2020-06-18 13:51 | NURSING ---
report given to Marshall MCKEON she is assuming care of patient at [id number]
[2020-06-18 16:41] LABS: Bedside Glucose 93 mg/dL (70-110)
[2020-06-18] MEDS: Insulin Lispro 100 UNIT/ML INSULN.PEN SC (16:47)
--- NOTE | 2020-06-18 17:01 | PCM.PN.ID ---
Patient Problems: Active and Suspected Problems (Last Reviewed 09/28/19 @ 11:[address] Chi Bernard MD) Atrial fibrillation with rapid ventricular response (Acute) COVID-19 (Acute) Dyspnea (Acute) Abnormal cardiac enzyme level (Acute) Subjective: O2 improved, still with fever, on vent. - Physical Exam Vitals/I&O's: Vital Signs Temp Pulse Resp BP Pulse Ox 99.7 F H 97 22 H 123/86 H 95 06/18/20 16:00 06/18/20 16:00 06/18/20 16:00 06/18/20 16:00 06/18/20 16:00 Oxygen Flow Rate (L/min) 60 Oxygen Delivery Method Mechanical Ventilator Weight: 132.4 kg Body Mass Index (BMI) 39.3 Intake and Output for Last 24 Hours 06/16/20 06/17/20 06/18/20 23:59 23:59 23:59 Intake Total 2076.63 / 2125.23 3186.67 / 3226.68 2784.19 / 2784.19 Output Total 1700 / 1940 1870 / 1870 2600 / 2600 Balance 376.63 / 185.23 1316.67 / 1356.68 184.19 / 184.19 General: Non-Cooperative Lungs: Diminished Cardiovascular: Tachycardic Abdomen: Soft, Non Tender, Non-Distended Skin: No rashes Microbiology Past 72 Hours 06/16/20 15:30 Blood Culture (Wb) - Anticubital Right Blood Culture - Preliminary No growth in 48 hours. 06/16/20 15:15 Blood Culture (Wb) - Pic Blood Culture - Preliminary No growth in 48 hours. 06/16/20 07:00 Sputum, Tracheal Aspirate Gram Stain - Final 06/16/20 07:00 Sputum, Tracheal Aspirate Respiratory Culture - Preliminary Streptococcus pneumoniae Presumptive C albicans 06/10/20 16:40 Blood Culture (Wb) - Anticubital Right Blood Culture - Final No growth in 5 days. 06/10/20 16:00 Blood Culture (Wb) - Anticubital Left Blood Culture - Final No growth in 5 days. Laboratory Results 06/17/20 16:23: POC Glucose 98 06/17/20 19:47: Vancomycin Trough Cancelled 06/17/20 21:00: Vancomycin Trough 13.8 06/17/20 23:51: POC Glucose 129 H 06/18/20 04:15: WBC 8.7, RBC 3.89 L, Hgb 12.2 L, Hct 37.7 L, MCV 96.9 H, MCH 31.4, MCHC 32.4, RDW Std Deviation 49.3 H, RDW Coeff of Ayde 14.1, Plt Count 249, MPV 9.8, Neut % (Auto) Not Reportable, Absolute Neuts (auto) 7.5, Absolute Lymphs (auto) 0.34 L, Total Counted 100, Neutrophils % (Manual) 78 H, Band Neutrophils % 8 H, Lymphocytes % (Manual) 4 L, Monocytes % (Manual) 1, Metamyelocytes % 4 H, Myelocytes % 3 H, Promyelocytes % 2 H, Differential Comment COMMENT, Diff Path Review Reviewed, Smudge Cells 2+, Platelet Estimate ADEQUATE, RBC Morphology NORM C+C 06/18/20 04:15: Sodium 144, Potassium 3.9, Chloride 111 H, Carbon Dioxide 30.0, Anion Gap 3 L, BUN 14, Creatinine 0.66 L, Estim Creat Clear Calc 76.35, Est GFR (MDRD) Af Amer 156, Est GFR (MDRD) Non-Af 129, BUN/Creatinine Ratio 21.3 H, Glucose 100, Calcium 7.3 L, Total Bilirubin 0.60, AST 37, ALT 33, Alkaline Phosphatase 52, Total Protein 6.1 L, Albumin 1.6 L, Globulin 4.5 H, Albumin/Globulin Ratio 0.4 L 06/18/20 05:39: POC Glucose 93 06/18/20 06:43: Specimen Type ART, Sample Site L RADIAL, pH 7.49 H, Bicarbonate Actual 26.2 H, Total CO2 27, Base Excess 3 H, O2 Saturation 68 L, O2 % 100, ABG pCO2 34.4 L, ABG pO2 32 L*, Respiration Rate 12, O2 Delivery Device Vent, Vent Mode BILEVEL, Pressure High 26.0, Pressure Low 0.0, Time High 4.5, Time Low 0.5, Blood Gas Notified Whom ICU 06/18/20 11:07: POC Glucose 111 H Current Medications Acetaminophen (Tylenol) 650 mg RECTAL Q4H PRN PRN PRN Reason: Pain Score 1-10/10,temp >100.7 Last Admin: 06/11/20 05:51 Dose: 650 mg Documented by: Acetaminophen (Tylenol Liquid) 500 mg GT BID [facility] Last Admin: 06/18/20 08:35 Dose: 500 mg Documented by: Albuterol/Ipratropium (Duoneb) 3 ml INHALATION Q4H PRN PRN PRN Reason: SOB &/ WHEEZING Last Admin: 06/16/20 15:44 Dose: 3 ml Documented by: Buspirone HCl (Buspar) 30 mg GT BID [facility] Last Admin: 06/18/20 08:36 Dose: 30 mg Documented by: Chlorhexidine Gluconate () 15 ml PO BID [facility] Last Admin: 06/18/20 08:37 Dose: 15 ml Documented by: Dexamethasone Sodium Phosphate (Decadron) 6 mg IV DAILY [facility] Last Admin: 06/18/20 08:37 Dose: 6 mg Documented by: Dextrose (D50w Syringe) 0 gm IV X1 PRN; Protocol PRN Reason: Hypoglycemia Enoxaparin Sodium (Lovenox) 130 mg SC Q12 [facility] Last Admin: 06/18/20 08:36 Dose: 130 mg Documented by: Finasteride (Proscar) 5 mg PO DAILY [facility] Last Admin: 06/18/20 08:37 Dose: 5 mg Documented by: Glucagon () 1 mg IM .X1 PRN PRN Reason: Hypoglycemia Hydralazine HCl (Apresoline Iv) 10 mg IV Q4H PRN PRN PRN Reason: Sbp Greater Than 160 Sodium Chloride () 250 mls @ 15 mls/hr IV .[id number] PRN PRN Reason: Saline Flush Last Infusion: 06/18/20 16:56 Dose: 15 mls/hr Documented by: Sodium Chloride () 250 mls @ 15 mls/hr IV .[id number] PRN PRN Reason: Additional IVPB Infusion Propofol (Diprivan) 1,000 mg in 100 mls @ 7.944 mls/hr CONT INF .Q12H [facility]; Protocol Last Titration: 06/18/20 16:56 Dose: 25 mcg/kg/min, 19.9 mls/hr Documented by: Fentanyl () 100 mls @ 5 mls/hr CONT INF UD [facility]; Protocol Last Titration: 06/18/20 16:56 Dose: 100 mcg/hr, 10 mls/hr Documented by: Enteral Nutritional Formula (Vital Af 1.2 Lester Liquid) 1,000 mls @ 20 mls/hr GT .Q48H [facility] Last Admin: 06/15/20 15:05 Dose: Not Given Documented by: Pantoprazole Sodium 40 mg/ (Sodium Chloride) 110 mls @ 330 mls/hr IV Q12 [facility] Last Infusion: 06/18/20 09:27 Dose: Infused Documented by: Cefepime HCl 2 gm/ Sodium (Chloride) 100 mls @ 200 mls/hr IV Q8 [facility] Last Infusion: 06/18/20 13:43 Dose: Infused Documented by: Insulin Human Lispro (Humalog Kwikpen (Bkc)) 0 unit SC Q6 [facility]; Protocol Last Admin: 06/18/20 16:47 Dose: 1 units Documented by: Labetalol HCl (Trandate) 20 mg IV Q4H PRN PRN PRN Reason: SBP>159 Metoprolol Tartrate (Lopressor (Beta Kirit)) 25 mg PO BID [facility] Last Admin: 06/18/20 08:36 Dose: 25 mg Documented by: Nitroglycerin (Nitrostat) 0.4 mg SUBLINGUAL Q5M PRN PRN Reason: CARDIAC/CHEST PAIN Ondansetron HCl (Zofran) 4 mg IV Q8H PRN PRN PRN Reason: NAUSEA/VOMITING Last Admin: 06/10/20 23:05 Dose: 4 mg Documented by: Pramipexole Dihydrochloride (Mirapex) 0.25 mg PO QHS [facility] Last Admin: 06/17/20 22:15 Dose: 0.25 mg Documented by: Pravastatin Sodium (Pravachol) 40 mg GT QHS [facility] Last Admin: 06/17/20 22:15 Dose: 40 mg Documented by: Senna/Docusate Sodium (Senokot-S, Marichuy-Colace) 2 tablet GT BID [facility] Last Admin: 06/18/20 08:37 Dose: 2 tablet Documented by: Sodium Chloride () 10 - 40 ml IV UD PRN PRN Reason: SALINE FLUSH Last Admin: 06/18/20 08:38 Dose: 40 ml Documented by: Venlafaxine HCl (Effexor) 37.5 mg NG BID [facility] Last Admin: 06/18/20 08:36 Dose: 37.5 mg Documented by: Medical Necessity - Tobacco Use Smoking Status: Former smoker Route of nutrition/ use of supplements: [] Nutritional Intake: [] IV Site: [] Barnhart Catheter: [] - Assessment/Plan Antibiotics: [] Assessment/Plan: [] Active and Suspected Problems (Last Reviewed 09/28/19 @ 11:[address] Chi Bernard MD) Atrial fibrillation with rapid ventricular response (Acute) COVID-19 (Acute) Dyspnea (Acute) Abnormal cardiac enzyme level (Acute) covid with hypoxic resp failure - fever to 103.4 on admit D-dimer 4, elevated CK, CRP, LDH, ferritin, trop, and lactate. PCT was 0.15. Cont dex, lovenox, completed remdesivir. Given convalescent plasma 06/12. 06/16 started vanc/cefepime due to new fever, worsened hypoxia. Sputum with purulence and GPC seen on gram stain; cx with s.pneumo and some yeast. Still some fever, will stop vanc today. Will follow.
[2020-06-18 19:56] LABS: Bedside Glucose 195 mg/dL (70-110)
[2020-06-18] MEDS: Pramipexole Di-HCl 0.25 MG Tablet PO (22:55)
[2020-06-18] MEDS: Pravastatin 40 MG Tablet GT (22:56)
[2020-06-19] VITALS (26 sets, daily range): BP systolic 82–186; BP diastolic 50–125; PULSE 87–123; RESP 14–40; TEMP 38.4–40.4; O2SAT 58–97
[2020-06-19] MEDS: Propofol 10MG/Ml 1,000 MG/100 ML Bottle 15.9 MG CONT INF (00:21)
[2020-06-19 01:30] LABS: Bedside Glucose 139 mg/dL (70-110)
[2020-06-19] MEDS: Labetalol 20 MG/4 ML Vial IV (02:46)
[2020-06-19] MEDS: 0.9% Saline Lock 10 ML Syringe IV ×4 (02:47→10:16)
[2020-06-19 03:03] LABS: Hematocrit 44.7 % (40-54); Mean Corp Hgb Conc 31.3 g/dL (32-36); Mean Corpuscular Hgb 30.5 pg (27.0-32.0); Mean Corpuscular Volume 97.4 fL (80-94); Mean Platelet Vol. 9.6 fl (6.2-12.0); POSITIVE COUNT YES; POSITIVE DIFFERENTIAL YES; POSITIVE MORPHOLOGY YES; Platelet Count 356 K/mm3 (150-450); RBC Distribution Width SD 49.7 fl (35.1-43.9); Red Blood Count 4.59 M/mm3 (4.6-6.2); White Blood Count 11.3 K/mm3 (4.4-11.0)
[2020-06-19 03:06] LABS: Differential Indicated MANUAL DIFF
[2020-06-19] MEDS: hydrALAZINE 20 MG/ML Vial 10 MG IV (03:27)
[2020-06-19 03:31] LABS: Total Cells Counted 100 (MANUAL DIFF)
[2020-06-19 03:38] LABS: Metamyelocyte 3 % (0-1); Promyelocyte 2 (0-0)
[2020-06-19 03:39] LABS: Lymphocyte 3 % (19-41); Neutrophil-Band 9 % (0-5); Neutrophil-Segmented 83 % (47-70)
[2020-06-19 03:41] LABS: Absolute Lymphocyte Count 0.34 X10^3/uL (0.83-4.51); Absolute Neutrophil Count 10.4 X10^3/uL (2.0-7.7); Lymphocyte # 0.34 X10^3/ul (4.0); Neutrophil # 10.41 X10^3/uL (2.7-7.7)
[2020-06-19 03:43] LABS: Platelet Estimate ADEQUATE (ADEQ)
[2020-06-19 03:45] LABS: Red Cell Morphology NORM C+C NORMAL (NORM C&C)
--- NOTE | 2020-06-19 04:03 | CT_ITS ---
STUDY: CT BRAIN WITHOUT CONTRAST REASON FOR EXAM: Male, 69 years old. MENTAL STATUS CHANGES TONIGHT, PT TESTED POSITIVE FOR COVID ON THE AND IS ON VENT CURRENTLY, PT IS ON BLOOD THINNERS RADIATION DOSAGE (If Supplied By Facility): CTDIvol = ( 60.81 ) mGy, DLP = ( 1203.92 ) mGycm TECHNIQUE: Transaxial CT imaging of the brain was performed without administration of intravenous contrast material. Individualized dose optimization techniques were used for this CT. COMPARISON: No relevant priors. FINDINGS: Normal soft tissue structures. Normal calvarium. There is a 9 mm calcific density in the high right frontal lobe, without visualized associated soft tissue mass or edema. Finding probably represents a granuloma related to remote infectious or inflammatory process. There is mild cerebral atrophy with widening of the extra-axial spaces and ventricular dilatation. There are areas of decreased attenuation within the white matter tracts of the supratentorial brain, consistent with microvascular disease changes. Normal basal ganglia and thalami. Normal brainstem. Normal cerebellum. There is atherosclerotic calcification of the cavernous carotid arteries. There is no intracranial hemorrhage. There are no findings of an acute ischemic infarction. Normal visualized paranasal sinuses. The mastoid bones are sclerotic in the mastoid sinuses are hypoplastic, suggesting history of chronic mastoiditis. There is complete opacification of the mastoid sinuses bilaterally and there is also opacification of the middle ears, which may represent overlying acute mastoiditis and otitis media. CT/Brain/Head without Contrast IMPRESSION: Chronic involutional changes of the brain. No demonstrated acute intracranial process. Electronically Signed: Carlos Kenyon MD at 5:46 EDT , Service support ,
[2020-06-19 04:16] LABS: Anion Gap 4 (5-15); BUN 22 mg/dL (7-18); BUN/Creat Ratio 25.8 RATIO (10-20); Calcium,Total 8.4 mg/dL (8.5-10.1); Chloride 108 mmol/L (98-107); Creatinine, Serum 0.85 mg/dL (0.70-1.30); EST Glomerular Filtration Rate 95 mL/min (>60); Est Glom Filt Rate - Afr Amer 115 mL/min (>60); Estimated Creatinine Clearance 89.82 ml/min; Glucose 153 mg/dL (74-106); Magnesium 2.9 mg/dL (1.6-2.6); Phosphorus 2.6 mg/dL (2.5-4.9); Sodium Level 144 mmol/L (136-145)
[2020-06-19 05:31] LABS: Bedside Glucose 175 mg/dL (70-110)
--- NOTE | 2020-06-19 05:41 | NURSING ---
0420-transferred to CT via this Nette MCKEON, MIKE and respiratory therapist, remained on ventilator and followed hospital policy for covid precautions. 0502- back to pt room at this time
--- NOTE | 2020-06-19 05:58 | CT_ITS ---
STUDY: CTA CHEST REASON FOR EXAM: Male, 69 years old. Abdominal and back pain RADIATION DOSAGE (If Supplied By Facility): CTDIvol = ( 13.88 ) mGy, DLP = ( 1289.62 ) mGycm TECHNIQUE: The examination was performed with the intravenous administration of IV 100ML ISOVUE 370. Post-processing of the angiographic images was performed, with multiplanar reformation and 3D reconstruction. Individualized dose optimization techniques were used for this CT. COMPARISON: 06/10/2020 FINDINGS: Stable appearance of the ET tube. Tip is 1 cm above the jerri. NG tube tip in the body the stomach There is limited enhancement of the main pulmonary artery and right and left pulmonary arteries. There is limited enhancement of the bilateral peripheral pulmonary arteries. There is no demonstrated pulmonary embolism. The thoracic aorta is free of aneurysm or dissection. There is an infrarenal abdominal aortic aneurysm with maximum dimensions of approximately 12.1 x 10.4 cm with extensive mural thrombus but no retroperitoneal hemorrhage. The anterior borders are somewhat hazy on axial images 179-187 suggesting there may be inflammation present. The aneurysm extends to the aortic bifurcation but does not involve either common iliac artery. Normal heart and pericardium. There are calcifications of the coronary arteries. There are visualized mediastinal lymph nodes, which are within normal size limits, and with normal morphology. Normal hilar regions. There is peribronchial thickening. The lungs are well expanded. Lung windows show patchy diffuse airspace opacifications throughout both lung vizcaino. No demonstrated effusions, this pattern of infiltrate would be consistent with Covid, but other possibilities include influenza pneumonia, drug interaction/toxicity. Normal pleura. Normal chest wall structures. There are degenerative changes of thoracic spine. Limited cuts through the upper abdomen show previous cholecystectomy and stable hiatal hernia. CT/CTA Chest W/WO Contrast IMPRESSION: No demonstrated PE, or thoracic aortic aneurysm or dissection. However, contrast does within the pulmonary arteries is not optimal. Large infrarenal abdominal aortic aneurysm measuring approximately 12.1 x 10.4 x 13 cm in length. No evidence of dissection or leak, however the anterior borders show some irregularity and induration of the periaortic fat suggesting there may be inflammation present. Diffuse groundglass opacifications throughout both lung vizcaino without effusions. Differential as described above Subcentimeter mesenteric lymphadenopathy Calcified coronary vessels Support lines and tubes in stable position with no CT evidence of complication Electronically Signed: Tristian Cheema MD at 8:30 EDT , Service support ,
--- NOTE | 2020-06-19 06:01 | CT_ITS ---
We are attempting to reach an attending provider to discuss findings. An addendum with communication details will be sent when the communication is complete. STUDY: CTA OF THE ABDOMINAL AORTA AND ABDOMINAL AND PELVIC ARTERIES REASON FOR EXAM: Male, 69 years old. Concern for abdominal aortic aneurysm. Patient is on blood thinners. Altered mental status. On ventilator. Positive for covid-19. RADIATION DOSAGE (If Supplied By Facility): CTDIvol = ( 13.88 ) mGy, DLP = ( 1289.62 ) mGycm TECHNIQUE: Axial CT angiography multi-detector data acquisition was obtained from the lower lung vizcaino to the proximal thighs following intravenous administration of ml of 100ML ISOVUE 370 contrast. Axial images and MIP images were reconstructed from the axial data set. Post-processing of the angiographic images was performed, with multiplanar reformation and 3D reconstruction. Individualized dose optimization techniques were used for this CT. TECHNICAL QUALITY: Good COMPARISON: None. Descriptors of Narrowing: None (0%) Mild (< 50%) Moderate (50-70%) Severe (70-90%) Subtotal/Total Occlusion (90-100%) Non-Evaluable (technically non-diagnostic FINDINGS: Abdominal aorta: There is fusiform aneurysmal dilatation of a 13.5 cm long segment of the infrarenal abdominal aorta, extending to the bifurcation. Maximal AP and transverse diameters of 12 x 10.4 cm. There is mild infiltration of retroperitoneal fat along the anterior and right lateral aspects of the aneurysm, which raises concern for slow leakage. Celiac and superior mesenteric arteries: No demonstrated narrowing. Inferior mesenteric artery: No demonstrated narrowing. Right renal artery(arteries): No demonstrated narrowing. Left renal artery(arteries): No demonstrated narrowing. Right common iliac artery: No demonstrated narrowing. Right external iliac artery: No demonstrated narrowing. Right internal iliac artery: No demonstrated narrowing. Left common iliac artery: No demonstrated narrowing. Left external iliac artery: No demonstrated narrowing. Left internal iliac artery: No demonstrated narrowing. LOWER EXTREMITIES Right common femoral artery: No demonstrated narrowing. Proximal Right profundus femoris: No demonstrated narrowing. Proximal Right superficial femoral: No demonstrated narrowing. Left common femoral artery: No demonstrated narrowing. Proximal Left profundus femoris: No demonstrated narrowing. Proximal Left superficial femoral: No demonstrated narrowing. ABDOMINAL AND PELVIC FINDINGS: Lower lung field findings will be discussed with CTA chest report. Nasogastric tube tip is in the distal body of the stomach. Normal liver. There are surgical clips in the gallbladder fossa consistent with a prior cholecystectomy. Normal spleen. Normal pancreas. Normal bilateral adrenal glands. There are areas of cortical scarring in the right kidney. There is no demonstrated urinary calculus or hydronephrosis. There is a small left renal cyst. Left kidney otherwise appears normal. Normal visualized stomach. Normal small intestine. There are multiple colonic diverticula consistent with diverticulosis. There is non-visualization of the appendix. There is no visible evidence for acute appendicitis. Normal abdominal aorta. Normal inferior vena cava. There is no demonstrated retroperitoneal lymphadenopathy.. There is an indwelling Barnhart catheter with compression of the urinary bladder. Normal abdominal wall. There are multilevel degenerative changes of the visualized lumbar spine. CT/CT ANGIO ABD&PEL W/O&W/DYE IMPRESSION: 12 cm infrarenal abdominal aortic aneurysm. There is mild infiltration of adjacent retroperitoneal fat, which raises concern for slow leak. No evidence for significant stenosis of abdominal or pelvic arteries. Colonic diverticulosis, without evidence for acute diverticulitis. Previous cholecystectomy. Cortical scarring right kidney. Small right lateral renal cysts. No demonstrated urinary calculi or hydronephrosis. Electronically Signed: Carlos Kenyon MD at 7:47 EDT , Service support ,
--- NOTE | 2020-06-19 07:29 | PCM.PN.INT ---
Subjective: Patient's respiratory status had stabilized overnight. However, I was called at approximately 3:30 AM secondary to decreased responsiveness. Patient had remained hemodynamically stable with actually hypertension requiring labetalol and hydralazine. Patient was taken off of sedation with no active movement. Nursing reports that after coming back from CAT scan patient was noted to be mottled in his legs and abdomen. Patient remained hemodynamically stable. On my evaluation, patient had a good carotid upstroke, but a pulsatile mass was noted in the midline on physical exam. Patient was emergently taken down, under my direct escort, for a CAT scan of the chest abdomen pelvis showing a 12 cm AAA with dissection. Family was notified of the findings. Family has requested to visit with the patient and they would like to make the patient DNR Comfort Care only. Hospitalist has been notified of the morning events. Nursing asbestos cement sheet supervisor and sales department manager were also notified and agreed to family visitation with modifications. General: - - Unresponsive off of sedation HEENT: Atraumatic, PERRLA - Sluggish pupils, Normocephalic Oral: Moist Mucosa, No Gingival or Mucosal Lesions/ Ulcerations Neck: Supple, No JVD, No Nodes, Trachea Midline Lungs: No rhonchi, No wheeze, No rales, Diminished Cardiovascular: Normal S1, Normal S2, No murmurs, No rub noted, No Gallop, Tachycardic Abdomen: Hypoactive Bowel Sounds, Distended, Obese, - - Pulsatile mass noted in the midline Extremities: No clubbing, No cyanosis, Edema, - - Barely palpable pedal pulses. Cool extremities. Skin: - - Mottling noted to the naval Musculoskeletal: No Tenderness to Palpation of Joints or Extremities Lymphatic: No Cervical, Supraclavicular, or Inguinal Adenopathy Neurological: - - Unresponsive. Not following commands. Pupils are sluggish, but reactive. No gag or cough noted. Psych/Mental Status: Flat Affect Vital Signs Temp Pulse Resp BP Pulse Ox 39.3 C H 116 H 35 H 157/97 H 90 06/19/20 06:00 06/19/20 06:00 06/19/20 06:00 06/19/20 06:00 06/19/20 06:00 Oxygen Flow Rate (L/min) 60 Oxygen Delivery Method Mechanical Ventilator Weight: 129.2 kg Body Mass Index (BMI) 39.3 Intake and Output for Last 24 Hours 06/17/20 06/18/20 06/19/20 23:59 23:59 23:59 Intake Total 3186.67 / 3226.68 3343.44 / 3357.42 204.28 / 204.28 Output Total 1870 / 1870 3325 / 3375 250 / 250 Balance 1316.67 / 1356.68 18.44 / -17.58 -45.72 / -45.72 Labs (Last 48 Hours) 06/17/20 06/17/20 06/17/20 04:25 11:59 14:10 WBC RBC Hgb Hct MCV MCH MCHC RDW Std Deviation RDW Coeff of Ayde Plt Count MPV Neut % (Auto) Absolute Neuts (auto) Absolute Lymphs (auto) Total Counted Neutrophils % (Manual) Band Neutrophils % Lymphocytes % (Manual) Monocytes % (Manual) Metamyelocytes % Myelocytes % Promyelocytes % Differential Comment Diff Path Review Reviewed Smudge Cells Platelet Estimate RBC Morphology Specimen Type Sample Site pH Bicarbonate Actual Total CO2 Base Excess O2 Saturation O2 % ABG pCO2 ABG pO2 Emerson Test Respiration Rate O2 Delivery Device Minute Volume Vent Mode Pressure High Pressure Low Time High Time Low Blood Gas Notified Whom Blood Gas Notified Time Sodium Potassium Chloride Carbon Dioxide Anion Gap BUN Creatinine Estim Creat Clear Calc Est GFR (MDRD) Af Amer Est GFR (MDRD) Non-Af BUN/Creatinine Ratio Glucose Calcium Phosphorus Magnesium Total Bilirubin AST ALT Alkaline Phosphatase Total Protein Albumin Globulin Albumin/Globulin Ratio Vancomycin Trough POC Glucose 76 107 06/17/20 06/17/20 06/17/20 15:20 16:23 19:47 WBC RBC Hgb Hct MCV MCH MCHC RDW Std Deviation RDW Coeff of Ayde Plt Count MPV Neut % (Auto) Absolute Neuts (auto) Absolute Lymphs (auto) Total Counted Neutrophils % (Manual) Band Neutrophils % Lymphocytes % (Manual) Monocytes % (Manual) Metamyelocytes % Myelocytes % Promyelocytes % Differential Comment Diff Path Review Smudge Cells Platelet Estimate RBC Morphology Specimen Type ART Sample Site R RADIAL pH 7.36 Bicarbonate Actual 28.6 H Total CO2 30 Base Excess 3 H O2 Saturation 94 L O2 % 80 ABG pCO2 51.1 H ABG pO2 75 Emerson Test NA Respiration Rate 12 O2 Delivery Device Vent Minute Volume 4.80 Vent Mode BILEVEL Pressure High 20.0 Pressure Low 0.0 Time High 4.5 Time Low 0.5 Blood Gas Notified Whom ICU MD Blood Gas Notified Time 1520 Sodium Potassium Chloride Carbon Dioxide Anion Gap BUN Creatinine Estim Creat Clear Calc Est GFR (MDRD) Af Amer Est GFR (MDRD) Non-Af BUN/Creatinine Ratio Glucose Calcium Phosphorus Magnesium Total Bilirubin AST ALT Alkaline Phosphatase Total Protein Albumin Globulin Albumin/Globulin Ratio Vancomycin Trough Cancelled POC Glucose 98 06/17/20 06/17/20 06/18/20 21:00 23:51 04:15 WBC 8.7 RBC 3.89 L Hgb 12.2 L Hct 37.7 L MCV 96.9 H MCH 31.4 MCHC 32.4 RDW Std Deviation 49.3 H RDW Coeff of Ayde 14.1 Plt Count 249 MPV 9.8 Neut % (Auto) Not Reportable Absolute Neuts (auto) 7.5 Absolute Lymphs (auto) 0.34 L Total Counted 100 Neutrophils % (Manual) 78 H Band Neutrophils % 8 H Lymphocytes % (Manual) 4 L Monocytes % (Manual) 1 Metamyelocytes % 4 H Myelocytes % 3 H Promyelocytes % 2 H Differential Comment COMMENT Diff Path Review Reviewed Smudge Cells 2+ Platelet Estimate ADEQUATE RBC Morphology NORM C+C Specimen Type Sample Site pH Bicarbonate Actual Total CO2 Base Excess O2 Saturation O2 % ABG pCO2 ABG pO2 Emerson Test Respiration Rate O2 Delivery Device Minute Volume Vent Mode Pressure High Pressure Low Time High Time Low Blood Gas Notified Whom Blood Gas Notified Time Sodium Potassium Chloride Carbon Dioxide Anion Gap BUN Creatinine Estim Creat Clear Calc Est GFR (MDRD) Af Amer Est GFR (MDRD) Non-Af BUN/Creatinine Ratio Glucose Calcium Phosphorus Magnesium Total Bilirubin AST ALT Alkaline Phosphatase Total Protein Albumin Globulin Albumin/Globulin Ratio Vancomycin Trough 13.8 POC Glucose 129 H 06/18/20 06/18/20 06/18/20 04:15 05:39 06:43 WBC RBC Hgb Hct MCV MCH MCHC RDW Std Deviation RDW Coeff of Ayde Plt Count MPV Neut % (Auto) Absolute Neuts (auto) Absolute Lymphs (auto) Total Counted Neutrophils % (Manual) Band Neutrophils % Lymphocytes % (Manual) Monocytes % (Manual) Metamyelocytes % Myelocytes % Promyelocytes % Differential Comment Diff Path Review Smudge Cells Platelet Estimate RBC Morphology Specimen Type ART Sample Site L RADIAL pH 7.49 H Bicarbonate Actual 26.2 H Total CO2 27 Base Excess 3 H O2 Saturation 68 L O2 % 100 ABG pCO2 34.4 L ABG pO2 32 L* Emerson Test Respiration Rate 12 O2 Delivery Device Vent Minute Volume Vent Mode BILEVEL Pressure High 26.0 Pressure Low 0.0 Time High 4.5 Time Low 0.5 Blood Gas Notified Whom ICU MD Blood Gas Notified Time Sodium 144 Potassium 3.9 Chloride 111 H Carbon Dioxide 30.0 Anion Gap 3 L BUN 14 Creatinine 0.66 L Estim Creat Clear Calc 76.35 Est GFR (MDRD) Af Amer 156 Est GFR (MDRD) Non-Af 129 BUN/Creatinine Ratio 21.3 H Glucose 100 Calcium 7.3 L Phosphorus Magnesium Total Bilirubin 0.60 AST 37 ALT 33 Alkaline Phosphatase 52 Total Protein 6.1 L Albumin 1.6 L Globulin 4.5 H Albumin/Globulin Ratio 0.4 L Vancomycin Trough POC Glucose 93 06/18/20 06/18/20 06/18/20 11:07 16:40 22:54 WBC RBC Hgb Hct MCV MCH MCHC RDW Std Deviation RDW Coeff of Ayde Plt Count MPV Neut % (Auto) Absolute Neuts (auto) Absolute Lymphs (auto) Total Counted Neutrophils % (Manual) Band Neutrophils % Lymphocytes % (Manual) Monocytes % (Manual) Metamyelocytes % Myelocytes % Promyelocytes % Differential Comment Diff Path Review Smudge Cells Platelet Estimate RBC Morphology Specimen Type Sample Site pH Bicarbonate Actual Total CO2 Base Excess O2 Saturation O2 % ABG pCO2 ABG pO2 Emerson Test Respiration Rate O2 Delivery Device Minute Volume Vent Mode Pressure High Pressure Low Time High Time Low Blood Gas Notified Whom Blood Gas Notified Time Sodium Potassium Chloride Carbon Dioxide Anion Gap BUN Creatinine Estim Creat Clear Calc Est GFR (MDRD) Af Amer Est GFR (MDRD) Non-Af BUN/Creatinine Ratio Glucose Calcium Phosphorus Magnesium Total Bilirubin AST ALT Alkaline Phosphatase Total Protein Albumin Globulin Albumin/Globulin Ratio Vancomycin Trough POC Glucose 111 H 195 H 139 H 06/19/20 06/19/20 06/19/20 02:55 02:55 05:02 WBC 11.3 H RBC 4.59 L Hgb 14.0 Hct 44.7 MCV 97.4 H MCH 30.5 MCHC 31.3 L RDW Std Deviation 49.7 H RDW Coeff of Ayde 14.0 Plt Count 356 MPV 9.6 Neut % (Auto) Not Reportable Absolute Neuts (auto) 10.4 H Absolute Lymphs (auto) 0.34 L Total Counted 100 Neutrophils % (Manual) 83 H Band Neutrophils % 9 H Lymphocytes % (Manual) 3 L Monocytes % (Manual) Metamyelocytes % 3 H Myelocytes % Promyelocytes % 2 H Differential Comment COMMENT Diff Path Review May foll Smudge Cells Platelet Estimate ADEQUATE RBC Morphology NORM C+C Specimen Type Sample Site pH Bicarbonate Actual Total CO2 Base Excess O2 Saturation O2 % ABG pCO2 ABG pO2 Emerson Test Respiration Rate O2 Delivery Device Minute Volume Vent Mode Pressure High Pressure Low Time High Time Low Blood Gas Notified Whom Blood Gas Notified Time Sodium 144 Potassium 4.0 Chloride 108 H Carbon Dioxide 32.0 Anion Gap 4 L BUN 22 H Creatinine 0.85 Estim Creat Clear Calc 89.82 Est GFR (MDRD) Af Amer 115 Est GFR (MDRD) Non-Af 95 BUN/Creatinine Ratio 25.8 H Glucose 153 H Calcium 8.4 L Phosphorus 2.6 Magnesium 2.9 H Total Bilirubin AST ALT Alkaline Phosphatase Total Protein Albumin Globulin Albumin/Globulin Ratio Vancomycin Trough POC Glucose 175 H Microbiology 06/16/20 15:30 Blood Culture (Wb) - Anticubital Right Blood Culture - Preliminary No growth in 48 hours. 06/16/20 15:15 Blood Culture (Wb) - Pic Blood Culture - Preliminary No growth in 48 hours. 06/16/20 07:00 Sputum, Tracheal Aspirate Gram Stain - Final 06/16/20 07:00 Sputum, Tracheal Aspirate Respiratory Culture - Preliminary Streptococcus pneumoniae Presumptive C albicans Clinical Impression(s) from Imaging Studies Chest X-Ray 06/18/20 06:19 IMPRESSION: Tubes are in adequate position. Bilateral pulmonary infiltrates, with slight interval worsening. Electronically Signed: Carlos Kenyon MD at 7:59 EDT , Service support , Brain CT 06/19/20 04:03 IMPRESSION: Chronic involutional changes of the brain. No demonstrated acute intracranial process. Electronically Signed: Carlos Kenyon MD at 5:46 EDT , Service support , Medical Necessity - Tobacco Use Smoking Status: Former smoker Assessment/Plan All Active Problems (Last Reviewed 09/28/19 @ 11:[address] 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 Discontinue Lovenox and Decadron 2. Anticipate palliative extubation later this morning 3. Wean FiO2 and PEEP to maintain oxygen saturations at or above 90%. 4. Changed to a DNR Comfort Care arrest until family has been able to see. 5. Continue appropriate GI prophylaxis. IMPRESSIONS: 1. Acute hypoxemic respiratory failure secondary to ARDS secondary to COVID-19 Infection The patient presented to the hospital with worsening shortness of breath and hypoxemia. Coronavirus PCR was positive. CTA chest revealed significant bilateral infiltrates. The patient was placed on noninvasive positive pressure ventilatory support for several days, but failed to improve clinically despite having received convalescent plasma, therapeutic Lovenox therapy, Decadron, and completed a course of Remdesevir. Patient's respiratory status has relatively stabilized on APRV with a P high of 26 and 60% FiO2. Unfortunately, transporting on the settings will be very difficult. 2. History of paroxysmal atrial fibrillation Continue current medical management under the discretion of cardiology. The patient is currently in normal sinus rhythm but has been bradycardic. Therefore, his beta-eze and amiodarone were discontinued. 3. Obesity/history of obstructive sleep apnea/hyperlipidemia/anxiety/restless leg syndrome Complicates care, management, recovery and prognosis. The patient will require aggressive physical therapy once stabilized from a respiratory perspective. 4. Dissected AAA Patient appears to have a ruptured AAA that is acute in nature measuring 12 cm with dissection. Kunal discussion with the POA on the risks of transfer to a tertiary center for surgical intervention in addition to his COVID status. After review of the risks, benefits and alternatives, family would like to visit with the patient and then make him comfortable. Patient is currently fully anticoagulated secondary to COVID-19 status. This worsens prognostication of dissected AAA. TIME: 110 minutes of critical care time, independent of procedures, was spent addressing the patient's acute hypoxemic respiratory failure, acute COVID-19 infection, AAA, atrial fibrillation with rapid ventricular rate, review of all data and collaboration with the care team. (5:30 AM to 7:45 AM) 9xxxx: [id number] Critical care first hour Multi [employer] Codes - Hospitalists' Procedures Procedures: 37722 Critial Care Addl 30 Min - 2 [place] [id number] secondary to total critical care time of 110 minutes
--- NOTE | 2020-06-19 07:30 | NURSING ---
Family called in by d/t pt's change in condition. Family is here now to see pt. Pt is now DNRCC-A, with plans for DNRCC status once all family has gotten to see him. Pt continues to be mottled, tachycardic, febrile and unresponsive without sedation.
--- NOTE | 2020-06-19 07:45 | PCM.PN.HOSP ---
Reason for Visit: Follow-up on acute respiratory failure Subjective: Patient was seen and examined. Overnight, patient became more lethargic, sedation was switched off. CT of the brain was obtained -chronic involutional changes, no acute intracranial process. Patient was found to have abdominal distention, CTA of the chest, abdomen and pelvis were obtained. It showed a large infrarenal abdominal aortic aneurysm measuring approximately 12.1 x 10.4 x 13. There was no evidence of dissection or leak. CTA of the abdomen and pelvis showed fusiform aneurysmal dilatation over 13.5 cm long segment of the infrarenal abdominal aorta extending to the bifurcation. There was mild infiltration of retroperitoneal fat along the anterior right lateral aspect of the aneurysm which raises concern for a slow leakage Objective: Physical exam: General: - - Intubated, sedated, on mechanical ventilator, in mild respiratory distress HEENT: Atraumatic, PERRLA, EOMI, Normocephalic Oral: Dry Mucosa Neck: Supple Lungs: Diminished Cardiovascular: Regular rate, Regular Rhythm, Normal S1, Normal S2, No murmurs Abdomen: Bowel Sounds hypoactive, distended, soft, Non Tender, Non-Distended, No Hepato-splenomegaly Extremities: Edema - Bilateral pedal edema +1 Skin: No rashes, No breakdown Musculoskeletal: No Tenderness to Palpation of Joints or Extremities Lymphatic: No Cervical, Supraclavicular, or Inguinal Adenopathy Neurological: - - Patient is intubated Psych/Mental Status: Normal Affect, Appropriate Vitals/I&O's: Vital Signs Temp Pulse Resp BP Pulse Ox 102.8 F H 116 H 35 H 157/97 H 90 06/19/20 06:00 06/19/20 06:00 06/19/20 06:00 06/19/20 06:00 06/19/20 06:00 Oxygen Flow Rate (L/min) 60 Oxygen Delivery Method Mechanical Ventilator Weight: 129.2 kg Body Mass Index (BMI) 39.3 Intake and Output for Last 24 Hours 06/17/20 06/18/20 06/19/20 23:59 23:59 23:59 Intake Total 3186.67 / 3226.68 3343.44 / 3357.42 204.28 / 204.28 Output Total 1870 / 1870 3325 / 3375 250 / 250 Balance 1316.67 / 1356.68 18.44 / -17.58 -45.72 / -45.72 Microbiology Past 72 Hours 06/16/20 15:30 Blood Culture (Wb) - Anticubital Right Blood Culture - Preliminary No growth in 48 hours. 06/16/20 15:15 Blood Culture (Wb) - Pic Blood Culture - Preliminary No growth in 48 hours. 06/16/20 07:00 Sputum, Tracheal Aspirate Gram Stain - Final 06/16/20 07:00 Sputum, Tracheal Aspirate Respiratory Culture - Preliminary Streptococcus pneumoniae Presumptive C albicans 06/10/20 16:40 Blood Culture (Wb) - Anticubital Right Blood Culture - Final No growth in 5 days. 06/10/20 16:00 Blood Culture (Wb) - Anticubital Left Blood Culture - Final No growth in 5 days. Laboratory Results 06/18/20 04:15: Diff Path Review Reviewed 06/18/20 05:39: POC Glucose 93 06/18/20 06:43: Specimen Type ART, Sample Site L RADIAL, pH 7.49 H, Bicarbonate Actual 26.2 H, Total CO2 27, Base Excess 3 H, O2 Saturation 68 L, O2 % 100, ABG pCO2 34.4 L, ABG pO2 32 L*, Respiration Rate 12, O2 Delivery Device Vent, Vent Mode BILEVEL, Pressure High 26.0, Pressure Low 0.0, Time High 4.5, Time Low 0.5, Blood Gas Notified Whom ICU 06/18/20 11:07: POC Glucose 111 H 06/18/20 16:40: POC Glucose 195 H 06/18/20 22:54: POC Glucose 139 H 06/19/20 02:55: WBC 11.3 H, RBC 4.59 L, Hgb 14.0, Hct 44.7, MCV 97.4 H, MCH 30.5, MCHC 31.3 L, RDW Std Deviation 49.7 H, RDW Coeff of Ayde 14.0, Plt Count 356, MPV 9.6, Neut % (Auto) Not Reportable, Absolute Neuts (auto) 10.4 H, Absolute Lymphs (auto) 0.34 L, Total Counted 100, Neutrophils % (Manual) 83 H, Band Neutrophils % 9 H, Lymphocytes % (Manual) 3 L, Metamyelocytes % 3 H, Promyelocytes % 2 H, Differential Comment COMMENT, Diff Path Review May foll, Platelet Estimate ADEQUATE, RBC Morphology NORM C+C 06/19/20 02:55: Sodium 144, Potassium 4.0, Chloride 108 H, Carbon Dioxide 32.0, Anion Gap 4 L, BUN 22 H, Creatinine 0.85, Estim Creat Clear Calc 89.82, Est GFR (MDRD) Af Amer 115, Est GFR (MDRD) Non-Af 95, BUN/Creatinine Ratio 25.8 H, Glucose 153 H, Calcium 8.4 L, Phosphorus 2.6, Magnesium 2.9 H 06/19/20 05:02: POC Glucose 175 H Current Medications Acetaminophen (Tylenol) 650 mg RECTAL Q4H PRN PRN PRN Reason: Pain Score 1-10/10,temp >100.7 Last Admin: 06/11/20 05:51 Dose: 650 mg Documented by: Acetaminophen (Tylenol Liquid) 500 mg GT BID [facility] Last Admin: 06/18/20 22:55 Dose: 500 mg Documented by: Albuterol/Ipratropium (Duoneb) 3 ml INHALATION Q4H PRN PRN PRN Reason: SOB &/ WHEEZING Last Admin: 06/16/20 15:44 Dose: 3 ml Documented by: Buspirone HCl (Buspar) 30 mg GT BID [facility] Last Admin: 06/18/20 22:55 Dose: 30 mg Documented by: Chlorhexidine Gluconate () 15 ml PO BID [facility] Last Admin: 06/18/20 22:57 Dose: 15 ml Documented by: Dexamethasone Sodium Phosphate (Decadron) 6 mg IV DAILY [facility] Last Admin: 06/18/20 08:37 Dose: 6 mg Documented by: Dextrose (D50w Syringe) 0 gm IV X1 PRN; Protocol PRN Reason: Hypoglycemia Enoxaparin Sodium (Lovenox) 130 mg SC Q12 [facility] Last Admin: 06/18/20 22:56 Dose: 130 mg Documented by: Finasteride (Proscar) 5 mg PO DAILY [facility] Last Admin: 06/18/20 08:37 Dose: 5 mg Documented by: Glucagon () 1 mg IM .X1 PRN PRN Reason: Hypoglycemia Hydralazine HCl (Apresoline Iv) 10 mg IV Q4H PRN PRN PRN Reason: Sbp Greater Than 160 Last Admin: 06/19/20 03:27 Dose: 10 mg Documented by: Sodium Chloride () 250 mls @ 15 mls/hr IV .[id number] PRN PRN Reason: Saline Flush Last Admin: 06/19/20 05:40 Dose: 15 mls/hr Documented by: Sodium Chloride () 250 mls @ 15 mls/hr IV .[id number] PRN PRN Reason: Additional IVPB Infusion Propofol (Diprivan) 1,000 mg in 100 mls @ 7.944 mls/hr CONT INF .Q12H [facility]; Protocol Last Titration: 06/19/20 05:00 Dose: 0 mcg/kg/min, 0 mls/hr Documented by: Fentanyl () 100 mls @ 5 mls/hr CONT INF UD [facility]; Protocol Last Titration: 06/19/20 05:00 Dose: 0 mcg/hr, 0 mls/hr Documented by: Enteral Nutritional Formula (Vital Af 1.2 Lester Liquid) 1,000 mls @ 20 mls/hr GT .Q48H [facility] Last Admin: 06/15/20 15:05 Dose: Not Given Documented by: Pantoprazole Sodium 40 mg/ (Sodium Chloride) 110 mls @ 330 mls/hr IV Q12 [facility] Last Infusion: 06/18/20 23:05 Dose: Infused Documented by: Cefepime HCl 2 gm/ Sodium (Chloride) 100 mls @ 200 mls/hr IV Q8 [facility] Last Infusion: 06/19/20 05:39 Dose: Infused Documented by: Insulin Human Lispro (Humalog Kwikpen (Bkc)) 0 unit SC Q6 [facility]; Protocol Last Admin: 06/19/20 07:35 Dose: Not Given Documented by: Labetalol HCl (Trandate) 20 mg IV Q4H PRN PRN PRN Reason: SBP>159 Last Admin: 06/19/20 02:46 Dose: 20 mg Documented by: Metoprolol Tartrate (Lopressor (Beta Kirit)) 25 mg PO BID [facility] Last Admin: 06/18/20 22:56 Dose: 25 mg Documented by: Nitroglycerin (Nitrostat) 0.4 mg SUBLINGUAL Q5M PRN PRN Reason: CARDIAC/CHEST PAIN Ondansetron HCl (Zofran) 4 mg IV Q8H PRN PRN PRN Reason: NAUSEA/VOMITING Last Admin: 06/10/20 23:05 Dose: 4 mg Documented by: Pramipexole Dihydrochloride (Mirapex) 0.25 mg PO QHS [facility] Last Admin: 06/18/20 22:55 Dose: 0.25 mg Documented by: Pravastatin Sodium (Pravachol) 40 mg GT QHS [facility] Last Admin: 06/18/20 22:56 Dose: 40 mg Documented by: Senna/Docusate Sodium (Senokot-S, Marichuy-Colace) 2 tablet GT BID [facility] Last Admin: 06/18/20 22:54 Dose: 2 tablet Documented by: Sodium Chloride () 10 - 40 ml IV UD PRN PRN Reason: SALINE FLUSH Last Admin: 06/19/20 03:27 Dose: 20 ml Documented by: Venlafaxine HCl (Effexor) 37.5 mg NG BID [facility] Last Admin: 06/18/20 22:55 Dose: 37.5 mg Documented by: STROKE Vital Signs/Narrative: Vital Signs Temp Pulse Resp BP Pulse Ox 06/19/20 06:00 102.8 F H 116 H 35 H 157/97 H 90 06/19/20 05:45 102.8 F H 114 H 36 H 160/88 H 89 06/19/20 05:40 115 H 40 H 91 06/19/20 05:30 102.7 F H 113 H 37 H 157/95 H 89 06/19/20 05:15 102.7 F H 111 H 37 H 160/104 H 90 06/19/20 05:00 102.6 F H 108 H 30 H 159/91 H 97 06/19/20 04:05 101 H 181/125 H 06/19/20 04:00 101 H 31 H 186/124 H 93 Medical Necessity - Tobacco Use Smoking Status: Former smoker Assessment/Plan All Active Problems (Last Reviewed 09/28/19 @ 11:[address] 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 1. Incidental finding of a large 12 cm infrarenal abdominal aortic aneurysm with concern for slow leak Patient is not a candidate for surgery. Discussed with family by treer, CODE STATUS was a DNR CCA and a terminal wean planned 2. Acute hypoxic respiratory failure secondary to ARDS/acute COVID-19 pneumonia/streptococcal pneumonia remains intubated, Oxygen requirements remains high Repeat chest x-ray showed bilateral interstitial infiltrates/atelectasis. Status post convalescent plasma and remdesivir treatments Sputum cultures growing leukocoria pneumoniae. Started on IV vancomycin and cefepime. Also on IV dexamethasone. Continue on breathing treatments, fentanyl; and propofol drips. Commercial Loan Reviewer following. 2. Acute GI bleed, jacob in NG tube, likely secondary to stress gastritis On IV PPI, will continue same 3. A. fib with RVR, in normal sinus rhythm ,off amiodarone on account of bradycardia, continue on metoprolol 4. Severe sepsis secondary to COVID-19 infection/pneumonia(patient with sepsis and RADHA), improving 5. Acute kidney injury, prerenal secondary dehydration, resolved 6. Hypertension, controlled, blood pressure fluctuating, continue on metoprolol 7. Anxiety/depression/ continue on Effexor, BuSpar, 8. Hyperglycemia related to IV steroid use and tube feeds, HgbA1c 5.8 Continue on low dose insulin sliding scale with Q6 blood glucose checks 9. DVT PPx- on Lovenox twice daily 10. GI prophylaxis -on IV PPI Inpatient E&M: [id number] [facility] Hosp L3
--- NOTE | 2020-06-19 09:53 | CASEMGMT ---
Social Work Note SW participated in ICU rounds. Pt is going to be terminally extubated today. Pt's daughters Mayelin, Grecia and granddaughter Sherlyn (POA) at [facility] at this time. SW in to speak with pt's family. Provided support to pt's family. SW informed pt's family that if they want additional support or resources to let staff know and this worker will meet with them again. Pt's family state understanding. SW to remain available if needed. Kaylee Oleary WAREHOUSE HELPER, [employer] SET UP OPERATOR
[2020-06-19] MEDS: Morphine 4 MG/ML Syringe IV (10:00)
--- NOTE | 2020-06-19 10:12 | NURSING ---
Pt terminally extubated by PSN at 1012. Family at bedside immediately following extubation. Family support given. PRN Morphine given prior to extubation and Ativan has been administered as well.
[2020-06-19] MEDS: LORazepam 2 MG/ML Syringe IV (10:16)
--- NOTE | 2020-06-19 10:45 | NURSING ---
Pt w/no respirations, no apical pulse. Time of 1045, Dr Holley on unit.
[2020-06-19 12:12] LABS: Pathologist Review Reviewed
--- NOTE | 2020-06-19 13:52 | EXP.PCM_ITS ---
Preliminary Cause of COVID-19 infection and pneumonia, acute streptococcal pneumonia Date of Admission: 06/10/20 Date of : 06/19/20 - Principle Diagnosis Acute hypoxic respiratory failure ARDS Acute COVID-19 infection and pneumonia Acute streptococcal pneumonia Severe sepsis secondary to COVID-19 infection/pneumonia RADHA, pre-renal, related to the above Acute GI bleed Bleeding Abdominal aortic aneurysm A. fib with RVR Hyperglycemia secondary to acute steroid use Hospital Course 59-year-old male who has had a long protracted hospital course was admitted on 06/10/20 with shortness of breath. Patient was diagnosed with COVID-19 on 06/05/20 and also on 06/10/20. He had this diagnosis a couple of weeks prior to admission. He agreed to be admitted because he was progressively short of breath. He had associated chills. He was also found to have elevated creatinine of 1.5. In the ED, saturating 92% on 5 L. He had also gone into acute atrial fibrillation with RVR. Patient was managed in the ICU. Intensive care as well as cardiology were consulted. He was managed on IV fluids as well as Cardizem drip. Patient was started on BiPAP on 06/12/20. He was also started on amiodarone. His amiodarone was switched from IV to p.o. on 06/12/20. Converted into normal sinus rhythm on 06/13/20. Cardizem drip was weaned off; started on p.o. Cardizem. Patient was found to be desaturating when the BiPAP taken off momentarily. Since respiratory status decompensated and was intubated on 06/14/20. He was also eventually taken off Cardizem for bradycardia. Patient continued to require elevated amounts of oxygen, [facility] Sputum cultures came back positive for Streptococcus pneumoniae. Patient was started on IV vancomycin and cefepime. He continued to remain worse with poor prognosis. On 06/18/20 evening, patient had worsening lethargy, sedation was switched off. CT of the head was negative for acute intracranial process. Patient was examined by hotbed operator and concern for abdominal aortic aneurysm were raised. Patient had CTA of the chest and abdomen/pelvis that was concerning for a 12cm infrarenal abdominal mean aortic aneurysm with evidence of a slow leak. Family were updated and CODE STATUS changed to DNR CC. They agreed to a terminal wean. He was terminally extubated at 1012. Family at bedside immediately following extubation. Patient passed at 10:45am Inpatient E&M: [id number] [facility]
== END 2020-06-19 10:45 | DRG 870 ==
LOC: ED 15:12 → ICU 19:07
PROVIDERS: Family Medicine; Internal Medicine; Internal Medicine Critical Care Medicine; Internal Medicine Infectious Disease; Admitting Provider Student in an Organized Health Care Education/Training Program; Emergency Provider Emergency Medicine; PCP Family Medicine; Visit Provider Internal Medicine
DX: A41.89 Other specified sepsis (principal); U07.1 COVID-19; J13 Pneumonia due to Streptococcus pneumoniae; J96.01 Acute respiratory failure with hypoxia; I71.02 Dissection of abdominal aorta; N17.9 Acute kidney failure, unspecified; K92.1 Melena; J98.11 Atelectasis; R65.20 Severe sepsis without septic shock; I48.0 Paroxysmal atrial fibrillation; R73.9 Hyperglycemia, unspecified; T38.0X5A Adverse effect of glucocorticoids and synthetic analogues, initial encounter; I10 Essential (primary) hypertension; F32.9 Major depressive disorder, single episode, unspecified; F41.9 Anxiety disorder, unspecified; G25.81 Restless legs syndrome; G47.33 Obstructive sleep apnea (adult) (pediatric); E78.5 Hyperlipidemia, unspecified; E78.1 Pure hyperglyceridemia; E86.0 Dehydration; E66.9 Obesity, unspecified; Z68.39 Body mass index [BMI] 39.0-39.9, adult; Z87.891 Personal history of nicotine dependence; Z79.01 Long term (current) use of anticoagulants; Z66 Do not resuscitate
CPT/HCPCS: 31500; 31720; 36415; 36569; 36600; 70450; 71045; 71275; 74174; 80048; 80053; 80076; 80202; 81001; 82550; 82728; 82803; 82962; 83036; 83605; 83615; 83735; 83880; 84100; 84145; 84443; 84478; 84484; 85025; 85379; 85384; 85610; 85730; 86140; 86644; 86850; 86900; 86901; 87040; 87070; 87077; 87086; 87088; 87106; 87186; 87205; 87449; 87635; 93005; 94002; 94003; 94640; 94760; 97802; 97803; 99251; 99285; G2023; J7030; J7040; J7050; J7120; Q9967; A4216; G0463; J1940; J2405; J3490; U0003